=== PATIENT | female | born 1975 | race Two or more races ===

== ENCOUNTER 2020-05-13 14:56 | Outpatient (REF) | payer MEDICAID, SELFPAY ==
--- NOTE | 2020-05-13 | US_ITS ---
EXAMINATION: PELVIC ULTRASOUND CLINICAL INFORMATION: Right ovarian cyst COMPARISON: None TECHNIQUE: Transabdominal and transvaginal pelvic ultrasound was performed. Transvaginal exam was performed for better visualization of the uterus and ovaries. FINDINGS: The uterus is anteverted and measures 8.8 x 4.7 x 6.3 cm in dimension. There is a 2.1 x 1.5 x 1.5 cm hypoechoic lesion in the left anterior uterine body or lower uterine segment suggestive of a fibroid. No other focal uterine lesion is seen. Endometrial thickness is normal estimated at 0.7 cm. The ovaries are normal-appearing. The right ovary measures 3.3 x 3.3 x 1.1 cm and the left ovary measures 2.6 x 2.9 x 1.2 cm. There is no fluid in the pelvis. US/US pelvic complete IMPRESSION: Small uterine fibroid. Normal-appearing ovaries. No ovarian cyst is seen.
--- NOTE | 2020-05-13 | US_ITS ---
EXAMINATION: PELVIC ULTRASOUND CLINICAL INFORMATION: Right ovarian cyst COMPARISON: None TECHNIQUE: Transabdominal and transvaginal pelvic ultrasound was performed. Transvaginal exam was performed for better visualization of the uterus and ovaries. FINDINGS: The uterus is anteverted and measures 8.8 x 4.7 x 6.3 cm in dimension. There is a 2.1 x 1.5 x 1.5 cm hypoechoic lesion in the left anterior uterine body or lower uterine segment suggestive of a fibroid. No other focal uterine lesion is seen. Endometrial thickness is normal estimated at 0.7 cm. The ovaries are normal-appearing. The right ovary measures 3.3 x 3.3 x 1.1 cm and the left ovary measures 2.6 x 2.9 x 1.2 cm. There is no fluid in the pelvis. US/US transvaginal IMPRESSION: Small uterine fibroid. Normal-appearing ovaries. No ovarian cyst is seen.
== END 2020-05-13 14:57 | disposition home or self-care (01) ==
LOC: HO.US 14:56
PROVIDERS: PCP Internal Medicine Medical Oncology; Visit Provider Internal Medicine Medical Oncology
DX: N83.201 Unspecified ovarian cyst, right side (principal)
CPT/HCPCS: 76830; 76856

== ENCOUNTER 2021-03-25 10:44 | Outpatient (REF) | payer MEDICAID, SELFPAY ==
--- NOTE | ~2021-03-25 | FL_ITS ---
EXAMINATION: Upper GI air-contrast series CLINICAL INFORMATION: Right upper quadrant abdominal pain COMPARISON: None TECHNIQUE: Routine upper GI air-contrast study was performed in upright and lying position. FINDINGS: Following oral administration of thick barium and effervescent granules there is normal propagation bolus from the oral cavity through the pharynx, esophagus into stomach without any evidence of obstruction, narrowing or stricture. On placing patient supine and prone, the course, caliber and peristalsis of the stomach and the duodenum is normal there is mild gastroesophageal reflux into the distal esophagus. No hiatal hernia seen. The mucosal pattern of stomach and the duodenum is normal. FLUOROSCOPY TIME: 2.0 minutes DOSE AREA PRODUCT: 12.312 uGy-m2 (microgray-meter squared) FL/FL upper GI series IMPRESSION: Mild gastroesophageal reflux without hiatal hernia.
== END 2021-03-25 10:45 | disposition home or self-care (01) ==
LOC: HO.XRAY 10:44
PROVIDERS: Visit Provider Internal Medicine Medical Oncology
DX: R10.11 Right upper quadrant pain (principal); R19.7 Diarrhea, unspecified
CPT/HCPCS: 74240

== ENCOUNTER 2021-03-30 09:46 | Outpatient (REF) | payer MEDICAID, SELFPAY ==
--- NOTE | ~2021-03-30 | US_ITS ---
EXAMINATION: US ABDOMEN COMPLETE CLINICAL INFORMATION: Right upper quadrant pain. Diarrhea. COMPARISON: None. TECHNIQUE: Real-time imaging of the abdominal viscera. FINDINGS: PANCREAS: Normal. ABDOMINAL AORTA: The proximal, mid, and distal segments are normal in caliber. INFERIOR VENA CAVA: Visualized portions are normal. LIVER: The liver is normal in size. The liver contour is normal. Parenchymal echogenicity is normal. This septated right hepatic lobe cyst measuring 3.6 x 1.8 x 3.1 cm. There is no intrahepatic biliary duct dilatation seen. GALLBLADDER: The gallbladder is contracted. COMMON BILE DUCT: Normal in caliber measuring 0.14 cm in diameter. RIGHT KIDNEY: Normal. No hydronephrosis. No renal calculi or focal parenchymal lesions. The kidney measures 11.4 cm in maximum dimension. LEFT KIDNEY: No hydronephrosis or focal parenchymal lesions. The kidney measures 11.0 cm in maximum dimension. There is an echogenic stone in the upper pole measuring 0.26 x 0.19 x 0.24 cm. SPLEEN: Normal. The spleen measures 9.3 cm in maximum dimension. FREE FLUID: None. US/US abdomen complete IMPRESSION: Septated right hepatic lobe cyst. The gallbladder is contracted. Echogenic stone in upper pole measuring 0.26 cm.
== END 2021-03-30 09:47 | disposition home or self-care (01) ==
LOC: HO.HMGCX 09:46
PROVIDERS: Visit Provider Internal Medicine Medical Oncology
DX: R10.11 Right upper quadrant pain (principal); R19.7 Diarrhea, unspecified
CPT/HCPCS: 76700

== ENCOUNTER → 2021-04-28 07:45 | Outpatient (REF) | payer MEDICAID, SELFPAY ==
--- NOTE | ~2021-04-28 | NM_ITS ---
EXAMINATION: NM BILIARY TRACT WITH ORAL FATTY MEAL CLINICAL INFORMATION: Cholecystitis, abnormal weight loss. COMPARISON: No previous biliary scan is available for comparison. Abdominal ultrasound dated 03/30/2021 is available for comparison. TECHNIQUE: Serial gamma scintillation camera images were obtained over the abdomen for a total observation period of 120 minutes following the intravenous administration of 5.0 mCi Tc-99m Mebrofenin. FINDINGS: There is good concentration of activity in the liver by 5 minutes post injection. Biliary activity is visualized by 12 minutes and the gallbladder is well visualized by 20 minutes post injection. Bowel activity is well visualized by 30 minutes. At 60 minutes post Mebrofenin injection, 8 ounces of Ensure-plus Brand was administered orally and an additional 60 minutes of images were obtained. Only minimal gallbladder emptying is visualized following ingestion of the fatty meal. At the end of the study there is almost complete clearance of activity from the liver and visualization of diffuse small bowel activity, but there is prominent retention of activity in the gallbladder. The calculated gallbladder ejection fraction is 32% (normal gallbladder ejection fraction using Ensure supplement orally is greater than 33%). NM/NM hepatobiliary wo pharm IMPRESSION: 1. Visualization of the gallbladder is evidence of a patent cystic duct and strong evidence against the diagnosis of acute cholecystitis. The common bile duct is patent. Liver function appears normal. 2. Poor gallbladder emptying and a low gallbladder ejection fraction are evidence of impaired gallbladder contractility and most likely due to chronic cholecystitis.
== END ==
LOC: HO.NUCMED 07:45
PROVIDERS: Visit Provider Internal Medicine Medical Oncology
DX: K81.9 Cholecystitis, unspecified (principal)
CPT/HCPCS: 78226; A9537

== ENCOUNTER → 2021-06-25 16:16 | Outpatient (BNVA) | payer MEDICAID, SELFPAY | PROVIDERS: PCP Internal Medicine Medical Oncology; Visit Provider Nurse Practitioner | DX: R10.10 Upper abdominal pain, unspecified (principal); K82.8 Other specified diseases of gallbladder; K59.04 Chronic idiopathic constipation | CPT/HCPCS: 99202 ==

== ENCOUNTER 2021-07-11 07:46 | Outpatient (REF) | payer MEDICAID, SELFPAY ==
[2021-07-11 08:03] LABS: MANUAL DIFF FLAG NO
[2021-07-11 08:15] LABS: Basophils Percent Auto 0.5 % (0-2); Eosinophils Absolute Auto 0.3 X10*3/uL (0.0-0.4); Eosinophils Percent Auto 4.3 % (0-4); Hematocrit 39.1 % (37.0-47.0); Imm Gran Abs Auto 0.03 X10*3/uL (0.00-0.03); Imm Gran Pct Auto 0.5 % (0.0-0.4); Lymphocytes Absolute Auto 1.5 X10*3/uL (1.2-4.9); Lymphocytes Percent Auto 22.9 % (20-40); Mean Corpuscular HGB Conc 33.2 g/dl (31.0-35.0); Mean Corpuscular Hemoglobin 29.7 pg (27.0-33.0); Mean Corpuscular Volume 89.5 fL (80.0-98.0); Monocytes Absolute Auto 0.6 X10*3/uL (0.1-1.2); Monocytes Percent Auto 9.4 % (2-11); Neutrophils Absolute Auto 4.1 x10*3/uL (2.0-8.3); Neutrophils Percent Auto 62.4 % (45-73); Platelet Count 176 X10*3/uL (160-400); Red Blood Count 4.37 X10*6/uL (4.20-5.50); Red Cell Distribution Width 12.6 % (11.0-16.0); White Blood Count 6.5 X10*3/uL (4.8-10.8)
[2021-07-11 08:48] LABS: Alanine Aminotransferase < 6 U/L (0-31); Albumin Level 4.1 g/dL (3.5-5.0); Alkaline Phosphatase 48 U/L (39-117); Anion Gap 9 (12-20); Aspartate Amino Transferase 11 U/L (5-31); Bilirubin Total 0.4 mg/dL (0.0-1.0); Blood Urea Nitrogen 11 mg/dL (9-16); Calcium 9.7 mg/dL (8.4-10.2); Carbon Dioxide 27 mmol/L (22-29); Chloride 109 mmol/L (96-108); Estimated Glomerular Filt Rate > 60; Glucose Random 99 mg/dL (60-115); Lipase 46 U/L (8-78); Potassium 4.5 mmol/L (3.3-5.1); Sodium 140 mmol/L (135-145); Total Protein 6.5 g/dL (6.5-8.0)
[2021-07-11 09:05] LABS: TSH reflex Free T4 1.73 uIU/mL (0.32-4.0)
== END 2021-07-11 07:47 | disposition home or self-care (01) ==
LOC: HO.LAB 07:46
PROVIDERS: PCP Internal Medicine Medical Oncology; Visit Provider Nurse Practitioner
DX: R10.10 Upper abdominal pain, unspecified (principal); K82.8 Other specified diseases of gallbladder; K59.04 Chronic idiopathic constipation
CPT/HCPCS: 36415; 80053; 83690; 84443; 85025

== ENCOUNTER → 2021-07-14 15:57 | Outpatient (BNVA) | payer MEDICAID, SELFPAY | PROVIDERS: PCP Internal Medicine Medical Oncology; Referring Provider Internal Medicine Medical Oncology; Visit Provider Nurse Practitioner | DX: K59.04 Chronic idiopathic constipation (principal); R10.10 Upper abdominal pain, unspecified | CPT/HCPCS: 99212 ==

== ENCOUNTER 2021-09-30 16:34 | Outpatient (REF) | payer MEDICAID, SELFPAY ==
--- NOTE | ~2021-09-30 | MR_ITS ---
EXAMINATION: MR CERVICAL SPINE WITHOUT CONTRAST CLINICAL INFORMATION: 46-year-old with neck pain and cervical radicular symptoms with muscle spasm. COMPARISON: 06/02/2019 MRI TECHNIQUE: MRI of the cervical spine was obtained using routine sequences without contrast. FINDINGS: ALIGNMENT: There is 1 to 2 mm of anterolisthesis at C3-C4, which is a new finding and approximately 2 mm of anterolisthesis at C4-C5, unchanged. There is trace retrolisthesis at C5-C6. CRANIOCERVICAL JUNCTION/C1-C2 ARTICULATIONS: There is slight retrolisthesis at the left C1-C2 facet joint which is nonspecific and could be positional or related to muscle spasm. The occipitoatlantal joints are intact and aligned. VISUALIZED INTRACRANIAL STRUCTURES: Within normal limits. VERTEBRAL BODIES: Normal height. DISC SPACES AND ENDPLATES: Kqpq-cg-lwqoxlyw disc space height loss at C4-C5 and C5-C6 and ykczunft-ln-cfcnmv disc space height loss at C6-C7 with minor degrees of spondylosis at these levels and multilevel disc desiccation. Tiny Schmorl's nodes are noted at C5-C6 and C6-C7. BONE MARROW: No significant marrow replacing process. Subchondral marrow edema noted on both sides of the left C3-C4 facet joint consistent with active facet arthropathy. Mild degenerative endplate marrow signal changes are seen at C5-C6 and C6-C7. C2-C3: No disc herniation. Mild left-sided facet arthropathy noted. No canal or neural foraminal stenosis. C3-C4: Slight unroofing of the posterior disc margin and a tiny central disc protrusion with minimal indentation of the ventral thecal sac without cord impingement or canal stenosis. Severe left-sided and huxpyqam-zt-vcdoim right-sided facet arthropathy with marrow edema on both sides of the left facet joint with associated periarticular soft tissue edema consistent with active inflammatory changes. No significant neural foraminal stenosis. C4-C5: Unroofing of the posterior disc margin noted with slight flattening of the ventral dural sac without cord impingement or canal stenosis. Srevjube-mm-cquiol bilateral facet arthropathy is noted without significant neural foraminal stenosis. C5-C6: Broad-based central to right paramedian disc protrusion noted, with gmjz-uq-whpuclap flattening of the dural sac, asymmetric to the right, without cord impingement or canal stenosis. Moderate facet arthropathy bilaterally noted with minor uncinate process spurring without significant neural foraminal stenosis. C6-C7: Broad-based central to left paramedian disc herniation noted with mrgl-or-ujudxbsa flattening of the dural sac, asymmetric to the left, without cord impingement. Uncovertebral spurring noted, left more than right, with neic-jo-kkncuxzp facet arthropathy bilaterally and moderate left-sided neural foraminal stenosis without canal stenosis. C7-T1: Small central disc protrusion with minimal indentation of the ventral thecal sac without cord impingement. Minor facet arthrosis on the left. No canal or neural foraminal stenosis. T1-T2: No disc herniation or canal stenosis. Qrue-am-grxpfueo facet arthropathy, left more than right. No canal or neural foraminal stenosis. Small central disc protrusions are noted at T2-T3 and T3-T4 without cord impingement or canal stenosis. SPINAL CORD: The cervical and visualized upper thoracic spinal cord is normal in morphology, caliber and signal intensity throughout. EXTRACRANIAL SOFT TISSUES: Grossly unremarkable within the limitations of the exam. MR/MR cervical spine wo con IMPRESSION: 1. Multilevel discogenic degenerative changes and spondylosis primarily between C4-C5 and C6-C7 inclusive, with disc herniations at C5-C6 and C6-C7 without spinal cord impingement or spinal canal stenosis. 2. Multilevel bilateral facet arthropathy and uncovertebral spurring with active inflammatory changes at the left C3-C4 facet joint, progressed from previous study. There has been improvement of inflammatory changes at the right C3-C4 facet joint since prior exam. Moderate left-sided neural foraminal stenosis is noted at C6-C7. 3. Comparison to the study from 06/02/2019 demonstrates a slight improvement to the left paramedian component of the disc protrusion at C6-C7 but otherwise essentially no interval change aside from new mild anterolisthesis at C3-C4.
== END 2021-09-30 16:35 | disposition home or self-care (01) ==
LOC: HO.MRI 16:34
PROVIDERS: Visit Provider Internal Medicine Medical Oncology
DX: M54.12 Radiculopathy, cervical region (principal)
CPT/HCPCS: 72141

== ENCOUNTER 2022-01-01 08:50 | Outpatient (REF) | payer MEDICAID, SELFPAY ==
--- NOTE | ~2022-01-01 | FL_ITS ---
EXAMINATION: FL BARIUM SWALLOW CLINICAL INFORMATION: Dysphagia, burning sensation base of the throat. COMPARISON: Upper GI series 03/25/2021. TECHNIQUE: Barium swallow examination is performed using fluoroscopic evaluation in addition to multiple fluoroscopic spot views, including cine images during swallowing. The patient is imaged both upright and prone and using both thick and thin sulfate along with effervescent granules. Fluoroscopy time: 1.1 minutes DAP: 2.359 Gycm2 Images: 33 FINDINGS: Swallowing function is normal and there is no aspiration. The cervical esophagus has no web or diverticulum or stricture. The cervical thoracic junction appears normal. The thoracic esophagus shows normal motility with no obstruction, stricture, or ulceration. There is physiologic herniation esophagogastric junction during the prone Valsalva maneuver. No overt hernia. There is spontaneous gastroesophageal reflux during fluoroscopy to proximal thoracic esophagus. FL/FL barium swallow IMPRESSION: -Spontaneous gastroesophageal reflux to proximal thoracic esophagus. -Borderline physiologic herniation esophagogastric junction during prone Valsalva maneuver. No overt hiatal hernia. No ulceration or scarring.
== END 2022-01-01 08:51 | disposition home or self-care (01) ==
LOC: HO.XRAY 08:50
PROVIDERS: PCP Internal Medicine Medical Oncology; Visit Provider Internal Medicine Medical Oncology
DX: R13.10 Dysphagia, unspecified (principal)
CPT/HCPCS: 74220

== ENCOUNTER 2022-11-22 15:18 | Outpatient (AMB) | payer BC, SELFPAY ==
--- NOTE | 2022-11-22 15:24 | MHC.OFFVIS ---
Intake Vital Signs 11/22/22 15:25 Height 5 ft Weight 129 lb BMI 25.2 BP 119/68 Blood Pressure Location Lt brachial Position Sitting Respiration 14 Pulse 58 Pulse Source Pulse Oximeter Pulse Oximetry (%) 98 Oxygen Delivery Method Room Air Intake Visit Reasons: Cervical Disc Disease w/ Radiculopathy Allergies No Known Allergies Allergy (Verified 11/22/22 15:26) Medication List - Last Reconciled 11/22/22 by Li Patino LPN duloxetine 20 mg PO BID linaclotide (Linzess) 145 mcg PO QAM naproxen 500 mg PO BID HPI Cervical Disc Disease w/ Radiculopathy HPI Details 47-year-old female presenting with a two-year history of neck pain without any known precipitating cause. The pain is described as a burning and aching sensation associated with some tingling as well as numbness mostly localized to the axial neck. Her pain is worse on the right side most of the time; it is between 5-7/10, but it goes up to 9/10 in intensity, and it is worst at night and when she first wakes up. She is unable to sleep normally or do her daily activities. She is unable to care for herself. 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 She's had physical therapy at [facility] last year for her neck and shoulders, but it was not helpful. She sometimes needs help bathing. She had trigger point injections at [facility] on her left trapezius, which were too painful and did not help. She was taking her oxycodone at 5 milligrams prescribed by her PCP but is no longer taking those. The patient lives alone but has social support with frequent visits by her kids. [facility] Medical History (Updated 11/23/22 @ 10:44 by Sukhjinder Morris MD) Anxiety Cervical radiculopathy Depression, unspecified Esophageal motility disorder GERD (gastroesophageal reflux disease) Hepatic cyst Herniated intervertebral disc of lumbar spine Hiatal hernia PTSD (post-traumatic stress disorder) Tobacco dependence Surgical History (Updated 06/25/21 @ 16:28 by MALCOM Dodson) History of endoscopy Review of Systems Const All systems reviewed & are unremarkable except as noted in HPI and below Physical Exam Vital Signs: Last Vital Signs Pulse 58 11/22/22 15:25 Resp 14 11/22/22 15:25 BP 119/68 11/22/22 15:25 Pulse Ox 98 11/22/22 15:25 Oxygen Delivery Method Room Air 11/22/22 15:25 BMI result Body Mass Index 25.2 General: Appears afebrile. Alert and oriented. Mood and affect appropriate. Follows and participates in conversation appropriately. Respiratory effort is unlabored. Able to transition from sit to stand unassisted. Ambulates with bilaterally normal heel strike and toe off. Cervical spine: There is exquisite tenderness to palpation on the right cervical paraspinal region. Tenderness to palpation overlying the right trapezius muscle. Neck extension reproduces pain on right side. Cervical facet loading is positive on the right. Results Reviewed Results Reviewed: MR CERVICAL SPINE WITHOUT CONTRAST FINDINGS: ALIGNMENT: There is 1 to 2 mm of anterolisthesis at C3-C4, which is a new finding and approximately 2 mm of anterolisthesis at C4-C5, unchanged. There is trace retrolisthesis at C5-C6. CRANIOCERVICAL JUNCTION/C1-C2 ARTICULATIONS: There is slight retrolisthesis at the left C1-C2 facet joint which is nonspecific and could be positional or related to muscle spasm. The occipitoatlantal joints are intact and aligned. VISUALIZED INTRACRANIAL STRUCTURES: Within normal limits. VERTEBRAL BODIES: Normal height. DISC SPACES AND ENDPLATES: Aaiq-ky-hdenfsrk disc space height loss at C4-C5 and C5-C6 and quhepobx-nn-gxavro disc space height loss at C6-C7 with minor degrees of spondylosis at these levels and multilevel disc desiccation. Tiny Schmorl's nodes are noted at C5-C6 and C6-C7. BONE MARROW: No significant marrow replacing process. Subchondral marrow edema noted on both sides of the left C3-C4 facet joint consistent with active facet arthropathy. Mild degenerative endplate marrow signal changes are seen at C5-C6 and C6-C7. C2-C3: No disc herniation. Mild left-sided facet arthropathy noted. No canal or neural foraminal stenosis. C3-C4: Slight unroofing of the posterior disc margin and a tiny central disc protrusion with minimal indentation of the ventral thecal sac without cord impingement or canal stenosis. Severe left-sided and pgvhlfvc-id-hgtpni right-sided facet arthropathy with marrow edema on both sides of the left facet joint with associated periarticular soft tissue edema consistent with active inflammatory changes. No significant neural foraminal stenosis. C4-C5: Unroofing of the posterior disc margin noted with slight flattening of the ventral dural sac without cord impingement or canal stenosis. Lsixakaf-rk-awiikk bilateral facet arthropathy is noted without significant neural foraminal stenosis. C5-C6: Broad-based central to right paramedian disc protrusion noted, with csrj-ip-ykmhzocu flattening of the dural sac, asymmetric to the right, without cord impingement or canal stenosis. Moderate facet arthropathy bilaterally noted with minor uncinate process spurring without significant neural foraminal stenosis. C6-C7: Broad-based central to left paramedian disc herniation noted with mrmm-nx-thhsrlnr flattening of the dural sac, asymmetric to the left, without cord impingement. Uncovertebral spurring noted, left more than right, with cxql-va-oubbpviu facet arthropathy bilaterally and moderate left-sided neural foraminal stenosis without canal stenosis. C7-T1: Small central disc protrusion with minimal indentation of the ventral thecal sac without cord impingement. Minor facet arthrosis on the left. No canal or neural foraminal stenosis. T1-T2: No disc herniation or canal stenosis. Ojen-vc-vkfsragr facet arthropathy, left more than right. No canal or neural foraminal stenosis. Small central disc protrusions are noted at T2-T3 and T3-T4 without cord impingement or canal stenosis. SPINAL CORD: The cervical and visualized upper thoracic spinal cord is normal in morphology, caliber and signal intensity throughout. EXTRACRANIAL SOFT TISSUES: Grossly unremarkable within the limitations of the exam. IMPRESSION: 1. Multilevel discogenic degenerative changes and spondylosis primarily between C4-C5 and C6-C7 inclusive, with disc herniations at C5-C6 and C6-C7 without spinal cord impingement or spinal canal stenosis. 2. Multilevel bilateral facet arthropathy and uncovertebral spurring with active inflammatory changes at the left C3-C4 facet joint, progressed from previous study. There has been improvement of inflammatory changes at the right C3-C4 facet joint since prior exam. Moderate left-sided neural foraminal stenosis is noted at C6-C7. 3. Comparison to the study from 06/02/2019 demonstrates a slight improvement to the left paramedian component of the disc protrusion at C6-C7 but otherwise essentially no interval change aside from new mild anterolisthesis at C3-C4. Assessment & Plan Assessment & Plan (1) Cervical spondylosis: Code(s): M47.812 - Spondylosis without myelopathy or radiculopathy, cervical region (2) Degeneration of intervertebral disc of cervical region: Code(s): M50.30 - Other cervical disc degeneration, unspecified cervical region Plan 1. Discussed cervical facet injection vs. RFA vs. temporary nerve stimulator as possible treatment options. While she has evidence of intervertebral disc degeneration on her MRI, there is no neural foraminal or central canal stenosis. She also does not have any symptoms of cervical radiculitis. Therefore her symptoms are likely to be mostly secondary to cervical spondylosis. 2. Will schedule her for a C4-C5-C6 medial branch blocks on the right side in anticipation of potential cervical medial branch nerve stimulator placement. Discussed the risks and benefits of the procedure with the patient in detail. All questions were answered. The patient is on board with the plan. A nerve stimulator information brochure was provided to the patient. Justification for interventional therapy: ? Patient with average pain > 6/10 ? Patient has exhausted conservative therapy. Scribed for Dr. Morris by Jose Burns, manager medical device, on 11/22/2022. I, Dr. Morris, have personally reviewed and agree with the information entered by the scribe. Coding Level of Care Code New Pt Level 4 (05475) Diagnoses Cervical spondylosis M47.812 Degeneration of intervertebral disc of cervical region M50.30
[2022-11-22 15:25] VITALS: BP 119/68; PULSE 58; RESP 14; O2SAT 98; BMI 25.2
== END 2022-11-22 16:26 | disposition home or self-care (01) ==
PROVIDERS: PCP Internal Medicine Medical Oncology; Visit Provider Internal Medicine
DX: M47.812 Spondylosis without myelopathy or radiculopathy, cervical region (principal); M50.30 Other cervical disc degeneration, unspecified cervical region
CPT/HCPCS: 99204

== ENCOUNTER → 2022-11-22 15:18 | Outpatient (BNVA) | payer BC, SELFPAY | PROVIDERS: PCP Internal Medicine Medical Oncology; Visit Provider Internal Medicine | DX: M47.812 Spondylosis without myelopathy or radiculopathy, cervical region (principal); M50.30 Other cervical disc degeneration, unspecified cervical region | CPT/HCPCS: 99202 ==

== ENCOUNTER 2022-12-22 06:04 | Outpatient (REF) | payer BC, SELFPAY ==
--- NOTE | ~2022-12-22 | FL_ITS ---
EXAMINATION: XR FLUOROSCOPY WITH IMAGES CLINICAL INFORMATION: Spondylosis without myelopathy or radiculopathy, cervical region. COMPARISON: MRI cervical spine 06/02/2019. TECHNIQUE: Fluoroscopy Supervised By: Dr. Morris. Fluoroscopy Time: 0.3 minutes. Cumulative Dose: 1.92 mGy. DAP: 0.221 Gycm2. Images: 2. FINDINGS: 2 images demonstrate needles overlying the right-sided facets at most likely C4 through C6, although this is difficult to ascertain from the included views. Contrast is injected. Please see Dr. Morris's report for full details. FL/FL guidance in treatment room IMPRESSION: Fluoroscopy provided for cervical spine injection.
== END 2022-12-22 06:05 | disposition home or self-care (01) ==
LOC: CF 06:04
PROVIDERS: Visit Provider Internal Medicine
DX: M47.812 Spondylosis without myelopathy or radiculopathy, cervical region (principal); M50.30 Other cervical disc degeneration, unspecified cervical region
CPT/HCPCS: 64490; 64491

== ENCOUNTER 2022-12-22 09:38 | Outpatient (AMB) | payer BC, SELFPAY ==
[2022-12-22 09:50] VITALS: BP 102/68; PULSE 75; RESP 14; O2SAT 99
--- NOTE | 2022-12-22 09:50 | MHC.OFFVIS ---
Intake Vital Signs 12/22/22 09:50 12/22/22 10:40 BP 102/68 120/60 Blood Pressure Location Lt brachial Rt brachial Position Sitting Sitting Respiration 14 14 Pulse 75 62 Pulse Source Pulse Oximeter Pulse Oximeter Pulse Oximetry (%) 99 99 Oxygen Delivery Method Room Air Room Air Intake Visit Reasons: Right Dx C4-C5-C6 MBB Allergies No Known Allergies Allergy (Verified 11/22/22 15:26) HPI Right Dx C4-C5-C6 MBB HPI Details Patient presents for scheduled procedure. Denies any recent cough, cold, infection, fever or other significant changes in medical history since last office visit. [facility] Medical History (Updated 11/23/22 @ 10:44 by Sukhjinder Morris MD) Anxiety Cervical radiculopathy Depression, unspecified Esophageal motility disorder GERD (gastroesophageal reflux disease) Hepatic cyst Herniated intervertebral disc of lumbar spine Hiatal hernia PTSD (post-traumatic stress disorder) Tobacco dependence Surgical History (Updated 06/25/21 @ 16:28 by MALCOM Dodson) History of endoscopy Physical Exam Vital Signs: Last Vital Signs Pulse 75 12/22/22 09:50 Resp 14 12/22/22 09:50 BP 102/68 12/22/22 09:50 Pulse Ox 99 12/22/22 09:50 Oxygen Delivery Method Room Air 12/22/22 09:50 Office Procedures Cervical/Thoracic Facet Inj Details: Diagnostic Cervical Medial Branch Block, Right C4, C5, C6 medial branches After obtaining written consent, pre-procedure blood pressure and pulse were recorded and are in the nursing record for review. The patient was placed in a lateral position. The respective cervical area was prepped with chloraprep and draped in sterile fashion. The skin over the target medial branch nerves was anesthetized with 0.5% lidocaine. A 25 gauge 1.5 inch needle was inserted into the target medial branch nerve under fluoroscopic guidance. No paresthesias were elicited with needle placement and aspiration was negative for blood and CSF. Next, 0.2cc of Isovue 300 mg/ml was injected to verify positioning. Next 0.5 ml 0.5% ropivicaine was injected (0.5 cc total per level). The identical procedure was performed at the remaining levels. The skin was cleansed and a sterile bandage was applied. Following the procedure the patient's vital signs were stable. The patient tolerated the procedure well and no complications were encountered. Following the procedure the patient's vital signs were stable. The patient was discharged home in good condition with post-procedural instructions. Time Out: Immediately prior to the procedure, the following was verbally confirmed that there is a signed consent form and that the correct patient, planned procedure, site and side are consistent with documentation and that necessary equipment and/or blood products are available prior to the start of the case. Complications: none EBL: <5 cc 37245 - second level, with Fluoroscopy Procedure code (CPT) selection complete Results Reviewed Results Reviewed: 12/22/22 09:44 LORazepam [Ativan] 1 mg .ROUTE .[facility] Assessment & Plan Assessment & Plan (1) Cervical spondylosis: Code(s): M47.812 - Spondylosis without myelopathy or radiculopathy, cervical region Plan Patient is status post right C4, C5, C6 MBB. Patient tolerated procedure well and was discharged home in stable condition with discharge instructions. All questions were answered. We will follow-up via telephone or in clinic to assess response to therapy. A follow-up appointment was made during today's visit. Orders: Orders FL guidance in treatment room Today M47.812 - Spondylosis without myelopathy or radiculopathy, cervical region, M50.30 - Other cervical disc degeneration, unspecified cervical region Coding Level of Care Code Procedure Only Diagnoses Cervical spondylosis M47.812 CPT Codes Facet Injection Cervical/Thoracic - CPT: 29999 - second level, with Fluoroscopy ([id number])
[2022-12-22 10:40] VITALS: BP 120/60; PULSE 62; RESP 14; O2SAT 99
== END 2022-12-22 11:00 | disposition home or self-care (01) ==
PROVIDERS: PCP Internal Medicine Medical Oncology; Visit Provider Internal Medicine
DX: M47.812 Spondylosis without myelopathy or radiculopathy, cervical region (principal)
CPT/HCPCS: 64490; 64491

== ENCOUNTER 2022-12-27 10:56 | Outpatient (AMB) | payer BC, SELFPAY ==
[2022-12-27 11:08] VITALS: BP 122/74; PULSE 71; RESP 14; BMI 24.8
--- NOTE | 2022-12-27 11:08 | A.OFFVIS_ITS ---
Intake Vital Signs 12/27/22 11:08 Height 5 ft Weight 127 lb BMI 24.8 BP 122/74 Blood Pressure Location Lt brachial Position Sitting Respiration 14 Pulse 71 Pulse Source Pulse Oximeter Intake Visit Reasons: s/p Right C4-C5-C6 MBB Allergies No Known Allergies Allergy (Verified 12/27/22 11:08) Medication List - Last Reconciled 12/27/22 by Li Patino LPN naproxen 500 mg PO BID HPI s/p Right C4-C5-C6 MBB HPI Details 47-year-old female presenting today for a status post right C4-C5-C6 MBB. The patient reports 100% relief following the procedure for one day. The pain has returned to the baseline as it was before the procedure. Her pain is localized in the shoulder region. On the last visit, we discussed cervical medial branch nerve stimulator placement as a treatment option. The patient is amenable to proceed with it. She took lorazepam before the last procedure for her anxiety, with moderate benefits. Past procedures: 12/22/22: Diagnostic Cervical Medial Branch Block, Right C4, C5, C6 medial branches: 100% relief for one day. [facility] Medical History (Updated 12/27/22 @ 15:07 by Sukhjinder Morris MD) Anxiety Cervical radiculopathy Depression, unspecified Esophageal motility disorder GERD (gastroesophageal reflux disease) Hepatic cyst Herniated intervertebral disc of lumbar spine Hiatal hernia PTSD (post-traumatic stress disorder) Tobacco dependence Surgical History (Updated 06/25/21 @ 16:28 by MALCOM Dodson) History of endoscopy Review of Systems Const All systems reviewed & are unremarkable except as noted in HPI and below Physical Exam Vital Signs: Last Vital Signs Pulse 71 12/27/22 11:08 Resp 14 12/27/22 11:08 BP 122/74 12/27/22 11:08 BMI result Body Mass Index 24.8 General: Appears afebrile. Alert and oriented. Mood and affect appropriate. Follows and participates in conversation appropriately. Respiratory effort is unlabored. Able to transition from sit to stand unassisted. Ambulates with bilaterally normal heel strike and toe off. Results Reviewed Results Reviewed: No imaging is available for review. Assessment & Plan Assessment & Plan (1) Degeneration of intervertebral disc of cervical region: Code(s): M50.30 - Other cervical disc degeneration, unspecified cervical region (2) Cervical spondylosis: Code(s): M47.812 - Spondylosis without myelopathy or radiculopathy, cervical region (3) Intractable pain: Code(s): R52 - Pain, unspecified Plan Discussed temporary nerve stimulators vs. RFA as possible treatment options. Will schedule her for right C4 medial branch nerve stimulator placement. Discussed the risks and benefits of the procedure with the patient in detail. All questions were answered. The patient is on board with the plan. We will file a PA and will keep her updated. If the insurance company declines the appeal, we will consider the RFA. A prescription of lorazepam was provided to the patient for her anxiety. Advised to take one tablet 30 minutes prior to the procedure. Justification for interventional therapy: ? Patient with average pain > 6/10 ? Patient has exhausted conservative therapy ? Patient continuing home exercise program ? diagnostic injection provided >100% relief for [address] Morris by Jose Burns, manager medical writing, on 12/27/2022. I, Dr. Morris, have personally reviewed and agree with the information entered by the scribe. Medications: New lorazepam 2 mg PO DAILY PRN 1 tab 0RF anxiety Coding Level of Care Code Est Pt Level 3 (95659) Diagnoses Degeneration of intervertebral disc of cervical region M50.30 Cervical spondylosis M47.812 Intractable pain R52
== END 2022-12-27 11:20 | disposition home or self-care (01) ==
PROVIDERS: PCP Internal Medicine Medical Oncology; Visit Provider Internal Medicine
DX: M50.30 Other cervical disc degeneration, unspecified cervical region (principal); M47.812 Spondylosis without myelopathy or radiculopathy, cervical region; G89.29 Other chronic pain
CPT/HCPCS: 99213

== ENCOUNTER → 2022-12-27 10:56 | Outpatient (BNVA) | payer BC, MEDICAID, SELFPAY | PROVIDERS: PCP Internal Medicine Medical Oncology; Visit Provider Internal Medicine ==

== ENCOUNTER 2022-12-31 05:29 | Outpatient (REF) | payer BC, MEDICAID, SELFPAY | END 2022-12-31 05:30 | disposition home or self-care (01) | LOC: HO.HOSX 05:29 | PROVIDERS: Visit Provider Physician Assistant | DX: Z13.89 Encounter for screening for other disorder (principal) ==

== ENCOUNTER 2023-01-05 07:31 | Outpatient (REF) | payer BC, OTHER, SELFPAY ==
--- NOTE | ~2023-01-05 | XR_ITS ---
EXAMINATION: XR HIP, LEFT CLINICAL INFORMATION: Pain left hip COMPARISON: None available. TECHNIQUE: Single view of the pelvis single view of the left hip FINDINGS: No acute visible fracture or dislocation. Degenerative changes of the bilateral femoral acetabular joints, left greater than right with periarticular osteophyte along the superior lateral margin of the left acetabular roof. Joint spaces and alignment are otherwise maintained. Soft tissues are unremarkable. Bowel gas is unremarkable. Pelvic phleboliths are noted. XR/XR hip LT min 2V IMPRESSION: 1. No acute visible fracture or dislocation. 2. Degenerative changes of the bilateral femoral acetabular joints, left greater than right.
== END 2023-01-05 07:32 | disposition home or self-care (01) ==
LOC: HO.HOSX 07:31
PROVIDERS: Visit Provider Orthopaedic Surgery
DX: S73.192A Other sprain of left hip, initial encounter (principal)
CPT/HCPCS: 73502

== ENCOUNTER 2023-01-05 15:15 | Outpatient (AMB) | payer BC, SELFPAY ==
--- NOTE | 2023-01-05 15:23 | A.OFFVIS_ITS ---
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 She describes her pain as sharp and severe in nature. Her pain has limited her ability to exercise over the last year. She has done physical therapy for 12 weeks over the last 6 months which aggravated her pain. She has also tried Tylenol and anti-inflammatory medicines which gave her minimal relief. Most of the pain is located within her left groin. She denies any numbness or tingling in either of her legs. Allergies No Known Allergies Allergy (Verified 01/05/23 15:27) Medication List - Last Reconciled 01/06/23 by Anthony Lee MD No Known Home Meds [facility] Medical History (Updated 01/06/23 @ 07:47 by Anthony Lee MD) Anxiety Cervical radiculopathy Depression, unspecified Esophageal motility disorder GERD (gastroesophageal reflux disease) Hepatic cyst Herniated intervertebral disc of lumbar spine Hiatal hernia PTSD (post-traumatic stress disorder) Tobacco dependence Surgical History (Updated 06/25/21 @ 16:28 by MALCOM Dodson) History of endoscopy Social History (Updated 01/05/23 @ 15:28 by Jose Armando Currie) Alcohol intake: never Patient Tobacco Use Status: Never used Tobacco Current occupational status: employed 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 Physical Exam Const Other: Well-nourished well-developed very friendly female awake alert and oriented x3 in no acute distress Extrem Other: Bilateral lower extremity examination shows good capillary refill, no skin lesions noted, normal sensation light touch Left hip examination shows decreased range of motion when compared to her right hip, pain with range of motion, increased pain forward flexion and internal rotation, no tenderness over her bursa Results Reviewed Results Reviewed: X-rays of the patient's left hip show mild diffuse joint space narrowing, no acute bony abnormalities Assessment & Plan Assessment & Plan (1) Acetabular labrum tear: Code(s): S73.199A - Other sprain of unspecified hip, initial encounter Plan: Ms. Alexander presents with progressively worsening left hip pain possibly due to a labral tear. Thus, I will send the patient for an MRI arthrogram of her left hip for further evaluation. I will see her back once the MRI is completed to discuss the findings and treatment options. Feel free to call me at any time should questions regarding her orthopedic management arise. Thank you very much for asking me to see this very friendly patient. I spent 22 minutes in reviewing the patient's records and imaging studies, seeing the patient and documenting in the medical record. Orders: Orders XR hip LT min 2V 01/05/23 M25.552 - Pain in left hip MR hip LT w con Today S73.199A - Other sprain of unspecified hip, initial encounter FL arthrogram hip LT Today S73.199A - Other sprain of unspecified hip, initial encounter Coding Level of Care Code New Pt Level 2 (16526) Diagnoses Acetabular labrum tear S73.199A
== END 2023-01-05 15:43 | disposition home or self-care (01) ==
PROVIDERS: PCP Internal Medicine Medical Oncology; Visit Provider Orthopaedic Surgery
DX: S73.199A Other sprain of unspecified hip, initial encounter (principal)
CPT/HCPCS: 99202

== ENCOUNTER 2023-03-07 12:31 | Outpatient (REF) | payer BC, SELFPAY ==
--- NOTE | ~2023-03-07 | MR_ITS ---
EXAMINATION: MR HIP WITH CONTRAST, LEFT CLINICAL INFORMATION: Left hip pain. Evaluate for a labral tear. COMPARISON: Left hip fluoroscopic arthrography done earlier the same day. Left hip radiographs dated 01/05/2023. TECHNIQUE: MRI of the left hip was performed after the intra-articular administration of a dilute gadolinium-containing solution on a high-field scanner. FINDINGS: ACETABULAR LABRUM: No contrast extending into the labral tissue to suggest undersurface labral tearing. ARTICULAR CARTILAGE/BONE: Intact articular cartilage. No stress reaction, fracture, or avascular necrosis. No concerning lytic or blastic osseous lesion. The alpha angle equals approximately 48 degrees as measured at the 3:00 position on the sagittal oblique images. The acetabular depth is within normal limits. MUSCLES/TENDONS: The visualized flexor and extensor muscles and tendons are intact. JOINT FLUID/BURSA: Mild edema/trace fluid adjacent to the greater trochanter bursa, consistent with minimal bursitis. INTRAPELVIC STRUCTURES: Unremarkable. MR/MR hip LT w con IMPRESSION: 1. No labral tear. 2. No stress reaction, fracture, or avascular necrosis. 3. Minimal greater trochanteric bursitis.
--- NOTE | ~2023-03-07 | FL_ITS ---
Left hip arthrogram Indications: Left hip pain. Intra-articular gadolinium injection is needed prior to MRI. Procedure: Risks and benefits and possible complications were discussed with the patient and the consent form was signed. The patient was placed supine on the fluoroscopy table. The left hip was prepped and draped in normal sterile fashion. 1% buffered lidocaine was used for anesthesia. A 22-gauge spinal needle was used to access the hip joint. Intra-articular position of the needle within the hip joint was verified using 3 cc of Omnipaque 300. A total of 12 mL of gadolinium/saline (1:200) contrast mixture was then injected into the hip joint. The needle was then removed and a Band-Aid was applied to the injection site. The patient tolerated the procedure well and was sent for to MRI. There were no immediate complications. Refer to the subsequent MRI for detailed MRI findings. FL/FL arthrogram hip LT Impression: Successful intra-articular injection of contrast left hip. The procedure was performed by Kamron Alvarado PA-C, and directly supervised by Dr. Peacock.
[2023-03-07] MEDS: gadobutroL 2 ML VIAL IVPUSH (15:07)
== END 2023-03-07 12:32 | disposition home or self-care (01) ==
LOC: HO.XRAY 12:31
PROVIDERS: PCP Internal Medicine Medical Oncology; Visit Provider Orthopaedic Surgery
DX: S73.192A Other sprain of left hip, initial encounter (principal)
CPT/HCPCS: 27093; 73525; 73722; A9585

== ENCOUNTER → 2023-03-07 12:33 | Outpatient (BNV) | payer BC, SELFPAY | PROVIDERS: PCP Internal Medicine Medical Oncology; Visit Provider Radiology Diagnostic Radiology | DX: M25.552 Pain in left hip (principal) | CPT/HCPCS: 27093; 73525 ==

== ENCOUNTER 2023-03-16 14:25 | Outpatient (AMB) | payer BC, SELFPAY ==
--- NOTE | 2023-03-16 14:33 | MHC.OFFVIS ---
Intake Vital Signs 03/16/23 14:35 Height 5 ft Weight 127 lb BMI 24.8 Intake Visit Reasons: ov- MRI Hip LT review Intake Note: Marquita is a 48 year old female who presents today for a MRI review of her left hip. The patient describes her left hip pain as sharp in nature. Most of the pain is along the lateral aspect of her left hip. She denies any groin pain. She states that she did have a cortisone injection given into her left hip bursa several years ago. She got fairly good relief from that injection. She has tried Tylenol and anti-inflammatory medicines which gave her minimal relief. She has also done physical therapy exercises which aggravated her pain. Allergies No Known Allergies Allergy (Verified 03/16/23 14:36) Medication List - Last Reconciled 03/16/23 by Anthony Lee MD No Known Home Meds [facility] Medical History (Updated 03/16/23 @ 14:54 by Anthony Lee MD) Cervical radiculopathy Tobacco dependence Hiatal hernia Esophageal motility disorder Hepatic cyst Anxiety Herniated intervertebral disc of lumbar spine PTSD (post-traumatic stress disorder) GERD (gastroesophageal reflux disease) Depression, unspecified Surgical History (Updated 06/25/21 @ 16:28 by MALCOM Dodson) History of endoscopy Social History (Updated 01/05/23 @ 15:28 by Jose Armando Currie) Alcohol intake: never Patient Tobacco Use Status: Never used Tobacco Current occupational status: employed 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 Physical Exam Vital Signs: BMI result Body Mass Index 24.8 Const Other: Well-nourished well-developed very friendly female awake alert and oriented x3 in no acute distress Extrem Other: Bilateral lower extremity examination shows good capillary refill, no skin lesions noted, normal sensation light touch Left hip examination shows full range of motion when compared to her right hip, mild discomfort with range of motion, tenderness over her bursa, no overlying skin lesions Office Procedures Joint Injection/Drain Joint Injection/Drain Primary Site: other (Left hip greater trochanteric bursa) Prep: site was prepped using aseptic technique Injected: 40 mg of, Kenalog and 1% plain lidocaine Procedure: The patient tolerated the procedure well Coding 33710 - Large joint Procedure code (CPT) selection complete Results Reviewed Results Reviewed: 03/16/23 14:37 Lidocaine HCl 2 % MPF [Xylocaine 2 % MPF] 5 ml .ROUTE .STK-MED ONE Triamcinolone Acetonide [Kenalog-40] 40 mg .ROUTE .STK-MED ONE MRI arthrogram of the patient's left hip shows minimal diffuse joint space narrowing, no labral tearing, no evidence of avascular necrosis, mild greater trochanteric bursa inflammation Assessment & Plan Assessment & Plan (1) Trochanteric bursitis, left hip: Code(s): M70.62 - Trochanteric bursitis, left hip Plan Ms. Alexander presents with left hip pain due to greater trochanteric bursitis. I had a lengthy discussion with the patient regarding the treatment options. The risks and benefits of a cortisone injection were discussed at length with the patient. The patient wished to proceed. She tolerated the injection well. Activity modifications were discussed at length with the patient. She will follow up with me on an as-needed basis should her symptoms not plateau at an unacceptable level over the next few months. Feel free to call me at any time should questions regarding her orthopedic management arise. I spent 22 minutes in reviewing the patient's records and imaging studies, seeing the patient and documenting in the medical record. Orders: Orders AMB Joint Injection/Aspiration 03/16/23 M70.62 - Trochanteric bursitis, left hip Coding Level of Care Code Est Pt Level 2 (87983) Diagnoses Trochanteric bursitis, left hip M70.62 CPT Codes Coding - Large joint: 03228 - Large joint ([id number])
[2023-03-16 14:35] VITALS: BMI 24.8
== END 2023-03-16 14:53 | disposition home or self-care (01) ==
PROVIDERS: PCP Internal Medicine Medical Oncology; Visit Provider Orthopaedic Surgery
DX: M70.62 Trochanteric bursitis, left hip (principal)
CPT/HCPCS: 20610; 99213

== ENCOUNTER → 2023-03-16 14:25 | Outpatient (BNVA) | payer BC, SELFPAY | PROVIDERS: PCP Internal Medicine Medical Oncology; Visit Provider Orthopaedic Surgery | DX: M70.62 Trochanteric bursitis, left hip (principal) | CPT/HCPCS: 20610; J3301 ==

== ENCOUNTER 2023-04-13 09:44 | Day surgery (SDC) | payer BC, SELFPAY ==
--- NOTE | ~2023-04-13 | FL_ITS ---
EXAMINATION: XR FLUOROSCOPY WITH IMAGES CLINICAL INFORMATION: C4 medial branch block. COMPARISON: None available. TECHNIQUE: Fluoroscopy Supervised By: Dr. Sukhjinder Morris. Fluoroscopy Time: 0.2 minutes. Cumulative Dose: 1.95 mGy. DAP: 0.289 Gycm2. Images: 3. FINDINGS: Initial image demonstrate a lead or electrode projecting adjacent to the lateral mid cervical spine. Later images demonstrate a smaller wire projecting over the right lateral cervical spine. FL/FL guidance in OR IMPRESSION: Fluoroscopy guidance for medial branch block.
[2023-04-13 09:58] VITALS: BMI 24.2
[2023-04-13 11:47] VITALS: BP 122/66; PULSE 58; RESP 18; TEMP 36.7; O2SAT 99
--- NOTE | 2023-04-13 15:46 | MHC.SHP ---
Pre-Procedural Eval Section A Date of Service: 04/13/23 The patient is an INPATIENT: No Changes since office visit: Yes Patient answered all questions The History & Physical has been completed within 30 days and I have reviewed it.: Yes Section B Chief Complaint: Intractable neck pain Relevant Family History (Specify if Yes): No Relevant Social History: None Present Medications: see Short Stay Collaborative assessment Medical History: No relevant PMH History of Previous Operations: No relevant previous surgery Allergies: Allergies Allergy/AdvReac Type Severity Reaction Status Date / Time No Known Allergies Allergy Verified 03/16/23 14:36 Review of Systems Sugical H&P ROS: Negative: Constitution, Cardiovascular and Respiratory Exam Surgical H&P Exam: Normal: HEENT, Normal: Heart and Normal: Lungs Plan Diagnosis/Plan: Unchanged I have reviewed the history and physical and performed a pertinent physical examination on my patient. No changes have occurred unless specified. Time Spent With Patient Time: Total time managing care of this patient today ____ minutes.
--- NOTE | 2023-04-13 15:47 | PM.OP ---
Brief Operative Note Date of Service: 04/13/23 Pre-op diagnosis: Intractable neck pain, cervical spondylosis Post-op diagnosis: same Procedure: Temporary right C4 medial branch nerve stimulator placement Implants: Sprint temporary PNS system Surgeon: Sukhjinder Morris MD Anesthesia: local Was an Scheme Technician used for this Procedure?: No Estimated blood loss (mL): 1 Pathology: none sent Condition: stable Disposition: same day
--- NOTE | 2023-04-13 15:48 | W.PM.OPN ---
Operative Note Operative Note Date of Service: 04/13/23 Narrative: Cervical Medial Branch Nerve Stimulation Lead Placement, SPR (Sprint) System, Right C4 ? After the risks, benefits and alternatives were discussed with the patient and informed consent was obtained, patient was placed in the prone position and padded to foster comfort. The skin overlying the cervical spine was prepped and draped in sterile fashion. Fluoroscopy was used to identify the spinous process and lamina over the C4 articular pillar. After identifying and marking the intended target along the course of the medial branch nerve, the skin around the planned entry point and the subcutaneous tissues were injected with lidocaine 1%. An introducer needle and stimulating probe were assembled, inserted and advanced along the intended course of the medial branch nerve, taking care to maintain the proper depth of insertion as the introducer was advanced under fluoroscopic guidance. The introducer needle was delivered to a location in proximity to the nerve. Multiple stimulation parameters were used to deliver stimulation to the target medial branch nerve in concert with stimulating at multiple positions around the nerve. Nerve target acquisition was confirmed noting generation of paresthesias in the paravertebral regions corresponding to the level being stimulated. Various electrical parameter combinations were tested, and the lead location was adjusted (physically relocated) until the patient indicated paresthesia/muscle tension overlapping the distribution of the patient?s typical region of pain, including neck and occipital region. The stimulating probe was removed from the introducer and a percutaneous lead was guided through the needle and delivered to a location in similar proximity to the nerve. Final location was verified with electrical stimulation and documented with fluoroscopy. The introducer needle was removed, and the exposed end of the percutaneous lead was attached to an external stimulator unit. Various electrical parameter combinations were again tested until the patient indicated paresthesia or muscle tension overlapping the distribution of the patient?s typical region of pain. Fluoroscopy was used to document the location of the percutaneous lead in the deployed position. After confirming that lead impedance was in the normal range, the external unit was detached, the needle was removed, and the lead was anchored at the skin. The lead was threaded into the connector block and electrical continuity and desired patient response was confirmed. The connector block was attached to the external stimulator unit. The site was covered with a sterile occlusive pressure dressing. The patient was observed for stability of vital signs and comfort. Patient was dischared in stable condition.
== END 2023-04-13 12:12 | disposition home or self-care (01) ==
PROVIDERS: PCP Internal Medicine Medical Oncology; Visit Provider Internal Medicine
PROC: (CPT 64555; principal; 2023-04-13 11:10)
DX: M47.812 Spondylosis without myelopathy or radiculopathy, cervical region (principal); M54.12 Radiculopathy, cervical region; F32.A Depression, unspecified; F41.9 Anxiety disorder, unspecified; F43.10 Post-traumatic stress disorder, unspecified; K44.9 Diaphragmatic hernia without obstruction or gangrene; Z79.1 Long term (current) use of non-steroidal anti-inflammatories (NSAID)
CPT/HCPCS: 64555; C1778

== ENCOUNTER → 2023-04-13 09:44 | Outpatient (BNV) | payer BC, SELFPAY | PROVIDERS: PCP Internal Medicine Medical Oncology; Visit Provider Internal Medicine | DX: M47.812 Spondylosis without myelopathy or radiculopathy, cervical region (principal) | CPT/HCPCS: 64555 ==

== ENCOUNTER 2023-05-18 11:24 | Outpatient (AMB) | payer BC, SELFPAY ==
--- NOTE | 2023-05-18 11:25 | A.OFFVIS_ITS ---
Intake Intake Visit Reasons: Newprob-Right hand pain Intake Note: Marquita is a 48 year old left hand dominant female who presents today for a new problem visit with complaints of right hand pain. Patient reports that she has had ongoing pain for quite some times, she has previous bilateral carpal tunnel surgeries. She complains of weakness, soreness and she is frequently unable to open jars and is dropping things. numbness and tingling has resolved with the carpal tunnel releases Right hand is worse than the left. 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 Lee for left hip pain. Follows with pain management for chronic neck pain. History of bilateral Carpal Tunnel Syndrome surgeries, 2011 and 2014, at [facility]. Right hand pain, 3-[address] Valdez 04/2022 and advised rest and tylenol only. Points to base of right thumb. Denies any numbness. Drops things. Difficult with change over. Last xray in 2021. Says this right hand pain is separate from the neck pain. [facility] Medical History (Updated 05/18/23 @ 11:50 by Loreto Meeks MD) Chronic hand pain De Quervain's tenosynovitis, right Cervical radiculopathy Tobacco dependence Hiatal hernia Esophageal motility disorder Hepatic cyst Anxiety Herniated intervertebral disc of lumbar spine PTSD (post-traumatic stress disorder) GERD (gastroesophageal reflux disease) Depression, unspecified Surgical History (Updated 06/25/21 @ 16:28 by MALCOM Dodson) History of endoscopy Social History (Updated 01/05/23 @ 15:28 by Jose Armando Currie) Alcohol intake: never Patient Tobacco Use Status: Never used Tobacco Current occupational status: employed 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 MSK: No joint effusion noted. No deformity noted. No intrinsic hand weakness noted. No atrophy noted. Sweetie test right positive. Carpal compression test negative. Tinel sign negative. Strength is 5/5 in all muscle groups tested. No increased tone noted. Neurological: Neurologic examination of the upper and lower extremities was nonfocal with intact sensation, muscle stretch reflexes and without focal motor deficits . Cowart?s negative bilaterally. Gait is non-antalgic without loss of balance. Results Reviewed Results Reviewed: I reviewed records from the following: Pain management-recent placement of Cervical Medial Branch Nerve Stimulation Lead, Right C4 Orthopedic Assessment & Plan Assessment & Plan (1) De Quervain's tenosynovitis, right: Code(s): M65.4 - Radial styloid tenosynovitis [de Quervain] (2) Chronic hand pain: Code(s): M79.643 - Pain in unspecified hand; G89.29 - Other chronic pain Qualifiers: Laterality: right Qualified Code(s): M79.641 - Pain in right hand; G89.29 - Other chronic pain Plan Exam shows signs of de Quervain tenosynovitis, right. Discussed options for treatment. We will start with Comfort Cool thumb spica splint, to be worn during the day. Further instructions given. We will also refer her to Hand therapy/OT. If not improved in 2 months, we can consider injection. Assessment and plan discussed with patient, and patient was agreeable. All questions were answered thoroughly. Follow-up 2 months. Loreto Meeks MD, BLAYNE Board Certified, [place] [employer] and Rehabilitation (ABPMR) Board Certified, [place] Board [employer] Electrodiagn[employer] (ABEM) Orders: Orders OT Evaluation and Treatment Today M65.4 - Radial styloid tenosynovitis [de Quervain] Coding Level of Care Code New Pt Level 3 (96237) Diagnoses De Quervain's tenosynovitis, right M65.4 Chronic pain of right hand M79.641; G89.29 Laterality: right
== END 2023-05-18 11:54 | disposition home or self-care (01) ==
PROVIDERS: PCP Internal Medicine Medical Oncology; Visit Provider Physical Medicine & Rehabilitation
DX: M65.4 Radial styloid tenosynovitis [de Quervain] (principal); M79.641 Pain in right hand; G89.29 Other chronic pain
CPT/HCPCS: 99203

== ENCOUNTER → 2023-05-18 11:24 | Outpatient (BNVA) | payer BC, SELFPAY | PROVIDERS: PCP Internal Medicine Medical Oncology; Visit Provider Physical Medicine & Rehabilitation ==

== ENCOUNTER 2023-06-10 08:01 | Outpatient (AMB) | payer BC, SELFPAY ==
--- NOTE | 2023-06-10 08:07 | A.OFFVIS_ITS ---
Intake Vital Signs 06/10/23 08:09 Height 5 ft Weight 121 lb BMI 23.6 BP 128/58 L Blood Pressure Location Rt brachial Position Sitting Respiration 12 Pulse 77 Pulse Source Pulse Oximeter Pulse Oximetry (%) 98 Oxygen Delivery Method Room Air Intake Visit Reasons: Sprint removal/confirmed Allergies Seafood Allergy (Uncoded 06/10/23 08:10) Anaphylaxis Medication List - Last Reconciled 06/10/23 by Li Patino LPN No Known Home Meds HPI Sprint removal/confirmed HPI Details 48-year-old female who presents today to the office for a sprint removal. The patient reports no relief following the procedure. She had 100% relief for one day from the diagnostic MBB in the past. She reports neck pain that radiates down to her upper extremities. She had tried physical therapy about a year ago. 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 She has previous bilateral carpal tunnel surgeries. Her numbness and tingling have resolved with the carpal tunnel releases. She will start a hand PT/OT therapy for her fingers. She will follow-up with them in one month for cortisone injection. Past procedures: 04/13/23: Cervical Medial Branch Nerve S timulation Lead Placement, SPR (Sprint) System, Right C4: No relief. 12/22/22: Diagnostic Cervical Medial Bra nch Block, Right C4, C5, C6 medial branches: 100% relief for one day. [facility] Medical History (Updated 06/10/23 @ 08:42 by Sukhjinder Morris MD) Chronic hand pain De Quervain's tenosynovitis, right Cervical radiculopathy Tobacco dependence Hiatal hernia Esophageal motility disorder Hepatic cyst Anxiety Herniated intervertebral disc of lumbar spine PTSD (post-traumatic stress disorder) GERD (gastroesophageal reflux disease) Depression, unspecified Surgical History (Updated 06/25/21 @ 16:28 by MALCOM Dodson) History of endoscopy Social History (Updated 01/05/23 @ 15:28 by Jose Armando Currie) Alcohol intake: never Patient Tobacco Use Status: Never used Tobacco Current occupational status: employed 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 Alert and oriented. Mood and affect appropriate. Follows and participates in conversation appropriately. Respiratory effort is unlabored. Able to transition from sit to stand unassisted. Ambulates with bilaterally normal heel strike and toe off. Cervical range of motion is limited. Extension, flexion, lateral rotation, and lateral bending are limited. She endorses the feeling altered temperatures sensations in her fingers, especially in the right thumb. Results Reviewed Results Reviewed: MRI reviewed again, showing C5-6 and C6-7 disc degeneration with disc osteophyte complex at right C 5-6 nerve root that could be leading to her symptoms. Assessment & Plan Assessment & Plan (1) Cervical radiculopathy: Code(s): M54.12 - Radiculopathy, cervical region Plan We would like to try a combination of physical therapy and injections. Her last round of physical therapy was last year.. A referral was provided to physical therapy. The patient will receive a call to schedule an appointment. We will schedule her for a C7-T1 right parasagittal NAIN for cervical radiculopathy. Discussed the risks and benefits of the procedure with the patient in detail. All questions were answered. The patient is on board with the plan. Justification for interventional therapy: Patient with average pain > 6/10 Patient has exhausted conservative therapy. She is not responsive to physical therapy or oral medications. Scribed for Dr. Morris by Jose Burns, biomedical engineering aide, on 06/10/2023. I, Dr. Morris, have personally reviewed and agree with the information entered by the scribe. Coding Level of Care Code Est Pt Level 3 (94014) Diagnoses Cervical radiculopathy M54.12
[2023-06-10 08:09] VITALS: BP 128/58; PULSE 77; RESP 12; O2SAT 98; BMI 23.6
== END 2023-06-10 08:45 | disposition home or self-care (01) ==
PROVIDERS: PCP Internal Medicine Medical Oncology; Visit Provider Internal Medicine
DX: M54.12 Radiculopathy, cervical region (principal)
CPT/HCPCS: 99213

== ENCOUNTER → 2023-06-10 08:01 | Outpatient (BNVA) | payer BC, SELFPAY | PROVIDERS: PCP Internal Medicine Medical Oncology; Visit Provider Internal Medicine ==

== ENCOUNTER 2023-06-16 14:33 | Outpatient (AMB) | payer BC, SELFPAY ==
[2023-06-16 14:44] VITALS: BMI 23.6
--- NOTE | 2023-06-16 14:44 | MHC.OFFVIS ---
Intake Vital Signs 06/16/23 14:44 Height 5 ft Weight 121 lb BMI 23.6 Intake Visit Reasons: OV-Hip LT -three month follow up Intake Note: Marquita is a 48 year old female who present for a follow up Left hip pain. Patient reports she had an injection on 03/16/2023 and it did give her relief for about 2 weeks. She would like to repeat the injection in the Left hip. She describes her pain as achy in nature. Most of the pain is along the lateral aspect of her left hip. She denies any groin pain. She denies any weakness in either lower extremity. She continues to ride her stationary bike for exercise. Biomedical Analytical Scientist Name: [id number] Allergies Seafood Allergy (Uncoded 06/10/23 08:10) Anaphylaxis Medication List - Last Reconciled 06/16/23 by Anthony Lee MD No Known Home Meds [facility] Medical History (Updated 06/10/23 @ 08:42 by Sukhjinder Morris MD) Chronic hand pain De Quervain's tenosynovitis, right Cervical radiculopathy Tobacco dependence Hiatal hernia Esophageal motility disorder Hepatic cyst Anxiety Herniated intervertebral disc of lumbar spine PTSD (post-traumatic stress disorder) GERD (gastroesophageal reflux disease) Depression, unspecified Surgical History (Updated 06/25/21 @ 16:28 by MALCOM Dodson) History of endoscopy Social History (Updated 01/05/23 @ 15:28 by Jose Armando Currie) Alcohol intake: never Patient Tobacco Use Status: Never used Tobacco Current occupational status: employed 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 Physical Exam Vital Signs: BMI result Body Mass Index 23.6 Const Other: Well-nourished well-developed very friendly female awake alert and oriented x3 in no acute distress Extrem Other: Bilateral lower extremity examination shows good capillary refill, no skin lesions noted, normal sensation light touch Left hip examination shows full range of motion when compared to her right hip, minimal pain with range of motion, tenderness over her bursa, no overlying skin lesions Office Procedures Joint Injection/Drain Joint Injection/Drain Primary Site: other (Left hip greater trochanteric bursa) Prep: site was prepped using aseptic technique Injected: 40 mg of and DepoMedrol Procedure: The patient tolerated the procedure well Coding 94693 - Large joint Procedure code (CPT) selection complete Assessment & Plan Assessment & Plan (1) Trochanteric bursitis, left hip: Code(s): M70.62 - Trochanteric bursitis, left hip Plan Ms. Alexander presents with pain along the lateral aspect of her left hip due to greater trochanteric bursitis. I had a lengthy discussion with the patient regarding the treatment options. The risks and benefits of a left hip greater trochanteric bursa cortisone injection were discussed at length with the patient. The patient wished to proceed with the injection. She tolerated the injection well. She will continue with her home exercise program. She will follow up with me on an as-needed basis should her symptoms not plateau at an unacceptable level over the next few months. Feel free to call me at any time should questions regarding her orthopedic management arise. I spent 20 minutes in reviewing the patient's records and imaging studies, seeing the patient and documenting in the medical record. Orders: Orders AMB Joint Injection/Aspiration Today M70.62 - Trochanteric bursitis, left hip Coding Level of Care Code Est Pt Level 2 (09490) Diagnoses Trochanteric bursitis, left hip M70.62 CPT Codes Coding - 70470 Large joint: 15552 - Large joint ([id number])
== END 2023-06-16 15:12 | disposition home or self-care (01) ==
PROVIDERS: PCP Internal Medicine Medical Oncology; Visit Provider Orthopaedic Surgery
DX: M70.62 Trochanteric bursitis, left hip (principal)
CPT/HCPCS: 20610; 99213

== ENCOUNTER → 2023-06-16 14:33 | Outpatient (BNVA) | payer BC, SELFPAY | PROVIDERS: PCP Internal Medicine Medical Oncology; Visit Provider Orthopaedic Surgery | DX: M70.62 Trochanteric bursitis, left hip (principal) | CPT/HCPCS: 20610; J1020 ==

== ENCOUNTER 2023-06-30 06:12 | Outpatient (REF) | payer BC, SELFPAY ==
--- NOTE | ~2023-06-30 | FL_ITS ---
EXAMINATION: XR FLUOROSCOPY WITH IMAGES CLINICAL INFORMATION: Radiculopathy cervical region. COMPARISON: None available. TECHNIQUE: Fluoroscopy Supervised By: Rachna Villagomez. Fluoroscopy Time: 0.2 minutes. Cumulative Dose: 1.25 mGy. DAP: 0.125 Gycm2. Images: 2. FINDINGS: There are 2 digital images of cervical spine revealing needle position at the C7-T1 and C6 S1 disc level with contrast opacifying the right epidural space. No gross bony abnormality seen on this limited imaging. FL/FL guidance in treatment room IMPRESSION: Fluoroscopy was provided to referring physician for pain management
== END 2023-06-30 06:13 | disposition home or self-care (01) ==
LOC: CF 06:12
PROVIDERS: Visit Provider Internal Medicine
DX: M54.12 Radiculopathy, cervical region (principal)
CPT/HCPCS: 62321; J1100; J3301; Q9967

== ENCOUNTER 2023-06-30 14:17 | Outpatient (AMB) | payer BC, SELFPAY ==
--- NOTE | 2023-06-30 14:21 | MHC.OFFVIS ---
Intake Vital Signs 06/30/23 14:48 06/30/23 14:48 Height 5 ft 5 in Weight 121 lb BMI 20.1 BP 120/68 126/86 Blood Pressure Location Lt brachial Lt brachial Position Sitting Sitting Respiration 18 20 Pulse 72 101 H Pulse Source Pulse Oximeter Pulse Oximeter Pulse Oximetry (%) 98 97 Oxygen Delivery Method Room Air Room Air Comment Pre-Op Intake Visit Reasons: Right C7-T1 parasagittal NAIN Allergies Seafood Allergy (Uncoded 06/10/23 08:10) Anaphylaxis HPI Right C7-T1 parasagittal NAIN HPI Details Patient presents for scheduled procedure. Denies any recent cough, cold, infection, fever or other significant changes in medical history since last office visit. [facility] Medical History (Updated 06/10/23 @ 08:42 by Sukhjinder Morris MD) Chronic hand pain De Quervain's tenosynovitis, right Cervical radiculopathy Tobacco dependence Hiatal hernia Esophageal motility disorder Hepatic cyst Anxiety Herniated intervertebral disc of lumbar spine PTSD (post-traumatic stress disorder) GERD (gastroesophageal reflux disease) Depression, unspecified Surgical History (Updated 06/25/21 @ 16:28 by MALCOM Dodson) History of endoscopy Social History (Updated 01/05/23 @ 15:28 by Jose Armando Currie) Alcohol intake: never Patient Tobacco Use Status: Never used Tobacco Current occupational status: employed 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 The patient was placed in the prone position. The cervicothoracic area was widely prepped with chloraprep and draped in sterile fashion. Fluoroscopic guidance was used to identify the desired interlaminar space and for needle placement. Subcutaneous 0.5% lidocaine was used to anesthetize the skin overlying the target. A 20-gauge Hill needle was advanced to the epidural space using loss of resistance to contrast technique under fluoroscopic AP and contralateral oblique views. There was no evidence of heme or CSF and no paresthesias were elicited with needle placement. Confirmation of epidural needle placement was performed with 1cc of omnipaque 180. Next 3 ml 0.5% lidocaine mixed with dexamethasone 10 mg was administered epidurally with no pain elicited on injection. The needle tract tubing was then cleared with 1 ml of 0.5% lidocaine. The needle was removed, skin cleansed and a sterile bandage was applied. The patient tolerated the procedure well and no complications were encountered. Following the procedure the patient's vital signs were stable. The patient was discharged home in good condition with post-procedural instructions. Time Out: Immediately prior to the procedure, the following was verbally confirmed that there is a signed consent form and that the correct patient, planned procedure, site and side are consistent with documentation and that necessary equipment and/or blood products are available prior to the start of the case. Complications: none EBL: <5 cc Coding 10954 - Cervical Epidural/Interlaminar with fluoroscopy Procedure code (CPT) selection complete Assessment & Plan Assessment & Plan (1) Cervical radiculopathy: Code(s): M54.12 - Radiculopathy, cervical region Plan Patient is status post right parasagittal C7-T1 interlaminar NAIN. Patient tolerated procedure well and was discharged home in stable condition with discharge instructions. All questions were answered. We will follow-up via telephone or in clinic to assess response to therapy. A follow-up appointment was made during today's visit. Orders: Orders FL guidance in treatment room Today M54.12 - Radiculopathy, cervical region Coding Level of Care Code Procedure Only Diagnoses Cervical radiculopathy M54.12 CPT Codes Coding - Joint 10: 95036 - Cervical Epidural/Interlaminar with fluoroscopy ([id number])
[2023-06-30 14:48] VITALS: BP 120/68; BP 126/86; PULSE 101; PULSE 72; RESP 18; RESP 20; O2SAT 97; O2SAT 98; BMI 20.1
== END 2023-06-30 14:53 | disposition home or self-care (01) ==
LOC: HO.PMCPRC 14:18
PROVIDERS: PCP Internal Medicine Medical Oncology; Visit Provider Internal Medicine
DX: M54.12 Radiculopathy, cervical region (principal)
CPT/HCPCS: 62321

== ENCOUNTER 2023-07-19 15:00 | Outpatient (RCR) | payer BC, SELFPAY ==
--- NOTE | 2023-06-28 15:00 | MHC.OT.EP ---
[address] [phone] Occupational Therapy Plan of Care Patient Name: Marquita Alexander Date of Evaluation: 06/28/23 Diagnosis: Right De Quervain's Tenosynovitis Pain Location: Resting sharp pain in right wrist to hand Tenderness in web space, painful grind test Tenderness to palpate upper forearm Pain Score: 5 Pain Scale Used: Numeric (0 - 10) Aggravating Factors: General use, movement, work and home tasks Alleviating Factors: Comfort Cool thumb spica (wears during work and at home), no meds have been helping Enjoys heat Assessment: 48 yo female w/ hx of right hand pain, was seen a few years ago at [facility] and instructed to rest and make medications. She continued to have pain, now worsening and was referred to [facility] electronic integrated systems mechanic for further assessment. She was given a comfort cool orthosis with some improvement, also referred to OT for continued care. She may have cortisone injection on next visit if no improvement. On assessment, she has good hand and wrist range B/L'ly with good gross grasp and lateral pinch. She has tenderness to palpate in thenar webspace, radial wrist over 1st dorsal compartment and over right proximal forearm. Right CMC grand and Finklesteins are slightly positive, moreso than on left hand/wrist, but she has no significant loss of muscle bulk or arthritis deformities noted. She has been wearing Comfort Cool thumb spica orthosis w/ some relief, and I anticipate she will do well w/ course of hand therapy to address tenosynovitist with continued orthosis use, joint protection, activity modification and progression of functional strengthening. Frequency and Duration: The patient will be seen 2x/wk for 4 weeks Short Term Goals: Good follow through w/ joint protection techniques for CMC and radial wrist Ind w/ use of ice and heat appropriately as needed for pain and inflammation Pain free wrist/hand at rest Custodial Goals: Pt top report ease w/ bimanual lifting for work and home tasks (15lb boxes, laundry basket, etc) QuickDASH score <45pts Pain free right wrist/hand at light activities Progress to functional strengthening program Treatment Plan: Therapeutic Exercise Therapeutic Activity Home Exercise Program Splinting Patient Education ADL Training Ultrasound Iontophoresis Paraffin Fluidotherapy MHP Cold Packs Soft Tissue Mobilization Kinesiotaping Ionto w/ Dex Cont w/ Comfort Cool Electronically Signed By: Norah Ku, OTR/L CHT Please Sign and return to therapist. Thank you once again for your referral.
--- NOTE | 2023-07-26 14:32 | MHC.OT.DC ---
[address] [phone] F: [phone] Occupational Therapy Discharge Note Patient Name: Marquita Alexander Provider: Loreto Meeks Diagnosis: Right De Quervain's Tenosynovitis Date of Evaluation: 06/28/23 Date of Discharge: 07/26/23 Treatments to Date: 6 Discharge Status: Achieved Goals Improved Function Independent with HEP Discharge Summary: Marquita was referred to OT w/ right De Quervain's tenosynovitis. She has progressed well through course of OT, reporting good progress w/ pain and daily use, still w/ difficulty opening containers (jars, bottles) and holding brush to do her hair. She is Ind w/ home program for exercises, progression of strengthening, joint protection and activity modification. I anticipate she will continue to progress w/ self management techniques w/ ultimate goal of pain free use of right hand w/ daily activities. Electronically Signed By: Norah Ku OTR/L CHT Please Sign and return to therapist, thank you for your referral.
== END 2023-07-26 14:34 | disposition home or self-care (01) ==
LOC: HO.OT 15:00
PROVIDERS: PCP Internal Medicine Medical Oncology; Visit Provider Physical Medicine & Rehabilitation
DX: M65.4 Radial styloid tenosynovitis [de Quervain] (principal)
CPT/HCPCS: 97033; 97110; 97165

== ENCOUNTER 2023-07-29 10:36 | Outpatient (AMB) | payer BC, SELFPAY ==
--- NOTE | 2023-07-29 10:40 | A.OFFVIS_ITS ---
Intake Vital Signs 07/29/23 10:42 Height 5 ft 5 in Weight 121 lb BMI 20.1 BP 110/66 Blood Pressure Location Rt brachial Position Sitting Respiration 12 Pulse 72 Pulse Source Pulse Oximeter Pulse Oximetry (%) 97 Oxygen Delivery Method Room Air Intake Visit Reasons: s/p right C7-T1 parasagittal NAIN Allergies Seafood Allergy (Uncoded 07/29/23 10:43) Anaphylaxis Medication List - Last Reconciled 07/29/23 by Li Patino LPN No Known Home Meds HPI s/p right C7-T1 parasagittal NAIN HPI Details 48-year-old female who presents today to the office for a status post right C7-T1 parasagittal NAIN. The patient reports >90 % relief following the procedure. The patient performs home exercises and uses a mobile application for exercises. She has not tried physical therapy for neck pain in the past. She defers physical therapy for now. Past procedures: 06/30/23: Interlaminar epidural steroid injection, C7-T1, right parasaggital: >90% relief. 04/13/23: Cervical Medial Branch Nerve S timulation Lead Placement, SPR (Sprint) System, Right C4: No relief. 12/22/22: Diagnostic Cervical Medial Bra nch Block, Right C4, C5, C6 medial branches: 100% relief for one day. [facility] Medical History (Updated 06/10/23 @ 08:42 by Sukhjinder Morris MD) Chronic hand pain De Quervain's tenosynovitis, right Cervical radiculopathy Tobacco dependence Hiatal hernia Esophageal motility disorder Hepatic cyst Anxiety Herniated intervertebral disc of lumbar spine PTSD (post-traumatic stress disorder) GERD (gastroesophageal reflux disease) Depression, unspecified Surgical History (Updated 06/25/21 @ 16:28 by MALCOM Dodson) History of endoscopy Social History (Updated 01/05/23 @ 15:28 by Jose Armando Currie) Alcohol intake: never Patient Tobacco Use Status: Never used Tobacco Current occupational status: employed 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 Alert and oriented. Mood and affect appropriate. Follows and participates in conversation appropriately. Respiratory effort is unlabored. Able to transition from sit to stand unassisted. Ambulates with bilaterally normal heel strike and toe off. Results Reviewed Results Reviewed: No imaging is available for review. Assessment & Plan Assessment & Plan (1) Cervical radiculopathy: Code(s): M54.12 - Radiculopathy, cervical region Plan I encouraged her to continue her home exercises to help keep her cervical radicular pain in check. She can refer to mobile applications and YouTube videos for neck exercises. Follow up as needed. Scribed for Dr. Morris by Jose Burns, medical social worker, on 07/29/2023. I, Dr. Morris, have personally reviewed and agree with the information entered by the scribe. Coding Level of Care Code Est Pt Level 3 (39106) Diagnoses Cervical radiculopathy M54.12
[2023-07-29 10:42] VITALS: BP 110/66; PULSE 72; RESP 12; O2SAT 97; BMI 20.1
== END 2023-07-29 10:54 | disposition home or self-care (01) ==
PROVIDERS: PCP Internal Medicine Medical Oncology; Visit Provider Internal Medicine
DX: M54.12 Radiculopathy, cervical region (principal)
CPT/HCPCS: 99213

== ENCOUNTER → 2023-07-29 10:36 | Outpatient (BNVA) | payer BC, SELFPAY | PROVIDERS: PCP Internal Medicine Medical Oncology; Visit Provider Internal Medicine ==

== ENCOUNTER 2023-08-17 11:34 | Outpatient (AMB) | payer BC, SELFPAY ==
--- NOTE | 2023-08-17 11:36 | MHC.OFFVIS ---
Intake Intake Visit Reasons: OV-Right hand pain Intake Note: Marquita is a 48 year old left hand dominant female who presents today for a new problem visit with complaints of right hand pain. Patient reports that she doesn't have pain in her fingers, however she has pain in her volar aspect of her palm. She expresses that O.T. did give her mild relief, yet she continue to have that pain in her palm. 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 Lee for left hip pain. Follows with pain management for chronic neck pain. History of bilateral Carpal Tunnel Syndrome surgeries, 2011 and 2014, at [facility]. Right hand pain, 3-[address] Valdez 04/2022 and advised rest and tylenol only. Pointed to base of right thumb. Denies any numbness. Drops things. Difficult with dental mold maker. Last xray in 2021. Says this right hand pain is separate from the neck pain. With OT, it has helped the wrist pain. Been wearing the thumb spica comfort cool brace. Says pain on palm now. Denies finger numbness. Noted right 2nd MCP enlarged. Family history of RA, mom and sister. [facility] Medical History (Updated 08/17/23 @ 11:51 by Loreto Meeks MD) Chronic hand pain De Quervain's tenosynovitis, right Cervical radiculopathy Tobacco dependence Hiatal hernia Esophageal motility disorder Hepatic cyst Anxiety Herniated intervertebral disc of lumbar spine PTSD (post-traumatic stress disorder) GERD (gastroesophageal reflux disease) Depression, unspecified Surgical History (Updated 08/17/23 @ 11:51 by Loreto Meeks MD) History of carpal tunnel surgery History of endoscopy Social History Alcohol intake: never Patient Tobacco Use Status: Never used Tobacco Current occupational status: employed 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 MSK: No joint effusion noted. No deformity noted. No intrinsic hand weakness noted. No atrophy noted. Sweetie test negative. Carpal compression test negative. Tinel sign negative. Right 2nd MCP enlarged but no active effusion or redness. Strength is 5/5 in all muscle groups tested. No increased tone noted. Neurological: Neurologic examination of the upper and lower extremities was nonfocal with intact sensation, muscle stretch reflexes and without focal motor deficits . Cowart?s negative bilaterally. Gait is non-antalgic without loss of balance. Results Reviewed Results Reviewed: Follows Pain Management for neck pain. Past procedures: 06/30/23: Interlaminar epidural steroid injection, C7-T1, right parasaggital: >90% relief. 04/13/23: Cervical Medial Branch Nerve Stimulation Lead Placement, SPR (Sprint) System, Right C4: No relief. 12/22/22: Diagnostic Cervical Medial Branch Block, Right C4, C5, C6 medial branches: 100% relief for one day. Follows Dr. Lee for trochanteric bursitis. Assessment & Plan Assessment & Plan (1) Right hand pain: Code(s): M79.641 - Pain in right hand (2) History of carpal tunnel surgery: Code(s): Z98.890 - Other specified postprocedural states Plan De quervain tenosynovitis is now improved. Pain on palm, raises concern for arthritis? Will do hand xray today. Will also schedule for EMG to see if CTS has returned. Assessment and plan discussed with patient, and patient was agreeable. All questions were answered thoroughly. Loreto Meeks MD, BLAYNE Board Certified, [place] [employer] and [employer] (ABPMR) Board Certified, [place] Board [employer] Electrodiagnostic [employer] (ABEM) Orders: Orders XR hand wrist RT Today M79.641 - Pain in right hand, Z98.890 - Other specified postprocedural states NE electromyogram (EMG) Today M79.641 - Pain in right hand, Z98.890 - Other specified postprocedural states NE nerve conduction velocity Today M79.641 - Pain in right hand, Z98.890 - Other specified postprocedural states Coding Level of Care Code Est Pt Level 4 (13557) Diagnoses Right hand pain M79.641 History of carpal tunnel surgery Z98.890
== END 2023-08-17 11:59 | disposition home or self-care (01) ==
PROVIDERS: PCP Internal Medicine Medical Oncology; Visit Provider Physical Medicine & Rehabilitation
DX: M79.641 Pain in right hand (principal); Z98.890 Other specified postprocedural states
CPT/HCPCS: 99214

== ENCOUNTER 2023-08-17 11:34 | Outpatient (REF) | payer BC, SELFPAY ==
--- NOTE | ~2023-08-17 | XR_ITS ---
EXAMINATION: XR HAND/WRIST, RIGHT CLINICAL INFORMATION: Pain COMPARISON: None TECHNIQUE: PA, lateral, and oblique views of the right hand and wrist. FINDINGS: No acute fracture or dislocation. Osteoarthritis of the hand and wrist with moderate loss of first carpometacarpal joint space and small DIP osteophytes. Soft tissues are unremarkable. No cortical erosions. XR/XR hand wrist RT IMPRESSION: 1. No acute fracture or dislocation. 2. Osteoarthritis of the hand and wrist with moderate loss of first carpometacarpal joint space and small DIP osteophytes. No cortical erosions.
== END 2023-08-17 11:35 | disposition home or self-care (01) ==
LOC: HO.HOSX 11:34
PROVIDERS: PCP Internal Medicine Medical Oncology; Visit Provider Physical Medicine & Rehabilitation
DX: M79.641 Pain in right hand (principal); Z98.890 Other specified postprocedural states
CPT/HCPCS: 73110; 73130

== ENCOUNTER 2023-09-06 16:58 | Outpatient (REF) | payer BC, SELFPAY ==
[2023-09-06 17:18] LABS: Appearance Urine Cloudy; Color Urine Yellow; Glucose Urine UA Negative (Negative); Leukocyte Esterase Urine Trace (Negative); Nitrite Urine Positive (Negative); Specific Gravity - Urine 1.015 (1.005-1.025); UMIC TRIGGER UA YES; Urine Blood Negative (Negative); Urine Ketones Negative (Negative); Urine Protein Negative (Neg-Trace)
[2023-09-06 17:23] LABS: Bacteria Urine 4+ (None Seen); Hyaline Casts Urine 0-2 /LPF (0-2); RBC Urine 0-2 /HPF (0-2); Squamous Epithelial Cell Urine 0-2 /HPF (0-2); WBC Urine 0-5 /HPF (0-5)
== END 2023-09-06 16:59 | disposition home or self-care (01) ==
LOC: HO.LNP 16:58
PROVIDERS: Visit Provider Internal Medicine Medical Oncology
DX: R31.9 Hematuria, unspecified (principal)
CPT/HCPCS: 81001; 87086; 87088; 87186

== ENCOUNTER 2023-09-08 13:53 | Outpatient (REF) | payer BC, SELFPAY ==
--- NOTE | 2023-09-08 13:56 | EMG_ITS ---
Chief complaint: Previously seen for right de Quervain tenosynovitis. Continues with pain. History of carpal tunnel surgery 9 years ago. Reason for referral: Evaluate for Carpal Tunnel Syndrome Procedure done: Right upper extremity NCS/EMG Precautions and/or limitations: None The limb temperature was monitored continuously and remained between 32-36 degrees C during the performance of the NCS. Nerve Conduction Studies Anti Sensory Summary Table ?Stim Site NR Onset (ms) Norm Onset (ms) Peak (ms) Norm Peak (ms) O-P Amp (?V) Norm O-P Amp Site1 Site2 Delta-0 (ms) Dist (cm) Jonathan (m/s) Norm Jonathan (m/s) Right Median Anti Sensory (2nd Digit) Wrist ? 2.6 3.2 <3.6 57.9 >10 Wrist 2nd Digit 2.6 14.0 54 Right Radial Anti Sensory (Thumb) Forearm ? 1.3 1.8 <3.1 50.2 Forearm Thumb 1.3 0.0 Right Ulnar Anti Sensory (5th Digit) Wrist ? 2.1 2.7 <3.7 59.0 >15.0 Wrist 5th Digit 2.1 14.0 67 Motor Summary Table ?Stim Site NR Onset (ms) Norm Onset (ms) O-P Amp (mV) Norm O-P Amp iAmp (mV) Amp (1st) (%) Site1 Site2 Delta-0 (ms) Dist (cm) Jonathan (m/s) Norm Jonathan (m/s) Right Median Motor (Abd Poll Brev) Wrist ? 3.8 <3.9 8.2 >4.5 10.5 100.0 Elbow Wrist 3.5 19.0 54 >45 Elbow ? 7.3 7.9 9.8 96.3 Right Ulnar Motor (Abd Dig Minimi) Wrist ? 2.5 <3.0 9.4 >5 14.0 100.0 B Elbow Wrist 2.9 17.0 59 >45 B Elbow ? 5.4 8.3 12.9 88.3 A Elbow B Elbow 1.2 10.0 83 >45 A Elbow ? 6.6 8.4 13.1 89.4 EMG ?Side Muscle Nerve Root Ins Act Fibs Psw Amp Dur Poly Recrt Int Pat Comment Right 1stDorInt Ulnar C8-T1 Nml Nml Nml Nml Nml 0 Nml Complete Right FlexCarRad Median C6-7 Nml Nml Nml Nml Nml 0 Nml Complete Right Biceps Musculocut C5-6 Nml Nml Nml Nml Nml 0 Nml Complete Right Triceps Radial C6-7-8 Nml Nml Nml Nml Nml 0 Nml Complete Right Deltoid Axillary C5-6 Nml Nml Nml Nml Nml 0 Nml Complete FINDINGS: All motor and sensory nerves tested showed normal latencies, amplitudes and conduction velocities. Concentric needle EMG was performed in selected muscles of the right upper extremity. Study did not reveal signs of electric abnormalities as shown in the table below. IMPRESSION: 1. This is a normal study. 2. There is no electrodiagnostic evidence for median neuropathy, ulnar neuropathy, brachial plexopathy, or cervical radiculopathy. CLINICAL COMMENT: Given continued pain on de Quervain tenosynovitis, patient considering injection. We will schedule. Given findings of degenerative changes on hand x-ray, we will check for VIMAL and RF. Patient has strong family history for rheumatoid arthritis. Thank you for your kind referral. Loreto Meeks MD, BLAYNE Board Certified, [place] Board [employer] and Rehabilitation (ABPMR) Board Certified, [place] Board of Electrodiagnostic Medicine (ABEM) CODIN [id number] MTDD
[2023-09-08 15:41] LABS: Rheumatoid Factor < 13.0 IU/mL (<15.0)
[2023-09-11 07:43] LABS: Anti Nuclear Antibody Screen NEGATIVE (NEGATIVE)
== END 2023-09-08 13:54 | disposition home or self-care (01) ==
LOC: HO.NEURO 13:53
PROVIDERS: PCP Internal Medicine Medical Oncology; Visit Provider Physical Medicine & Rehabilitation
DX: M79.641 Pain in right hand (principal); Z98.890 Other specified postprocedural states
CPT/HCPCS: 36415; 86038; 86431; 95886; 95909

== ENCOUNTER → 2023-09-08 13:56 | Outpatient (BNV) | payer BC, SELFPAY | PROVIDERS: PCP Internal Medicine Medical Oncology; Visit Provider Physical Medicine & Rehabilitation | DX: M65.4 Radial styloid tenosynovitis [de Quervain] (principal); M25.531 Pain in right wrist | CPT/HCPCS: 95886; 95909 ==

== ENCOUNTER 2023-10-26 09:15 | Outpatient (AMB) | payer BC, SELFPAY ==
--- NOTE | 2023-10-26 09:24 | MHC.OFFVIS ---
Vital Signs 10/26/23 09:25 Height 5 ft 1 in Weight 121 lb BMI 22.9 Intake Visit Reasons: O/V Right hand CTS as per RB Intake Note: Marquita is a 48 year old left hand dominant female who presents today for follow up on right hand CTS and EMG review. Allergies Seafood Allergy (Uncoded 10/26/23 09:26) Anaphylaxis Medication List - Last Reconciled 10/26/23 by Loreto Meeks MD omeprazole 10 mg PO DAILY HPI Comments Details: 05/18/[address] Lee for left hip pain. Follows with pain management for chronic neck pain. History of bilateral Carpal Tunnel Syndrome surgeries, 2011 and 2015, at [facility]. Right hand pain, 3-[address] Valdez 04/2022 and advised rest and tylenol only. Pointed to base of right thumb. Denies any numbness. Drops things. 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 Last xray in 2021. Says this right hand pain is separate from the neck pain. 08/17/23 With OT, it has helped the wrist pain. Been wearing the thumb spica comfort cool brace. Says pain on palm now. Denies finger numbness. Noted right 2nd MCP enlarged. Family history of RA, mom and sister. EMG 09/08/23 IMPRESSION: 1. This is a normal study. 2. There is no electrodiagnostic evidence for median neuropathy, ulnar neuropathy, brachial plexopathy, or cervical radiculopathy. CLINICAL COMMENT: Given continued pain on de Quervain tenosynovitis, patient considering injection. We will schedule. Given findings of degenerative changes on hand x-ray, we will check for VIMAL and RF. Patient has strong family history for rheumatoid arthritis. RF and VIMAL is both negative/normal. Still pointing to right lateral wrist as source of pain. Been wearing wrist splint but not thumb spica. 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 MSK: No joint effusion noted. No deformity noted. No intrinsic hand weakness noted. No atrophy noted. Sweetie test positive bilateral, right worse than left. Tender on CMC joint bilateral. Carpal compression test negative. Tinel sign negative. Strength is 5/5 in all muscle groups tested. No increased tone noted. Neurological: Neurologic examination of the upper and lower extremities was nonfocal with intact sensation, muscle stretch reflexes and without focal motor deficits . Cowart?s negative bilaterally. Gait is non-antalgic without loss of balance. Results Reviewed Results Reviewed: EMG as above. Ordering Physician: Loreto Levin Date of Service: 08/17/23 Procedure(s): XR hand wrist RT Accession Number(s): [id number] cc: Ross Casanova MD; Loreto Levin~ EXAMINATION: XR HAND/WRIST, RIGHT CLINICAL INFORMATION: Pain COMPARISON: None TECHNIQUE: PA, lateral, and oblique views of the right hand and wrist. FINDINGS: No acute fracture or dislocation. Osteoarthritis of the hand and wrist with moderate loss of first carpometacarpal joint space and small DIP osteophytes. Soft tissues are unremarkable. No cortical erosions. XR/XR hand wrist RT IMPRESSION: 1. No acute fracture or dislocation. 2. Osteoarthritis of the hand and wrist with moderate loss of first carpometacarpal joint space and small DIP osteophytes. No cortical erosions. Assessment & Plan Assessment & Plan (1) De Quervain's tenosynovitis, right: Code(s): M65.4 - Radial styloid tenosynovitis [de Quervain] Category: Medical (2) Arthritis of carpometacarpal (CMC) joint of right thumb: Code(s): M18.11 - Unilateral primary osteoarthritis of first carpometacarpal joint, right hand Category: Medical (3) Left wrist pain: Code(s): M25.532 - Pain in left wrist Category: Medical Plan Continues to have signs of both right de Quervain tenosynovitis and pain on right CMC joint from OA. EMG negative for Carpal Tunnel Syndrome. Noted that patient has not been wearing thumb spica splint so we will give her today, comfort cool thumb spica splint, bilateral. Since symptoms are starting on left side, we will send for left hand/wrist x-ray today. We discussed option for injection today versus referral to Dr. Corbin. Patient opted for the latter. We will schedule for to meet Dr. Corbin. Assessment and plan discussed with patient, and patient was agreeable. All questions were answered thoroughly. Loreto Meeks MD, BLAYNE Board Certified, [place] [employer] and Rehabilitation (ABPMR) Board Certified, [place] [employer] Electrodiagnostic [employer] (ABEM) Orders: Orders XR hand wrist LT Today M25.532 - Pain in left wrist Referrals Hand Surgery Referral M18.11 - Unilateral primary osteoarthritis of first carpometacarpal joint, right hand, M65.4 - Radial styloid tenosynovitis [de Quervain] Coding Level of Care Code Est Pt Level 4 (03481) Diagnoses De Quervain's tenosynovitis, right M65.4 Arthritis of carpometacarpal (CMC) joint of right thumb M18.11 Left wrist pain M25.532
[2023-10-26 09:25] VITALS: BMI 22.9
== END 2023-10-26 11:02 | disposition home or self-care (01) ==
PROVIDERS: PCP Internal Medicine Medical Oncology; Visit Provider Physical Medicine & Rehabilitation
DX: M65.4 Radial styloid tenosynovitis [de Quervain] (principal); M18.11 Unilateral primary osteoarthritis of first carpometacarpal joint, right hand; M25.532 Pain in left wrist
CPT/HCPCS: 99214

== ENCOUNTER 2023-10-26 09:15 | Outpatient (REF) | payer BC, SELFPAY ==
--- NOTE | ~2023-10-26 | XR_ITS ---
EXAMINATION: XR HAND/WRIST, LEFT CLINICAL INFORMATION: Pain in left wrist, evaluate CMC arthritis. COMPARISON: None available. TECHNIQUE: PA, lateral, and oblique views of the left hand and wrist. FINDINGS: Osteoarthritic changes in the hand and wrist with moderate loss of first carpometacarpal joint space as well as small DIP osteophytes. Bone mineralization is normal. Alignment maintained. XR/XR hand wrist LT IMPRESSION: Moderate degenerative changes first carpometacarpal joint.
== END 2023-10-26 09:16 | disposition home or self-care (01) ==
LOC: HO.HOSX 09:15
PROVIDERS: PCP Internal Medicine Medical Oncology; Visit Provider Physical Medicine & Rehabilitation
DX: M18.11 Unilateral primary osteoarthritis of first carpometacarpal joint, right hand (principal); M25.532 Pain in left wrist
CPT/HCPCS: 73110; 73130

== ENCOUNTER 2023-12-14 08:05 | Outpatient (AMB) | payer BC, SELFPAY ==
--- NOTE | 2023-12-14 08:16 | MHC.OFFVIS ---
Vital Signs 12/14/23 08:21 Height 5 ft 1 in Intake Visit Reasons: New problem B/L dequervain& CMC pain per RB Intake Note: Marquita is a 48 yo left hand dominant female who presents today a new problem visit of bilateral Dequervain and CMC pain. Patient recently seen by Dr. Levin who recommended us. Patient denies numbness, tingling, and locking on fingers. Patient describes pain as constant making it difficult to brush her hair or doing chores. Reports she is taking Advil and Naproxen for pain without relief. Patient states she had bilateral CTR done at [facility], 2011 and 2014. 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 She complains primarily of pain at the base of her thumb. This is worse with pinching & gripping activities, and has been present for over 1+ years She says she has some less pain in her left hand, but she does feel this occasionally. She has done OT, which helped somewhat, and has been wearing bilateral comfort cool braces, with some relief. She would like to discuss injections today. She has a Hx of bilateral carpal tunnel release, 2011 and 2014, at [facility]. She denies any hand numbness. She says she has had a left 1st dorsal compartment release at [facility] in the past. She denies any locking or catching She follows with Pain management for chronic neck pain. 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 of Systems Const All systems reviewed & are unremarkable except as noted in HPI and below Physical Exam Const General: cooperative, healthy appearing and no acute distress Orientation/consciousness: patient oriented x3 HEENT Head: Yes normocephalic and Yes atraumatic Eyes EOM: EOMs intact bilaterally Resp Effort & Inspection: normal respiratory effort and able to speak in complete sentences Cardio Jugular venous distension: no JVD Skin General skin exam: turgor normal Rashes: no rashes Neuro General: patient oriented x3 Extrem Other: Evaluation of Right Upper Extremity: The patient is alert, oriented, and in no acute distress Neuro: Median, Ulnar, Radial nerves motor and sensory intact and sensation is normal to the tips of all digits Vascular: Cap refill brisk ROM: She can make a fist and extend all her digits No locking or catching Skin: No lacerations or abrasions. General: No Ecchymosis. No Erythema or evidence of infection. Most tender over the right basal joint Positive shoulder sign and positive CMC grind No tenderness over the 1st dorsal compartment on the right Negative Sweetie test on the right Negative Sweetie test on the left No tenderness over the a1 marc bilaterally Radiographs: 3 views of the right hand from 08/17/23 were reviewed by me today in clinic. they show no fractures or dislocations. There is basal joint osteoarthritis with joint space narrowing, subchondral sclerosis, and early osteophyte formation 3 views of the left hand from 10/26/23 were reviewed by me today in clinic. they show no fractures or dislocations. There is [ ] basal joint osteoarthritis with joint space narrowing, subchondral sclerosis, and osteophyte formation Psych Appearance: grossly normal Affect: normal affect Attitude: cooperative Office Procedures Fracture Care Details: No fracture, injection Fracture Billing Code: Fracture Billing Code Assessment & Plan Assessment & Plan (1) Arthritis of carpometacarpal (CMC) joint of right thumb: Code(s): M18.11 - Unilateral primary osteoarthritis of first carpometacarpal joint, right hand Category: Medical Plan Assessment & Plan: 1. Right basal joint osteoarthritis This is her primary complaint today I educated her about this condition I discussed operative and non-operative treatment options The patient would like to proceed with an injection I discussed activity modification, they should limit or avoid any heavy or repetitive pinching or gripping activities She will continue to wear her comfort cool brace with daily activity Injection #1: The risks and benefits of a steroid injection including but not limited to risk of damage to blood vessels, nerve, tendon, infection, skin bleaching, persistent or worsening pain, and failure to improve symptoms were discussed with the patient and they wish to proceed with the steroid injection. Once consent was obtained the skin over the dorsum of the Right basal joint was sterilely prepped. The joint was then injected with a combination of 1 mL of (40 mg/ml} Depo-Medrol and 1% plain Lidocaine. The patient tolerated the procedure with some pain & feelings of pressure following the injection, which improved in office before leaving clinic. There were no complications. She initially had a fair amount of pain from the injection, but once the lidocaine started working had some relief before leaving clinic today. She knows that they may not have another steroid injection into this joint for least 4 months. 2. Right De Quervain's tenosynovitis Negative Sweetie test today This was her primary complaint when seen by Dr. Levin on 10/26/23 No complaints of pain today She can follow up to discuss treatment if her symptoms increase in frequency or severity I discussed activity modification, they should limit or avoid any heavy or repetitive pinching or gripping activities She will continue to wear her comfort cool brace with daily activity 3. History of left 1st dorsal compartment release At [facility], date uknow 4. History of bilateral carpal tunnel release In 2011 & 2014 at [facility] Scribed for Janet Corbin MD by juan antonio Christiansen scribe, on 12/14/23 at 8:35 AM, EST. Scribe Plan - Not visible on output: Scribed for Janet Corbin MD by juan antonio Christiansen scribe, on [ ] at [ ], EST. Coding Level of Care Code New Pt Level 3 (41985) Diagnoses Arthritis of carpometacarpal (CMC) joint of right thumb M18.11 CPT Codes Fracture Care - Fracture Billing Code: Fracture Billing Code ([id number])
== END 2023-12-14 09:00 | disposition home or self-care (01) ==
PROVIDERS: PCP Internal Medicine Medical Oncology; Visit Provider Orthopaedic Surgery
DX: M18.11 Unilateral primary osteoarthritis of first carpometacarpal joint, right hand (principal)
CPT/HCPCS: 20600; 99203

== ENCOUNTER → 2023-12-14 08:05 | Outpatient (BNVA) | payer BC, SELFPAY | PROVIDERS: PCP Internal Medicine Medical Oncology; Visit Provider Orthopaedic Surgery | DX: M18.11 Unilateral primary osteoarthritis of first carpometacarpal joint, right hand (principal) | CPT/HCPCS: 20600; J1010 ==

== ENCOUNTER 2024-01-02 16:55 | Outpatient (REF) | payer BC, SELFPAY ==
[2024-01-02 17:02] LABS: Appearance Urine Clear; Color Urine Yellow; Glucose Urine UA Negative (Negative); Leukocyte Esterase Urine Negative (Negative); Nitrite Urine Negative (Negative); PH 5.5 (5.0-9.0); Specific Gravity - Urine 1.015 (1.005-1.025); Urine Blood Negative (Negative); Urine Ketones Negative (Negative); Urine Protein Negative (Neg-Trace)
== END 2024-01-02 16:56 | disposition home or self-care (01) ==
LOC: HO.LNP 16:55
PROVIDERS: Visit Provider Internal Medicine Medical Oncology
DX: R39.9 Unspecified symptoms and signs involving the genitourinary system (principal)
CPT/HCPCS: 81003; 87086; 87088; 87186

== ENCOUNTER 2024-03-06 11:21 | Outpatient (AMB) | payer BC, SELFPAY ==
[2024-03-06 11:50] VITALS: BMI 22.9
--- NOTE | 2024-03-06 11:50 | MHC.OFFVIS ---
Vital Signs 03/06/24 11:50 Height 5 ft 1 in Weight 121 lb BMI 22.9 Intake Visit Reasons: OV-joint of RT thumb pain- evaluated Intake Note: Marquita is a 49 yo female who presents today for evaluation of her right thumb, last injected 12/14/23. Patient wished to repeat injection today however, we notified her we would not be able to do this during this visit. 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 She has a hx of a right basal joint injection on 12/14/23, with limited relief. She complains primarily of right radial sided wrist pain, and pain at the base of her thumb This is worse with pinching & gripping activities, and has been present for over 1+ years. She says her basal joint injection gave her relief for ~1 week only. She feels limited in her daily activities & use of her thumb. She says she has some less pain in her left hand, but she does feel this occasionally. She has done OT, which helped somewhat, and has been wearing bilateral comfort cool braces, with some relief. She says her right comfort cool brace broke recently and she is requesting a new one. She has been wearing her left wrist brace upside down on her right hand. She has a Hx of bilateral carpal tunnel release, 2011 and 2014, at [facility]. She denies any hand numbness. She says she has had a left 1st dorsal compartment release at [facility] in the past. She denies any locking or catching She does feel like the pain in her right wrist is much like the pain she had in her left wrist before the surgery for the 1st dorsal compartment. She follows with Pain management for chronic neck pain. 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 Physical Exam Vital Signs: BMI result Body Mass Index 22.9 Extrem Other: Evaluation of Right Upper Extremity: The patient is alert, oriented, and in no acute distress Neuro: Median, Ulnar, Radial nerves motor and sensory intact and sensation is normal to the tips of all digits Vascular: Cap refill brisk ROM: She can make a fist and extend all her digits No locking or catching Tender over the right basal joint Positive shoulder sign and positive CMC grind Tender over the 1st dorsal compartment and over the radial styloid Positive Sweetie test on the right Negative Sweetie test on the left, and she has a healed longitudinal scar over the left radial styloid. Radiographs: 3 views of the right hand from 08/17/23 were reviewed by me today in clinic. they show no fractures or dislocations. There is basal joint osteoarthritis with joint space narrowing, subchondral sclerosis, and early osteophyte formation 3 views of the left hand from 10/26/23 were reviewed by me today in clinic. they show no fractures or dislocations. There is only very little evidence of left basal joint osteoarthritis Office Procedures AMB Fracture Care Details: No fracture, injection Fracture Billing Code: Fracture Billing Code Assessment & Plan Assessment & Plan (1) Arthritis of carpometacarpal (CMC) joint of right thumb: Code(s): M18.11 - Unilateral primary osteoarthritis of first carpometacarpal joint, right hand Category: Medical (2) De Quervain's tenosynovitis, right: Code(s): M65.4 - Radial styloid tenosynovitis [de Quervain] Category: Medical Plan Assessment & Plan: 1. Right De Quervain's tenosynovitis Positive Sweetie test today This is her primary complaint today I educated her about this condition I discussed operative and non-operative treatment options The patient would like to proceed with an injection today. I discussed activity modification, they should limit or avoid any heavy or repetitive pinching or gripping activities She was fitted for a comfort cool brace to wear with daily activity If she continues to have pain we may consider a referral to OT hand therapy to work on normalizing function & stretching Injection #1: The risks and benefits of a steroid injection including but not limited to risk of damage to blood vessels, nerves, tendons, infection, skin bleaching, failure to improve symptoms, increased pain, and possible need for further injections or other intervention were discussed with the patient and the patient wishes to proceed with the steroid injection. Once consent was obtained, I sterilely prepped the area over the 1st dorsal compartment of the Right thumb. I then injected the 1st dorsal compartment with a combination of 1 mL of dexamethasone (4mg/ml), and 1% lidocaine. The patient tolerated the procedure well with no complications. She was very happy and says that this injection alleviated perhaps 90% of her symptoms are more prior to leaving clinic. If the patient continues to have pain 6-8 weeks following this injection, they may call to schedule appointment to discuss alternative treatment options She can follow up prn 2. Right basal joint osteoarthritis, S/P injection Date of injection: 12/14/23 I educated her about this condition With ~1 week of relief following her injection on 12/14/23 She can receive a repeat injection no sooner than 04/14/24 3. History of left 1st dorsal compartment release At [facility], date uknown 4. History of bilateral carpal tunnel release In 2011 & 2014 at [facility] Scribed for Janet Corbin MD by juan antonio Christiansen scribe, on 03/06/24 at 12:10 PM, EST. Scribe Plan - Not visible on output: Scribed for Janet Corbin MD by juan antonio Christiansen scribe, on [ ] at [ ], EST. Coding Level of Care Code Est Pt Level 3 (27276) Diagnoses Arthritis of carpometacarpal (CMC) joint of right thumb M18.11 De Quervain's tenosynovitis, right M65.4 CPT Codes Fracture Care - Fracture Billing Code: Fracture Billing Code ([id number])
== END 2024-03-06 12:29 | disposition home or self-care (01) ==
LOC: HO.HOS 11:22
PROVIDERS: PCP Internal Medicine Medical Oncology; Visit Provider Orthopaedic Surgery
DX: M18.11 Unilateral primary osteoarthritis of first carpometacarpal joint, right hand (principal); M65.4 Radial styloid tenosynovitis [de Quervain]
CPT/HCPCS: 20600; 99213

== ENCOUNTER → 2024-03-06 11:21 | Outpatient (BNVA) | payer BC, SELFPAY | PROVIDERS: PCP Internal Medicine Medical Oncology; Visit Provider Orthopaedic Surgery | DX: M18.11 Unilateral primary osteoarthritis of first carpometacarpal joint, right hand (principal); M65.4 Radial styloid tenosynovitis [de Quervain] | CPT/HCPCS: 20600; J1100; J2003 ==

== ENCOUNTER 2024-04-17 08:39 | Outpatient (AMB) | payer BC, SELFPAY ==
--- NOTE | 2024-04-17 08:41 | A.OFFVIS_ITS ---
Intake Visit Reasons: OV-Right Dequervain, discuss sx Intake Note: Marquita 49 yr old female who is left hand dominant presents today for her follow up for her right hand Dequervain s/p basal injection from 03/06/24. States injection did not help her at all. She would also like to discuss surgical intervention. Allergies Seafood Allergy (Uncoded 04/17/24 08:41) Anaphylaxis HPI HPI OV-Right Dequervain, discuss sx: Details: Patient is a 49 YO F who presents for evaluation of R thumb CMC arthritis and De Quervain tenosynovitis, s/p both basal joint (12/14/23) and RETIREMENT (03/06/24) injec tions. Today, the patient reports that she experienced no relief from her previous injection, compared to getting relief for approximately 1 week for her basal joint injection in December, and would like to explore further treatment options at this time. The patient states that this pain is localized around the basal joint of the right thumb, does not radiate into the forearm, but does move into the thenar eminence. Patient denies any numbness or tingling of the right hand. No other acute complaints or concerns at this time. 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, 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 of Systems Const All systems reviewed & are unremarkable except as noted in HPI and below Physical Exam Extrem Other: Evaluation of Right Upper Extremity: The patient is alert, oriented, and in no acute distress Neuro: Median, Ulnar, Radial nerves motor and sensory intact and sensation is normal to the tips of all digits Vascular: Cap refill brisk ROM: She can make a fist and extend all her digits No locking or catching Tender over the right basal joint Positive shoulder sign and positive CMC grind Nontender over the 1st dorsal compartment and radial styloid on the right Negative Sweetie on the right Negative Sweetie test on the left, and she has a healed longitudinal scar over the left radial styloid. Radiographs: 3 views of the right hand from 08/17/23 were reviewed by me today in clinic. they show no fractures or dislocations. There is basal joint osteoarthritis with joint space narrowing, subchondral sclerosis, and early osteophyte formation 3 views of the left hand from 10/26/23 were reviewed by me today in clinic. they show no fractures or dislocations. There is only very little evidence of left basal joint osteoarthritis Office Procedures Joint Inj/Aspir; Non-Pain Clin Joint Injection/Drain Prep: site was prepped using aseptic technique and injection warnings given Procedure: The patient tolerated the procedure well and there was some relief with the local anesthesia Elbows, Wrist, Hands, Details: Right basal joint injection Hand injection Medium joint : Right Hand Coding Procedure code (CPT) selection complete Assessment & Plan Assessment & Plan (1) Arthritis of carpometacarpal (CMC) joint of right thumb: Code(s): M18.11 - Unilateral primary osteoarthritis of first carpometacarpal joint, right hand Category: Medical Plan 1. Arthritis of CMC joint of right thumb I discussed this condition with the patient and the treatment options available The patient would like to proceed with repeat steroid injection at this time Injection 1.: The risks and benefits of a steroid injection including but not limited to risk of damage to blood vessels, nerve, tendon, infection, skin bleaching, persistent or worsening pain, and failure to improve symptoms were discussed with the patient and they wish to proceed with the steroid injection. Once consent was obtained the skin over the dorsum of the right basal joint was aseptically prepped. The joint was then injected with a combination of 1 mL of (40 mg/ml} Depo-Medrol and 1% plain Lidocaine. The patient appears to have tolerated the procedure well and with no complications. SHe had good early relief before leaving clinic today. SHe knows that they may not have another steroid injection into this joint for least 4 months. Coding Level of Care Code Est Pt Level 3 (45560) Diagnoses Arthritis of carpometacarpal (CMC) joint of right thumb M18.11 CPT Codes Elbows, Wrist, Hands, - Hand injection Medium joint 87450: Right Hand ([id number])
--- OUTSIDE RECORDS SUMMARY | 2024-04-18 19:01 | XMS_ITS | Continuity of Care Document ---
Author Organization [facility] Address [address] [place] [address] Phone Care Team Providers Care Shuttle Fixer Name Role Phone Yayo ENGLAND, RVArely, CAROLINE, [...] Mins- [place] & [place] [facility], [address] [address], [id number], [place] tel:[phone] CVR - [place] - [place] Venous insufficiency (chronic) (peripheral) 4 Yayo ENGLAND RVT, RPVI Robert. [address] [place] [address], [facility], [place], [id number] , [place]. [phone] Referring Provider: Ross Rodney, [address] [place] [address] [address], [place], [address]. tel:[phone] [facility], [address] [place] [address] [address] [address], [id number], [place] tel:[phone] CVR - [place] Varicose veins of right lower extremity with pain 4 Yayo ENGLAND RVT, RPVI Robert. [address] [place] [address], [facility] [place] [id number] , [place]. tel:[phone] Referring Provider: Ross Rodney, [address] [place] [address] [address], [place], [address]. tel:[phone] [facility], [address] [place] [address]Suite [facility] [place], [id number], [place] tel:[phone] CVR - [place] Encounter for follow-up examination after completed treatment for conditions other than malignant neoplasmVaricos e veins of right lower extremity with pain 4 Yayo ENGLAND RVT, RPVI Robert. [address] [place] [address], [address], [facility], [place], [id number] , [place]. tel:[phone] Referring Provider: Ross Rodney, [address] [place] [address] [address], [place], [address]. tel:[phone] [facility], [address] [place] [address] [address] [address], [id number], [place] tel:[phone] CVR - [place] Varicose veins of right lower extremity with other complications 4 Yayo ENGLAND RVT, RPVI Robert. [address] [place] [address], [address], [facility] [place], [id number] , [place]. tel:[phone] Referring Provider: Ross Rodney, [address] [place] [address] [address], [place], [address]. tel:[phone] [facility], [address] [place] [address] [address], [id number], [place] tel:[phone] CVR - [place] Encounter for follow-up examination after completed treatment for conditions other than malignant neChronic venous hypertension (idiopathic) with other complications of right lower extremity 4 Yayo ENGLAND RVT, CAROLINE Hawkins. [address] [place] [address], [place], [place], [id number] , [place]. tel:[phone] Referring Provider: Ross Rodney, [address] [place] [address] Suite [facility], [place], [address]. tel:[phone] [facility], [address] [place], [place] [address], [id number], [place] tel:[phone] CVR - [facility] Varicose veins of right lower extremity with other complications 4 Yayo ENGLAND RVT, CAROLINE Hawkins. [address] [place] [address], [place], [place], [id number] , [place]. tel:[phone] Referring Provider: Ross Rodney, [address] [place] [address] [address], [place], [address]. tel:[phone] [facility], [address] [place] [address] [address], [id number], [place] tel:[phone] CVR - [facility] Chronic venous hypertension (idiopathic) with inflammation of right lower extremity 4 Yayo ENGLAND RVT, CAROLINE Hawkins. [address] [place] [address] [address], [place], [place], [id number] , [place]. tel:[phone] Referring Provider: Ross Rodney, [address] [place] [address] [address], [place], [address]. tel:[phone] [facility], [address] [place] [address] [address], [place], [id number], [place] tel:[phone] CVR - [place] No Information 4 Yayo ENGLAND RVT, CAROLINE Hawkins. [address] [place] [address], [facility] [place], [place], [id number] , [place]. tel:[phone] Office/Oupt E&M New Pt 45 Mins- [place] & [place] [facility], [address] [place] [address] [address], [place], [id number], [place] tel:[phone] CVR - [place] Varicose veins of right lower extremity with other complicationsPa in in right lower legPain in left lower legPain in right legRestless legs syndromePruritu s, unspecifiedPain in left legCramp and spasmLocalized edema 4 Yayo ENGLAND RVT, CAROLINE Hawkins. [address] [place] [address], [place], [place], [id number] , [place]. tel:[phone] Referring Provider: Ross Rodney, [address] [place] [address] Suite [facility], [place], [address]. tel:[phone] [facility], [address] [place] [address] [address], [place], [id number], [place] tel:[phone] CVR - [place] Pain in right legPain in left leg 4 Yayo ENGLAND RVT, CAROLINE Hawkins. [address] [place] [address], [place], [place], [id number] , [place]. tel:[phone] Referring Provider: Ross Rodney, [address] [facility], [place], [address]. tel:[phone] Family History Family Member Type Diagnosis Age At Onset No Information Payers Payer name Insurance type Covered green party ID Aparna geronimodenise(s) [employer] [facility] [id number] Social History Type Description Quantity Date Captured [...]
== END 2024-04-17 09:21 | disposition home or self-care (01) ==
PROVIDERS: PCP Internal Medicine Medical Oncology
DX: M18.11 Unilateral primary osteoarthritis of first carpometacarpal joint, right hand (principal)
CPT/HCPCS: 20600; 99213

== ENCOUNTER → 2024-04-17 08:39 | Outpatient (BNVA) | payer BC, SELFPAY | PROVIDERS: PCP Internal Medicine Medical Oncology | DX: M18.11 Unilateral primary osteoarthritis of first carpometacarpal joint, right hand (principal) | CPT/HCPCS: 20600; J1010; J2003 ==

== ENCOUNTER 2024-08-01 14:53 | Outpatient (REF) | payer BC, SELFPAY ==
--- NOTE | ~2024-08-01 | US_ITS ---
CLINICAL HISTORY: SYNOVIAL CYST OF POPLITEAL SPACE LT KNEE US left lower extremity nonvascular Comparison: None Findings: Sonographic evaluation in the area of clinical concern left popliteal fossa demonstrates a patent popliteal vein without evidence of a Palomino's cyst. A subcutaneous cyst is seen in the distal thigh just proximal to the popliteal fossa measuring 10 x 10 x 6 mm. No internal vascularity. Minimal internal echoes probable debris. Impression: A cyst with minimal internal echoes is demonstrated just deep to the dermis distal thigh / proximal popliteal region on the left This document has been electronically signed by: Km Arce MD on 08/02/2024 11:49:17
--- OUTSIDE RECORDS SUMMARY | 2024-08-01 17:51 | XMS_ITS ---
Author Organization Ross Casanova III, MD Address [address] [place] [address] [place] [address] Care Team Providers Care Brand Ambassadors [employer]otional Sales Name Role Phone Ross Casanova Primary Care Provider [phone] Allergies Allergen (clinical drug ingredient) Drug/Non Drug Allergy documented on EMR Reaction Allergy Type Onset Date Status Shellfish (FN) Shellfish-derived Products Unknown Drug Allergy Active REASON FOR VISIT [facility] ED on 05/11/2024 treated for chest [...] Date Provider Diagnosis Ross Casanova III, MD [address] [place] [address] [address] [place], [place] [address] 06/05/2024 Ross Casanova Gastroesophageal ref lux disease, [...] Up: 6 Weeks, Reason: OV Provider Name:Ross Casanova, 10/22/2024 04:00:00 PM, [address] [place] [address] [address], [place], [id number], Provider Name:Ross Casanova, 03/06/2025 04:00:00 PM, [address] [place] [address] [address], [place], [id number], Progress Notes * PABLO BARRERADOB: 4 (49 yo F)Acc No.[id number]:06/05/2024 Progress Notes Patient:?PABLO BARRERA Provider:?Ross Casanova MD :1975???Age:49 Y???Sex:Female D ate:06/05/2024 Address:[address] [place] [address], [id number] Subjective: * Chief Complaints: * ???[facility] ED on 05/11/2024 tr eated for chest painCervical radiculopathyMigraine. Esophageal dysmotilityCDH1 heterozygosity * HPI: ???COVID-19 Screening:?She returns for a scheduled visit to manage her numerous medical issues.? She recently was seen in the emergency room at [facility] because of chest and upper abdominal pain.? An extensive evaluation was undertaken.? It was determined that this was a manifestation of esophageal reflux.? 2 troponins and EKG were unremarkable.? The pain resolved with antacid therapy.? Her omeprazole was discontinued as ineffective and she was instructed to use Pepcid.? We decided she would continue to use Pepcid multiple times a day.? If that is effective she may continue on it.? If this isn't effective at controlling her heartburn and I will give her a trial of pantoprazole. ?Questions?Have you had any new onset fever, chills, cough, congestion, sore throat, shortness of breath, muscle aches??No * ROS:?General/Constitutional:?pain?Neck, left shoulder, epigastrium.?Chills?denies.?Fatigue?admits.?Fever?denies.?ENT:?Decreased hearing?denies.?Respiratory:?Cough?denies.?Cardiovascular:?Chest pain with exertion?denies.?Dyspnea on exertion?denies.?Shortness of breath?denies.?Gastrointestinal:?Constipation?occasional.?Decreased appetite?denies.?Diarrhea?denies.?Heartburn?denies.?Nausea?denies.?Rectal bleeding?denies.?Vomiting?denies.?Hematology:?bruising?denies.?petechiae?denies.?Swollen glands?none have been noted.?Genitourinary:?Frequent urination?denies.?Musculoskeletal:?Muscle aches?denies.?Painful joints?Neck.?Sciatica?denies.?Weakness?denies.?Skin:?Itching?denies.?Rash?denies.?Skin lesion(s)?denies.?Neurologic:?Difficulty speaking?denies.?Dizziness?denies.?Headache?denies.?Low back pain?denies.?Psychiatric:?Depressed mood?denies.? * Medical History:? * Surgical History:?Right carp al tunnel release 10/2011Ureteroplasty age 1tubal ligation vein surgery left leg 09/18/20vein surgery left leg 09/19/20Panniculectomy ervical Medial Branch Nerve Stimulation Lead Placement- SPR System, Right C4 04/2023No history * Hospitalization/Major Diagno stic Procedure:?bladder surgery 1 years old No history * Family History:?Father: neal galindo 74 yrs, Prostate cancer.?Mother: alive 62 yrs, Hypertension, depression.?Siblings: alive, no Hx of cancer.?Paternal Grand Father: , mouth and throat cancer. Paternal Grand Mother: alive, Unknown.?Maternal Grand Father: , stomach cancer.?Maternal Grand Mother: , Unknown.?Paternal uncle: alive, no Hx of cancer.?Paternal aunt: alive, No Hx of cancer.?Maternal uncle: alive, No Hx of cancer.?Maternal aunt: alive, 2 aunts from Breast Cancer. 2 other aunts had breast cancer..?2 son(s) , 1 daughter(s) - healthy. .? Her father has a history of prostate [...] She does suffer from anxiety. * Social History:?Tobacco Use:?Tobacco Use/Smoking?Patient is a?former smoker ?How long has it been since you last smoked??< 1 month ?Additional Findings: Tobacco User?Light cigarette smoker ((1-9 cigs/day) ?Tobacco Control (Standard)?Tobacco use:?Former smoker ?How long has it been since you last smoked??6-12 months ?Additional Findings: Tobacco non-user?Ex-cigarette smoker ???She is and lives with her and 3 children. She smokes cigarettes every day but does not drink alcohol or take illegal drugs. * Medications:?TakingEpiPen 0. 3 MG/0.3ML Solution Auto-injector as directed Injection Use [...] reviewed and reconciled with the patient * Allergies:?Shellfish-derived Productsno[Allergies Verified] Objective: * Vitals:?Ht: 60, Wt: 124, BMI :24.21, Wt-k.25. * Examination: ???General Examination: ?GENERAL APPEARANCE:?pleasant, well nourished, well developed, in no acute distress, calm and relaxed, woman.?HEAD:?atraumatic, normocephalic.?EYES:?eomi, perrla, anicteric, conjugate.?EARS:?normal.?NOSE:?septum intact.?ORAL CAVITY:?normal, unremarkable.?NECK/THYROID:?no jugular venous distention, no carotid bruit, thyroid normal, Range of motion improved and almost normal.?LYMPH NODES:?no enlarged lymph nodes,spleen normal.?SKIN:?no suspicious lesions, anicteric.?HEART:?no clicks, gallops, murmurs, or rubs, regular rhythm, S1, S2 normal, no s3, or vascular bruits.?LUNGS:?clear to auscultation .?BREASTS:?Not examined.?ABDOMEN:?bowel sounds normal, no ascites, no organomegaly, no mass.?RECTAL EXAM:?not examined.?MUSCULOSKELETAL:?extremities unremarkable, no clubbing, cyanosis or edema, Range of motion left shoulder normal, compression of left chest wall normal, mild decreeased range of motion neck with mild pain.?PERIPHERAL PULSES:?normal.?NEUROLOGIC:?alert and oriented, cranial nerves 2-12 grossly intact, deep tendon reflexes 2+ symmetrical, motor strength normal upper and lower extremities, sensory exam intact.?PSYCH:?alert, oriented.? Assessment: * Assessment: 1.?Gastroesophageal reflux d isease, esophagitis presence not specified - K21.9 (Primary)???Notes :She will continue on the Pepcid.? She will supplemented with liquid antacid.? She will report in 2 weeks as to her progress with the reflux symptoms.???2.?Cervical radiculopathy - M54.12???Notes :Continues to have pain in her right neck and right shoulder with range of motion. SShe will continue with the rest ibuprofen. She is managed by pain management.???3.?Depression, unspecified depression type - F32.9???Notes :Depression is mild and stable andd no change inn her regimen was necessary today.???4.?Esophageal dysmotility - K22.4???Notes :A barium swallow will be done in the near future, and she will be seen back after that to discuss results.???5.?Migraine with aura and without status migrainosus, not intractable - G43.109???Notes :I have prescribed a new medication, eletriptan. The risks and benefits were explained and the way to take it was carefully delineated. She gave informed consent for prescribing in taking the medication.???6.?Low back pain - M54.5???Notes :The MRI shows compression of the nerve root. She will be referred back for injections. She will see a neurosurgeon to discuss surgical therapy. I have given her dexamethasone to see if this will ameliorate the pain from the nerve compression.???7.?Former smoker - Z87.891???Notes :She is no longer smoking and has been abstinent for a month. We made a plan to prevent relapse in times of stress and illness.??? Plan: * Treatment: 2.?Others? Continue EpiPen Solution Auto-injector, 0.3 MG/0.3ML, as directed, Injection, Use as needed for allergic reaction;?Continue Naproxen Sodium Tablet, 220 MG, 1 tablet with food or milk as needed, Orally, every 12 hrs;?Continue Sertraline HCl Tablet, 25 MG, 1 tablet, Orally, Once a day.?? * Procedure Codes:? * Preventive Medicine:? ??Counseling:?Smoking/Tobacco Use?Patient counseled on the dangers of tobacco use and urged to quit.?06/05/2024 * Follow Up:?6 Weeks (Reason: OV) * Images: * Sign off status: Completed true * Provider:?Ross Casanova MD Date:?05/10 Generated for Ethan olivas/Aissatou/eTisaaksmitting on:?08/01/2024 05:51 PM EDT History and Physical Notes * HPI [...]
--- OUTSIDE RECORDS SUMMARY | 2024-08-01 17:51 | XMS_ITS | Encounter Summary ---
Author Organization [email or web address] [address] Care Team Providers Care Car Pusher Name Role Phone Ross Casanova MD Primary Care Provider [phone] Reason for Visit * Reason Onset Date Comments Menstrual Problem 07/30/2024 Encounter Details Date Type Department Care Team (Late st Contact Info) Description 07/30/2024 Telephone Obstetrics & Gynecology - [address] [address], [facility] [address] [place] [id number] Menstrual Problem Social History Tobacco Use Types Packs/Day Years Used Date Smoking Tobacco: Former Cigarettes Q uit: 03/09/2021 Smokeless Tobacco: Never Alcohol Use Standard Drinks/Week Comments No 0 (1 standard drink = 0.6 oz pur e alcohol) Comments No Sex and Gender Information Value Date Recorded Sex Assigned at Female 04/03/2024 10:28 AM EST Legal Sex Female 4:36 AM EST Gender Identity Female 04/03/2024 10:28 AM EST Sexual Orientation Straight 04/03/2024 10 :28 AM EST documented as of this encounter Progress Notes * Nallely Reyes RN - 07/30/2024 2:12 PM EDT Pt seen by INFORMATION SECURITY SPECIALIST 03/2024 for annual exam and c/o pelvic pain. Pelvic u/s normal other than leiomyoma pt takes drospirenone-ethinyl estradioL (VINOD,RAN,STEPAN) 3-0.02 mg per tablet [[id number]] Order Details Dose: 1 tablet Route: oral Frequency: Daily Dispense Quantity: 28 tablet Refills: 12 Using amn language line- she is calling because she had her period in the beginning of the month and then started bleeding again yesterday and today which is heavy. Pt states from 6am - 11am today she had to change her pad 3 times. Since then she has changed her pad twice. Most recent periods: -3 until 05-16 2-1 until 06-13 3-2 until 07-11-24 She denies missing any control pills. She denies pain , clots or concerns for stis. Pt advised to continue her control pills and to monitor her flow. Warning s/sx discussed and when to goto the ed . Appt scheduled for further evaluation 08-03-24. Pt denies sob , syncopal episodes or chest pain. She is aware of her hx of fibroids. No other q/c. * Sofy Butcher - 07/30/2024 11:37 AM EDT Pt calling, states has been on bcp for a while, but started her menses on 07/08/24 lasted 3 days and now has begun with cycle again today and its been really heavy. Pls advise documented in this encounter Plan of Treatment Upcoming Encounters Date Type Department Care Team (Late st Contact Info) Description 08/03/2024 2:30 PM EDT Office Visit Obstetrics and Gynecology - [address] [phone] [address] [place], [place] documented as of this encounter Visit Diagnoses Not on filedocumented in this encounter Care Teams Car Pusher Relationship Specialty Start Date End Date Ross Casanova MD [address] [address] PCP - General Oncology 12/20/19 documented as of this encounter
--- OUTSIDE RECORDS SUMMARY | 2024-08-01 17:51 | XMS_ITS ---
Author Organization Ross Casanova III, MD Address [address] [place] [address] [place] [address] Care Team Providers Care Media Services Specialist Name Role Phone Ross Casanova Primary Care Provider Allergies Allergen (clinical drug [...] First Name Ross Referring Provider Last Name Casanova Referring Provider Speciality Internal edicine Referred Provider [facility], Orthopedic Surgeons [facility]erred [facility] General Notes DAngela 07/23/2024 11:35:14 AM > Referral and progress note faxed Referral Priority Routine Reason Evaluate and Treat Bunion of right foot Diagnosis 1 Bunion of right foot (M21.611) Referral Organization Ross Casanova III, MD Referring Provider First Name Ross Referring Provider Last Name Casanova Referring Provider Speciality Internal M edicine Referred Provider TONY TOURE Referred Provider Specialty Podiatry General Notes D 07/23/2024 11:34:20 AM > Referral faxed with progress note Referral Priority Routine REASON FOR VISIT Headache, Right foot first [...] Date Provider Diagnosis Ross Casanova III, MD [address] [place] [address] [place] [address] 07/18/2024 Ross Casanova Gastroesophageal ref lux disease, [...] days Pending Test Test Name Order Date PROFILE, FASTING (COMPREHENSIVE METABOLI C) 07/18/2024 CBC w DIFF 07/18/2024 Lipid Panel 07/18/2024 US extremity nonvascular 07/18/2024 Referrals Referral Date Details 07/18/2024 07/18/2024, Evaluate and Treat pain left knee, [facility] 07/18/2024 07/18/2024, Evaluate and Treat Bunion of right foot, TONY TOURE Next Appt Details Follow Up: 3 Months, Reason: OV Provider Name:Ross Mariarne, 10/22/2024 04:00:00 PM, [address] [place] [address] [address], [place], [address], Provider Name:Ross Edilberto, 03/06/2025 04:00:00 PM, [address] [place] [address] [address], [place], [address], Progress Notes * PABLO BARRERADOB: 4 (49 yo F)Acc No.[id number]:07/18/2024 Progress Notes Patient:?PABLO BARRERA Provider:?Ross Casanova MD :1975???Age:49 Y???Sex:Female D ate:07/18/2024 Address:[address] [place] [id number] Subjective: * Chief Complaints: * ???HeadacheRight foot first toe painDepressionCervical radiculopathyGERD * HPI: ???COVID-19 Screening:?She returns for a scheduled periodic visit to manage her medical issues.? Her cervical radiculopathy is unchanged.? She reports having a headache for the last 2 days.? She has a bunion on her right foot that is painful.? Thiss has been going on for 4 months.? She was referred to podiatry for this.? She has a pain in her left popliteal fossa but the examination was unremarkable and there was no crepitus.She has no other new complaints.? Her examination today was unremarkable. ?Questions?Have you had any new onset fever, chills, cough, congestion, sore throat, shortness of breath, muscle aches??No * ROS:?General/Constitutional:?pain?Neck with range of motion, recent headaches.?Chills?denies.?Fatigue?admits.?Fever?denies.?ENT:?Decreased hearing?denies.?Respiratory:?Cough?denies.?Cardiovascular:?Chest pain with exertion?denies.?Dyspnea on exertion?denies.?Shortness of breath?denies.?Gastrointestinal:?Constipation?occasional.?Decreased appetite?denies.?Diarrhea?denies.?Heartburn?controlled with medications.?Nausea?denies.?Rectal bleeding?denies.?Vomiting?denies.?Hematology:?bruising?denies.?petechiae?denies.?Swollen glands?none have been noted.?Genitourinary:?Frequent urination?denies.?Musculoskeletal:?Muscle aches?denies.?Painful joints?denies.?Sciatica?denies.?Weakness?denies.?Skin:?Itching?denies.?Rash?denies.?Skin lesion(s)?denies.?Neurologic:?Difficulty speaking?denies.?Dizziness?denies.?Headache?denies.?Low back pain?denies.?Psychiatric:?Depressed mood?which is mild.? * Medical History:? * Surgical History:?Right carp al tunnel release 10/2011Ureteroplasty age 1tubal ligation vein surgery left leg 09/18/20vein surgery left leg 09/19/20Panniculectomy ervical Medial Branch Nerve Stimulation Lead Placement- SPR System, Right C4 04/2023No history * Hospitalization/Major Diagno stic Procedure:?bladder surgery 1 years old No history * Family History:?Father: aliv e 74 yrs, Prostate cancer.?Mother: alive 62 yrs, [...] suffer from anxiety. * Social History:?Tobacco Use:?Tobacco Control (Standard)?Tobacco use:?Former smoker ?How long has it been since you last smoked??6-12 months ?Additional Findings: Tobacco non-user?Ex-cigarette smoker ???She is and lives with her and 3 children. She smokes cigarettes every day but does not drink alcohol or take illegal drugs. * Medications:?TakingEletripta n Hydrobromide 40 MG Tablet 1 tablet Orally [...] Productsno[Allergies Verified] Objective: * Vitals:?Ht: 60, Wt: 123, BMI :24.02, BP: 130/81, HR: 72, Temp: 97.9, Wt-k.79. * Examination: ???General Examination: ?GENERAL APPEARANCE:?pleasant, well nourished, well developed, in no acute distress, calm and relaxed.?HEAD:?atraumatic, normocephalic.?EYES:?eomi, perrla, anicteric, conjugate.?EARS:?normal.?NOSE:?septum intact.?ORAL CAVITY:?normal, unremarkable.?NECK/THYROID:?no jugular venous distention, no carotid bruit, thyroid normal.?LYMPH NODES:?no enlarged lymph nodes,spleen normal.?SKIN:?no suspicious lesions, anicteric.?HEART:?no clicks, gallops, murmurs, or rubs, regular rhythm, S1, S2 normal, no s3, or vascular bruits.?LUNGS:?clear to auscultation .?BREASTS:??no masses palpable bilaterally.?ABDOMEN:?bowel sounds normal, no ascites, no organomegaly, no mass.?RECTAL EXAM:?not examined.?MUSCULOSKELETAL:?extremities unremarkable, no clubbing, cyanosis or edemaRange of motion of neck improved but still slight pain.?PERIPHERAL PULSES:?normal.?NEUROLOGIC:?alert and oriented, cranial nerves 2-12 grossly intact, deep tendon reflexes 2+ symmetrical, motor strength normal upper and lower extremities, sensory exam intact.?PSYCH:?alert, oriented, mood depressed.? Assessment: * Assessment: 1.?Cervical radiculopathy - M54.12 (Primary)???Notes :Continues to have pain in her right neck and right shoulder with range of motion. SShe will continue with the rest ibuprofen. She is managed by pain management.???2.?Gastroesophageal reflux disease, esophagitis presence not specified - K21.9???Notes :Her reflux symptoms are well controlled with her current medical regimen.? No change was made.? She was advised to refrain from eating before sleep???3.?Depression, unspecified depression type - F32.9???Notes :Her depression seems very mild at this time and does not bother her much at all.? She reports completing all of the activities of daily living on a regular basis.???4.?Synovial cyst of popliteal space [[place]], left knee - M71.22???Notes :Is mildly painful.? An ultrasound was ordered to see if there was a cyst.???5.?Esophageal dysmotility - K22.4???Notes :A barium swallow will be done in the near future, and she will be seen back after that to discuss results.???6.?Hiatal hernia - K44.9???Notes :This is a finding on upper GI series done recently and is asymptomatic.???7.?Migraine with aura and without status migrainosus, not intractable - G43.109???Notes :I have prescribed a new medication, eletriptan. The risks and benefits were explained and the way to take it was carefully delineated. She gave informed consent for prescribing in taking the medication.???8.?Former smoker - Z87.891???Notes :She is no longer smoking and has been abstinent for a month. We made a plan to prevent relapse in times of stress and illness.??? Plan: * Treatment: 2.?Depression, unspecified d epression type?LAB: PROFILE, FASTING (COMPREHENSIVE METABOLIC) ?LAB: CBC w DIFF ?LAB: Lipid Panel 3.?Synovial cyst of poplitea l space [[place]], left knee?Imaging: US extremity nonvascular? Referral To:[facility]??Orthopedic Surgery ?Reason:Evaluate and Treat pain left knee 4.?Others? Continue EpiPen Solution Auto-injector, 0.3 MG/0.3ML, as directed, Injection, Use as needed for allergic reaction;?Continue Naproxen Sodium Tablet, 220 MG, 1 tablet with food or milk as needed, Orally, every 12 hrs;?Continue Sertraline HCl Tablet, 25 MG, 1 tablet, Orally, Once a day.? Referral To:TONY TOURE??Podiatry ?Reason:Evaluate and Treat Bunion of right foot * Procedure Codes:? * Follow Up:?3 Months (Reason: OV) * Images: * Sign off status: Completed true * Provider:?Ross Casanova MD Date:?07/07 Generated for Ethan olivas/Aissatou/Vandanaitting on:?08/01/2024 05:51 PM EDT History and Physical [...] Referred Provider Not es 07/18/2024 Ross Casanova [facility], Orthopedic Surgeons Evaluate and Treat pain left knee 07/18/2024 Ross Casanova WALTER Evaluate and T reat Bunion of right foot
--- OUTSIDE RECORDS SUMMARY | 2024-08-01 17:51 | XMS_ITS | Data Portability ---
Author Organization [facility], [address] Address [address] [place] [address] Care Team Providers Care Claim Rep Name Role Phone DARIUS MELENDREZ Primary Care Provider Assessment No assessment recorded. Plan of Treatment Reminders Order Date Submit Date Provider Last Modified By Organization Details Last Modified Time Details Appointments None recorded. Lab rapid SARS CoV 2 Ag, QL IA, respiratory specimen 2021 022 [id number] [facility] [address] [place] [address], [phone], 11:54:05 Referral None recorded. Procedures None recorded. Surgeries None recorded. Imaging None recorded. Medication Orders None recorded. Patient TargetsNo targets recorded. Patient Instructions Encounter Date Encounter Id Patient Instructions Last Modified By Organization Details Last Modified Time 04/15/2022 [id number] things to do i f you've been exposed to covid-19 [email or web address] Not available 04/15/2022 11:57:29 COVID Rapid negative - should be ok for your surgery and planned procecdure. Don't hesitate to be seen again if you develop any shortness of breath, chest pain, or cold like symptoms. Not available 04/15/2022 11:54:04 Reason for Referral None Reported. Results Created Date Observation Date Name Description Value Unit Range Abnormal Flag Note LastModifiedBy Organization Detail LastModifiedTime 04/15/2004/15/2022 rapid SARS CoV 2 Ag, QL IA, respi rator y speci men Unknown Analyte Normal =Negat monique Not Available [facility] [address] [place] [address], [phone], 04/15/2022 10:21:36 04/15/2004/15/2022 rapid SARS CoV 2 Ag, QL IA, respi rator y speci men Unknown Analyte negati ve Not Available [address] [facility] [address] [place], [phone], 04/15/2022 10:21:36 Result Notes None recorded. Problems No Known Problems Medical Equipment None Reported. Allergies No known drug allergies Medications Name Sig Start Date Stop Date Status Note LastModified by Organization Details LastModified Time cyclobenzap rine 10 mg tablet TAKE 1 TABLET BY MOUTH 3 TIMES A DAY X14 DAYS 04/15 completed Not Available Not Available Not Available methocarbam ol 500 mg tablet TAKE 1 TABLET BY MOUTH EVERY 6 HOURS NEEDED FOR PAIN 04/15 completed Not Available Not Available Not Available meloxicam 15 mg tablet TAKE 1 TABLET BY MOUTH EVERY DAY FOR 30 DAYS 04/15 completed Not Available Not Available Not Available ciprofloxac in 500 mg tablet TAKE 1 TABLET BY MOUTH EVERY 12 HOURS FOR 10 DAYS 04/15 completed Not Available Not Available Not Available hydromorpho ne 2 mg tablet TAKE 1 TABLET BY MOUTH EVERY 4 TO 6 HOURS NEEDED FOR PAIN 04/15 completed Not Available Not Available Not Available omeprazole 10 mg capsule,del ayed release TAKE 1 CAPSULE BY MOUTH EVERY DAY 30 MINUTES BEFORE MORNING MEAL FOR 30 DAYS 04/15 completed Not Available Not Available Not Available methocarbam ol 750 mg tablet TAKE 1 TABLET BY MOUTH EVERY 6 HOURS NEEDED FOR SPASMS 04/15 completed Not Available Not Available Not Available dexamethaso ne 2 mg tablet TAKE 1 TABLET BY MOUTH TWICE A DAY WITH FOOD FOR 10 DAYS 04/15 completed Not Available Not Available Not Available nitrofurant oin macrocrysta l 100 mg capsule TAKE 1 CAPSULE BY MOUTH TWICE A DAY FOR 10 DAYS 04/15 completed Not Available Not Available Not Available dexamethaso ne 4 mg tablet TAKE 1 TABLET BY MOUTH TWICE A DAY FOR 15 DAYS 04/15 completed Not Available Not Available Not Available hydroxyzine HCl 25 mg tablet TAKE 1 TABLET BY MOUTH EVERY 4 TO 6 HOURS NEEDED FOR ANXIETY 04/15 completed Not Available Not Available Not Available epinephrine 0.3 mg/0.3 mL injection, auto-inject or USE DIRECTED NEEDED FOR ALLERGIC REACTION FOR 30 DAYS active Not Available Not Available No t Available celecoxib 100 mg capsule TAKE 1 CAPSULE BY MOUTH EVERY DAY WITH FOOD FOR 30 DAYS 04/15 completed Not Available Not Available Not Available ondansetron 4 mg disintegrat ing tablet DISSOLVE 1 TABET BY MOUTH EVERY 8 HOURS NEEDED FOR NAUSEA 04/15 completed Not Available Not Available Not Available fluoxetine 20 mg capsule TAKE 1 CAPSULE BY MOUTH EVERY DAY FOR 30 DAYS 04/15 completed Not Available Not Available Not Available eletriptan 40 mg tablet TAKE 1 TABLET BY MOUTH ONCE DAILY NEEDED FOR MIGRAINE, MAY REPEAT ONCE 04/15 completed Not Available Not Available Not Available Linzess 145 mcg capsule TAKE 1 CAPSULE BY MOUTH EVERY MORNING 04/15 completed Not Available Not Available Not Available Vitals Date Recorded Body height Body mass index (BMI) Body weight Oxygen saturation Oxygen saturation in Arterial blood by Pulse oximetry Heart rate Respiratory rate Body temperature Systolic blood pressure Diastolic blood pressure Provider Name and Address Organization Details Last Updated DateTime 152.4 cm 25.2 kg/m2 17786.4 2 g 96 % 96 % 68 /min 18 /min 97.8 [degF] 115 mm[Hg] 78 mm[Hg] Vernell Steele PA [facility] 10:23:26 Social History Question Answer Notes LastModified by Organizat ion Details LastModified Time Tobacco Smoking Status Never Smoker Vernell htomas PA - [facility] 04/15/2022 10:21:26 What Is Your Level Of Alcohol Consumption? None Information not available 04/15/2022 Have You Had Direct Contact, Or Contact During Intimacy, With Monkeypox Rash, Scabs, Or Body Fluids From A Person With Monkeypox? No Information not available 04/15/2022 Do You Use Any Illicit Or Recreational Drugs? No Information not available 04/15/2022 Have You Recently Traveled Abroad? No Information not available 04/15/2022 Do You Or Have You Ever Used Any Other Forms Of Tobacco Or Nicotine? No Information not available 04/15/2022 Sex: Unknown Functional Status None recorded. Mental Status None recorded. Family History Relationship Description Onset Age of this Age Resolved Age Notes LastModified by Organization Details LastModified Time Father No current problems or disability Not available 04/15 10:21:13 Mother No current problems or disability Not available 04/15 10:21:13 Medical History No medical history recorded. Gynecological HistoryNo gynecological history recorded. Obstetrics History GPAL:G 0 P 0 0 0 0 Immunizations Vaccine Type Date Status Note Provider Nam e and Address Organization Details Recorded Time SARS-COV-2 (COVID-19) vaccine, UNSPECIFIED 10/31/2021 completed Vernell Cedric null, PA - [facility] 04/15/2022 10:20:52 influenza, unspecified formulation 02/05/2022 completed Vernell Squires null, PA - [facility] 04/15/2022 10:21:07 Past Encounters Encounter ID Performer Location Encounter Start Date Encounter Closed Date Diagnosis/Indication Diagnosis SNOMED-CT Code Diagnosis ICD10 Code Diagnosis Note [id number] VIANCA MONTERO [address] [address] 04/15/2022 08:48:58 04/15/2022 11:56:47 Exposure to SARS-CoV-2 380099016 Z20.822 Rapid COVID Negative Health Concerns Section Related Observation LastModified by Organization Detai ls LastModified Time None Recorded Concern Status LastModified by Organization Details LastModified Time None Recorded Advance Directives Directive None Recorded Payers Encounter Date Sequence Insurance Name Policy Number Policy Sifuentes Covered Member ID Sifuentes Member ID Guarantor Name 04/15/2022 1 [place] [facility] Marquita Alexander [id number] Marquita Sotelo Notes Date Note Type Note Provider Name and Address Organization Details Recorded Time 04/15/2022 text/html COVID-19 Exposur e UCReported bypatient.COVID-1 9 Signs and Symptomsno cough; no fever; no shortness of breath; no chills; no muscle pain; no headache; no sore throat; loss of taste or smell resolved; no vomiting or diarrhea; no fatigue; no anorexiaNotes:No symptoms - patient needs covid test prior to surgery since she had exposure at her work.. VIANCA MONTERO [address] [place], [address], [place] - [facility] 04/15/2022 11:57:55 OBGyn Episode No OBEpisode recorded.
--- OUTSIDE RECORDS SUMMARY | 2024-08-01 17:51 | XMS_ITS ---
Author Name [facility] Organization Unknown Care Team Organization Name Specialty Phone Email Start Date End [facility]
--- OUTSIDE RECORDS SUMMARY | 2024-08-01 17:51 | XMS_ITS | Patient Health Record ---
Author Organization Ross Casanova III, MD Address [address] [place] [address] [address] [place] [address] Care Team Providers Care Outside Machinist Name Role Phone Ross Casanova Primary Care Provider Allergies Allergen (clinical drug ingredient) Drug/Non Drug Allergy documented on EMR Reaction Allergy Type Onset Date Status Shellfish (FN) Shellfish-derived Products Unknown Drug Allergy Active Results Component Value Reference Range Notes URINE DIP STICK Reviewed date:09/06/2023 04:36:13 PM Interpretation: Performing Lab: Notes/Report: SG 1.010 1.005 - 1.025 pH 6.5 5.0 - 9.0 DAX Negative Negative - NIT Positive Negative - PRO 15 Negative - Trace GLU Negative Negative - KET Negative Negative - UBG 0.2 0.1 - 1.8 GLENN Negative 0.2 - 1.3 BLD Positive Negative - Menstrating No Urine Culture Reviewed date:09/11/2023 01:00:02 PM Interpretation: Performing Lab:[facility], [address] [place] [phone] Notes/Report: O:KLEPNE Klebsiella pneumoniae Urine Culture Quant Urine Culture > 100,000 cfu/mL Ampicillin >=32 Ceftriaxone <=0.25 Gentamicin <=1 Levofloxacin <=0.12 Nitrofurantoin 64 Trimethoprim/Sulfametho xazole <=20 URINE DIP STICK Reviewed date:03/05/2024 04:06:04 PM Interpretation: Performing Lab: Notes/Report: SG 1.010 1.005 - 1.025 pH 7.0 5.0 - 9.0 DAX Negative Negative - NIT Negative Negative - PRO 15 Negative - Trace GLU Negative Negative - KET 5 Negative - UBG 0.2 0.1 - 1.8 GLENN Negative 0.2 - 1.3 BLD Negative Negative - URINE DIP STICK Reviewed date:01/02/2024 04:36:14 PM Interpretation: Performing Lab: Notes/Report: SG 1.015 1.005 - 1.025 pH 5.0 5.0 - 9.0 DAX Negative Negative - NIT Negative Negative - PRO 15 Negative - Trace GLU Negative Negative - KET Negative Negative - UBG 0.2 (3.5) 0.1 - 1.8 GLENN Negative 0.2 - 1.3 BLD 5-10 Negative - Menstrating No Urinalysis Reviewed date:01/05/2024 12:31:33 PM Interpretation: Performing Lab:[facility], [address] [place] [phone] Notes/Report: Color Urine Yellow Appearance Urine Clear PH 5.5 5.0-9.0 Glucose Urine UA Negative Negative mg/dL Urine Blood Negative Negative Specific [place] - Urine 1.015 1.005-1.025 Urine Protein Negative Neg-Trace mg/dL Urine Ketones Negative Negative mg/dL Nitrite Urine Negative Negative Leukocyte Esterase Urine Negative Negative Urine Culture Reviewed date:01/05/2024 12:31:33 PM Interpretation: Performing Lab:[address] [address] Notes/Report: O:KLEPNE Klebsiella pneumoniae Urine Culture Quant Urine Culture > 100,000 cfu/mL Ampicillin >=32 Cefazolin <=4 Ceftriaxone <=0.25 Gentamicin <=1 Levofloxacin <=0.12 Nitrofurantoin 64 Trimethoprim/Sulfametho xazole <=20 XR hand wrist RT Reviewed date:09/02/2023 08:51:48 PM Interpretation: Performing Lab: Notes/Report: [facility] [address] [place] [address] XRay Report Signed Patient: Marquita Alexander MR#: [id number] 42 : 1975 Acct:[id number] Age/Sex: 48 / F ADM Date: 08/17/23 Loc: [facility] Attending Dr: Loreto Meeks MD Ordering Physician: Loreto Levin Date of Service: 08/17/23 Procedure(s): XR hand wrist RT Accession Number(s): [id number] cc: Ross Casanova MD; Loreto Levin EXAMINATION: XR HAND/WRIST, RIGHT CLINICAL INFORMATION: Pain COMPARISON: None TECHNIQUE: PA, lateral, and oblique views of the right hand and wrist. FINDINGS: No acute fracture or dislocation. Osteoarthritis of the hand and wrist with moderate loss of first carpometacarpal joint space and small DIP osteophytes. Soft tissues are unremarkable. No cortical erosions. XR/XR hand wrist RT IMPRESSION: 1. No acute fracture or dislocation. 2. Osteoarthritis of the hand and wrist with moderate loss of first carpometacarpal joint space and small DIP osteophytes. No cortical erosions. Dictated By: Nay Pollard MD Signed By: <Electronically signed by Nay Pollard MD in OV> 08/25/23 1807 DD/ 1159 TD/TT: Inseam Trimming Machine Operator: [facility] [address] [place] [id number] XRay Report Signed Patient: Jannet Alexander MR#: [id number] 42 : 1975 Acct:[id number] Age/Sex: 48 / F ADM Date: 08/17/23 Loc: [facility] Attending Dr: Loreto Meeks MD Ordering Physician: Loreto Levin Date of Service: 08/17/23 Procedure(s): XR demarco d wrist RT Accession Number(s): [id number] cc: Ross Casanova MD; Loreto Levin EXAMINATION: XR HAND/WRIST, RIGHT CLINICAL INFORMATION: Pain COMPARISON: None TECHNIQUE: PA, lateral, and oblique views of the right hand and wrist. FINDINGS: No acute fracture or dislocation. Osteoarthritis of the hand and wrist with moderate loss o f first carpometacarpal joint space and small DIP osteophytes. Soft tissues are unremarkable. No cortical erosions. XR/XR hand wrist RT IMPRESSION: 1. No acute fracture or dislocation. 2. Osteoarthritis of the hand and wrist with moderate loss of first carpometacarpal join t space and small DIP osteophytes. No cortical erosions. Dictated By: Nay Pollard MD Signed By: <Electronically signed by Nay Pollard MD in OV> 08/25/23 8457 DD/ 1159 TD/TT: Inseam Trimming Machine Operator: Urinalysis and Microscopic Reviewed date:09/11/2023 01:00:02 PM Interpretation: Performing Lab:[facility], [address] [place] [phone] Notes/Report: Color Urine Yellow Appearance Urine Cloudy PH 7.0 5.0-9.0 Glucose Urine UA Negative Negative mg/dL Urine Blood Negative Negative Specific [place] - Urine 1.015 1.005-1.025 Urine Protein Negative Neg-Trace mg/dL Urine Ketones Negative Negative mg/dL Nitrite Urine Positive Negative Leukocyte Esterase Urine Trace Negative RBC Urine 0-2 0-2 /HPF WBC Urine 0-5 0-5 /HPF Squamous Epithelial Cell Urine 0-2 0-2 /HPF Bacteria Urine 4+ None Seen Hyaline Casts Urine 0-2 0-2 /LPF VIMAL Reflex Titer and Pattern Reviewed date:09/11/2023 01:00:02 PM Interpretation: Performing Lab:[facility], [address] [place] [phone] Notes/Report: Anti Nuclear Antibody Screen NEGATIVE NEGATIVE VIMAL IFA is a first line screen for detecting the presence of up to approximately 150 autoantibodies in various autoimmune diseases. A negative VIMAL IFA result suggests an VIMAL-associated autoimmune disease is not present at this time, but is not definitive. If there is high clinical suspicion for Sjogren's syndrome, testing for anti-SS-A/Ro antibody should be considered. Anti-[place]-1 antibody should be considered for clinically suspected inflammatory myopathies. AC-0: Negative International Consensus on VIMAL Patterns (https://doi.org/10.15 15/yccx-8521-3299) For additional information, please refer to http://education.[employer].com/faq/FA Q184 (This link is being provided for informational/ educational purposes only.) THIS TEST WAS PERFORMED AT: [facility] [address] [place] [phone] COLBY MEDRANO MD Anti Nuclear Antibody Titer TNP Anti Nuclear Antibody Pattern TNP VIMAL Titer 2 TNP VIMAL Pattern 2 TNP VIMAL Titer 3 TNP VIMAL Pattern 3 TNP Rheumatoid Factor Reviewed date:09/11/2023 01:00:02 PM Interpretation: Performing Lab:[facility], [address], [place] [address] Notes/Report: Rheumatoid Factor < 13.0 <15.0 IU/mL XR hand wrist LT Reviewed date:01/05/2024 12:31:33 PM Interpretation: Performing Lab: Notes/Report: [facility] [address] [place] [address] Drive [address] [place] [address] XRay Report Signed Patient: Marquita Alexander MR#: [id number] [birth year] : 1975 Acct:[id number] Age/Sex: 48 / F ADM Date: 10/26/23 Loc: [facility] Attending Dr: Loreto Meeks MD Ordering Physician: Loreto Levin Date of Service: 10/26/23 Procedure(s): XR hand wrist LT Accession Number(s): [id number] cc: Ross Casanova MD; Loreto Leivn EXAMINATION: XR HAND/WRIST, LEFT CLINICAL INFORMATION: Pain in left wrist, evaluate CMC arthritis. COMPARISON: None available. TECHNIQUE: PA, lateral, and oblique views of the left hand and wrist. FINDINGS: Osteoarthritic changes in the hand and wrist with moderate loss of first carpometacarpal joint space as well as small DIP osteophytes. Bone mineralization is normal. Alignment maintained. XR/XR hand wrist LT IMPRESSION: Moderate degenerative changes first carpometacarpal joint. Dictated By: Evelia Multani MD Signed By: <Electronically signed by Evelia Multani MD in OV> 11/15/23 1022 DD/ 0950 TD/TT: Inseam Trimming Machine Operator: [facility] [address] [place] [address] [address] [place] [address] XRay Report Signed Patient: Jannet Alexander MR#: [id number] [birth year] : 1975 Acct:[id number] Age/Sex: 48 / F ADM Date: 10/26/23 Loc: [facility] Attending Dr: Loreto Meeks MD Ordering Physician: Loreto Levin Date of Service: 10/26/23 Procedure(s): XR demarco d wrist LT Accession Number(s): [id number] cc: Ross Casanova MD; Loreto Levin EXAMINATION: XR HAND/WRIST, LEFT CLINICAL INFORMATION: Pain in left wrist, evaluate CMC arthritis. COMPARISON: None available. TECHNIQUE: PA, lateral, and oblique views of the left hand and wrist. FINDINGS: Osteoarthritic philip es in the hand and wrist with moderate loss of first carpometacarpa l joint space as well as small DIP osteophytes. Bone mineralization is normal. Alignment maintained. XR/XR hand wrist LT IMPRESSION: Moderate degenerativ e changes first carpometacarpal joint. Dictated By: Evelia Multani MD Signed By: <Electronically signed by Evelia Multani MD in OV> 11/15/23 1022 DD/ 0950 TD/TT: Inseam Trimming Machine Operator: Reason For Referral Reason Evaluate and Treat pain left knee Diagnosis 1 Synovial cyst of pop liteal space [[place]], left knee (M71.22) Referral Organization Ross Casanova III, MD Referring Provider First Name Ross Referring Provider Last Name Edilberto Referring Provider Speciality Internal edicine Referred Provider [facility] Referred Provider Specialty [facility] General Notes DAngela 07/23/2024 11:35:14 AM > Referral and progress note faxed Referral Priority Routine Reason Evaluate and Treat Bunion of right foot Diagnosis 1 Bunion of right foot (M21.611) Referral Organization Ross Casanova III, MD Referring Provider First Name Ross Referring Provider Last Name Edilberto Referring Provider Speciality Internal edicine Referred Provider TONY TOURE Referred Provider Specialty Podiatry General Notes DAngela 07/23/2024 11:34:20 AM > Referral faxed with progress note Referral Priority Routine Medications Medication SIG (Take, Route, Frequency, Duration) [...] migraine for 30 days As needed Active Immunizations Vaccine Route Administration Date Status Comme nts COVID- 19 Vaccine Unknown 10/03/2020 Administered Moder na COVID- 19 Vaccine Unknown 10/31/2020 Administered Moder na 2nd dose Social History Tobacco Use: Social History Observation Description Date Details (start date - stop date) Former Smoker NA - NA Sex Assigned At : Social History Observation Description Sex Assigned At Female Tobacco Control (Standard) Question Answer Notes Tobacco use: Former smoker How long has it been since you last smoked? 6-12 months Additional Findings: Tobacco non-user Ex-cigaret te smoker AUDIT-C (Standard) Question Answer Notes Did you have a drink containing alcohol in the p ast year? No Points 0 Interpretation Negative Problems Problem Type SNOMED Code ICD Code Onset Dates Problem Status W/U Status Risk Notes Problem 2916938 Former smoker (Z87.891) Active confirmed She is no longe r smoking and has been abstinent for a month. We made a plan to prevent relapse in times of stress and illness. Problem Family history of malignant neoplasm of gastrointestinal tract (648053909) Family history of malignant neoplasm of digestive organs (Z80.0) Active confirmed She gives a history that 2 cousins have cancer of the stomach. 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 This was done through a company called [employer] and was called in an [employer] hereditary cancer test. The results states negative, no known pathogenic or likely pathogenic variants were detected. 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 Problem Gastroesophageal reflux disease (121652924) Gastroesophagea l reflux disease, esophagitis presence not specified (K21.9) Active confirmed Her reflux symptoms are well controlled with her current medical regimen. No change was made. She was advised to refrain from eating before sleep Problem 99972227 Cervical radiculopathy (M54.12) Active confirmed Continues to have pain in her right neck and right shoulder with range of motion. SShe will continue with the rest ibuprofen. She is managed by pain management. Problem 99344913 Hiatal hernia (K44.9) Active confirmed This is a finding on upper GI series done recently and is asymptomatic. Problem 132687069 Esophageal dysmotility (K22.4) Active confirmed A barium swallo w will be done in the near future, and she will be seen back after that to discuss results. Problem 80435786 Depression, unspecified depression type (F32.9) Active confirmed Her depression seems very mild at this time and does not bother her much at all. She reports completing all of the activities of daily living on a regular basis. Problem 27822169 Dysphagia, unspecified type (R13.10) Active confirmed The upper GI showed a normal esophagus that herniation of the upper pole of the stomach which may be the cause of her sensations. She was reassured. Problem Amenorrhea (90043020) Amenorrhea (N91.2) Active confirmed She has had no further midcycle bleeding. Problem 6936416 Migraine with aura and without status migrainosus, not intractable (G43.109) Active confirmed I have prescribed a new medication, eletriptan. The risks and benefits were explained and the way to take it was carefully delineated. She gave informed consent for prescribing in taking the medication. Problem Carpal tunnel syndrome (93369938) Carpal tunnel syndrome on both sides (G56.03) Active confirmed She has occasional discomfort in her hands but it is very mild and she does not wish treatment for it. Problem Gastroesophageal reflux disease with esophagitis (disorder) (471533403) Gastroesophagea l reflux disease with esophagitis, unspecified whether hemorrhage (K21.00) Active confirmed This is an occasional symptom well controlled with antacids. 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 We are waiting for an appointment with genetic counseling in gastroenterology in medical oncology. Vital Signs Heart Rate 72 /min 07/18/2024 Temperature 97.9 degrees Fahrenheit 07/18/2024 Blood pressure diastolic 81 mm Hg 07/18/2024 Height 60 in 07/18/2024 Blood pressure systolic 130 mm Hg 07/18/2024 Weight 123 lbs 07/18/2024 BMI 24.02 kg/m2 07/18/2024 Encounters Encounter Location Date Provider Diagnosis Ross Casanova III, MD [address] [place] [address] [address] [place], [place] [address] 09/06/2023 Ross Casanova Depression, unspecif ied depression type F32.9 ; Cervical radiculopathy M54.12 ; Gastroesophageal reflux disease, esophagitis presence not specified K21.9 and Menopause Z78.0 Ross Casanova III, MD [address] [place] [address] [place] [address] 09/23/2023 Ross Casanova Depression, unspecif ied depression type F32.9 ; Cervical radiculopathy M54.12 ; Migraine with aura and without status migrainosus, not intractable G43.109 ; Gastroesophageal reflux disease, esophagitis presence not specified K21.9 ; Amenorrhea N91.2 and Former smoker Z87.891 Ross Casanova III, MD [address] [place] [address] [place] [address] 03/05/2024 Ross Casanova Carpal tunnel syndro me on both sides G56.03 ; Cervical radiculopathy M54.12 ; Gastroesophageal reflux disease with esophagitis, unspecified whether hemorrhage K21.00 ; Depression, unspecified depression type F32.9 and Hiatal hernia K44.9 Ross Casanova III, MD [address] [place] [address] [place] [address] 06/05/2024 Ross Casanova Gastroesophageal ref lux disease, esophagitis presence not specified K21.9 ; Cervical radiculopathy M54.12 ; Depression, unspecified depression type F32.9 ; Esophageal dysmotility K22.4 ; Migraine with aura and without status migrainosus, not intractable G43.109 ; Low back pain M54.5 and Former smoker Z87.891 Ross Casanova III, MD [address] [place] [address] [place] [address] 07/18/2024 Ross Casanova Gastroesophageal ref lux disease, esophagitis presence not specified K21.9 ; Cervical radiculopathy M54.12 ; Depression, unspecified depression type F32.9 ; Synovial cyst of popliteal space [[place]], left knee M71.22 ; Esophageal dysmotility K22.4 ; Hiatal hernia K44.9 ; Migraine with aura and without status migrainosus, not intractable G43.109 and Former smoker Z87.891 Ross Casanova III, MD [address] [place] [address] [place] [address] 09/19/2023 Ross Casanova III, MD [address] [place] [address] [place] [address] 09/28/2023 Ross Casanova III, MD [address] [place] [address] [place] [address] 01/02/2024 Ross Casanova UTI symptoms R39.9 a nd Hematuria R31.9 Ross Casanova III, MD [address] [place] [address] [place] [address] 01/04/2024 Ross Casanova III, MD [address] [place] [address] [place] [address] 05/10/2024 Ross Casanova Chronic cough R05.3 and Chest discomfort R07.89 Ross Casanova III, MD [address] [place] [address] [place] [address] 09/26/2023 Ross Casanova III, MD [address] [place] [address] [place] [address] 09/26/2023 Ross Casanova III, MD [address] [place] [address] [place] [address] 09/26/2023 Ross Casanova III, MD [address] [place] [address] [place] [address] 09/26/2023 Ross Casanova III, MD [address] [place] [address] [place] [address] 11/15/2023 Ross Casanova Assessments Encounter Date Diagnosis (ICD Code) Assessment Notes Treat ment Notes Treatment Clinical Notes 09/06/2023 Cervical radiculopat hy (ICD-10 - M54.12) Continues to have pain in her right neck and right shoulder with range of motion. SShe will continue with the rest ibuprofen. She is managed by pain management. 09/06/2023 Depression, unspecified depression type (ICD-10 - F32.9) Depression is mild and stable andd no change inn her regimen was necessary today. 09/23/2023 Cervical radiculopat hy (ICD-10 - M54.12) Continues to have pain in her right neck and right shoulder with range of motion. SShe will continue with the rest ibuprofen. She is managed by pain management. 09/23/2023 Depression, unspecified depression type (ICD-10 - F32.9) Depression is mild and stable andd no change inn her regimen was necessary today. 03/05/2024 Cervical radiculopat hy (ICD-10 - M54.12) Continues to have pain in her right neck and right shoulder with range of motion. SShe will continue with the rest ibuprofen. She is managed by pain management. 03/05/2024 Carpal tunnel syndro me on both sides (ICD-10 - G56.03) She has occasional discomfort in her hands but it is very mild and she does not wish treatment for it. 06/05/2024 Gastroesophageal reflux disease, esophagitis presence not [...] She is managed by pain management. 07/18/2024 Gastroesophageal reflux disease, esophagitis presence not specified [...] ibuprofen. She is managed by pain management. 01/02/2024 UTI symptoms (ICD-10 - R39.9) 05/10/2024 Chronic cough (ICD-1 0 - R05.3) 09/06/2023 Gastroesophageal reflux disease, esophagitis presence not specified (ICD-10 - K21.9) She has continued on omeprazole with good results. 09/23/2023 Migraine with aura a nd without status migrainosus, not intractable (ICD-10 - G43.109) I have prescribed a new medication, eletriptan. The risks and benefits were explained and the way to take it was carefully delineated. She gave informed consent for prescribing in taking the medication. 03/05/2024 Gastroesophageal reflux disease with esophagitis, unspecified whether hemorrhage (ICD-10 - K21.00) This is an occasional symptom well controlled with antacids. 06/05/2024 Depression, unspecified depression type (ICD-10 - F32.9) Depression is mild and stable andd no change inn her regimen was necessary today. 07/18/2024 Depression, unspecified depression type (ICD-10 - F32.9) Her depression seems very mild at this time and does not bother her much at all. She reports completing all of the activities of daily living on a regular basis. 01/02/2024 Hematuria (ICD-10 - R31.9) 05/10/2024 Chest discomfort (ICD-10 - R07.89) 09/06/2023 Menopause (ICD-10 - Z78.0) An FSH and LHH have been ordered. Referrreed to gynecology for definitive diagnosis and treatment. 09/23/2023 Gastroesophageal reflux disease, esophagitis presence not specified (ICD-10 - K21.9) She has continued on omeprazole with good results. 03/05/2024 Depression, unspecified depression type (ICD-10 - F32.9) Depression is mild and stable andd no change inn her regimen was necessary today. 06/05/2024 Esophageal dysmotili ty (ICD-10 - K22.4) A barium swallow will be done in the near future, and she will be seen back after that to discuss results. 07/18/2024 Synovial cyst of popliteal space [[place]], left knee (ICD-10 - M71.22) Is mildly painful. An ultrasound was ordered to see if there was a cyst. 09/23/2023 Amenorrhea (ICD-10 - N91.2) She has had no further midcycle bleeding. 03/05/2024 Hiatal hernia (ICD-1 0 - K44.9) This is a finding on upper GI series done recently and is asymptomatic. 06/05/2024 Migraine with aura a nd without status migrainosus, not intractable (ICD-10 - G43.109) I have prescribed a new medication, eletriptan. The risks and benefits were explained and the way to take it was carefully delineated. She gave informed consent for prescribing in taking the medication. 07/18/2024 Esophageal dysmotili ty (ICD-10 - K22.4) A barium swallow will be done in the near future, and she will be seen back after that to discuss results. 09/23/2023 Former smoker (ICD-1 0 - Z87.891) She is no longer smoking and has been abstinent for a month. We made a plan to prevent relapse in times of stress and illness. 06/05/2024 Low back pain (ICD-1 0 - M54.5) The MRI shows compression of the nerve root. She will be referred back for injections. She will see a neurosurgeon to discuss surgical therapy. I have given her dexamethasone to see if this will ameliorate the pain from the nerve compression. 07/18/2024 Hiatal hernia (ICD-1 0 - K44.9) This is a finding on upper GI series done recently and is asymptomatic. 06/05/2024 Former smoker (ICD-1 0 - Z87.891) She is no longer smoking and has been abstinent for a month. We made a plan to prevent relapse in times of stress and illness. 07/18/2024 Migraine with aura a nd without [...] of stress and illness. Plan Of Treatment Pending Test Test Name Order Date PROFILE, FASTING (COMPREHENSIVE METABOLI C) 09/06/2023 PROFILE, FASTING (COMPREHENSIVE METABOLI C) 07/18/2024 PROFILE, FASTING (COMPREHENSIVE METABOLI C) 03/02/2023 PROFILE, FASTING (COMPREHENSIVE METABOLI C) 03/05/2024 PROFILE, RANDOM (COMPREHENSIVE METABOLIC ) 04/10/2021 PROFILE, RANDOM (COMPREHENSIVE METABOLIC ) 03/23/2022 PROFILE, RANDOM (COMPREHENSIVE METABOLIC ) 03/14/2018 PROFILE, RANDOM (COMPREHENSIVE METABOLIC ) 08/13/2020 PROFILE, RANDOM (COMPREHENSIVE METABOLIC ) 03/26/2020 PROFILE, RANDOM (COMPREHENSIVE METABOLIC ) 03/13/2021 AMYLASE 03/13/2021 LIPASE 03/13/2021 LIPID PANEL 03/14/2018 GGT 04/10/2021 GGT 03/13/2021 FREE T4 (FT4) 03/14/2018 TSH (THYROID STIMULATING HORMONE) 2017 IRON + IBC (FE) 03/26/2020 FERRITIN 08/13/2020 FERRITIN 03/26/2020 HCG-QUALITATIVE 03/23/2022 HCG-QUALITATIVE 09/06/2023 CBC w DIFF 03/26/2020 CBC w DIFF 09/06/2023 CBC w DIFF 03/05/2024 CBC w DIFF 04/10/2021 CBC w DIFF 03/23/2022 CBC w DIFF 03/13/2021 CBC w DIFF 08/13/2020 CBC w DIFF 07/18/2024 CBC w DIFF 03/14/2018 SED RATE (ESR) 03/02/2023 SED RATE (ESR) 03/14/2018 SED RATE (ESR) 03/05/2024 SED RATE (ESR) 04/10/2021 SED RATE (ESR) 03/13/2021 RETICULOCYTE COUNT,CORRECTED 03/26/2020 URINALYSIS (UA) 06/11/2021 FOLLICLE STIMULATING HORMONE (FSH) 09/05 LUTEINIZING HORMONE (LH) 09/06/2023 URINE CULTURE 06/11/2021 XR CHEST 2 VIEW PA & LAT 05/10/2024 XR HAND RT 03/23/2022 CBC WITH AUTO DIFF 03/02/2023 Urinalysis 09/06/2023 Lipid Panel 07/18/2024 Lipid Panel 03/02/2023 Lipid Panel 03/05/2024 Lipid Panel 09/06/2023 Amylase 04/10/2021 Lipase 04/10/2021 US extremity nonvascular 07/18/2024 Next Appt Details Provider Name:Ross Casanova, 10/22/2024 04:00:00 PM, [address] [facility] [place], [place], [address], Provider Name:Ross Casanova, 03/06/2025 04:00:00 PM, [address] [facility] [place], [place], [address], Insurance Providers Payer Name Payer Address Payer Phone Subscriber Number Group Number Insured Name Patient Relationship to Insured Coverage Start Date Coverage End Date [employer] [address] [place], [place] [id number] PPO MARQUITA ALEXANDER Self - patient is the insured MED[place] [address] [place], [place] [id number] MARQUITA ALEXANDER Self - patient is the insured Medical (General) History Medical History History ICD Code Depression, unspecified depression type F32.9 Gastroesophageal reflux disease, esophag itis presence not specified K21.9 PTSD (post-traumatic stress disorder) F4 3.10 herniated disc lumbar spine chronic opioid use for chronic pain in t he lower back anxiety disorder hepatic cyst esophageal motility disorder hiatal hernia tobacco dependence GERD with esophagitis K21.0 CDH1 Heterozygosity Surgical History Surgery Date(Month/Year) No history Cervical Medial Branch Nerve Stimulation Lead Placement- SPR System, Right C4 04/2023 Panniculectomy 04/2022 vein surgery left leg 09/19/20 vein surgery left leg 09/18/20 tubal ligation Ureteroplasty age 1 Right carpal tunnel release 10/2011 Hospitalization History Reason Date(Month/Year) No history bladder surgery 1 years old
--- OUTSIDE RECORDS SUMMARY | 2024-08-01 17:51 | XMS_ITS ---
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 Name Role Phone Ross Casanova Primary Care Provider REASON FOR VISIT Sick Medications Medication SIG (Take, Route, Fr equency, Duration) Notes Start Date End Date Status Azithromycin 250 MG as directed Orally 2 Tablets on the first day, one tablet the rest of the days for 5 days 05/10/2024 05/15/2024 Active Social History Sex Assigned At : Social History Observation Description Sex Assigned At Female Encounters Encounter Location Date Provider Diagnosis Ross Casanova III, MD [address] [place] [address] [place] [address] 05/10/2024 Ross Casanova Chronic cough R05.3 and Chest discomfort R07.89 Assessments Encounter Date Diagnosis (ICD Code) Assessment Notes Treatment Notes Treatment Clinical Notes 05/10/2024 Chronic cough (ICD-10 - R05.3) 05/10/2024 Chest discomfort (ICD-10 - R07.89) Plan Of Treatment Medication Medication Name Sig Start Date Stop Date Notes Azithromycin 250 MG as directed Orally 2 Tablets on the first day, one tablet the rest of the days for 5 days 05/10/2024 05/15/2024 Pending Test Test Name Order Date XR CHEST 2 VIEW PA & LAT 05/10/2024 Next Appt Details Provider Name:Ross Casanova, 10/22/2024 04:00:00 PM, [address] [place] [address] [place], [address], Provider Name:Ross Casanova, 03/06/2025 04:00:00 PM, [address] [place] [address] [place], [place], [address], Progress Notes * PABLO BARRERADOB: 4 (49 yo F)Acc No.[id number]:05/10/2024 Patient:?PABLO BARRERA :1975???Age:49 Y???Sex:Female Address:[address] [place] [address], [id number] * Refills? Start Azithromycin Tablet, 250 MG, Orally, 6, as directed, 2 Tablets on the first day, one tablet the rest of the days, 5 days, Refills=0 Subjective: * Chief Complaints: * ???Sick * Medical History:? * Surgical History:? * Hospitalization/Major Diagno stic Procedure:? * Medications:? Objective: * Vitals:? * Physical Examination:? Assessment: * Assessment: 1.?Chronic cough - R05.3???2 .?Chest discomfort - R07.89??? Plan: * Treatment: 2.?Chest discomfort?Imaging: XR CHEST 2 VIEW PA & LAT 3.?Others? Start Azithromycin Tablet, 250 MG, as directed, Orally, 2 Tablets on the first day, one tablet the rest of the days, 5 days, 6, Refills 0.?? * Procedure Codes:? * true * Date:? Generated for Ethan olivas/Aissatou/eTransmitting on:?08/01/2024 05:51 PM EDT
--- OUTSIDE RECORDS SUMMARY | 2024-08-01 17:51 | XMS_ITS | Clinical Summary ---
Author Organization [facility] Address [address] [place] [address] Phone Care Team Providers Care Rotary Filter Operator Name Role Phone Darius Casanova MD Primary Care Provider [phone] Allergies Active Allergy Reactions Criticality Noted Date Comments Fish Oil Anaphylaxis High 04/18/2018 Shellfish Containing Products Anaphylaxis High 03/26 Medications methocarbamoL (ROBAXIN) 750 mg tablet TAKE 1 TABLET BY MOUTH EVERY 6 HOURS NEEDED FOR SPASMS 08/20/19 22 Active trospium 60 mg capsule,extend ed release 24hr Take 1 capsule (60 mg total) by mouth 1 (one) time each day. 02/24/20 22 Active EPINEPHrine (EPIPEN) 0.3 mg/0.3 mL injection INJECT 1 PEN INTRAMUSCULARLY NEEDED FOR ANAPHYLAXIS 11/15/19 24 Active All Day Relief 220 mg tablet TAKE 1 TABLET BY MOUTH EVERY 12 HOURS WITH FOOD OR MILK NEEDED FOR 30 DAYS 11/15/19 24 Active omeprazole (PriLOSEC) [address] capsule Take 1 capsule (20 mg total) by mouth 1 (one) time each day. Active GaviLyte-G 236-22.74-6.74 -5.86 gram solution TAKE 8 OUNCE BY MOUTH DIRECTED FOLLOW INSTRUCTIONS PROVIDED TO YOU BY DOCTORS OFFICE 07/24/19 24 Active drospirenone-e thinyl estradioL (GIMALORIE,RAN ,STEPAN) 3-0.02 mg per tablet Take 1 tablet by mouth 1 (one) time each day. 28 tablet 12 03/26/20 24 025 Active Active Problems Problem Noted Date Diagnosed Date GERD (gastroesophageal reflux disease) 4 Herniated lumbar intervertebral disc 02/14/2024 Neck pain 11/06/2021 Overview (02/14/2024): Last Assessment & Plan: This history and exam was performed in conjunction with a group burner machine from [employer], Nic #[id number]. Ms. Alexander was seen here 2 years ago for neck pain to the left arm and with some subjective weakness of the right. She attended physical therapy at the time which did help. She presents now with recurrent strong neck pain that extends along her trapezius to the shoulder. This is exacerbated by turning her head and she feels most limited turning to the left which causes increased left trapezius and paraspinal pain. This has been getting worse over the past year. She describes feeling like something is squeezing both upper arms. She frequently drops things from her hands especially the left but states there is no numbness or tingling and no change in her handwriting. On exam, cervical rotation is 45 degrees to the left, 60 degrees to the right, strength is 5 out of 5 throughout, sensation to light touch intact, DTRs are 1- 2+, there is no Minoo sign or any myelopathic findings. Gait is steady. Review of the cervical spine MRI from [facility] dated 09/30/2021 shows a 1 mm anterolisthesis at C3-4 where there is facet arthropathy and edema within the facets, new from the prior study from 2019. There is a 2 mm anterolisthesis at C4-5 stable from the prior study, degenerative change with anterior endplate sclerosis at C5-6 and a broad disc bulge. There is decreased disc height at C6-7 with a small broad disc bulge/osteophyte. There is no cord compression at any level and only minor left C6-7 foraminal narrowing. At this point, there is not a clear one-to-one correlation with finding on the MRI and her left neck to shoulder pain. I would not recommend surgery purely for the anterolisthesis when there is no cord compression. I think she would benefit from cervical traction and she agreed. A new referral slip was provided for PT with traction. We can issue a prescription for home unit if it helps her. Subserous leiomyoma of uterus 12/23/2020 Diastasis recti 06/25/2020 Skin laxity 06/25/2020 Low grade squamous intraepit h lesion on cytologic smear cervix (lgsil) 05/03/2018 Overview (02/14/2024): 04/18/2018 PAP LSIL Plan : fauzia for Colpo 2020 PAP Neg cytology, neg hpv Chronic, continuous use of opioids 04/19/2018 PTSD (post-traumatic stress disorder) 04/19/2018 Encounters Date Type Department Care Team Description 07/30/2024 Telephone Obstetrics & Gynecology - [facility] [address] [place] [address] CNM Menstrual Problem 05/11/2024 4:40 PM EST - 05/11/2024 8:13 PM EST Emergency [facility] Emergency [address] [place] [address] Luis Carlos Jackson MD Generalized abdominal pain (Primary Dx); Gastroenteritis Discharge Disposition: Home or Self Care from Last 3 Months Surgical History Surgery Date Site/Laterality Comments TUBAL LIGATION PROCEDURE: HISTORICAL TUBAL LIGATION OTHER SURGICAL HISTORY PROCEDURE: PA NEPHROLITHOTOMY COMP CGEN KDN ABNORMALITY CARPAL TUNNEL RELEASE PROCEDURE: PA NEUROPLASTY &/TRANSPOS MEDIAN NRV CARPAL TUNNE; COMMENT: right hand OTHER SURGICAL HISTORY 09/10/2020 Left PROCEDURE: PA STAB PHLEBT VARICOSE VEINS 1 XTR 10-20 STAB INCS BELT ABDOMINOPLASTY 04/2022 PROCEDURE: HISTORICAL TUMMY TUCK; COMMENT: in [place]- Dr. Schmidt/ Thu Medical History Medical History Date Comments Arthritis DX:Arthritis Anxiety DX:Anxiety Herniated lumbar intervertebral disc DX:Herniated lumbar intervertebral disc GERD (gastroesophageal reflu x disease) DX:GERD (gastroesophageal re flux disease) H/O hiatal hernia DX:H/O hiatal hernia Tobacco use 04/19/2018 DX:Tobacco use; COMMENT: quit 2021 prior to tummy tuck surgery Family History Medical History Relation Name Comments Breast cancer Aunt 1 Breast cancer Aunt 2 Breast cancer Aunt 3 No Known Problems Brother x1 Prostate cancer Father Depression Mother Hypertension Mother Ovarian cancer Mother's side cousin No Known Problems Sister x1 Uterine cancer Neg Hx Relation Name Status Comments Aunt 1 Aunt 2 Alive Aunt 3 Alive Brother x1 Alive Father Alive Mother Alive Mother's side cousin Sister x1 Alive Social History Tobacco Use Types Packs/Day Years Used Date Smoking Tobacco: Former Cigarettes Q uit: 03/09/2021 Smokeless Tobacco: Never Tobacco Cessation:Counseling Given: Not Answered Alcohol Use Standard Drinks/Week Comments No 0 (1 standard drink = 0.6 oz pur e alcohol) Comments No Sex and Gender Information Value Date Recorded Sex Assigned at Female 04/03/2024 10:28 AM EST Legal Sex Female 4:36 AM EST Gender Identity Female 04/03/2024 10:28 AM EST Sexual Orientation Straight 04/03/2024 10 :28 AM EST Obstetrics History Para Term AB IAB SAB Ectopic Multiple Livin g Live Births 3 3 3 3 Date Outcome GA Total Labor Labor//3rd Weight Sex Type Anes PTL Karoline A1 A5 Name Clin 1995 Para M Vag-S pont Living 1998 Para F Vag-S pont Living 2000 Para M Vag-S pont Living Last Filed Vital Signs Vital Sign Reading Time Taken Comments Blood Pressure 115/79 05/11/2024 7:03 PM EST Pulse 67 05/11/2024 7:03 PM EST Temperature 37 ??C (98.6 ??F) 05/11/2024 7:03 PM EST Respiratory Rate 18 05/11/2024 7:03 PM EST Oxygen Saturation 98% 05/11/2024 7:03 PM EST Inhaled Oxygen Concentration - - Weight 56.7 kg (125 lb) 05/11/2024 9:59 AM EST Height 149.9 cm (4' 11 ) 05/11/2024 9:59 AM EST Body Mass Index 25.25 05/11/2024 9:59 AM EST Plan of Treatment Upcoming Encounters Date Type Department Care Team (Late st Contact Info) Description 08/03/2024 2:30 PM EDT Office Visit Obstetrics and Gynecology - [address] [address] Yuki Woods, KVNG [address] [place], [place] Health Maintenance Due Date Last Done Comments DTaP,Tdap,and Td Vaccines (1 - Tdap) 1993 Pneumococcal Vaccine: 50+ Years (1 of 2 - PCV) 1993 Pneumococcal Vaccine: Pediatrics (0 to 5 Years) and At-Risk Patients (6 to 64 Years) (1 of 2 - PCV) 1993 Zoster Vaccines (1 of 2) 1993 Colorectal Cancer Screening: Colonoscopy 04/17/2022 Depression Screening 04/17/2022 HIV Screening 04/17/2022 Hepatitis C Screening 04/17/2022 Social Influencers of Health Screening 04/17/2022 COVID-19 Vaccine ( season) 2024 10/31/2021, 10/31/2020, 10/03/2020 Influenza Vaccine (#1) 2024 , 01/25/2012, 06/15/2010, Additional history exists Cervical Cancer Screening: HPV 10/24/2025 10/24/2020 Breast Cancer Screening 02/15/2026 02/16/20 24, 09/09/2022, 12/27/2020 Osteoporosis Screening (Bone Density Screening) 04/23/2034 04/23/2024 Hepatitis B Vaccines Completed 03/10/2009, 10/18/2008, 09/17/2008 HIB Vaccines Aged Out No longer eligi ble based on patient's age to complete this topic HPV Vaccines Aged Out No longer eligi ble based on patient's age to complete this topic Hepatitis A Vaccines Aged Out No long er eligible based on patient's age to complete this topic IPV Vaccines Aged Out No longer eligi ble based on patient's age to complete this topic MMR Vaccines Aged Out No longer eligi ble based on patient's age to complete this topic Meningococcal ACWY Vaccine Aged Out N o longer eligible based on patient's age to complete this topic Meningococcal B Vacine Aged Out No lo nger eligible based on patient's age to complete this topic RSV Immunization Patients Under 20 months Aged Out No longer eligible based on patient's age to complete this topic Varicella Vaccines Aged Out No longer eligible based on patient's age to complete this topic Procedures Procedure Name Priority Date/Time Associated Diagnosis Comments XR CHEST 2 VIEWS STAT 05/11/2024 5:13 PM EST RESPIRATORY VIRUS PANEL MOLECULAR STUDY STAT 05/11/2024 5:03 PM EST TROPONIN I HIGH SENSITIVITY STAT 05/11/2024 2:47 PM EST ECG 12-LEAD STAT 05/11/2024 12:00 PM EST B-TYPE NATRIURETIC PEPTIDE STAT 05/11/2024 11:50 AM EST MAGNESIUM STAT 05/11/2024 11:50 AM EST LIPASE STAT 05/11/2024 11:50 AM EST COMPREHENSIVE METABOLIC PANEL STAT 05/11/2024 11:50 AM EST TROPONIN I HIGH SENSITIVITY STAT 05/11/2024 11:50 AM EST CBC WITH AUTO DIFFERENTIAL STAT 05/11/2024 11:49 AM EST CBC AND DIFFERENTIAL STAT 05/11/2024 11:49 AM EST ECG ANNOTATED 05/11/2024 BD BONE DENSITY DXA AXIAL SKELETON Routine 04/23/2024 2:04 PM EST Encounter for annual routine gynecological examination Menopausal and perimenopausal disorder MUKESH SCREENING DIGITAL Routine 02/16/2024 1:58 PM EDT Encounter for screening mammogram for malignant neoplasm of breast HM HPV Routine 10/24/2020 from Last 3 Months or Most Recently Relevant to Health Maintenance Results * XR Chest 2 Views (05/11/2024 5:13 PM EST) Anatomical Region Laterality Modality Body Radiographic Pia ging 05/11/2024 5:53 PM EST Impressions 05/11/2024 6:02 PM EST FINDINGS/IMPRESSION: Lungs are clear. ??No pleural effusion or pneumothorax. ??Cardiac silhouette and bones are normal. -------- FINAL REPORT -------- Dictated By: RODRIGO REGALADO Dictated Date: 05/11/2024 17:53 ET Assigned Physician: RODRIGO REGALADO Reviewed and Electronically Signed By: RODRIGO REGALADO Signed Date: 05/11/2024 18:02 ET Workstation ID: [id number] Transcribed By: Self Edit Transcribed Date: 05/11/2024 17:53 ET Narrative 05/11/2024 6:02 PM EST XR CHEST 2 VIEWS INDICATION: ??Chest pain TECHNIQUE: XR CHEST 2 VIEWS COMPARISON: 04/04/2023. Procedure Note Rodrigo Regalado MD - 05/11/2024 XR CHEST 2 VIEWS INDICATION: Chest pain TECHNIQUE: XR CHEST 2 VIEWS COMPARISON: 04/04/2023. IMPRESSION: FINDINGS/IMPRESSION: Lungs are clear. No pleural effusion orpneumothorax. Cardiac silhouette and bones are normal. -------- FINAL REPORT -------- Dictated By: RODRIGO REGALADO Dictated Date: 05/11/2024 17:53 ET Assigned Physician: RODRIGO REGALADO Reviewed and Electronically Signed By: RODRIGO REGALADO Signed Date: 05/11/2024 18:02 ET Workstation ID: [id number] Transcribed By: Self Edit Transcribed Date: 05/11/2024 17:53 ET Luis Carlos Jackson MD IMG XR PROCEDURES Final R esult * Respiratory virus panel molecular study (05/11/2024 5:03 PM EST) Adenovirus Detection by PCR Not Detected Not Detected LAB MICROBIOLOGY METHOD 05/11/2024 6:[address] [facility] Influenza A PCR Not Detected Not Detected LAB MICROBIOLOGY METHOD 05/11/2024 6:[address] [facility] Influenza B PCR Not Detected Not Detected LAB MICROBIOLOGY METHOD 05/11/2024 6:[address] [facility] Coronavirus 229E Not Detected Not Detected LAB MICROBIOLOGY METHOD 05/11/2024 6:19 PM [facility] Coronavirus HKU1 Not Detected Not Detected LAB MICROBIOLOGY METHOD 05/11/2024 6:19 PM [facility] Coronavirus OC43 Not Detected Not Detected LAB MICROBIOLOGY METHOD 05/11/2024 6:19 PM [facility] Coronavirus NL63 Not Detected Not Detected LAB MICROBIOLOGY METHOD 05/11/2024 6:19 PM [facility] Parainfluenza Virus 1 Not Detected Not Detected LAB MICROBIOLOGY METHOD 05/11/2024 6:19 PM [facility] Parainfluenza Virus 2 Not Detected Not Detected LAB MICROBIOLOGY METHOD 05/11/2024 6:19 PM [facility] Parainfluenza Virus 3 Not Detected Not Detected LAB MICROBIOLOGY METHOD 05/11/2024 6:19 PM [facility] Parainfluenza Virus 4 Not Detected Not Detected LAB MICROBIOLOGY METHOD 05/11/2024 6:19 PM [facility] RSV PCR Not Detected Not Detected LAB MICROBIOLOGY METHOD 05/11/2024 6:19 PM [facility] Human Metapneumovirus A and B Not Detected Not Detected LAB MICROBIOLOGY METHOD 05/11/2024 6:19 PM [facility] Rhinovirus/Entero virus Not Detected Not Detected LAB MICROBIOLOGY METHOD 05/11/2024 6:19 PM [facility] Bordetella pertussis Not Detected Not Detected LAB MICROBIOLOGY METHOD 05/11/2024 6:19 PM [facility] Bordetella parapertussis Not Detected Not Detected LAB MICROBIOLOGY METHOD 05/11/2024 6:19 PM [facility] Mycoplasma pneumo by PCR Not Detected Not Detected LAB MICROBIOLOGY METHOD 05/11/2024 6:19 PM [facility] Chlamydia pneumoniae Not Detected Not Detected LAB MICROBIOLOGY METHOD 05/11/2024 6:[address] [facility] SARS COV-2 Not Detected Not Detected LAB MICROBIOLOGY METHOD 05/11/2024 6:[address] [facility] Swab Both anterior nares / Unknown Non-blood Collection / Unknown 05/11/2024 5:03 PM EST 05/11/2024 5:[address] [facility] - 05/11/2024 6:19 PM EST Testing was performed using the [employer] Respiratory Pathogen PCR Assay. All results must be correlated with the clinical findings. Results should not be used as the sole basis for diagnosis. False Negative results may occur from the presence of sequence variants in the region targeted by the assay or the presence of inhibitors. Results may be affected by concurrent antiviral/antimicrobial therapy or levels of organisms that are below the limit of detection. Ann COLEY LAB MICROBIOLOGY - GENER AL ORDERABLES Final Result [facility] [address] [place] [address], [place] [phone] * Troponin I high sensitivity (05/11/2024 2:47 PM EST) Only the most recent of2 resultswithin the time period is included. High Sensitivity Troponin I 3 <=54 ng/L LAB CHEMISTRY METHOD 05/11/2024 3:[address] [facility] Blood Venous blood specimen / Unknown Venipuncture / Unknown 05/11/2024 2:47 PM EST 05/11/2024 3:[address] [facility] - 05/11/2024 3:34 PM EST High levels of biotin in samples may falsely decrease hsTroponin values. ??Use caution when interpreting hsTroponin results in patients taking biotin who exhibit renal impairment (eGFR <60) or in patients taking more than 20 mg/day of biotin. Luis Carlos Jackson MD LAB BLOOD ORDERABLES Karin l Result Performing Organization Address City/State/[facility] Co de Phone Number [facility] [address] [place] [address], [place] [phone] * ECG 12 lead (05/11/2024 12:00 PM EST) [facility] Ventricular Rate ECG 66 BPM GEMUSE Atrial Rate 66 BPM GEMUSE P-R Interval 172 ms GEMUSE QRS Duration 88 ms GEMUSE Q-T Interval 414 ms GEMUSE QTc 434 ms GEMUSE P Wave [place] 50 degrees GEMUSE R [place] 27 degrees GEMUSE T [place] 19 degrees GEMUSE ECG Interpretation Normal sinus rhythm Normal ECG When compared with ECG of 04-APR-2023 20:58, No significant change was found Confirmed by Marie OSEI JAMES ([id number]) on 05/12/2024 3:15:30 PM GEMUSE 05/11/2024 12:0 0 PM EST 05/12/2024 3:15 PM EST Luis Carlos Jackson MD ECG ORDERABLES Final Res ult Performing Organization Address [facility] de Phone Number GEMUSE * B-type natriuretic peptide (05/11/2024 11:50 AM EST) [facility] BNP 35 <=100 pcg/mL LAB CHEMISTRY METHOD 05/11/2024 1:[address] [facility] Blood Venous blood specimen / Unknown Venipuncture / Unknown 05/11/2024 11:50 AM EST 05/11/2024 12:28 PM EST Luis Carlos Jackson MD LAB BLOOD ORDERABLES Karin l Result Performing Organization Address [facility] Co de Phone Number [facility] [address] [place] [address], [place] [phone] * Magnesium (05/11/2024 11:50 AM EST) [facility] Magnesium 1.9 1.9 - 2.6 mg/dL LAB CHEMISTRY METHOD 05/11/2024 12:56 PM [facility] Blood Venous blood specimen / Unknown Venipuncture / Unknown 05/11/2024 11:50 AM EST 05/11/2024 12:27 PM EST Luis Carlos Jackson MD LAB BLOOD ORDERABLES Karin l Result Performing Organization Address City/[facility]/ZIP Co de Phone Number [facility] [address] [place] [address], [place] [phone] * Lipase (05/11/2024 11:50 AM EST) Pathologist [facility] Lipase 18 13 - 75 unit/L LAB CHEMISTRY METHOD 05/11/2024 12:56 PM [facility] Blood Venous blood specimen / Unknown Venipuncture / Unknown 05/11/2024 11:50 AM EST 05/11/2024 12:27 PM EST Luis Carlos Jackson MD LAB BLOOD ORDERABLES Karin l Result Performing Organization Address City/[facility]/ZIP Co de Phone Number [facility] [address] [place] [address], [place] [phone] * Comprehensive metabolic panel (05/11/2024 11:50 AM EST) Sodium 137 133 - 145 mmol/L LAB CHEMISTRY METHOD 05/11/2024 12:56 PM [facility] Potassium 3.8 3.5 - 5.5 mmol/L LAB CHEMISTRY METHOD 05/11/2024 12:56 PM [facility] Chloride 108 96 - 110 mmol/L LAB CHEMISTRY METHOD 05/11/2024 12:56 PM [facility] CO2 25 21 - 32 mmol/L LAB CHEMISTRY METHOD 05/11/2024 12:56 PM [facility] Anion Gap 4 3 - 11 LAB CHEMISTRY METHOD 05/11/2024 12:56 PM [facility] Glucose 95 70 - 100 mg/dL LAB CHEMISTRY METHOD 05/11/2024 12:56 PM [facility] BUN 10 5 - 25 mg/dL LAB CHEMISTRY METHOD 05/11/2024 12:56 PM [facility] Creatinine 0.65 0.50 - 1.10 mg/dL LAB CHEMISTRY METHOD 05/11/2024 12:56 PM [facility] eGFR 107 >=60 mL/min/1. 73m2 LAB CHEMISTRY METHOD 05/11/2024 12:56 PM [facility] Comment:Calculation based on the??Chronic Kidney Disease Epidemiology Collaboration (CKD-EPI) equation refit??without adjustment for race. BUN/Creatinine Ratio 15.4 LAB CHEMISTRY METHOD 05/11/2024 12:56 PM [facility] Calcium 8.8 8.5 - 10.5 mg/dL LAB CHEMISTRY METHOD 05/11/2024 12:56 PM [facility] AST (SGOT) 14 10 - 42 unit/L LAB CHEMISTRY METHOD 05/11/2024 12:56 PM [facility] ALT (SGPT) 20 10 - 60 unit/L LAB CHEMISTRY METHOD 05/11/2024 12:56 PM [facility] Alkaline Phosphatase 62 42 - 121 unit/L LAB CHEMISTRY METHOD 05/11/2024 12:56 PM [facility] Total Protein 6.6 6.0 - 8.0 g/dL LAB CHEMISTRY METHOD 05/11/2024 12:56 PM [facility] Albumin 3.6 3.2 - 5.0 g/dL LAB CHEMISTRY METHOD 05/11/2024 12:56 PM [facility] Total Bilirubin 0.4 0.0 - 1.4 mg/dL LAB CHEMISTRY METHOD 05/11/2024 12:56 PM [facility] Blood Venous blood specimen / Unknown Venipuncture / Unknown 05/11/2024 11:50 AM EST 05/11/2024 12:27 PM EST Luis Carlos Jackson MD LAB BLOOD ORDERABLES [facility] Result [facility] [address] [place] [address], [place] [phone] * (ABNORMAL) CBC auto differential (05/11/2024 11:49 AM EST) WBC 4.4(L) 4.8 - 10.8 K/mcL LAB HEMETOLOGY METHOD 05/11/2024 12:39 PM [facility] RBC 4.30 3.80 - 4.80 M/mcL LAB HEMETOLOGY METHOD 05/11/2024 12:39 PM [facility] Hemoglobin 12.9 11.5 - 16.0 g/dL LAB HEMETOLOGY METHOD 05/11/2024 12:39 PM [facility] Hematocrit 37.3 35.0 - 47.0 % LAB HEMETOLOGY METHOD 05/11/2024 12:39 PM [facility] MCV 87.6 79.0 - 98.0 FL LAB HEMETOLOGY METHOD 05/11/2024 12:39 PM [facility] MCH 30.3 27.0 - 32.0 pcg LAB HEMETOLOGY METHOD 05/11/2024 12:39 PM [facility] MCHC 34.6 32.0 - 37.0 g/dL LAB HEMETOLOGY METHOD 05/11/2024 12:39 PM [facility] RDW 12.6 11.0 - 15.0 % LAB HEMETOLOGY METHOD 05/11/2024 12:39 PM [facility] Platelets 155 130 - 400 K/mcL LAB HEMETOLOGY METHOD 05/11/2024 12:39 PM [facility] MPV 10.6 7.0 - 11.0 FL LAB HEMETOLOGY METHOD 05/11/2024 12:39 PM [facility] NRBC 0.0 <1.0 % LAB HEMETOLOGY METHOD 05/11/2024 12:39 PM [facility] NRBC Absolute 0.00 <0.10 K/mcL LAB HEMETOLOGY METHOD 05/11/2024 12:39 PM [facility] Neutrophils Relative 57.8 % LAB HEMETOLOGY METHOD 05/11/2024 12:39 PM [facility] Lymphocytes Relative 27.9 % LAB HEMETOLOGY METHOD 05/11/2024 12:39 PM [facility] Monocytes Relative 10.8 % LAB HEMETOLOGY METHOD 05/11/2024 12:39 PM [facility] Eosinophils Relative 2.3 % LAB HEMETOLOGY METHOD 05/11/2024 12:39 PM [facility] Basophils Relative 0.7 % LAB HEMETOLOGY METHOD 05/11/2024 12:39 PM [facility] Immature Granulocytes Relative 0.5 % LAB HEMETOLOGY METHOD 05/11/2024 12:39 PM [facility] Neutrophils Absolute 2.53 1.50 - 7.00 K/mcL LAB HEMETOLOGY METHOD 05/11/2024 12:39 PM [facility] Lymphocytes Absolute 1.22 1.00 - 5.00 K/mcL LAB HEMETOLOGY METHOD 05/11/2024 12:39 PM [facility] Monocytes Absolute 0.47 0.20 - 1.00 K/mcL LAB HEMETOLOGY METHOD 05/11/2024 12:39 PM [facility] Eosinophils Absolute 0.10 0.00 - 0.50 K/mcL LAB HEMETOLOGY METHOD 05/11/2024 12:39 PM EST [facility] Basophils Absolute 0.03 0.00 - 0.20 K/mcL LAB HEMETOLOGY METHOD 05/11/2024 12:39 PM EST [facility] Immature Granulocytes Absolute 0.02 0.00 - 0.03 K/[facility] LAB HEMETOLOGY METHOD 05/11/2024 12:39 PM EST [facility] Blood Venous blood specimen / Unknown Venipuncture / Unknown 05/11/2024 11:49 AM EST 05/11/2024 12:28 PM EST Luis Carlos Jackson MD LAB BLOOD ORDERABLES Karin l Result [facility] [address] [place] [address], [place] [phone] * ECG-Annotated (05/11/2024) us Provider Onbase MD ECG ORDERABLES Final Result * BD Bone Density DXA Axial Skeleton (04/23/2024 2:04 PM EST) Anatomical Region Laterality Modality Wrist, Hip, L-spine Bone Densito metry 04/23/2024 5:13 PM EST Impressions 04/23/2024 5:14 PM EST Normal bone mineral density. ? [id number] -------- FINAL REPORT -------- Dictated By: Katiuska Rodriguez Dictated Date: 04/23/2024 17:13 ET Assigned Physician: Katiuska Rodriguez Reviewed and Electronically Signed By: Katiuska Rodriguez Signed Date: 04/23/2024 17:14 ET Workstation ID: [id number] Transcribed By: Self Edit Transcribed Date: 04/23/2024 17:13 ET Narrative 04/23/2024 5:14 PM EST History: Low estrogen state due to menopause. Current smoker. Comparison: No comparison imaging at this institution. Findings: Bone densitometry is performed utilizing dual energy x-ray absorptiometry (DXA) in the [employer] unit. The lumbar spine and proximal femora are evaluated in the AP projection. The FRAX questionaire was completed. The results indicate normal bone mineral density, with a left femoral neck T- score of 0.0. The Z score is 0.9, indicating bone mineral density within the range of normal for age. ??The detailed DEXA report will be mailed to the referring physician's office. [employer] FRAX: 10-year Probability of Fracture: Major Osteoporotic 1.8 percent ??Hip 0.0 percent. Procedure Note Katiuska Rodriguez MD - 04/23/2024 History: Low estrogen state due to menopause. Current smoker. Comparison: No comparison imaging at this institution. Findings: Bone densitometry is performed utilizing dual energy x-ray absorptiometry(DXA) in the [employer] unit. The lumbar spine and proximal femora areevaluated in the AP projection. The FRAX questionaire was completed. The results indicate normal bone mineral density, with a left femoral neckT- score of 0.0. The Z score is 0.9, indicating bone mineral density withinthe range of normal for age. The detailed DEXA report will be mailed tothe referring physician's office. [employer] FRAX: 10-year Probability of Fracture: Major Osteoporotic 1.8percent Hip 0.0 percent. IMPRESSION: Normal bone mineral density. [id number] -------- FINAL REPORT -------- Dictated By: Katiuska Rodriguez Dictated Date: 04/23/2024 17:13 ET Assigned Physician: Katiuska Rodriguez Reviewed and Electronically Signed By: Katiuska Rodriguez Signed Date: 04/23/2024 17:14 ET Workstation ID: [id number] Transcribed By: Self Edit Transcribed Date: 04/23/2024 17:13 ET Sloane Perez CNM IM DXA PROCEDURES Final Result * MUKESH SCREENING DIGITAL (02/16/2024 1:58 PM EDT) Anatomical Region Laterality Modality Mammography 02/15/2024 10:2 9 AM EDT Narrative 02/16/2024 1:58 PM EDT [facility] Diagnostic Imaging Department [address] [place] [address] Patient: ??MARQUITA ALEXANDER ?/Age/Sex: 1975 - 49 - F Unit#: ??[id number] ? Location/Status: ??SPDIMAM/REG CLI ? Mnemonic/Ordering Site: ??DIGSC/SPMAM Ordering Physician: ??DARIUS CASANOVA MD Mukesh Screening Digital - 02/15/24 - 1622 Report Status:Signed EXAM: Mukesh Screening Digital EXAM DATE AND TIME: 02/15/2024 4:22 PM HISTORY: ??Screening. Left breast biopsy in 2014, pathology benign. Aunt had breast carcinoma. COMPARISON: ??09/20/22, 09/08/22, 12/30/20, 12/27/20, 09/09/16 TECHNIQUE: Bilateral digital breast tomosynthesis was performed in the CC and MLO projections. Computer aided detection with [employer] 3D 3.1 was employed. TISSUE DENSITY: b. There are scattered areas of fibroglandular density. FINDINGS: The breast parenchyma is diffusely nodular. Left breast: There is a dominant, approximately 3 cm mass or group of masses in the upper outer left breast. The margins are partially obscured. A 1.2 cm focal asymmetry is seen in the lower inner left breast, middle depth, incompletely characterized. A small area of possible architectural distortion is seen in the medial left breast, posterior depth, CC views only. CC and MLO spot compression tomosynthesis views and full lateral tomosynthesis views are recommended for further assessment of these findings. Loosely grouped microcalcifications in the central to lateral breast are without significant change. A biopsy marker is again seen in the upper outer quadrant. The skin and vascularity are unremarkable. Right breast: No dominant mass or asymmetry is seen. Loosely grouped microcalcifications in the anterior upper outer breast are without significant change, consistent with a benign process. No architectural distortion is seen. The skin and vascularity are unremarkable. IMPRESSION: 1. 3 cm mass or group of masses in the upper outer left breast, 1.2 cm focal asymmetry lower inner left breast, and possible architectural distortion in the medial left breast, for which additional views are recommended. The patient will be called back. 2. No mammographic evidence of malignancy is seen in the right breast. No significant change. BI-RADS: ??Category 0: Incomplete - Need Additional Imaging Evaluation RECOMMENDATION(S): 1: Special mammographic view(s) needed LEFT Mamm[facility] performed at [facility] [address] [place] [address] Dictating Physician: ??KATIUSKA RODRIGUEZ MD Electronically Signed by: ??KATIUSKA RODRIGUEZ MD Dic Date/Time: ??02/16/24 1646 Sign date/Time: ??02/16/24 1354 Procedure Note Katiuska Rodriguez MD - 03/06/2024 [facility] Diagnostic Imaging Department [address] [place] [address] Patient: BENJAMINMARQUITA /Age/Sex: 1975 - 49 - F Unit#: [id number] Location/Status: SPDIMAM/REG CLI Mnemonic/Ordering Site: [facility] Ordering Physician: DARIUS CASANOVA MD [facility] Screening Digital - 02/15/24 - 1622 Report Status:Signed EXAM: [facility] Screening Digital EXAM DATE AND TIME: 02/15/2024 4:22 PM HISTORY: Screening. Left breast biopsy in 2014, pathology benign. Aunthad breast carcinoma. COMPARISON: 09/20/22, 09/08/22, 12/30/20, 12/27/20, 09/09/16 TECHNIQUE: Bilateral digital breast tomosynthesis was performed in the CCand MLO projections. Computer aided detection with [employer] 3D 3.1was employed. TISSUE DENSITY: b. There are scattered areas of fibroglandular density. FINDINGS: The breast parenchyma is diffusely nodular. Left breast: There is a dominant, approximately 3 cm mass or group of masses in theupper outer left breast. The margins are partially obscured. A 1.2 cm focal asymmetry is seen in the lower inner left breast, middledepth, incompletely characterized. A small area of possible architectural distortion is seen in the medialleft breast, posterior depth, CC views only. CC and MLO spot compression tomosynthesis views and full lateraltomosynthesis views are recommended for further assessment of these findings. Loosely grouped microcalcifications in the central to lateral breast are without significant change. A biopsy marker is again seen in the upperouter quadrant. The skin and vascularity are unremarkable. Right breast: No dominant mass or asymmetry is seen. Loosely grouped microcalcificationsin the anterior upper outer breast are without significant change, consistentwith a benign process. No architectural distortion is seen. The skin andvascularity are unremarkable. IMPRESSION: 1. 3 cm mass or group of masses in the upper outer left breast, 1.2 cmfocal asymmetry lower inner left breast, and possible architectural distortionin the medial left breast, for which additional views are recommended. Thepatient will be called back. 2. No mammographic evidence of malignancy is seen in the right breast.No significant change. BI-RADS: Category 0: Incomplete - Need Additional Imaging Evaluation RECOMMENDATION(S): 1: Special mammographic view(s) needed LEFT Mammogram performed at [facility] [address], [place] [address] Dictating Physician: KATIUSKA RODRIGUEZ MD Electronically Signed by: KATIUSKA RODRIGUEZ MD Dic Date/Time: 02/16/24 1352 Sign date/Time: 02/16/24 1358 Darius Casanova MD IMG BI PROCEDURES Final Result * Cervical Cancer Screening: HPV (10/24/2020) Cervical Cancer Screening: HPV negative, abstracted us Historical Provider HEALTH MAINTENANCE Final Result from Last 3 Months or Most Recently Relevant to Health Maintenance Insurance [facility] MEDICAID - [place] Care Teams Rotary Filter Operator Relationship Specialty [place] [address] [place] [id number] PCP - General Oncology 12/20/19
--- OUTSIDE RECORDS SUMMARY | 2024-08-01 17:52 | XMS_ITS | Clinical Summary ---
Author Organization [facility] Address [address] [place] [address] Care Team Providers Care Engineering Operator Name Role Phone Ross Casanova MD Primary Care Provider [phone] Allergies Active Allergy Reactions Criticality Noted Date Comments Seafood Anaphylaxis High 04/14/2022 Medications Medication Sig Dispensed Refills Start Date End Date Status omeprazole (PriLOSEC) 20 MG capsule Take 1 capsule (20 mg total) by mouth daily. 0 Active Social History Tobacco Use Types Packs/Day Years Used Date Smoking Tobacco: Former Cigarettes 0.3 Q uit: 02/06/2022 Smokeless Tobacco: Never Tobacco Cessation:Counseling Given: Not Answered Alcohol Use Standard Drinks/Week Comments Yes 2 (1 standard drink = 0.6 oz pure alcohol) drinks socially on special occasions only Sex and Gender Information Value Date Recorded Sex Assigned at Not on file Gender Identity Not on file Sexual Orientation Not on file Job Start Date Occupation Industry Not on file Not on file Not on file Last Filed Vital Signs Vital Sign Reading Time Taken Comments Blood Pressure 122/76 04/16/2022 11:23 AM EST Pulse 77 04/16/2022 11:23 AM EST Temperature 36.6 ??C (97.8 ??F) 04/16/2022 10:[address] Respiratory Rate 12 04/16/2022 11:00 AM EST Oxygen Saturation 94% 04/16/2022 11:23 AM EST Inhaled Oxygen Concentration - - Weight 58.5 kg (129 lb) 04/16/2022 6:21 AM EST Height 152.4 cm (5') 04/16/2022 6:21 AM EST Body Mass Index 25.19 04/16/2022 6:21 AM EST Plan of Treatment Health Maintenance Due Date Last Done Comments Hepatitis B Vaccines (1 of 3 - 3-dose series) 1975 Hepatitis C Screening 1975 COVID-19 Vaccine (#1) 1975 Depression Screening 1986 BMI Counseling 01/20/1992 Preventative Health Evaluation 01/20/1992 DTap / Tdap / Td (1 - Tdap) 1993 Cervical Cancer Screening (P ap Smear) 1995 Colon Cancer Screening (Colonoscopy) 2019 Influenza Vaccine (#1) 2024 Breast Cancer Screening (Mammogram) 01/20/2024 Shingrix-Zoster Vaccine (1 of 2) 01/20/2024 Pneumococcal Vaccine Aged Out No long er eligible based on patient's age to complete this topic RSV Ped < 20 months Aged Out No longe r eligible based on patient's age to complete this topic Care Teams Engineering Operator Relationship Specialty Start Date End Date Ross Casanova MD [address] [place] [phone] PCP - General Oncology 12/20/19
== END 2024-08-01 14:54 | disposition home or self-care (01) ==
LOC: HO.US 14:53
PROVIDERS: Visit Provider Internal Medicine Medical Oncology
DX: M71.22 Synovial cyst of popliteal space [Baker], left knee (principal)
CPT/HCPCS: 76882

== ENCOUNTER → 2024-08-01 14:57 | Outpatient (BNV) | payer BC, SELFPAY | PROVIDERS: Visit Provider Radiology Diagnostic Radiology | DX: M71.22 Synovial cyst of popliteal space [Baker], left knee (principal) | CPT/HCPCS: 76882 ==

== ENCOUNTER 2024-10-30 08:37 | Outpatient (REF) | payer BC, SELFPAY ==
--- NOTE | ~2024-10-30 | XR_ITS ---
EXAMINATION: XR KNEE 3 VIEWS LEFT HISTORY: M25.562 - Pain in left knee COMPARISON: There are no prior studies available for comparison. FINDINGS: Three views of the left knee are submitted. Osseous mineralization is normal. There is no fracture or dislocation. The joint spaces are preserved. The soft tissues are unremarkable. There is no joint effusion. XR/XR knee LT 3V IMPRESSION: Unremarkable examination of the left knee. Electronically signed by: Ross Alexander MD 10/30/2024 03:12 PM EDT
== END 2024-10-30 08:38 | disposition home or self-care (01) ==
LOC: HO.HOSX 08:37
PROVIDERS: Visit Provider Orthopaedic Surgery
DX: M25.562 Pain in left knee (principal); S83.242A Other tear of medial meniscus, current injury, left knee, initial encounter; X50.1XXA Overexertion from prolonged static or awkward postures, initial encounter; Y93.9 Activity, unspecified; Y92.9 Unspecified place or not applicable; Y99.9 Unspecified external cause status
CPT/HCPCS: 73562

== ENCOUNTER 2024-10-30 14:58 | Outpatient (AMB) | payer BC, SELFPAY ==
--- NOTE | 2024-10-30 15:00 | A.OFFVIS_ITS ---
Vital Signs 10/30/24 15:06 Height 5 ft 1 in Weight 121 lb BMI 22.9 Intake Visit Reasons: Left knee pain and giving way Intake Note: Marquita is a 49 year old female who presents with complaints of progressively worsening left knee pain and giving way. The patient states that she injured her left knee approximately 9 months. She twisted her knee and had acute onset of pain. Since that time her symptoms have gotten worse. She has failed the last 6 weeks of conservative treatment which has included physical therapy exercises, a home exercise program, Tylenol and anti-inflammatory medicines. Most of the pain is along the medial aspect of the patient's knee. She states that her left knee will give out several times per day. Viscose Cellar Charge Hand Required: Yes Viscose Cellar Charge Hand Services: Viscose Cellar Charge Hand Present Viscose Cellar Charge Hand Name: Erika, ID#[id number] Allergies Seafood Allergy (Uncoded 10/30/24 15:08) Anaphylaxis Medication List - Last Reconciled 10/30/24 by Anthony Lee MD drospirenone-ethinyl estradiol 3-0.02 mg (Liz (28)) 1 tab PO DAILY epinephrine IM naproxen sodium (All Day Relief) 220 mg PO Q12H PRN PFSH Medical History Chronic hand pain De Quervain's tenosynovitis, right Cervical radiculopathy Tobacco dependence Hiatal hernia Esophageal motility disorder Hepatic cyst Anxiety Herniated intervertebral disc of lumbar spine PTSD (post-traumatic stress disorder) GERD (gastroesophageal reflux disease) Depression, unspecified Surgical History History of carpal tunnel surgery History of endoscopy Social History (Updated 10/30/24 @ 15:12 by MALCOM Kramer) Alcohol intake: never Patient Tobacco Use Status: Current everyday Tobacco user Current occupational status: employed 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, 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 Physical Exam Vital Signs: BMI result Body Mass Index 22.9 Const Other: Well-nourished well-developed very friendly female awake alert and oriented x3 in no acute distress Extrem Other: Bilateral lower extremity examination shows good capillary refill, no skin lesions noted, normal sensation light touch Left knee examination shows a minimal effusion, minimal crepitus with range of motion, tenderness along her medial joint line, positive Terell's test, no instability Results Reviewed Results Reviewed: Standing full weight-bearing x-rays of the patient's left knee show mild diffuse joint space narrowing, no acute bony abnormalities Assessment & Plan Assessment & Plan (1) Tear of medial meniscus of left knee: Code(s): S83.242A - Other tear of medial meniscus, current injury, left knee, initial encounter Category: Medical Plan Ms. Alexander presents with progressively worsening left knee pain and mechanical symptoms most likely due to a medial meniscus tear. Thus, I will send the patient for an MRI of her left knee for further evaluation. I will see her back once the MRI is completed to discuss the findings and treatment options. She will contact me prior to that time should her symptoms worsen in any way. I spent 20 minutes in reviewing the patient's records and imaging studies, seeing the patient and documenting in the medical record. Orders: Orders XR knee LT 3V 10/30/24 M25.562 - Pain in left knee MR knee LT wo con 10/30/24 S83.242A - Other tear of medial meniscus, current injury, left knee, initial encounter Coding Level of Care Code Est Pt Level 3 (46753) Complex EM visit Add On G2211 Diagnoses Tear of medial meniscus of left knee S83.242A
[2024-10-30 15:06] VITALS: BMI 22.9
--- OUTSIDE RECORDS SUMMARY | 2024-10-30 18:12 | XMS_ITS | Data Portability ---
Author Organization VIANCA Khan [facility], [address] Address [address] [place] [address] Care Team Providers Care Assistant Director Of Nursing Name Role Phone DARIUS MELENDREZ Primary Care Provider Assessment No assessment recorded. Plan of Treatment Reminders Order Date Submit Date Provider Last Modified By Organization Details Last Modified Time Details Appointments None recorded. Lab rapid SARS CoV 2 Ag, QL IA, respiratory specimen 2021 022 [email or web address] _[facility], [address] [place] [address], [id number], 11:54:05 Referral None recorded. Procedures None recorded. Surgeries None recorded. Imaging None recorded. Medication Orders None recorded. Patient TargetsNo targets recorded. Patient Instructions Encounter Date Encounter Id Patient Instructions Last Modified By Organization Details Last Modified Time 04/15/2022 [id number] things to do i f you've been exposed to covid-19 [email or web address] Not available 04/15/2022 11:57:29 COVID Rapid negative - should be ok for your surgery and planned procecdure. Don't hesitate to be seen again if you develop any shortness of breath, chest pain, or cold like symptoms. [email or web address] Not available 04/15/2022 11:54:04 Reason for Referral None Reported. Results Created Date Observation Date Name Description Value Unit Range Abnormal Flag Note LastModifiedBy Organization Detail LastModifiedTime 04/15/20 22 04/15/2022 rapid SARS CoV 2 Ag, QL IA, respi rator y speci men Unknown Analyte Normal =Negat monique Not Available [address] [place], [address], 04/15/2022 10:21:36 04/15/20 22 04/15/2022 rapid SARS CoV 2 Ag, QL IA, respi rator y speci men Unknown Analyte negati ve Not Available [address] [place], [address], 04/15/2022 10:21:36 Result Notes None recorded. Problems [...] Last Updated DateTime 152.4 cm 25.2 kg/m2 54163.4 2 g 96 % 96 % 68 /min 18 /min 97.8 [degF] 115 mm[Hg] 78 mm[Hg] Vernell COLEY - [facility] 10:23:26 Social History Question Answer Notes LastModified by [employer] Details LastModified Time Tobacco Smoking Status Never Smoker Vernell thomas PA - [facility] 04/15/2022 10:21:26 Have You Had Direct Contact, Or Contact During Intimacy, With Monkeypox Rash, Scabs, Or Body Fluids From A Person With Monkeypox? No Information not available 04/15/2022 Have You Recently Traveled Abroad? No Information not available 04/15/2022 Sex: Unknown Functional Status Question Answer Note LastModified by [employer] Details LastModified Time Do you use any illicit or recreational drugs? No Information not available 04/15/2022 Do you or have you ever used any other forms of tobacco or nicotine? No Information not available 04/15/2022 What is your level of alcohol consumption? None Information not available 04/15/2022 Mental Status None recorded. Family History Relationship [...] Time SARS-COV-2 (COVID-19) vaccine, UNSPECIFIED 10/31/2021 completed Vernelllaurel Steele null PA - [facility] 04/15/2022 10:20:52 influenza, unspecified formulation 02/05/2022 completed Vernell Cedric null PA - [facility] 04/15/2022 10:21:07 Past Encounters Encounter ID Performer Location Encounter Start Date Encounter Closed Date Diagnosis/Indication Diagnosis SNOMED-CT Code Diagnosis ICD10 Code Diagnosis Note [id number] VIANCA MONTERO [address] [address] 04/15/2022 08:48:58 04/15/2022 11:56:47 Exposure to SARS-CoV-2 436023513 Z20.822 Rapid COVID Negative Health Concerns Section Related Observation LastModified by Organization Detai ls LastModified Time None Recorded Concern Status LastModified by Organization Details LastModified Time None Recorded Advance Directives Directive None Recorded Payers Insurance Date Sequence Insurance Name Policy Number Policy Sifuentes Covered Member ID Sifuentes Member ID Guarantor Name 08/05/2022 1 [place] [facility] Marquita Alexander [id number] Marquita Sotelo 08/05/2022 2 [place] Marquita Sotelo [id number] Marquita Sotelo Notes Date Note Type Note [...] had exposure at her work.. VIANCA MONTERO [facility] [place], [address], [place] - [facility] 04/15/2022 11:57:55 OBGyn Episode No OBEpisode recorded.
== END 2024-10-30 15:18 | disposition home or self-care (01) ==
LOC: HO.HOS 14:58
PROVIDERS: Visit Provider Orthopaedic Surgery
DX: S83.242A Other tear of medial meniscus, current injury, left knee, initial encounter (principal)
CPT/HCPCS: 99213

== ENCOUNTER → 2024-10-30 15:00 | Outpatient (BNV) | payer BC, SELFPAY | PROVIDERS: Visit Provider Radiology Diagnostic Radiology | DX: M25.562 Pain in left knee (principal) | CPT/HCPCS: 73562 ==

== ENCOUNTER 2024-11-26 16:11 | Outpatient (REF) | payer BC, SELFPAY ==
--- OUTSIDE RECORDS SUMMARY | 2023-11-17 11:45 | XMS_ITS | Continuity of Care Document ---
Author Organization [facility] Address [address] [place] [address] Phone Care Team Providers Care Mophead Trimmer And Wrapper Name Role Phone Yayo ENGLAND, RVArely, CAROLINE, [...] Mins- [place] & [place] [facility], [address] [address], [id number], [place] tel:[phone] CVR - [place] - [place] Venous insufficiency (chronic) (peripheral) 4 Yayo ENGLAND RVT, RPVI Robert. [address] [place] [address], [facility], [id number] , [place]. [phone] Referring Provider: Ross Rodney, [address] [place] [address] [address], [place], [address]. tel:[phone] [facility], [address] [place] [address] [address], [id number], [place] tel:[phone] CVR - [place] - [place] Varicose veins of right lower extremity with pain 4 Yayo ENGLAND RVT, RPVI Robert. [address] [place] [address], [facility] [place] [id number] , [place]. tel:[phone] Referring Provider: Ross Rodney, [address] [place] [address] [address], [place], [address]. tel:[phone] [facility], [address] [place] [address] [place] [id number], [place] tel:[phone] CVR - [place] Encounter for follow-up examination after completed treatment for conditions other than malignant neoplasmVaricos e veins of right lower extremity with pain 4 Yayo ENGLAND RVT, RPVI Robert. [address] [place] [address], [address], [facility], [place], [id number] , [place]. tel:[phone] Referring Provider: Ross Rodney, [address] [place] [address] [address], [place], [address]. tel:[phone] [facility], [address] [place] [address] [address] [address], [id number], [place] tel:[phone] CVR - [place] Varicose veins of right lower extremity with other complications 4 Yayo ENGLAND RVT, RPVI Robert. [address] [place] [address], [address], [facility] [place], [id number] , [place]. tel:[phone] Referring Provider: Ross Rodney, [address] [place] [address] [address], [place], [address]. tel:[phone] [facility], [address] [place] [address] [address], [id number], [place] tel:[phone] CVR - [place] - [place] Encounter for follow-up examination after completed treatment for conditions other than malignant neChronic venous hypertension (idiopathic) with other complications of right lower extremity 4 Yayo ENGLAND RVT, CAROLINE Hawkins. [address] [place] [address], [place], [place], [id number] , [place]. tel:[phone] Referring Provider: Ross Rodney, [address] [place] [address] Suite [facility], [place], [address]. tel:[phone] [facility], [address] [place], [place] [address]Re[place], [id number], [place] tel:[phone] CVR - [facility] Varicose veins of right lower extremity with other complications 4 Yayo ENGLAND RVT, CAROLINE Hawkins. [address] [place] [address], [place], [place], [id number] , [place]. tel:[phone] Referring Provider: Ross Rodney, [address] [place] [address] [address], [place], [address]. tel:[phone] [facility], [address] [place] [address] [address], [id number], [place] tel:[phone] CVR - [facility] Chronic venous hypertension (idiopathic) with inflammation of right lower extremity 4 Yayo ENGLAND RVT, CAROLINE Hawkins. [address] [place] [address] [address], [place], [place], [id number] , [place]. tel:[phone] Referring Provider: Ross Rodney, [address] [place] [address] [address], [place], [address]. tel:[phone] [facility], [address] [place] [address] [address], [place], [id number], [place] tel:[phone] CVR - [place] No Information 4 Yayo ENGLAND RVT, CAROLINE Hawkins. [address] [place] [address], [facility] [place], [place], [id number] , [place]. tel:[phone] Office/Oupt E&M New Pt 45 Mins- [place] & [place] [facility], [address] [place] [address] [address], [place], [id number], [place] tel:[phone] CVR - [place] Varicose veins of right lower extremity with other complicationsPa in in right lower legPain in left lower legPain in right legRestless legs syndromePruritu s, unspecifiedPain in left legCramp and spasmLocalized edema 4 Yayo ENGLAND RVT, CAROLINE Hawkins. [address] [place] [address], [place], [place], [id number] , [place]. tel:[phone] Referring Provider: Ross Rodney, [address] [place] [address] Suite [facility], [place], [address]. tel:[phone] [facility], [address] [place] [address] [address], [place], [id number], [place] tel:[phone] CVR - [place] Pain in right legPain in left leg 4 Yayo ENGLAND RVT, CAROLINE Hawkins. [address] [place] [address], [place], [place], [id number] , [place]. tel:[phone] Referring Provider: Ross Rodney, [address] [facility] [address], [place], [address]. tel:[phone] Family History Family Member Type Diagnosis Age At Onset No Information Payers Payer name Insurance type Covered republican ID Aparna geronimodenise(s) BCBS [facility] [id number] Social History Type Description Quantity Date Captured [...] Of Treatment Date Type Action Status Goal Diet education completed Goal Tobacco cessation counseling completed Goal Diet education completed Goal Tobacco cessation counseling completed Referral Ordered: Weight management: Referral to [...] Assessmen t No Information Instructions Date Instruction Terri Infor sukhi Diet education Related to Body mass index (BMI) 24.0-24.9, adult Giving Encouragement to exercise Related to Body mass index (BMI) 24.0-24.9, adult Lifestyle education Related to B thai mass index (BMI) 24.0-24.9, adult Patient education booklet given Related to Venous insufficiency (chronic) (peripheral) Compression stocking usage as conservative measure Related to Venous insufficiency (chronic) (peripheral) Patient education booklet given Related to Varicose veins of right lower extremity with other complications Pre and post instruc tions reviewed and provided Related to Varicose veins of right lower extremity with other complications Diet education Related to Body mass index (BMI) 24.0-24.9, adult Giving Encouragement to exercise Related to Body mass index (BMI) 24.0-24.9, adult Lifestyle education Related to B thai mass index (BMI) 24.0-24.9, adult Assessments Type Assessment Date No Information Patient Care Teams Name Effective Dates (start - stop) Status Members No Information
--- NOTE | ~2024-11-26 | MR_ITS ---
EXAMINATION: MR KNEE WITHOUT CONTRAST, LEFT CLINICAL INFORMATION: Left knee injury COMPARISON: None available. TECHNIQUE: MRI of the knee without contrast was performed using routine sequences on a high-field scanner. FINDINGS: Menisci: Lateral Meniscus: Intermediate signal within the meniscus does not extend to the articular surface Medial Meniscus: Amorphous intermediate signal within the meniscus does not extend to an articular surface. ACL/PCL: ACL and PCL are intact. Extensor mechanism: There is a physiologic volume of joint fluid. Extensor mechanism is unremarkable. MCL/LCL: MCL and LCL complex are intact. Articular cartilage: Patellofemoral Compartment: Multifocal fissuring is present in the mid third median ridge and lateral facet extending through more than half of the cartilage depth. There is undulating partial-thickness articular cartilage defect in the lower third patella, medial facet involving more than half the cartilage thickness. Trochlear cartilage is intact Lateral Compartment: Undulating surface contour is posterior weightbearing surface of the lateral femoral condyle. Medial Compartment: Articular cartilage is intact. Bones/Marrow: There are no marrow replacing lesions. Soft tissues: There is no mass, fluid collection, muscle edema, or fatty infiltration. MR/MR knee LT wo con IMPRESSION: There is grade III chondromalacia involving the patella and grade II chondromalacia involving posterior weightbearing surface of lateral femoral condyle. No MRI evidence of a meniscal tear. Electronically signed by: Dakota Reynolds MD 11/26/2024 05:04 PM EDT
--- OUTSIDE RECORDS SUMMARY | 2024-11-26 16:24 | XMS_ITS ---
Author Name CRISP Organization Unknown Care Team Organization Name Specialty Phone Email Start Date End [facility] te [facility]
--- OUTSIDE RECORDS SUMMARY | 2024-11-26 16:24 | XMS_ITS | Data Portability ---
Author Organization [facility], [address] Address [address] [place] [address] Care Team Providers Care Mountain Guide Name Role Phone DARIUS MELENDREZ Primary Care Provider Assessment No assessment recorded. Plan of Treatment Reminders Order Date Submit Date Provider Last Modified By Organization Details Last Modified Time Details Appointments None recorded. Lab rapid SARS CoV 2 Ag, QL IA, respiratory specimen 2021 022 [id number] [facility], [address] [place] [address], [phone], 11:54:05 Referral None recorded. Procedures None recorded. Surgeries None recorded. Imaging None recorded. Medication Orders None recorded. Patient TargetsNo targets recorded. Patient Instructions Encounter Date Encounter Id Patient Instructions Last Modified By Organization Details Last Modified Time 04/15/2022 [id number] things to do i f you've been exposed to covid-19 [email or web address] Not available 04/15/2022 11:57:29 COVID Rapid negative - should be ok for your surgery and planned procecdure. Don't hesitate to be seen again if you develop any shortness of breath, chest pain, or cold like symptoms. [email or web address] Not available 04/15/2022 11:54:04 Reason for Referral None Reported. Results Created Date Observation Date Name Description Value Unit Range Abnormal Flag Note LastModifiedBy Organization Detail LastModifiedTime 04/15/20 22 04/15/2022 rapid SARS CoV 2 Ag, QL IA, respi rator y speci men Unknown Analyte Normal =Negat monique Not Available [facility] [address] [place], [address], 04/15/2022 10:21:36 04/15/20 22 04/15/2022 rapid SARS CoV 2 Ag, QL IA, respi rator y speci men Unknown Analyte negati ve Not Available [address] [facility] [address] [place], [address], 04/15/2022 10:21:36 Result Notes None recorded. Problems [...] Heart rate Respiratory rate Body temperature Systolic And Diastolic Provider Name and Address Organization Details Last Updated DateTime 152.4 cm 25.2 kg/m2 89722.4 2 g 96 % 96 % 68 /min 18 /min 97.8 [degF] 115/78 mm[Hg] Vernell Steele PA - [facility] 10:23:26 Social History Question Answer Notes LastModified by [employer] Details LastModified Time Tobacco Smoking Status Never Smoker Vernell thomas PA - [facility] 04/15/2022 10:21:26 Have You Had Direct Contact, Or Contact During Intimacy, With Monkeypox Rash, Scabs, Or Body Fluids From A Person With Monkeypox? No Information not available 04/15/2022 Have You Recently Traveled Abroad? No Information not available 04/15/2022 Sex: Unknown Functional Status Question Answer Note LastModified by [employer] Details LastModified Time Do you use any [...] influenza, unspecified formulation 02/05/2022 completed Vernell Cedric null, PA - [facility] 04/15/2022 10:21:07 Past Encounters Encounter ID Performer Location Encounter Start Date Encounter Closed Date Diagnosis/Indication Diagnosis SNOMED-CT Code Diagnosis ICD10 Code Diagnosis Note [id number] VIANCA MONTERO [address] [address] 04/15/2022 08:48:58 04/15/2022 11:56:47 Exposure to SARS-CoV-2 821708397 Z20.822 Rapid COVID Negative Health Concerns Section Related Observation LastModified by Organization Detai ls LastModified Time None Recorded Concern Status LastModified by Organization Details LastModified Time None Recorded Advance Directives Directive None Recorded Payers Insurance Date Sequence Insurance Name Policy Number Policy Sifuentes Covered Member ID Sifuentes Member ID Guarantor Name 08/05/2022 1 [id number] Marquita Alexander [id number] Marquita Sotelo 08/05/2022 2 [place] Marquita Sotelo [id number] Marquita Sotelo Notes Date Note Type Note [...] had exposure at her work.. VIANCA MONTERO [facility] [place], [address], PA - [facility] 04/15/2022 11:57:55 OBGyn Episode No OBEpisode recorded.
--- OUTSIDE RECORDS SUMMARY | 2024-11-26 16:24 | XMS_ITS | Clinical Summary ---
Author Organization [facility] Address [address] [place] [address] Phone Care Team Providers Care Compressed Gas Tester Name Role Phone Darius Casanova MD Primary Care Provider [phone] Allergies Active Allergy Reactions Criticality Noted Date [...] exam was performed in conjunction with a hand sample maker from [employer], Nic #[id number]. Ms. Alexander was seen here 2 years [...] Review of the cervical spine MRI from [place] dated 09/30/2021 shows a 1 mm anterolisthesis [...] Overview (02/14/2024): 04/18/2018 PAP LSIL Plan : [facility] 2020 PAP Neg cytology, neg hpv Chronic, continuous use of opioids 04/19/2018 PTSD (post-traumatic stress disorder) 04/19/2018 Surgical History Surgery Date Site/Laterality Comments TUBAL LIGATION PROCEDURE: HISTORICAL TUBAL LIGATION OTHER SURGICAL HISTORY PROCEDURE: [place] NEPHROLITHOTOMY COMP CGEN KDN ABNORMALITY CARPAL TUNNEL RELEASE PROCEDURE: [place] NEUROPLASTY &/TRANSPOS MEDIAN NRV CARPAL TUNNE; COMMENT: right hand OTHER SURGICAL HISTORY 09/10/2020 Left PROCEDURE: [place] STAB PHLEBT VARICOSE VEINS 1 XTR 10-20 STAB INCS BELT ABDOMINOPLASTY 04/2022 PROCEDURE: HISTORICAL TUMMY TUCK; COMMENT: in [place]- Dr. Schmidt/ Thu Medical History Medical History [...] 3 3 Date Outcome GA Total Labor Labor/2nd/3rd Weight Sex Type Anes PTL Karoline A1 A5 Name Clin 1995 Para M Vag-S pont Living 1998 Para F Vag-S pont Living 2000 Para M Vag-S pont Living Last Filed Vital Signs Vital Sign Reading Time Taken Comments Blood Pressure 115/79 05/11/2024 7:03 PM EST Pulse 67 05/11/2024 7:03 PM EST Temperature 37 C (98.6 F) 05/11/2024 7:03 PM EST Respiratory Rate 18 [...] Care Team (Late st Contact Info) Description 12/05/2024 9:30 AM EDT Consult Orthopedic Surgery - [facility] [address] [address] Anoop La, DPM [address] [address] Health Maintenance Due Date Last Done Comments DTaP,Tdap,and Td Vaccines (1 - Tdap) 1993 Hepatitis A Vaccines (1 of 2 - Risk 2-dose series) 1993 Pneumococcal Vaccine: 50+ Years (1 of 2 - PCV) 1993 Zoster Vaccines (1 of 2) 1993 Colorectal Cancer Screening: Colonoscopy 04/17/2022 HIV Screening 04/17/2022 Hepatitis C Screening 04/17/2022 Social Influencers of Health Screening 04/17/2022 COVID-19 Vaccine (4 - 2024-25 season) 2024 10/31/2021, 10/31/2020, 10/03/2020 Influenza Vaccine (#1) 2025 2, 01/25/2012, 06/15/2010, Additional history exists Cervical Cancer Screening: HPV 10/24/2025 10/24/2020 Breast Cancer Screening 02/15/2026 02/16/20 24, 09/09/2022, 12/27/2020 Osteoporosis Screening (Bone Density Screening) 04/23/2034 04/23/2024 Hepatitis B Vaccines Completed 03/10/2009, 10/18/2008, 09/17/2008 Depression Screening Completed 08/02/2024 HIB Vaccines Aged Out No longer eligi [...] age to complete this topic Meningococcal B Vaccine Aged Out No l onger eligible based on patient's age to complete this topic RSV Immunization Patients Under 20 months Aged Out No longer eligible based on patient's age to complete this topic Varicella Vaccines Aged Out No longer eligible based on patient's age to complete this topic Procedures Procedure Name Priority Date/Time Associated Diagnosis Comments BD BONE DENSITY DXA AXIAL SKELETON Routine 04/23/2024 2:04 PM EST Encounter for annual routine gynecological examination Menopausal and perimenopausal disorder MUKESH SCREENING DIGITAL Routine 02/16/2024 1:58 PM EDT Encounter for screening mammogram for malignant neoplasm of breast HM HPV Routine 10/24/2020 from Last 3 Months or Most Recently Relevant to Health Maintenance Results * BD Bone Density DXA Axial Skeleton (04/23/2024 2:04 PM EST) Anatomical Region Laterality Modality Wrist, Hip, L-spine Bone Densito metry 04/23/2024 5:13 PM EST Impressions 04/23/2024 5:14 PM EST Normal bone mineral density. [id number] -------- FINAL REPORT -------- Dictated By: Katiuska Rodriguez Dictated Date: 04/23/2024 17:13 ET Assigned Physician: Katiuska Rodriguez Reviewed and Electronically Signed By: Katiuska Rodriguez Signed Date: 04/23/2024 17:14 ET Workstation ID: [id number] Transcribed By: Self Edit Transcribed Date: 04/23/2024 17:13 ET Narrative 04/23/2024 5:14 PM EST History: Low estrogen state due to menopause. Current smoker. Comparison: No comparison imaging at this institution. Findings: Bone densitometry is performed utilizing dual energy x-ray absorptiometry (DXA) in the [employer] unit. The lumbar spine and proximal femora are evaluated in the AP projection. The FRAX questionaire was completed. The results indicate normal bone mineral density, with a left femoral neck T- score of 0.0. The Z score is 0.9, indicating bone mineral density within the range of normal for age. The detailed DEXA report will be mailed to the referring physician's office. [employer] FRAX: 10-year Probability of Fracture: Major Osteoporotic 1.8 percent Hip 0.0 percent. Procedure Note Katiuska Rodriguez MD - 04/23/2024 History: Low estrogen state due to menopause. Current smoker. Comparison: No comparison imaging at this institution. Findings: Bone densitometry is performed utilizing dual energy x-ray absorptiometry(DXA) in the [employer] unit. The lumbar spine and proximal femora [...] 0.0 percent. IMPRESSION: Normal bone mineral density. [id number] -------- FINAL REPORT -------- Dictated By: Katiuska Rodriguez Dictated Date: 04/23/2024 17:13 ET Assigned Physician: Katiuska Rodriguez Reviewed and Electronically Signed By: Katiuska Rodriguez Signed Date: 04/23/2024 17:14 ET Workstation ID: [id number] Transcribed By: Self Edit Transcribed Date: 04/23/2024 17:13 ET Sloane Ana CNRafael IMG DXA PROCEDURES Final Result * [facility] SCREENING DIGITAL (02/16/2024 1:58 PM EDT) Anatomical Region Laterality Modality Mammography 02/15/2024 10:2 9 AM EDT Narrative 02/16/2024 1:58 PM EDT [facility] Diagnostic Imaging Department [address] [place] [id number] Patient: BRUCEMARQUITA /Age/Sex: 1975 - 49 - F Unit#: [id number] Location/Status: [facility] CLI Mnemonic/Ordering Site: [facility] Ordering Physician: DARIUS CASANOVA MD Mukesh Screening Digital - 02/15/241621 Report Status:Signed EXAM: [facility] Screening Digital EXAM DATE AND TIME: 02/15/2024 4:22 PM HISTORY: Screening. Left breast biopsy in 2014, pathology benign. Aunt had breast carcinoma. COMPARISON: 09/20/22, 09/08/22, 12/30/20, 12/27/20, 09/09/16 TECHNIQUE: Bilateral digital breast tomosynthesis was performed in the CC and MLO projections. Computer aided detection with [employer] 3D 3.1 was employed. TISSUE DENSITY: b. [...] the right breast. No significant change. BI-RADS: Category 0: Incomplete - Need Additional Imaging Evaluation RECOMMENDATION(S): 1: Special mammographic view(s) needed LEFT [facility] at [facility] [address] [place] [address] Dictating Physician: KATIUSKA RODRIGUEZ MD Electronically Signed by: KATIUSKA RODRIGUEZ MD Dic Date/Time: 02/16/24 1352 Sign date/Time: 02/16/24 1358 Procedure Note Katiuska Rodriguez MD - 03/06/2024 [facility] Diagnostic Imaging Department [address] [place] [address] Patient: MARQUITA ALEXANDER /Age/Sex: 1975 - 49 - F Unit#: [id number] Location/Status: SPDIMAM/REG CLI Mnemonic/Ordering Site: [facility] Ordering Physician: DARIUS CASANOVA MD Mukesh Screening Digital - 02/15/24 - 1622 Report Status:Signed EXAM: [facility] Screening Digital EXAM DATE AND TIME: 02/15/2024 4:22 PM HISTORY: Screening. Left breast biopsy in 2014, pathology benign. Aunthad breast carcinoma. COMPARISON: 09/20/22, 09/08/22, 12/30/20, 12/27/20, 09/09/16 TECHNIQUE: Bilateral digital breast tomosynthesis was performed in the CCand MLO projections. Computer aided detection with [employer] 3D 3.1was employed. TISSUE DENSITY: b. There [...] Mamm[facility] performed at [facility] [address] [address] Dictating Physician: KATIUSKA RODRIGUEZ MD Electronically Signed by: KATIUSKA RODRIGUEZ MD Dic Date/Time: 02/16/24 1352 Sign date/Time: 02/16/24 1358 Darius Casanova MD IMG BI PROCEDURES Final Result * Cervical Cancer Screening: HPV (10/24/2020) Cervical Cancer Screening: HPV negative, abstracted Historical Provider HEALTH MAINTENANCE Final Result from Last 3 Months or Most Recently Relevant to Health Maintenance Insurance [facility] Care Teams Compressed Gas Tester Relationship Specialty Start Date End Date Darius Casanova MD [address] [address] PCP - General Oncology 12/20/19
--- OUTSIDE RECORDS SUMMARY | 2024-11-26 16:24 | XMS_ITS | Clinical Summary ---
Author Organization [facility] Address [address] [place] [address] Care Team Providers Care Software Tools Developer Name Role Phone Ross Casanova MD Primary Care Provider [phone] Allergies Active Allergy Reactions Criticality Noted Date [...] 77 04/16/2022 11:23 AM EST Temperature 36.6 C (97.8 F) 04/16/2022 10:15 AM EST Respiratory Rate 12 04/16/2022 11:00 AM EST [...] Smear) 1995 Colon Cancer Screening (Colonoscopy) 2019 Breast Cancer Screening (Mammogram) 01/20/2024 Shingrix-Zoster Vaccine (1 of 2) 01/20/2024 Influenza Vaccine (#1) 2025 Pneumococcal Vaccine Aged Out No long er eligible based on patient's age to complete this topic RSV Ped < 20 months Aged Out No longe r eligible based on patient's age to complete this topic Care Teams Software Tools Developer Relationship Specialty Start Date End Date Ross Casanova MD [address] [place] [phone] PCP - General Oncology 12/20/19
--- OUTSIDE RECORDS SUMMARY | 2024-11-26 16:24 | XMS_ITS | Patient Health Record ---
Author Organization Ross Casanova III, MD Address [address] [place] [address] [address] [place] [address] Care Team Providers Care Industrial Relations Officer Name Role Phone Ross Casanova Primary Care Provider Allergies Allergen (clinical drug ingredient) Drug/Non Drug Allergy documented on EMR Reaction Allergy Type Onset Date Status Shellfish (FN) Shellfish-derived Products Unknown Drug Allergy Active Results Component Value Reference Range Notes URINE DIP STICK Reviewed date:03/05/2024 04:06:04 PM [...] Urinalysis Reviewed date:01/05/2024 12:31:33 PM Interpretation: Performing Lab:[facility], [address] [place] [phone] Notes/Report: Color Urine Yellow Appearance Urine Clear PH 5.5 5.0-9.0 Glucose Urine UA Negative Negative mg/dL Urine Blood Negative Negative Specific [place] - Urine 1.015 1.005-1.025 Urine Protein Negative Neg-Trace mg/dL Urine Ketones Negative Negative mg/dL Nitrite Urine Negative Negative Leukocyte Esterase Urine Negative Negative Urine Culture Reviewed date:01/05/2024 12:31:33 PM Interpretation: Performing Lab:[facility], [address] [place] [address] Notes/Report: O:KLEPNE Klebsiella pneumoniae Urine Culture Quant Urine Culture > 100,000 cfu/mL Ampicillin >=32 Cefazolin <=4 Ceftriaxone <=0.25 Gentamicin <=1 Levofloxacin <=0.12 Nitrofurantoin 64 Trimethoprim/Sulfamethoxazole <=20 US extremity nonvascular Reviewed date:11/09/2024 07:25:59 PM Interpretation: Performing Lab: Notes/Report: [address] [address] Ultrasound Report Signed Patient: Marquita Alexander MR#: [id number] 42 : 1975 Acct:[id number] Age/Sex: 49 / F ADM Date: 08/01/24 Loc: HO.US Attending Dr: Ross Casanova MD Ordering Physician: Ross Casanova MD Date of Service: 08/01/24 Procedure(s): US extremity nonvascular Accession Number(s): [id number] cc: Ross Casanova MD CLINICAL HISTORY: SYNOVIAL CYST OF POPLITEAL SPACE LT KNEE US left lower extremity nonvascular Comparison: None Findings: Sonographic evaluation in the area of clinical concern left popliteal fossa demonstrates a patent popliteal vein without evidence of a Palomino's cyst. A subcutaneous cyst is seen in the distal thigh just proximal to the popliteal fossa measuring 10 x 10 x 6 mm. No internal vascularity. Minimal internal echoes probable debris. Impression: A cyst with minimal internal echoes is demonstrated just deep to the dermis distal thigh / proximal popliteal region on the left This document has been electronically signed by: Km Arce MD on 08/02/2024 11:49:17 Dictated By: Km Arce MD Signed By: <Electronically signed by Km Arce MD in OV> 08/02/24 1150 DD/ 1149 TD/TT: 08/02/24 1149 Adult Basic Education Teacher: [place] [id number] Ultrasound Report Signed Patient: Jannet Alexander MR#: [id number] [birth year] : 1975 Acct:[id number] Age/Sex: 49 / F ADM Date: 08/01/24 Loc: HO.US Attending Dr: Ross Casanova MD Ordering Physician: Ross Casanova MD Date of Service: 08/01/24 Procedure(s): US ext remity nonvascular Accession Number(s): [id number] cc: Ross Casanova MD CLINICAL HISTORY: SY NOVIAL CYST OF POPLITEAL SPACE LT KNEE US left lower extrem ity nonvascular Comparison: None Findings: Sonographic evaluati on in the area of clinical concern left popliteal fossa demonstrates a patent popliteal vein without evidence of a Palomino's cyst. A subcutaneous cyst is seen in the distal thigh just proximal to the popliteal fossa keila uring 10 x 10 x 6 mm. No internal vascularity. Minimal internal echoes prob able debris. Impression: A cyst with minimal internal echoes is demonstrated just deep to the dermis distal thigh / proximal popliteal region on the left This document has be en electronically signed by: Km Arce MD on 08/02/2024 11:49:17 Dictated By: Km Arce MD Signed By: <Electron ically signed by Km Arce MD in OV> 08/02/24 1150 DD/ 1149 TD/TT: 08/02/24 1149 Adult Basic Education Teacher: Reason For Referral Reason Evaluate and Treat pain left knee Diagnosis 1 Synovial cyst of pop liteal space [Palomino], left knee (M71.22) Referral Organization Ross Casanova III, MD Referring Provider First Name Ross Referring Provider Last Name Edilberto Referring Provider Speciality Internal M edicine Referred Provider [facility], Orthopedic Surgeons Referred Provider Specialty Orthopedic S urgery General Notes Angela Camacho 07/23/2024 11:35:14 AM > Referral and progress note Janice ortiz Amber 09/03/2024 03:36:34 PM >Office received referral [...] Speciality Internal M edicine Referred Provider CONCHITA TOURE Referred Provider Specialty Podiatry General Notes Angela Camacho 07/23/2024 11:34:20 AM > Referral faxed with progress note, Angela Camacho 08/15/2024 10:02:07 AM > contacted Dr toure office stated they did not see referral but will create a profile for the patient. Was advised to have patient contact their office to schedule an appointment. They do not take [employer] only [employer], Angela Camacho 08/23/2024 02:27:46 PM > Patient states she has been trying to call with no success. Patient was informed to contact Dr. Cabello office when she is able to schedule appointment., Angela Camacho 09/03/2024 03:41:06 PM > patient has not scheduled appointment and will reach out to them today to schedule an appointment., DAngela 09/05/2024 03:39:45 PM >Patient was informed that they do not take [employer] and there may be an out of pocket expense with her [employer] she asked for the referral to be sent elsewhere from René Toure. Referral was sent to Conchita Toure at [facility], Angela Camacho 09/20/2024 03:00:06 PM > referral was put in to Dr. Conchita Toure system pending scheduling Referral Priority Routine Referral Appointment Date 12/05/2024 Reason painful ovarian cyst second opinion Diagnosis 1 Cyst of ovary, unspe cified laterality (N83.209) Referral Organization Ross Casanova III, MD Referring Provider First Name Ross Referring Provider Last Name Edilberto Referring Provider Speciality Internal edicine Referred Organization [facility] [place] Referred Provider [facility] Referred Address [address] [place] [address],[place], [id number] Referred Provider Specialty OB - Gynecol ogy General Notes Melissa Yan CMA 10/24 09:48:59 AM >ref/demo/progress note and prior ultrasound done at [facility] faxed to [place] [facility] office Referral Priority Routine Reason osteoarthritis right thumb Diagnosis 1 Osteoarthritis of ri ght hand, unspecified osteoarthritis type (M19.041) Referral Organization Ross Casanova III, MD Referring Provider First Name Ross Referring Provider Last Name Casanova Referring Provider Speciality Internal edicine [facility] Provider [facility] Referred Provider Specialty Rheumatology General Notes Melissa Yan CMA 10/24 09:43:31 AM >ref/demo/progress note/x [facility], Melissa Yan CMA 11/15/2024 03:19:14 PM >[facility] was told pt has appt on 01/08/2025 at 1:30pm Referral Priority Routine Referral Appointment Date 01/08/2025 Medications Medication SIG (Take, Route, Frequency, Duration) [...] Orally Onc e a day 08/18/2022 Active Immunizations Vaccine Route Administration Date Status [...] Problem Status W/U Status Risk Notes Problem 6671666 Former smoker (Z87.891) Active confirmed She is no longe r smoking and has been abstinent for a month. We made a plan to prevent relapse in times of stress and illness. Problem Family history of malignant neoplasm of gastrointestinal tract (677812252) Family history of malignant neoplasm of digestive organs (Z80.0) Active confirmed She gives a history that 2 cousins have cancer of the stomach. 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 This was done through a [employer] called [facility] and was called in an Stand In hereditary cancer test. The results states negative, no known pathogenic or likely pathogenic variants were detected. 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 Problem Gastroesophageal reflux disease (151794049) Gastroesophagea l reflux disease, esophagitis presence not specified (K21.9) Active confirmed Her reflux symptoms are well controlled with her current medical regimen. No change was made. She was advised to refrain from eating before sleep Problem 03882160 Cervical radiculopathy (M54.12) Active confirmed There is muscle spasm in the posterior right neck and pain with range of motion although ranging is normal. She will use cyclobenzaprine heat massage and rest with follow-up. If necessary imaging will be done. Problem 28799362 Hiatal hernia (K44.9) Active confirmed This is a finding on upper GI series done recently and is asymptomatic. Problem 577947732 Esophageal dysmotility (K22.4) Active confirmed A barium swallo w will be done in the near future, and she will be seen back after that to discuss results. Problem 78756646 Depression, unspecified depression type (F32.9) Active confirmed Her depression seems very mild at this time and does not bother her much at all. She reports completing all of the activities of daily living on a regular basis. Problem 23806302 Dysphagia, unspecified type (R13.10) Active confirmed The upper GI showed a normal esophagus that herniation of the upper pole of the stomach which may be the cause of her sensations. She was reassured. Problem 31053489 Pelvic pain (R10.2) Active confirmed She complained of pelvic pain with intercourrse recently. She said she had been told she had an ovarian cyst. This is not mentioned on an ultrasound of the pelvis with transvaginal views done in March 2024. That report stated no adnexal masses . She has requested a second [employer] SOLUTION ARCHITECT opinion and we are arranging this. Problem Amenorrhea (18014976) Amenorrhea (N91.2) Active confirmed She has had no further midcycle bleeding. Problem 416611436 GERD with esophagitis (K21.0) Active confirmed This has been controlled with medications. Problem 6424638 Migraine with aura and without status migrainosus, not intractable (G43.109) Active confirmed I have prescribed a new medication, eletriptan. The risks and benefits were explained and the way to take it was carefully delineated. She gave informed consent for prescribing in taking the medication. Problem Carpal tunnel syndrome (38655241) Carpal tunnel syndrome on both sides (G56.03) Active confirmed She has occasional discomfort in her hands but it is very mild and she does not wish treatment for it. Problem Gastroesophageal reflux disease with esophagitis (disorder) (431154903) Gastroesophagea l reflux disease with esophagitis, unspecified whether hemorrhage (K21.00) Active confirmed This is an occasional symptom well controlled with antacids. 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 We are waiting for an appointment with genetic counseling in gastroenterology in medical oncology. Problem 783048412 Infection of breast, right (N61.0) Active confirmed This appears to be a simple skin infection and will be observed. Vital Signs Heart Rate 68 /min 10/22/2024 Temperature 98.3 degrees Fahrenheit 10/22/2024 Blood pressure diastolic 74 mm Hg 10/22/2024 Height 60 in 10/22/2024 Blood pressure systolic 116 mm Hg 10/22/2024 Weight 123 lbs 10/22/2024 BMI 24.02 kg/m2 10/22/2024 Encounters Encounter Location Date Provider Diagnosis Ross Casanova III, MD [address] [place] [address] [place] [address] 03/05/2024 Ross Casanova Carpal tunnel syndro me on both sides G56.03 ; Cervical radiculopathy M54.12 ; Gastroesophageal reflux disease with esophagitis, unspecified whether hemorrhage K21.00 ; Depression, unspecified depression type F32.9 and Hiatal hernia K44.9 Ross Casanova III, MD [address] [place] [address] [place] [address] 06/05/2024 Ross Casanova Gastroesophageal ref lux disease, esophagitis presence not specified K21.9 ; Cervical radiculopathy M54.12 ; Depression, unspecified depression type F32.9 ; Esophageal dysmotility K22.4 ; Migraine with aura and without status migrainosus, not intractable G43.109 ; Low back pain M54.5 and Former smoker Z87.891 Ross Casanova III, MD [address] [place] [address] [place] [address] 07/18/2024 Ross Casanova Gastroesophageal ref lux disease, esophagitis presence not specified K21.9 ; Cervical radiculopathy M54.12 ; Depression, unspecified depression type F32.9 ; Synovial cyst of popliteal space [Palomino], left knee M71.22 ; Esophageal dysmotility K22.4 ; Hiatal hernia K44.9 ; Migraine with aura and without status migrainosus, not intractable G43.109 and Former smoker Z87.891 Ross Casanova III, MD [address] [place] [address] [place] [address] 08/31/2024 Ross Casanova Cervical radiculopat hy M54.12 ; Migraine with aura and without status migrainosus, not intractable G43.109 ; Gastroesophageal reflux disease with esophagitis, unspecified whether hemorrhage K21.00 ; Hiatal hernia K44.9 ; Esophageal dysmotility K22.4 and Tobacco dependence F17.200 Ross Casanova III, MD [address] [place] [address] [place] [address] 10/22/2024 Ross Casanova Cervical radiculopat hy M54.12 ; GERD with esophagitis K21.0 ; Depression, unspecified depression type F32.9 ; Esophageal dysmotility K22.4 ; Hiatal hernia K44.9 ; Migraine with aura and without status migrainosus, not intractable G43.109 ; Former smoker Z87.891 ; Pelvic pain R10.2 and Infection of breast, right N61.0 Ross Casanova III, MD [address] [place] [address] [place] [address] 01/02/2024 Ross Casanova UTI symptoms R39.9 a nd Hematuria R31.9 Ross Casanova III, MD [address] [place] [address] [place] [address] 01/04/2024 Ross Casanova III, MD [address] [place] [address] [place] [address] 05/10/2024 Ross Casanova Chronic cough R05.3 and Chest discomfort R07.89 Ross Casanova III, MD [address] [place] [address] [place] [address] 08/17/2024 Ross Casanova III, MD [address] [place] [address] [place] [address] 11/02/2024 Ross Casanova III, MD [address] [place] [address] [place] [address] 11/02/2024 Ross Casanova Assessments Encounter Date Diagnosis (ICD Code) Assessment Notes T reatment Notes Treatment Clinical Notes 03/05/2024 Cervical radiculopat hy (ICD-10 - M54.12) [...] ibuprofen. She is managed by pain management. 08/31/2024 Cervical radiculopat hy (ICD-10 - M54.12) [...] for prescribing in taking the medication. 10/22/2024 Cervical radiculopat hy (ICD-10 - M54.12) There is muscle spasm in the posterior right neck and pain with range of motion although ranging is normal. She will use cyclobenzaprine heat massage and rest with follow-up. If necessary imaging will be done. 10/22/2024 GERD with esophagiti s (ICD-10 - K21.0) This has been controlled with medications. 01/02/2024 UTI symptoms (ICD-10 - R39.9) 05/10/2024 Chronic cough (ICD-1 0 - R05.3) 03/05/2024 Gastroesophageal reflux disease with esophagitis, unspecified [...] of daily living on a regular basis. 08/31/2024 Gastroesophageal reflux disease with esophagitis, unspecified whether hemorrhage (ICD-10 - K21.00) This is an occasional symptom well controlled with antacids. 10/22/2024 Depression, unspecified depression type (ICD-10 - F32.9) Her depression seems very mild at this time and does not bother her much at all. She reports completing all of the activities of daily living on a regular basis. 01/02/2024 Hematuria (ICD-10 - R31.9) 05/10/2024 Chest discomfort (ICD-10 - R07.89) 03/05/2024 Depression, unspecified depression type (ICD-10 - [...] to see if there was a cyst. 08/31/2024 Hiatal hernia (ICD-1 0 - K44.9) This is a finding on upper GI series done recently and is asymptomatic. 10/22/2024 Esophageal dysmotili ty (ICD-10 - K22.4) A barium swallow will be done in the near future, and she will be seen back after that to discuss results. 03/05/2024 Hiatal hernia (ICD-1 0 - K44.9) [...] back after that to discuss results. 08/31/2024 Esophageal dysmotili ty (ICD-10 - K22.4) A barium swallow will be done in the near future, and she will be seen back after that to discuss results. 10/22/2024 Hiatal hernia (ICD-1 0 - K44.9) This is a finding on upper GI series done recently and is asymptomatic. 06/05/2024 Low back pain (ICD-1 0 - [...] series done recently and is asymptomatic. 08/31/2024 Tobacco dependence (ICD-10 - F17.200) She says she has not had a cigarette for 14 days. We discussed smoking cessation strategies at length. 10/22/2024 Migraine with aura a nd without status migrainosus, not intractable (ICD-10 - G43.109) I have prescribed a new medication, eletriptan. The risks and benefits were explained and the way to take it was carefully delineated. She gave informed consent for prescribing in taking the medication. 06/05/2024 Former smoker (ICD-1 0 - Z87.891) [...] in taking the medication. 10/22/2024 Former smoker (ICD-1 0 - Z87.891) She is no longer smoking and has been abstinent for a month. We made a plan to prevent relapse in times of stress and illness. 07/18/2024 Former smoker (ICD-1 0 - Z87.891) [...] masses . She has requested a second [employer]YNAM[employer] AX SOLUTION ARCHITECT opinion and we are arranging this. 10/22/2024 Infection of breast, right (ICD-10 - N61.0) This appears to be a simple skin infection and will be observed. Plan Of Treatment Pending Test Test Name Order Date PROFILE, FASTING (COMPREHENSIVE METABOLI C) 03/02/2023 PROFILE, FASTING (COMPREHENSIVE METABOLI C) 03/05/2024 PROFILE, FASTING (COMPREHENSIVE METABOLI C) 10/22/2024 PROFILE, FASTING (COMPREHENSIVE METABOLI C) 09/06/2023 PROFILE, FASTING (COMPREHENSIVE METABOLI C) 07/18/2024 PROFILE, RANDOM (COMPREHENSIVE METABOLIC ) 03/13/2021 PROFILE, RANDOM (COMPREHENSIVE METABOLIC ) 03/26/2020 PROFILE, RANDOM (COMPREHENSIVE METABOLIC ) 04/10/2021 PROFILE, RANDOM (COMPREHENSIVE METABOLIC ) 03/23/2022 PROFILE, RANDOM (COMPREHENSIVE METABOLIC ) 03/14/2018 PROFILE, RANDOM (COMPREHENSIVE METABOLIC ) 08/13/2020 AMYLASE 03/13/2021 LIPASE 03/13/2021 LIPID PANEL 03/14/2018 GGT 04/10/2021 GGT 03/13/2021 FREE T4 (FT4) 03/14/2018 TSH (THYROID STIMULATING HORMONE) 2017 IRON + IBC (FE) 03/26/2020 FERRITIN 03/26/2020 FERRITIN 08/13/2020 HCG-QUALITATIVE 03/23/2022 HCG-QUALITATIVE 09/06/2023 CBC w DIFF 07/18/2024 CBC w DIFF 03/14/2018 CBC w DIFF 09/06/2023 CBC w DIFF 03/05/2024 CBC w DIFF 04/10/2021 CBC w DIFF 03/23/2022 CBC w DIFF 03/26/2020 CBC w DIFF 10/22/2024 CBC w DIFF 03/13/2021 CBC w DIFF 08/13/2020 SED RATE (ESR) 03/02/2023 SED RATE (ESR) [...] 03/02/2023 Lipid Panel 03/05/2024 Lipid Panel 09/06/2023 Lipid Panel 10/22/2024 Amylase 04/10/2021 Lipase 04/10/2021 US extremity nonvascular 07/18/2024 Next Appt Details Provider Name:Ross Casanova, 12/24/2024 04:00:00 PM, [address] [place] [address] [address], [place], [address], Provider Name:Ross Casanova, 03/06/2025 04:00:00 PM, [address] [place] [address] [address], [place], [address], Insurance Providers Payer Name Payer Address Payer Phone Subscriber Number Group Number Insured Name Patient Relationship to Insured Coverage Start Date Coverage End Date [facility] [address] [place], [place] [id number] [phone] [id number] [facility] MARQUITA ALEXANDER Self - patient is the insured [employer] [facility] [address] [place], [place] [id number] [phone] [id number] MARQUITA ALEXANDER Self - patient is the [...]
== END 2024-11-26 16:12 | disposition home or self-care (01) ==
LOC: HO.MRI 16:11
PROVIDERS: Visit Provider Orthopaedic Surgery
DX: S83.242A Other tear of medial meniscus, current injury, left knee, initial encounter (principal)
CPT/HCPCS: 73721

== ENCOUNTER → 2024-11-26 16:20 | Outpatient (BNV) | payer BC, SELFPAY | PROVIDERS: Visit Provider Radiology Diagnostic Radiology | DX: S89.92XA Unspecified injury of left lower leg, initial encounter (principal) | CPT/HCPCS: 73721 ==

== ENCOUNTER 2024-12-18 09:20 | Outpatient (AMB) | payer BC, SELFPAY ==
[2024-12-18 09:24] VITALS: BP 132/72; PULSE 73; BMI 24.8
--- NOTE | 2024-12-18 09:24 | A.OFFVIS_ITS ---
Vital Signs 12/18/24 09:24 Height 4 ft 11 in Weight 123 lb BMI 24.8 BP 132/72 Blood Pressure Location Rt brachial Position Sitting Pulse 73 Intake Visit Reasons: Left knee pain Intake Note: Marquita is a 49 year old female who presents with complaints of progressively worsening left knee pain. She describes the pain as sharp in nature. Most of the pain is along the anterior and medial aspects of her knee. Her symptoms have gotten worse over the last year in spite of continued non operative treatments. She has failed the last 3 months of conservative treatment which has included Tylenol, naproxen, a home exercise program and physical therapy exercises. She denies any locking or giving way. She has had multiple cortisone injections in the past. The most recent injection gave her no relief. At this point her left knee pain is interfering with her activities of daily living and her ability to sleep well through the night. vitals- 132/72 HR-73 Extractive Metallurgist Required: Yes Extractive Metallurgist Services: Extractive Metallurgist Present Extractive Metallurgist Name: Jose [id number] Allergies Seafood Allergy (Uncoded 10/30/24 15:08) Anaphylaxis Medication List - Last Reconciled 12/18/24 by Anthony Lee MD drospirenone-ethinyl estradiol 3-0.02 mg (Liz (28)) 1 tab PO DAILY epinephrine IM naproxen sodium (All Day Relief) 220 mg PO Q12H PRN PFSH Medical History Chronic hand pain De Quervain's tenosynovitis, right Cervical radiculopathy Tobacco dependence Hiatal hernia Esophageal motility disorder Hepatic cyst Anxiety Herniated intervertebral disc of lumbar spine PTSD (post-traumatic stress disorder) GERD (gastroesophageal reflux disease) Depression, unspecified Surgical History History of carpal tunnel surgery History of endoscopy Social History Alcohol intake: never Patient Tobacco Use Status: Current everyday Tobacco user Current occupational status: employed 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, 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 Physical Exam Vital Signs: BMI result Body Mass Index 22.9 Const Other: Well-nourished well-developed very friendly female awake alert and oriented x3 in no acute distress Extrem Other: Bilateral lower extremity examination shows good capillary refill, no skin lesions noted, normal sensation light touch Left knee examination shows a minimal effusion, mild crepitus with range of motion, no instability, negative Terell's test Results Reviewed Results Reviewed: Standing full weight-bearing x-rays of the patient's left knee show mild diffuse joint space narrowing, subchondral sclerosis, no acute bony abnormalities MRI of the patient's left knee shows mild to moderate degenerative changes most significant in the patellofemoral joint, no evidence of meniscus or ligamentous injury Assessment & Plan Assessment & Plan (1) Left knee pain: Code(s): M25.562 - Pain in left knee Category: Medical (2) Osteoarthritis of left knee: Code(s): M17.12 - Unilateral primary osteoarthritis, left knee Category: Medical Plan Ms. Alexander presents with progressively worsening left knee pain due to osteoarthritis. I had a lengthy discussion with the patient regarding the arnoldo atment options. She wishes to hold off on surgery if at all possible. I agree with this plan. I will see if her insurance company will cover a viscosupplementation injection such as Durolane. I will see her back once the injection is available. Feel free to call me at any time should questions regarding her orthopedic management arise. I spent 20 minutes in reviewing the patient's records and imaging studies, seeing the patient and documenting in the medical record. Coding Level of Care Code Est Pt Level 3 (67777) Complex EM visit Add On G2211 Diagnoses Left knee pain M25.562 Osteoarthritis of left knee M17.12
--- OUTSIDE RECORDS SUMMARY | 2024-12-18 09:54 | XMS_ITS | Clinical Summary ---
Author Organization [facility] Address [address] [place] [address] Phone Care Team Providers Care Clinical Pharmacologist Name Role Phone Darius Casanova MD Primary Care Provider [phone] Allergies Active Allergy Reactions Criticality Noted Date [...] 28 tablet 12 03/26/20 24 025 Active Hospital, Clinic, or Other Facility Administered Medication Ordered Dose Route Frequency Start Date End Date Status lidocaine (PF) (XYLOCAINE-MPF) 1 % injection 0.5 mLIndications:Hallux rigidus of right foot,Hallux rigidus of left foot .5 mL inj Once PRN Procedure 12/05/2024 12/05/2024 Ended lidocaine (PF) (XYLOCAINE-MPF) 1 % injection 0.5 mLIndications:Hallux rigidus of right foot,Hallux rigidus of left foot .5 mL inj Once PRN Procedure 12/05/2024 12/05/2024 Ended triamcinolone acetonide (KENALOG-40) 40 mg/mL injection 20 mgIndications:Hallux rigidus of right foot,Hallux rigidus of left foot 20 mg IAtc Once PRN Procedure 12/05/2024 12/05/2024 Ended triamcinolone acetonide (KENALOG-40) 40 mg/mL injection 20 mgIndications:Hallux rigidus of right foot,Hallux rigidus of left foot 20 mg IAtc Once PRN Procedure 12/05/2024 12/05/2024 Ended Active Problems Problem Noted Date Diagnosed Date GERD (gastroesophageal reflux disease) Herniated lumbar intervertebral disc 02/14/2024 Neck pain 11/06/2021 Overview (02/14/2024): Last Assessment & Plan: This history and exam was performed in conjunction with a winder helper from [facility], [facility] #[id number]. Ms. Alexander was seen here 2 years [...] Review of the cervical spine MRI from [facility] dated 09/30/2021 shows a 1 mm anterolisthesis [...] Overview (02/14/2024): 04/18/2018 PAP LSIL Plan : [facility] 2020 PAP Neg cytology, neg hpv Chronic, continuous use of opioids 04/19/2018 PTSD (post-traumatic stress disorder) 04/19/2018 Encounters Date Type Department Care Team Description 12/05/2024 9:30 AM EDT Consult Orthopedic Surgery - [place] [address] [place] [address] [place] [phone] Anoop La, DPM Hallux rigidus of right foot (Primary Dx); Bunion of right foot; Hallux rigidus of left foot; Metatarsalgia of both feet from Last 3 Months Surgical History Surgery Date Site/Laterality Comments TUBAL LIGATION PROCEDURE: HISTORICAL TUBAL LIGATION OTHER SURGICAL HISTORY PROCEDURE: [place] NEPHROLITHOTOMY COMP CGEN KDN ABNORMALITY CARPAL TUNNEL RELEASE PROCEDURE: [place] NEUROPLASTY &/TRANSPOS MEDIAN NRV CARPAL TUNNE; COMMENT: right hand OTHER SURGICAL HISTORY 09/10/2020 Left PROCEDURE: [place] STAB PHLEBT VARICOSE VEINS 1 XTR 10-20 STAB INCS BELT ABDOMINOPLASTY 04/2022 PROCEDURE: HISTORICAL TUMMY TUCK; COMMENT: in [place]- Dr. Schmidt/ Thu Medical History Medical History [...] - - Weight 56.7 kg (125 lb) 12/05/2024 9:51 AM EDT Height 149.9 cm (4' 11.02 ) 12/05/2024 9:51 AM E DT Body Mass Index 25.23 12/05/2024 9:51 AM EDT Plan of Treatment Upcoming Encounters Date Type Department Care Team (Late st Contact Info) Description 01/21/2025 3:00 PM EDT Office Visit Orthopedic Surgery - [place] [address] [address] Anoop La, DPM [address] [address] Health Maintenance Due Date Last Done Comments DTaP,Tdap,and Td Vaccines (1 - Tdap) 1993 Hepatitis A Vaccines (1 of 2 - Risk 2-dose series) 1993 Colorectal Cancer Screening: Colonoscopy 04/17/2022 HIV Screening 04/17/2022 Hepatitis C Screening 04/17/2022 Social Influencers of Health Screening 04/17/2022 COVID-19 Vaccine ( - season) 2024 10/31/2021, 10/31/2020, 10/03/2020 Pneumococcal Vaccine: 50+ Years (1 of 1 - PCV) 01/20/2024 Zoster Vaccines (1 of 2) 01/20/2024 Influenza Vaccine (#1) 2025 , 01/25/2012, 06/15/2010, Additional history exists Cervical [...] Procedure Name Priority Date/Time Associated Diagnosis Comments INJECTION TENDON OR LIGAMENT Routine 12/05/2024 9:30 AM EDT Hallux rigidus of right foot Hallux rigidus of left foot INJECTION TENDON OR LIGAMENT Routine 12/05/2024 9:30 AM EDT Hallux rigidus of right foot Hallux rigidus of left foot BD BONE DENSITY DXA AXIAL SKELETON Routine 04/23/2024 2:04 PM EST Encounter for annual routine gynecological examination Menopausal and perimenopausal disorder DEE SCREENING DIGITAL Routine 02/16/2024 1:58 PM EDT Encounter for screening mammogram for malignant neoplasm of breast HM HPV Routine 10/24/2020 from Last 3 Months or Most Recently Relevant to Health Maintenance Results * Injection tendon or ligament (12/05/2024 9:30 AM EDT) Narrative Anoop La DPM - 12/05/2024 9:30 AM EDT Anopo La DPM 12/05/2024 12:22 PM Injection tendon or ligament Indications: pain Details: 25 G needle Medications: 0.5 mL lidocaine (PF) 1 %; 20 mg triamcinolone acetonide 40 mg/mL Informed Consent: Site: Foot ligament tendon us Anoop La DPM IN CLINIC/BEDSIDE ORDERAB LES Final Result * Injection tendon or ligament (12/05/2024 9:30 AM EDT) Anoop Camacho DPM - 12/05/2024 9:30 AM EDT Anoop La DPM 12/05/2024 12:22 PM Injection tendon or ligament Indications: pain Details: 25 G needle Medications: 0.5 mL lidocaine (PF) 1 %; 20 mg triamcinolone acetonide 40 mg/mL Informed Consent: Site: Foot ligament tendon us Anoop La DPM IN CLINIC/BEDSIDE ORDERAB LES Final Result * BD Bone Density DXA Axial Skeleton (04/23/2024 2:04 PM EST) Anatomical Region Laterality Modality Wrist, Hip, L-spine Bone Densito metry 04/23/2024 5:13 PM EST Impressions 04/23/2024 5:14 PM EST Normal bone mineral density. [id number] -------- FINAL REPORT -------- Dictated By: Katiuska Rodriguez Dictated Date: 04/23/2024 17:13 ET Assigned Physician: Katiuska Rodriguez Reviewed and Electronically Signed By: Katiuska Rodriguez Signed Date: 04/23/2024 17:14 ET Workstation ID: [id number] Transcribed By: Self Edit Transcribed Date: 04/23/2024 17:13 ET Narrative 04/23/2024 5:14 PM EST History: Low estrogen state due to menopause. Current smoker. Comparison: No comparison imaging at this institution. Findings: Bone densitometry is performed utilizing dual energy x-ray absorptiometry (DXA) in the [employer] unit. The lumbar spine and proximal femora [...] utilizing dual energy x-ray absorptiometry(DXA) in the [employer]ential [employer] unit. The lumbar spine and proximal femora [...] 0.0 percent. IMPRESSION: Normal bone mineral density. [id number] -------- FINAL REPORT -------- Dictated By: Katiuska Rodriguez Dictated Date: 04/23/2024 17:13 ET Assigned Physician: Katiuska Rodriguez Reviewed and Electronically Signed By: Katiuska Rodriguez Signed Date: 04/23/2024 17:14 ET Workstation ID: [id number] Transcribed By: Self Edit Transcribed Date: 04/23/2024 17:13 ET Sloane Perez [facility] IM DXA PROCEDURES Final Result * DEE SCREENING DIGITAL (02/16/2024 1:58 PM EDT) Anatomical Region Laterality Modality Mammography 02/15/2024 10:2 9 AM EDT Narrative 02/16/2024 1:58 PM EDT [facility] Diagnostic Imaging Department [address] [place] [address] Patient: MARQUITA ALEXANDER /Age/Sex: 1975 - 49 - F Unit#: [id number] Location/Status: SPDIMAM/REG CLI Mnemonic/Ordering Site: [facility] Ordering Physician: DARIUS CASANOVA MD [facility] Screening Digital - 02/15/24 - 1622 Report Status:Signed EXAM: [facility] Screening Digital EXAM DATE AND TIME: 02/15/2024 4:22 PM HISTORY: Screening. Left breast biopsy in 2014, pathology benign. Aunt had breast carcinoma. COMPARISON: 09/20/22, 09/08/22, 12/30/20, 12/27/20, 09/09/16 TECHNIQUE: Bilateral digital breast tomosynthesis was performed in the CC and MLO projections. Computer aided detection with Entrada 3D 3.1 was employed. TISSUE DENSITY: b. [...] Mammogram performed at [facility] [address] [place] [address] Dictating Physician: KATIUSKA RODRIGUEZ MD Electronically Signed by: KATIUSKA RODRIGUEZ MD Dic Date/Time: 02/16/24 1352 Sign date/Time: 02/16/24 1358 Procedure Note Katiuska Rodriguez MD - 03/06/2024 [facility] Diagnostic Imaging Department [address] [place] [address] Patient: MARQUITA ALEXANDER /Age/Sex: 1975 - 49 - F Unit#: [id number] [facility] Mnemonic/Ordering Site: [facility] Ordering Physician: DARIUS CASANOVA MD [facility] Screening Digital - 02/15/24 - 1622 Report Status:Signed EXAM: [facility] Screening Digital EXAM DATE AND TIME: 02/15/2024 4:22 PM HISTORY: Screening. Left breast biopsy in 2014, pathology benign. Aunthad breast carcinoma. COMPARISON: 09/20/22, 09/08/22, 12/30/20, 12/27/20, 09/09/16 TECHNIQUE: Bilateral digital breast tomosynthesis was performed in the CCand MLO projections. Computer aided detection with [employer] Sgn[employer] AI 3D 3.1was employed. TISSUE DENSITY: b. There [...] Mammogram performed at [facility] [place] [address] Dictating Physician: KATIUSKA RODRIGUEZ MD Electronically Signed by: KATIUSKA RODRIGUEZ MD Dic Date/Time: 02/16/24 1352 Sign date/Time: 02/16/24 1358 Darius Casanova MD IMG BI PROCEDURES Final Result * Cervical Cancer Screening: HPV (10/24/2020) Cervical Cancer Screening: HPV negative, abstracted Suman Provider HEALTH MAINTENANCE Final Result from Last 3 Months or Most Recently Relevant to Health Maintenance Insurance [facility] Care Teams Clinical Pharmacologist Relationship Specialty Start Date End Date Darius Casanova MD [address] [address] PCP - General Oncology 12/20/19
--- OUTSIDE RECORDS SUMMARY | 2024-12-18 09:55 | XMS_ITS | Patient Health Record ---
Author Organization Ross Casanova III, MD Address [address] [place] [address] [address] [place] [address] Care Team Providers Care Shipyard Painter Helper Name Role Phone Ross Casanova Primary Care [...] Urinalysis Reviewed date:01/05/2024 12:31:33 PM Interpretation: Performing Lab:[facility], [address] [place] [address] Notes/Report: Color Urine Yellow Appearance Urine Clear PH 5.5 5.0-9.0 Glucose Urine UA Negative Negative mg/dL Urine Blood Negative Negative Specific Elwin - Urine 1.015 1.005-1.025 Urine Protein Negative Neg-Trace mg/dL Urine Ketones Negative Negative mg/dL Nitrite Urine Negative Negative Leukocyte Esterase Urine Negative Negative Urine Culture Reviewed date:01/05/2024 12:31:33 PM Interpretation: Performing Lab:[facility], [address] [place] [address] Notes/Report: O:KLEPNE Klebsiella pneumoniae Urine Culture Quant Urine Culture > 100,000 cfu/mL Ampicillin >=32 Cefazolin <=4 Ceftriaxone <=0.25 Gentamicin <=1 Levofloxacin <=0.12 Nitrofurantoin 64 Trimethoprim/Sulfamethoxazole <=20 US extremity nonvascular Reviewed date:11/09/2024 07:25:59 PM Interpretation: Performing Lab: Notes/Report: [address] [address] Ultrasound Report Signed Patient: Marquita Alexander MR#: [id number] 42 : 1975 Acct:[id number] Age/Sex: 49 / F ADM Date: 08/01/24 Loc: HO.US Attending Dr: Ross Casanova MD Ordering Physician: Ross Casanova MD Date of Service: 08/01/24 Procedure(s): US extremity nonvascular Accession Number(s): [id number] cc: Ross Casanova MD CLINICAL HISTORY: SYNOVIAL [...] 08/02/24 1150 DD/ 1149 TD/TT: 08/02/24 1149 Gyroscopic Instrument Mechanic: [place] [id number] Ultrasound Report Signed Patient: Jannet Alexander MR#: [id number] 42 : 1975 Acct:[id number] Age/Sex: 49 / F ADM Date: 08/01/24 Loc: HO.US Attending Dr: Ross Casanova MD Ordering Physician: Ross Casanova MD Date of Service: 08/01/24 Procedure(s): US ext remity nonvascular Accession Number(s): [id number] cc: Ross Casanova MD CLINICAL HISTORY: SY [...] 08/02/24 1150 DD/ 1149 TD/TT: 08/02/24 1149 Gyroscopic Instrument Mechanic: Reason For Referral Reason Evaluate and Treat pain left knee Diagnosis 1 Synovial cyst of pop liteal space [[place]], left knee (M71.22) Referral Organization Ross Casanova III, MD Referring Provider First Name Ross Referring Provider Last Name Edilberto Referring Provider Speciality Internal M edicine Referred Provider [facility] er, Orthopedic Surgeons Referred Provider Specialty [...] Referral was sent to Conchita Toure at [facility], Angela Camacho 09/20/2024 03:00:06 PM > referral was put in to Dr. Conchita Toure system pending scheduling Referral Priority Routine Referral Appointment Date 12/05/2024 Reason painful ovarian cyst second opinion Diagnosis 1 Cyst of ovary, unspe cified laterality (N83.209) Referral Organization Ross Casanova III, MD Referring Provider First Name Ross Referring Provider Last Name Edilberto Referring Provider Speciality Internal edicine Referred Organization [facility] [place] Referred Provider [facility] Referred Address [address] [place] [address],[place], [place],[id number] Referred Provider Specialty OB - Gynecol ogy General Notes Melissa Yan CMA 10/24 09:48:59 AM >ref/demo/progress note and prior ultrasound done at [facility] faxed to [facility] Referral Priority Routine Reason osteoarthritis [...] as needed for allergic reaction 02/24/2022 Active Sertraline HCl 25 MG 1 tablet Orally Onc e a day 08/18/2022 Active Naproxen Sodium 220 MG 1 tablet with jaleesa d or milk if needed Orally every 12 hrs for 30 days Active Immunizations Vaccine Route Administration Date Status [...] Problem Status W/U Status Risk Notes Problem 8942975 Former smoker (Z87.891) Active confirmed She is no longe r smoking and has been abstinent for a month. We made a plan to prevent relapse in times of stress and illness. Problem Family history of malignant neoplasm of gastrointestinal tract (958384385) Family history of malignant neoplasm of digestive organs (Z80.0) Active confirmed She gives a history that 2 cousins have cancer of the stomach. Problem Genetic disorder carrier (40909248) Family history of carrier of genetic disease (Z84.81) Active confirmed Genetic testing was done by her furniture inspector on October 03, 2022. This was done through a [facility] called [employer] and was called in an [employer] hereditary cancer test. The results states negative, no known pathogenic or likely pathogenic variants were detected. 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 Problem Gastroesophageal reflux disease (065758944) Gastroesophagea l reflux disease, esophagitis presence not specified (K21.9) Active confirmed Her reflux symptoms are well controlled with her current medical regimen. No change was made. She was advised to refrain from eating before sleep Problem 53097220 Cervical radiculopathy (M54.12) Active confirmed There is muscle spasm in the posterior right neck and pain with range of motion although ranging is normal. She will use cyclobenzaprine heat massage and rest with follow-up. If necessary imaging will be done. Problem 70189218 Hiatal hernia (K44.9) Active confirmed This is a finding on upper GI series done recently and is asymptomatic. Problem 948098380 Esophageal dysmotility (K22.4) Active confirmed A barium swallo w will be done in the near future, and she will be seen back after that to discuss results. Problem 09292753 Depression, unspecified depression type (F32.9) Active confirmed Her depression seems very mild at this time and does not bother her much at all. She reports completing all of the activities of daily living on a regular basis. Problem 23139084 Dysphagia, unspecified type (R13.10) Active confirmed The upper GI showed a normal esophagus that herniation of the upper pole of the stomach which may be the cause of her sensations. She was reassured. Problem 31394016 Pelvic pain (R10.2) Active confirmed She complained of pelvic pain with intercourrse recently. She said she had been told she had an ovarian cyst. This is not mentioned on an ultrasound of the pelvis with transvaginal views done in March 2024. That report stated no adnexal masses . She has requested a second CONTRACT SHELTERED WORKSHOP SUPERVISOR opinion and we are arranging this. Problem Amenorrhea (78795554) Amenorrhea (N91.2) Active confirmed She has had no further midcycle bleeding. Problem 725699576 GERD with esophagitis (K21.0) Active confirmed This has been controlled with medications. Problem 4375206 Migraine with aura and without status migrainosus, not intractable (G43.109) Active confirmed I have prescribed a new medication, eletriptan. The risks and benefits were explained and the way to take it was carefully delineated. She gave informed consent for prescribing in taking the medication. Problem Carpal tunnel syndrome (07309987) Carpal tunnel syndrome on both sides (G56.03) Active confirmed She has occasional discomfort in her hands but it is very mild and she does not wish treatment for it. Problem Gastroesophageal reflux disease with esophagitis (disorder) (936056098) Gastroesophagea l reflux disease with esophagitis, unspecified whether hemorrhage (K21.00) Active confirmed This is an occasional symptom well controlled with antacids. 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 We are waiting for an appointment with genetic counseling in gastroenterology in medical oncology. Problem 508197186 Infection of breast, right (N61.0) Active confirmed [...] Date Provider Diagnosis Ross Casanova III, MD [address] [place] [address] [place] [address] 03/05/2024 Ross Casanova Carpal tunnel syndro me on both sides G56.03 ; Cervical radiculopathy M54.12 ; Gastroesophageal reflux disease with esophagitis, unspecified whether hemorrhage K21.00 ; Depression, unspecified depression type F32.9 and Hiatal hernia K44.9 Ross Casanova III, MD [address] [place] [address] [place] [address] 06/05/2024 Ross Casanova Gastroesophageal ref lux disease, esophagitis presence not specified K21.9 ; Cervical radiculopathy M54.12 ; Depression, unspecified depression type F32.9 ; Esophageal dysmotility K22.4 ; Migraine with aura and without status migrainosus, not intractable G43.109 ; Low back pain M54.5 and Former smoker Z87.891 Ross Casanova III, MD [address] [place] [address] [place] [address] 07/18/2024 Ross Casanova Gastroesophageal ref lux disease, esophagitis presence not specified K21.9 ; Cervical radiculopathy M54.12 ; Depression, unspecified depression type F32.9 ; Synovial cyst of popliteal space [[place]], left knee M71.22 ; Esophageal dysmotility K22.4 ; Hiatal hernia K44.9 ; Migraine with aura and without status migrainosus, not intractable G43.109 and Former smoker Z87.891 Ross Casanova III, MD [address] [place] [address] [place] [address] 08/31/2024 Ross Casanova Cervical radiculopat hy M54.12 ; Migraine with aura and without status migrainosus, not intractable G43.109 ; Gastroesophageal reflux disease with esophagitis, unspecified whether hemorrhage K21.00 ; Hiatal hernia K44.9 ; Esophageal dysmotility K22.4 and Tobacco dependence F17.200 Ross Casanova III, MD [address] [place] [address] [place] [address] 10/22/2024 Ross Casanova Cervical radiculopat hy M54.12 ; GERD with esophagitis K21.0 ; Depression, unspecified depression type F32.9 ; Esophageal dysmotility K22.4 ; Hiatal hernia K44.9 ; Migraine with aura and without status migrainosus, not intractable G43.109 ; Former smoker Z87.891 ; Pelvic pain R10.2 and Infection of breast, right N61.0 Ross Casanova III, MD [address] [place] [address] [place] [address] 01/02/2024 Ross Casanova UTI symptoms R39.9 a nd Hematuria R31.9 Ross Casanova III, MD [address] [place] [address] [place] [address] 01/04/2024 Ross Casanova III, MD [address] [place] [address] [place] [address] 05/10/2024 Ross Casanova Chronic cough R05.3 and Chest discomfort R07.89 Ross Casanova III, MD [address] [place] [address] [place] [address] 08/17/2024 Ross Casanova III, MD [address] [place] [address] [place] [address] 11/02/2024 Ross Casanova III, MD [address] [place] [address] [place] [address] 11/02/2024 Ross Casanova III, MD [address] [place] [address] [place] [address] 12/18/2024 Ross Casanova Assessments Encounter Date Diagnosis (ICD [...] masses . She has requested a second CONTRACT SHELTERED WORKSHOP SUPERVISOR opinion and we are arranging this. 10/22/2024 [...] Details Provider Name:Ross Casanova, 12/24/2024 04:00:00 PM, [address] [facility] [address], [place], [address], Provider Name:Ross Casanova, 03/06/2025 04:00:00 PM, [address] [facility] [address], [place], [address], Insurance Providers Payer Name Payer Address Payer Phone Subscriber Number Group Number Insured Name Patient Relationship to Insured Coverage Start Date Coverage End Date [facility] [address] [place], [place] [phone] [id number] O MARQUITA ALEXANDER Self - patient is the insured [place] [place] [address] [place], [place] [id number] [phone] [id number] MARQUITA ALEXANDER Self - patient is the [...]
--- OUTSIDE RECORDS SUMMARY | 2024-12-18 09:55 | XMS_ITS | Clinical Summary ---
Author Organization [facility] Address [address] [place] [address] Care Team Providers Care Sewing Machine Attachment Tester Name Role Phone Ross Casanova MD Primary Care Provider [phone] Allergies Active Allergy Reactions Criticality Noted Date [...] age to complete this topic Care Teams Sewing Machine Attachment Tester Relationship Specialty Start Date End Date Ross Casanova MD [address] [place] [phone] PCP - General Oncology 12/20/19
== END 2024-12-18 09:39 | disposition home or self-care (01) ==
LOC: HO.HOS 09:21
PROVIDERS: Visit Provider Orthopaedic Surgery
DX: M25.562 Pain in left knee (principal); M17.12 Unilateral primary osteoarthritis, left knee
CPT/HCPCS: 99213

== ENCOUNTER 2025-01-29 08:42 | Outpatient (AMB) | payer BC, SELFPAY ==
--- OUTSIDE RECORDS SUMMARY | 2024-10-22 12:00 | XMS_ITS ---
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 Ross Casanova III Primary Care Provider Allergies Allergen (clinical drug ingredient) Drug/Non Drug Allergy documented on EMR Reaction Allergy Type Onset Date Status Shellfish (FN) Shellfish-derived Products Unknown Drug Allergy Active Reason For Referral Reason painful ovarian cyst second opinion Diagnosis 1 Cyst of ovary, unspe cified laterality (N83.209) Referral Organization Ross Casanova III, MD Referring Provider First Name Ross Referring Provider Last Name Edilberto Referring Provider Speciality Internal M edicine Referred Organization [facility] nter Referred Provider [facility] er, [facility] Referred Address [address] [place] [address],[place], [place],[id number], Referred Provider Specialty OB - Gynecol ogy General Notes Melissa Yan CMA 10/24 09:48:59 AM >ref/demo/progress note and prior ultrasound done at [facility] faxed to [facility], Robert Anne 12/19/2024 11:04:16 AM >Pt called asking about this referral. She did not received a call from [facility]. I advice Pt to call OBGYN and schedule., Melissa Yan CMA 12/27/2024 02:18:13 PM > I called [facility] [phone] spoke to Allison she stated they did not receive referral. Ref refaxed to [phone] ATTN: Dr Jones Referral Priority Routine Reason osteoarthritis right thumb Diagnosis 1 Osteoarthritis of ri ght hand, unspecified osteoarthritis type (M19.041) Referral Organization Ross Casanova III, MD Referring Provider First Name Ross Referring Provider Last Name Edilberto Referring Provider Speciality Internal M edicine Referred Provider [facility] Referred Provider Specialty Rheumatology General Notes Melissa Yan [facility] 10/24 09:43:31 AM >ref/demo/progress note/x rays faxed to [facility], Melissa Yan [facility] 11/15/2024 03:19:14 PM >called [facility] [place] was told pt has appt on 01/08/2025 [...] Problem Status W/U Status Risk Notes Problem 90147586 Pelvic pain (R10.2) Active confirmed She complained of pelvic pain with intercourrse recently. She said she had been told she had an ovarian cyst. This is not mentioned on an ultrasound of the pelvis with transvaginal views done in March 2024. That report stated no adnexal masses . She has requested a second EXECUTIVE DIRECTOR opinion and we are arranging this. Problem 717491054 Infection of breast, right (N61.0) Active confirmed [...] Date Provider Diagnosis Ross Casanova III, MD [address] [place] [address] [place] [address] 10/22/2024 Ross Casanova Cervical radiculopat hy M54.12 [...] masses . She has requested a second EXECUTIVE DIRECTOR opinion and we are arranging this. 10/22/2024 [...] 11/11/2024 Pending Test Test Name Order Date PROFILE, FASTING (COMPREHENSIVE METABOLI C) 10/22/2024 CBC w DIFF 10/22/2024 Lipid Panel 10/22/2024 Referrals Referral Date Details 10/22/2024 10/22/2024, painful ovarian cyst second opinion, [facility], [address], [place], [place], [id number], 10/22/2024 10/22/2024, osteoart hritis right thumb, Center Ar[facility] treatment Next Appt Details Follow Up: December, Reason: O V review labs Provider Name:Ross Rashaun Edilberto , 03/06/2025 04:00:00 PM, [address] [place] [address] [facility] [address], [place], [address], Progress Notes * PABLO BARRERADOB: 4 (49 yo F)Acc No.[id number]:10/22/2024 Progress Notes Patient: PABLO HERNANDEZ Provider: Papito Casanova MD :1975 A ge:49 Y S ex:Female Date:10/22/2024 Address:[address] [place] [address], [id number] Subjective: * Chief Complaints: * D epressionArthritis base of right thumbDyspareunia from ovarian cystWorsening neck pain, rightSkin lesion right breastCervical adenopathy * HPI: C OVID-19 Screening: S he returns for management of several worsening complaints. She has been told by EXECUTIVE DIRECTOR that she is on ovarian cysts. She [...] arranged. She recently had an ultrasound at [facility] to evaluate right lower quadrant pain. She has decided she does not wish to have any further injections in the base of her right thumb as a or mostly ineffective.A search of imaging in Epic at [facility] showed an ultrasound of the pelvis with transvaginal views March 10, 2024 that showed a 3.5 cm fibroid but no adnexal masses. At her request a second opinion or EXECUTIVE DIRECTOR was arranged. Questions H ave you had [...] woman. HEAD: a traumatic, normocephalic. EYES: e smiat, perrla, anicteric, conjugate. EARS: n ormal. NOSE: [...] masses . She has requested a second EXECUTIVE DIRECTOR opinion and we are arranging this. 9 . I nfection of breast, right - N61.0 N otes :This appears to be a simple skin infection and will be observed. Plan: * Treatment: 2. O thers [facility] Reason:painful ovarian cyst [...] Casanova MD Date: 0 10/22/2024 Generated for Printi ng/Famarig/eTransmitting on: 0 01/29/2025 09:43 AM EDT History and Physical Notes * [...] Referral Date Referring Provider Referred Provider Not silvestre 10/22/2024 Edilberto [facility], [facility] painful ovarian cyst second opinion 10/22/2024 Ross Casanova [facility], Center osteoarthritis right thumb
--- OUTSIDE RECORDS SUMMARY | 2024-11-02 06:53 | XMS_ITS ---
Author Organization Ross Casanova III, MD Address [address] [place] [address] [place] [address] Care Team Providers Care Manager Of Radiology Name Role Phone Dr. Ross Casanova III Primary Care Provider [phone] REASON FOR VISIT UTI Symptoms Social History Sex Assigned At : Social History Observation Description Sex Assigned At Female Encounters Encounter Location Date Provider Diagnosis Ross Casanova III, MD [address] [place] [address] [place] [address] 11/02/2024 Ross Casanova Plan Of Treatment Next Appt Details Provider Name:Ross Casanova , 03/06/2025 04:00:00 PM, [address] [place] [address] [place], [address], Progress Notes * PABLO BARRERADOB: 4 (49 yo F)Acc No.[id number]:11/02/2024 Patient: PABLO HERNANDEZ :1975 A ge:49 Y S ex:Female Address:[address] [place] [address], [address] * true * Date: Generated for Bevi ng/Famarig/eTransmitting on: 0 01/29/2025 09:42 AM EDT
--- OUTSIDE RECORDS SUMMARY | 2024-11-02 07:02 | XMS_ITS ---
Author Organization Ross Casanova III, MD Address [address] [place] [address] [place] [address] Care Team Providers Care Bioinformaticist Name Role Phone Dr. Ross Casanova III Primary Care Provider [phone] Medications Medication SIG (Take, Route, Frequency, Duration) Notes Start Date End Date Status Sulfamethoxazole-Trimetho prim 800-160 MG 1 tablet Orally twice a day for 7 days 11/02/2024 11/09/2024 Active Social History Sex Assigned At : Social History Observation Description Sex Assigned At Female Encounters Encounter Location Date Provider Diagnosis Ross Casanova III, MD [address] [place] [address] [place] [address] 11/02/2024 Ross Casanova Plan Of Treatment Medication Medication Name Sig Start Date Stop Date Notes Sulfamethoxazole-Trimethopri m 800-160 MG 1 tablet Orally twice a day for 7 days 11/02/2024 11/09/2024 Next Appt Details Provider Name:Ross Casanova , 03/06/2025 04:00:00 PM, [address] [place] [address] [place], [address], Progress Notes * PABLO BARRERADOIsrael: 4 (49 yo F)Acc No.[id number]:11/02/2024 Patient: PABLO HERNANDEZ :1975 A ge:49 Y S ex:Female Address:[address] [place] [address], [address] * Refills Start Sulfamethoxazole-Trimethoprim Tablet, 800-160 MG, Orally, 14 Tablet, 1 tablet, twice a day, 7 days, Refills=0 * true * Date: Generated for Ethan olivas/Aissatou/Aditya on: 0 01/29/2025 09:42 AM EDT
--- OUTSIDE RECORDS SUMMARY | 2024-12-18 04:09 | XMS_ITS ---
Author Organization Ross Casanova III, MD Address [address] [place] [address] [place] [address] Care Team Providers Care Flap Curer Name Role Phone Dr. Ross Casanova III Primary Care Provider REASON FOR VISIT New Refill Request Medications Medication SIG (Take, Route, Fr equency, Duration) Notes Start Date End Date Status Sertraline HCl 25 MG 1 tablet Orally Onc e a day for 30 days 08/18/2022 Active Social History Sex Assigned At : Social History Observation Description Sex Assigned At Female Encounters Encounter Location Date Provider Diagnosis Ross Casanova III, MD [address] [place] [address] [place] [address] 12/18/2024 Ross Casanova Cervical radiculopat hy M54.12 [...] Provider Name:Ross Casanova , 03/06/2025 04:00:00 PM, [address] [place] [address] [place], [address], Progress Notes * ZHOU BARRERA: 4 (49 yo F)Acc No.[id number]:12/18/2024 Patient: PABLO HERNANDEZ :1975 A ge:49 Y S ex:Female Address:[address] [place] [address], [phone] * Refills Refill Sertraline HCl Tablet, 25 MG, Orally, 30, 1 tablet, Once a day, 30 days, Refills=5 * true * Date: Generated for Ethan olivas/Aissatou/Yadismitting on: 0 01/29/2025 09:42 AM EDT
--- OUTSIDE RECORDS SUMMARY | 2024-12-24 12:00 | XMS_ITS ---
Author Organization Ross Casanova III, MD Address [address] [place] [address] [place] [address] Care Team Providers Care Pulper Name Role Phone Dr. Ross Casanova III [...] Date Provider Diagnosis Ross Casanova III, MD [address] [place] [address] [place] [address] 12/24/2024 Ross Casanova Cervical radiculopat hy M54.12 ; Depression, unspecified depression type F32.9 ; Esophageal dysmotility K22.4 ; Hiatal hernia K44.9 ; Migraine with aura and without status migrainosus, not intractable G43.109 and Primary osteoarthritis of both knees M17.0 Assessments Encounter Date Diagnosis (ICD Code) Assessment Notes Treat ment Notes Treatment Clinical Notes 12/24/2024 Cervical radiculopathy [...] that to discuss results. 12/24/2024 Hiatal hernia (ICD-10 - K44.9) This is [...] osteoarthritis of both knees (ICD-10 - M17.0) Plan Of Treatment Medication Medication Name Sig [...] Provider Name:Ross Casanova , 03/06/2025 04:00:00 PM, [address] [place] [address] , [place] [address], [place], [address], Progress Notes * PABLO BARRERADOB: 4 (50 yo F)Acc No.[id number]:12/24/2024 Progress Notes Patient: PABLO HERNANDEZ Provider: Papito Casanova MD :1975 A ge:49 Y S ex:Female Date:12/24/2024 Address:[address] [place] [address], [id number] Subjective: * Chief Complaints: * 1 . Bilateral foot pain. 2. Depression. 3. Right hand pain. 4. Cerviccal radiculopathy. 5. Loss of balance. * HPI: C OVID-19 Screening: S he [...] w hich is moderate. * Medical History: D epression, unspecified depression type, Gastroesophageal reflux disease, esophagitis presence not specified, PTSD (post-traumatic stress disorder), Herniated disc lumbar spine, Chronic opioid use for chronic pain in the lower back, Anxiety disorder, Hepatic cyst, Esophageal motility disorder, Hiatal hernia, Tobacco dependence, GERD with esophagitis, CDH1 Heterozygosity. * Surgical History: R ight carpal tunnel release 10/2011, Ureteroplasty age 1, tubal ligation , , vein surgery left leg 09/18/20, vein surgery left leg 09/19/20, Panniculectomy 04/2022, Cervical Medial Branch Nerve Stimulation Lead Placement- SPR System, Right C4 04/2023, No history . * Hospitalization/Major Diagno stic Procedure: b ladder surgery 1 years old , No history . * Family History: F ather: alive 73 [...] or take illegal drugs. * Medications: T aking Pantoprazole Sodium 20 MG Tablet Delayed Release 1 tablet 1/2 to 1 hour before morning meal Orally Once a day , Taking EpiPen 0.3 MG/0.3ML Solution Auto- injector as directed Injection Use as needed for allergic reaction , Taking Eletriptan Hydrobromide 40 MG Tablet 1 tablet Orally Once a day for migraine As needed, Taking Naproxen Sodium 220 MG Tablet 1 tablet with food or milk if needed Orally every 12 hrs , Taking Sertraline HCl 25 MG Tablet 1 tablet Orally Once a day , Medication List reviewed and reconciled with the patient * Allergies: S hellfish-derived Products. Objective: * Vitals: H t: 60, Wt: [...] rimary osteoarthritis of both knees - M17.0 Plan: * Treatment: * Preventive Medicine: Counseling: S moking/Tobacco Use Patient counseled on the dangers of tobacco use and urged to quit. 0 12/25/2024 * Follow Up: A s Scheduled (Reason: Annual Exam) * Images: * The named appointment provid er may or may not be the originator of this progress note, and it is not deemed complete until electronically signed by the appointment provider. Sign off status: Pending * Provider: Papito Casanova MD Date: 0 12/24/2024 Generated for Ethan olivas/Aissatou/Aditya on: 0 01/29/2025 09:43 AM EDT History [...]
--- NOTE | 2025-01-29 08:44 | MHC.OFFVIS ---
Vital Signs 01/29/25 08:47 Height 4 ft 11 in Weight 115 lb BMI 23.2 BP 108/66 Intake Visit Reasons: ovarian cyst Anesthesiologist Attending Required: Yes Anesthesiologist Attending Language: Cocoa Milling Machine Operator Services: Anesthesiologist Attending Present (in person) Anesthesiologist Attending Name: Laila العراقي Information Interpreted: non-clinical & clinical Tourism Radio Presenter: Tourism Radio Presenter Present (Laila العراقي) Accompanied by: Self / Same As Patient Allergies Seafood Allergy (Uncoded 01/29/25 08:48) Anaphylaxis Is last menstrual period known: Yes HPI Comments Details: The patient is presenting with right LQ pain started 6-12 months ago. It's intermittent in nature lasting few seconds and occurs few times a day. it is not associated with constipation, no dysuria, no frequency incontinence, no n/v, no feverishness Last co testing? Last screening mammogram was a year ago at [facility] but no records available Last colonoscopy was 3 years ago, the recommendation was to repeat in 2 more years according to the patient, no records available [facility] Medical History Chronic hand pain De Quervain's tenosynovitis, right Cervical radiculopathy Tobacco dependence Hiatal hernia Esophageal motility disorder Hepatic cyst Anxiety Herniated intervertebral disc of lumbar spine PTSD (post-traumatic stress disorder) GERD (gastroesophageal reflux disease) Depression, unspecified Surgical History Hx of tubal ligation History of carpal tunnel surgery History of endoscopy Family History Mother HTN (hypertension) Asthma Maternal Aunt Breast cancer Other Prostate cancer Social History Household Members: None Housing: House Alcohol intake: current Alcohol intake frequency: holidays/special occasions only Patient Tobacco Use Status: Current everyday Tobacco user Cigarette Packs Per Day: 2 Years Smoked: 4 Current occupational status: employed 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, 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 Sexual orientation: Straight/Heterosexual Gender identity: Female Female Reproductive History Menstrual Total pregnancies: 4 Full term: 3 Number of Living Children: 3 Ab spontaneous: 1 Review of Systems Const All systems reviewed & are unremarkable except as noted in HPI and below Card Reports as per HPI Resp Reports as per HPI GI Reports as per HPI and Reports no additional complaints Reports as per HPI Physical Exam Vital Signs: Last Vital Signs BP 108/66 01/29/25 08:47 BMI result Body Mass Index 23.2 Const General: cooperative, healthy appearing and comfortable Chest Chest palpation & inspection: normal inspection of the chest and normal palpation of entire chest wall Breast/axilla inspection: normal inspection of the breasts and normal inspection of the axillae Breast/axilla palpation: normal palpation of the breasts, normal palpation of the axillae and no axillary lymphadenopathy GI Inspection: Yes normal to inspection Palpation (GI): Soft to palpation, nontender, no guarding, not rigid and No hepatosplenomegaly present Percussion: Yes normal to percussion Auscultation: normal bowel sounds Rectal Exam - Female: deferred General: Yes bladder normal to palpation External Female Exam: No lesion Speculum Exam - Vagina: normal appearance of the vagina, normal palpation, normal vaginal discharge and not erythematous Speculum Exam - Cervix: normal appearance of the cervix and normal palpation Bimanual exam- vagina & uterus: normal bimanual exam, normal palpation, uterine size normal, bladder normal to palpation, consistency normal and normal palpation Bimanual Exam- Adnexa, other: normal adnexae, no masses and no tenderness Results AMB Urinalysis Dipstick UR Leukocytes Negative Last Edit by Laila Rascon CMA on 01/29/25 09:06 UR Nitrite Negative Last Edit by Laila Rascon CMA on 01/29/25 09:06 UR Urobilinogen Normal Last Edit by Laila Rascon CMA on 01/29/25 09:06 UR Protein Negative Last Edit by Laila Rascon CMA on 01/29/25 09:06 UR Ph 5.5 Last Edit by Laila Rascon, OWEN on 01/29/25 09:06 UR Blood Moderate Last Edit by Laila Rascon CMA on 01/29/25 09:06 UR Specific [place] 1.015 Last Edit by Laila Rascon CMA on 01/29/25 09:06 UR Ketone Last Edit by Laila Rascon CMA on 01/29/25 09:06 UR Bilirubin Negative Last Edit by Laila Rascon CMA on 01/29/25 09:06 UR Glucose Negative Last Edit by Laila Rascon CMA on 01/29/25 09:06 AMB Test Urine AMB Test Urine Negative Last Edit by Laila Rascon CMA on 01/29/25 09:06 Results Reviewed Results Reviewed: Laboratory Last Values Urine pH (Clinic) 5.5 01/29/25 09:01 Specific [place] (Clinic) 1.015 01/29/25 09:01 Ur Protein (Clinic) Negative 01/29/25 09:01 Urine Blood (Clinic) Moderate 01/29/25 09:01 Urine Nitrite Negative 01/29/25 09:01 Urine Bilirubin (Clinic) Negative 01/29/25 09:01 Urobilinogen (Clinic) Normal 01/29/25 09:01 Leukocyte Esterase (Clinic) Negative 01/29/25 09:01 Urine Glucose (Clinic) Negative 01/29/25 09:01 Tst Clinic Negative 01/29/25 09:01 Assessment & Plan Assessment & Plan (1) Pelvic pain: Code(s): R10.2 - Pelvic and perineal pain Category: Medical Plan: Urine test done in the office was negative. GC and chlamydia taken and pelvic ultrasound ordered. Discussed with the patient the differential diagnosis of pelvic pain including but not limited to adnexal, uterine masses, pelvic infections (PID), GI the (Irritable bowel syndrome, diverticulitis, others), musculoskeletal, myofascial pain abdominal wall , adhesions, endometriosis, psychological and others causes. Will check results and treat accordingly. All questions answered, the patient verbalized understanding. Instructed the patient to schedule an ultrasound and a follow-up appointment in 2 weeks. All questions answered, the patient verbalized understanding and agreed with the plan. (2) Well woman exam: Code(s): Z01.419 - Encounter for gynecological examination (general) (routine) without abnormal findings Category: Medical Plan: Co testing done. Counseled the patient about the recommended dietary allowance of 1200 mg of Calcium & 600 IU of vitamin D. Mammogram ordered. The patient was instructed to perform monthly self-breast exams and schedule annual exam in a year. All questions answered and the patient verbalized understanding. (3) Microscopic hematuria: Code(s): R31.29 - Other microscopic hematuria Category: Medical Plan: Urine dip showed microscopic hematuria, urine culture sent. Will repeat urine dip in 2 weeks. Discussed with the patient the possible causes of microscopic hematuria including but not limited to: interstitial cystitis, polyps, stones, masses, urethral inflammatory processes and others. If Urine Culture is negative and repeat urine dip in 2 weeks shows persistent microscopic hematuria, will proceed with CT abdomen/pelvis and urology referral. Instructions given the patient to schedule a 2 week urine dip follow-up appointment. All questions answered and the patient verbalized understanding. Orders: Orders AMB Urinalysis Dipstick Today R10.2 - Pelvic and perineal pain AMB HCG Urine Test Today Z32.02 - Encounter for test, result negative US pelvic and transvaginal Today R10.2 - Pelvic and perineal pain MM tomosynthesis screening BI Today Z12.31 - Encounter for screening mammogram for malignant neoplasm of breast Coding Level of Care Code New Pt Level 3 (62877) Diagnoses Pelvic pain R10.2 Well woman exam Z01.419 Microscopic hematuria R31.29
[2025-01-29 08:47] VITALS: BP 108/66; BMI 23.2
--- OUTSIDE RECORDS SUMMARY | 2025-01-29 09:42 | XMS_ITS | Clinical Summary ---
Author Organization [facility] Address [address] [place] [address] Phone Care Team Providers Care Quill Buncher And Sorter Name Role Phone Darius Casanova MD Primary Care Provider [phone] Allergies Active Allergy Reactions Criticality Noted Date [...] OFFICE 07/24/19 24 Active drospirenone-e thinyl estradioL (RAN BROCK ,STEPAN) 3-0.02 mg per tablet Take 1 tablet by mouth 1 (one) time each day. 28 tablet 12 03/26/20 24 025 Active Active Problems Problem Noted Date Diagnosed Date GERD (gastroesophageal reflux disease) 4 Herniated lumbar intervertebral disc 02/14/2024 Neck pain 11/06/2021 Overview (02/14/2024): Last Assessment & Plan: This history and exam was performed in conjunction with a hairpiece stylist from [employer], Nic #[id number]. Ms. Alexander was seen here 2 years [...] Review of the cervical spine MRI from [place] dated 09/30/2021 shows a 1 mm anterolisthesis [...] Overview (02/14/2024): 04/18/2018 PAP [facility]IL [facility] Neg cytology, neg hpv Chronic, continuous use of opioids 04/19/2018 PTSD (post-traumatic stress disorder) 04/19/2018 Encounters Date Type Department Care Team Description 01/21/2025 3:00 PM EDT Office Visit Orthopedic Surgery [place] [address] [phone] Anoop La DPM Bunion of right foot (Primary Dx); Hallux rigidus of right foot; Hallux rigidus of left foot; Metatarsalgia of both feet; Follow-up exam 12/05/2024 9:30 AM EDT Consult Orthopedic Surgery [facility] [address] [phone] Anoop La DPM Hallux rigidus of right foot (Primary Dx); Bunion of right foot; Hallux rigidus of left foot; Metatarsalgia of both feet from Last 3 Months Surgical History Surgery Date Site/Laterality Comments TUBAL LIGATION PROCEDURE: HISTORICAL TUBAL LIGATION OTHER SURGICAL HISTORY PROCEDURE: LA NEPHROLITHOTOMY COMP CGEN KDN ABNORMALITY CARPAL TUNNEL RELEASE PROCEDURE: LA NEUROPLASTY &/TRANSPOS MEDIAN NRV CARPAL TUNNE; COMMENT: right hand OTHER SURGICAL HISTORY 09/10/2020 Left PROCEDURE: LA STAB PHLEBT VARICOSE VEINS 1 XTR 10-20 STAB INCS BELT ABDOMINOPLASTY 04/2022 PROCEDURE: HISTORICAL TUMMY TUCK; COMMENT: in [place]- Dr. Schmidt/ Thu Medical History Medical History [...] Care Team (Late st Contact Info) Description 04/22/2025 1:45 PM EST Office Visit Orthopedic Surgery - [place] [address] [phone] Anoop La, DPM [address] [phone] Health Maintenance Due Date Last Done Comments DTaP,Tdap,and Td Vaccines (1 - Tdap) 1993 Hepatitis A Vaccines (1 of 2 - Risk 2-dose series) 1993 Colorectal Cancer Screening: Colonoscopy 04/17/2022 HIV Screening 04/17/2022 Hepatitis C Screening 04/17/2022 Social Influencers of Health Screening 04/17/2022 Pneumococcal Vaccine: 50+ Years (1 of 1 - PCV) 01/20/2024 Zoster Vaccines (1 of 2) 01/20/2024 COVID-19 Vaccine (4 - season) 2025 10/31/2021, 10/31/2020, 10/03/2020 Influenza Vaccine (#1) 2025 , 01/25/2012, 06/15/2010, Additional history exists Cervical Cancer Screening: HPV 10/24/2025 10/24/2020 Breast Cancer Screening 02/15/2026 02/16/20 24, 09/09/2022, 12/27/2020 Cholesterol Screening (Lipid Panel) 01/16/2030 01/16/2025 Osteoporosis Screening (Bone Density Screening) 04/23/2034 04/23/2024 [...] Name Priority Date/Time Associated Diagnosis Comments XR FOOT 3+ VIEWS BILAT Routine 01/21/2025 3:14 PM EDT Follow-up exam CBC WITH AUTO DIFFERENTIAL Routine 01/16/2025 11:16 AM EDT Brachial neuritis Severely overweight Iron deficiency LIPID PANEL WITH REFLEX TO DIRECT LDL Routine 01/16/2025 11:16 AM EDT Brachial neuritis Severely overweight Iron deficiency COMPREHENSIVE METABOLIC PANEL Routine 01/16/2025 11:16 AM EDT Brachial neuritis Severely overweight Iron deficiency CBC AND DIFFERENTIAL Routine 01/16/2025 11:16 AM EDT Brachial neuritis Severely overweight Iron deficiency INJECTION TENDON OR LIGAMENT Routine 12/05/2024 9:30 [...] Relevant to Health Maintenance Results * XR Foot 3+ Views bilat (01/21/2025 3:14 PM EDT) Anatomical Region Laterality Modality Lower Extremities, Foot Bilateral Computed Radiography Narrative 01/21/2025 5:23 PM EDT Right foot 3 views No fracture. No radiopaque foreign joint spaces mild joint space narrowing great toe Foot position rectus Normal talus navicular position normal calcaneal inclination normal symes line talus navicular joint to calcaneal cuboid joint Left foot 3 views No fracture. No radiopaque foreign joint spaces mild joint space narrowing great toe Foot position rectus Normal talus navicular position normal calcaneal inclination normal symes line talus navicular joint to calcaneal cuboid joint us Anoop La DPM IMG XR PROCEDURES Final R esult * (ABNORMAL) Lipid panel with reflex to direct LDL (01/16/2025 11:16 AM EDT) Cholesterol 200 0 - 200 mg/dL LAB CHEMISTRY METHOD 01/16/2025 3:02 PM [facility] Triglycerides 97 0 - 150 mg/dL LAB CHEMISTRY METHOD 01/16/2025 3:02 PM [facility] HDL 69 >=40 mg/dL LAB CHEMISTRY METHOD 01/16/2025 3:02 PM [facility] LDL Calculated 112(H) 0 - 100 mg/dL LAB CHEMISTRY METHOD 01/16/2025 3:02 PM [facility] Comment:Estimated LDL Calcul ated using equation: Total cholesterol - HDL cholesterol - (Triglycerides/5) VLDL Cholesterol Bowen 19.4 mg/dL LAB CHEMISTRY METHOD 01/16/2025 3:02 PM [facility] Non HDL Chol. (LDL+VLDL) 131 <145 mg/dL LAB CHEMISTRY METHOD 01/16/2025 3:02 PM [facility] Chol/HDL Ratio 2.9 0.0 - 4.4 LAB CHEMISTRY METHOD 01/16/2025 3:02 PM [facility] Blood Venous blood specimen / Unknown Venipuncture / Unknown 01/16/2025 11:16 AM EDT 01/16/2025 11:16 AM EDT us Darius Casanova MD LAB BLOOD ORDERABLES Final Res ult [facility] [address] [place] [address], * (ABNORMAL) CBC auto differential (01/16/2025 11:16 AM EDT) WBC 8.7 4.8 - 10.8 K/mcL LAB HEMETOLOGY METHOD 01/16/2025 2:20 PM EDT [facility] RBC 4.50 3.80 - 4.80 M/mcL LAB HEMETOLOGY METHOD 01/16/2025 2:20 PM EDT [facility] Hemoglobin 13.5 11.5 - 16.0 g/dL LAB HEMETOLOGY METHOD 01/16/2025 2:20 PM EDT [facility] Hematocrit 40.5 35.0 - 47.0 % LAB HEMETOLOGY METHOD 01/16/2025 2:20 PM EDT [facility] MCV 89.8 79.0 - 98.0 FL LAB HEMETOLOGY METHOD 01/16/2025 2:20 PM EDT [facility] MCH 29.9 27.0 - 32.0 pcg LAB HEMETOLOGY METHOD 01/16/2025 2:20 PM EDT [facility] MCHC 33.3 32.0 - 37.0 g/dL LAB HEMETOLOGY METHOD 01/16/2025 2:20 PM EDT [facility] RDW 13.1 11.0 - 15.0 % LAB HEMETOLOGY METHOD 01/16/2025 2:20 PM EDT [facility] Platelets 237 130 - 400 K/mcL LAB HEMETOLOGY METHOD 01/16/2025 2:20 PM EDT [facility] MPV 10.6 7.0 - 11.0 FL LAB HEMETOLOGY METHOD 01/16/2025 2:20 PM EDT [facility] NRBC 0.0 <1.0 % LAB HEMETOLOGY METHOD 01/16/2025 2:20 PM EDT [facility] NRBC Absolute 0.00 <0.10 K/mcL LAB [facility] Neutrophils Relative 63.5 % LAB HEMETOLOGY METHOD 01/16/2025 2:20 PM EDT [facility] Lymphocytes Relative 26.3 % LAB HEMETOLOGY METHOD 01/16/2025 2:20 PM EDT [facility] Monocytes Relative 8.2 % LAB HEMETOLOGY METHOD [facility] Eosinophils Relative 1.0 % LAB HEMETOLOGY METHOD 01/16/2025 2:20 PM [facility] Basophils Relative 0.3 % LAB HEMETOLOGY METHOD 01/16/2025 2:20 PM EDT [facility] Immature Granulocytes Relative 0.7 % LAB HEMETOLOGY METHOD 01/16/2025 2:20 PM T [facility] Neutrophils Absolute 5.49 1.50 - 7.00 K/mcL LAB HEMETOLOGY METHOD 01/16/2025 2:20 PM [facility] Lymphocytes Absolute 2.28 1.00 - 5.00 K/mcL LAB HEMETOLOGY METHOD 01/16/2025 2:20 PM EDT [facility] Monocytes Absolute 0.71 0.20 - 1.00 K/mcL LAB HEMETOLOGY METHOD 01/16/2025 2:20 PM EDT [facility] Eosinophils Absolute 0.09 0.00 - 0.50 K/mcL LAB HEMETOLOGY METHOD 01/16/2025 2:20 PM EDT [facility] Basophils Absolute 0.03 0.00 - 0.20 K/mcL LAB HEMETOLOGY METHOD 01/16/2025 2:20 PM [facility] Immature Granulocytes Absolute 0.06(H) 0.00 - 0.03 K/mcL LAB HEMETOLOGY METHOD 01/16/2025 2:20 PM [facility] Blood Venous blood specimen / Unknown Venipuncture / Unknown 01/16/2025 11:16 AM EDT 01/16/2025 11:16 AM EDT us Darius Casanova MD LAB BLOOD ORDERABLES Final Res ult [facility] [address] [place] [address], [place] [phone] * Comprehensive metabolic panel (01/16/2025 11:16 AM EDT) Sodium 139 133 - 145 mmol/L LAB CHEMISTRY METHOD 01/16/2025 3:02 PM [facility] Potassium 4.5 3.5 - 5.5 mmol/L LAB CHEMISTRY METHOD 01/16/2025 3:02 PM [facility] Chloride 108 96 - 110 mmol/L LAB CHEMISTRY METHOD 01/16/2025 3:02 PM [facility] CO2 28 21 - 32 mmol/L LAB CHEMISTRY METHOD 01/16/2025 3:02 PM [facility] Anion Gap 3 3 - 11 LAB CHEMISTRY METHOD 01/16/2025 3:02 PM [facility] Glucose 93 70 - 100 mg/dL LAB CHEMISTRY METHOD 01/16/2025 3:02 PM [facility] BUN 14 5 - 25 mg/dL LAB CHEMISTRY METHOD 01/16/2025 3:02 PM [facility] Creatinine 0.78 0.50 - 1.10 mg/dL LAB CHEMISTRY METHOD 01/16/2025 3:02 PM [facility] eGFR 93 >=60 mL/min/1. 73m2 LAB CHEMISTRY METHOD 01/16/2025 3:02 PM [facility] Comment:Calculation based on the Chronic Kidney Disease Epidemiology Collaboration (CKD-EPI) equation refit without adjustment for race. BUN/Creatinine Ratio 17.9 LAB CHEMISTRY METHOD 01/16/2025 3:02 PM [facility] Calcium 9.4 8.5 - 10.5 mg/dL LAB CHEMISTRY METHOD 01/16/2025 3:02 PM [facility] AST (SGOT) 16 10 - 42 unit/L LAB CHEMISTRY METHOD 01/16/2025 3:02 PM [facility] ALT (SGPT) 19 10 - 60 unit/L LAB CHEMISTRY METHOD 01/16/2025 3:02 PM [facility] Alkaline Phosphatase 66 42 - 121 unit/L LAB CHEMISTRY METHOD 01/16/2025 3:02 PM [facility] Total Protein 6.6 6.0 - 8.0 g/dL LAB CHEMISTRY METHOD 01/16/2025 3:02 PM [facility] Albumin 3.9 3.2 - 5.0 g/dL LAB CHEMISTRY METHOD 01/16/2025 3:02 PM [facility] Total Bilirubin 0.5 0.0 - 1.4 mg/dL LAB CHEMISTRY METHOD 01/16/2025 3:02 PM [facility] Blood Venous blood specimen / Unknown Venipuncture / Unknown 01/16/2025 11:16 AM EDT 01/16/2025 11:16 AM EDT us Darius Casanova MD LAB BLOOD ORDERABLES Final Res ult [facility] [address] [place] [address], * Injection tendon or ligament (12/05/2024 9:30 AM EDT) Anoop Camacho DPM - 12/05/2024 9:30 AM EDT Anoop La DPM 12/05/2024 12:22 PM Injection tendon or ligament Indications: pain Details: 25 G needle Medications: 0.5 mL lidocaine (PF) 1 %; 20 mg triamcinolone acetonide 40 mg/mL Informed Consent: Site: Foot ligament tendon Anoop La DPM IN CLINIC/BEDSIDE ORDERAB LES Final Result * Injection tendon or ligament (12/05/2024 9:30 AM EDT) Anoop Camacho DPM - 12/05/2024 9:30 AM EDT Anoop La DPM 12/05/2024 12:22 PM Injection tendon or ligament Indications: pain Details: 25 G needle Medications: 0.5 mL lidocaine (PF) 1 %; 20 mg triamcinolone acetonide 40 mg/mL Informed Consent: Site: Foot ligament tendon Anoop La DPM IN CLINIC/BEDSIDE ORDERAB LES Final Result * BD Bone Density DXA Axial Skeleton (04/23/2024 2:04 PM EST) Anatomical Region Laterality Modality Wrist, Hip, L-spine Bone Densito metry 04/23/2024 5:13 PM EST Impressions 04/23/2024 5:14 PM EST Normal bone mineral density. [id number] -------- FINAL REPORT -------- Dictated By: Katiuska Rodriguez Dictated Date: 04/23/2024 17:13 ET Assigned Physician: Katiuska Rodriguez Reviewed and Electronically Signed By: Katiuska Rodriguez Signed Date: 04/23/2024 17:14 ET Workstation ID: [id number] Transcribed By: Self Edit Transcribed Date: 04/23/2024 17:13 ET Narrative 04/23/2024 5:14 PM EST History: Low estrogen state due to menopause. Current smoker. Comparison: No comparison imaging at this institution. Findings: Bone densitometry is performed utilizing dual energy x-ray absorptiometry (DXA) in the [employer] unit. The lumbar spine and proximal femora [...] utilizing dual energy x-ray absorptiometry(DXA) in the [employer] unit. The lumbar spine and proximal femora [...] 0.0 percent. IMPRESSION: Normal bone mineral density. [id number] -------- FINAL REPORT -------- Dictated By: Katiuska Rodriguez Dictated Date: 04/23/2024 17:13 ET Assigned Physician: Katiuska Rodriguez Reviewed and Electronically Signed By: Katiuska Rodriguez Signed Date: 04/23/2024 17:14 ET Workstation ID: [id number] Transcribed By: Self Edit Transcribed Date: 04/23/2024 17:13 ET Sloane Perez CNM IMG DXA PROCEDURES Final Result * MUKESH SCREENING DIGITAL (02/16/2024 1:58 PM EDT) Anatomical Region Laterality Modality Mammography 02/15/2024 10:2 9 AM EDT Narrative 02/16/2024 1:58 PM EDT [facility] Diagnostic Imaging Department [address] [place] [address] Patient: MARQUITA ALEXANDER /Age/Sex: 1975 - 49 - F Unit#: [id number] Location/Status: SPDIMAM/REG CLI Mnemonic/Ordering Site: [facility] Ordering Physician: DARIUS CASANOVA MD [facility] Screening Digital - 02/15/24 - 1622 Report Status:Signed EXAM: [facility] Screening Digital EXAM DATE AND TIME: 02/15/2024 4:22 PM HISTORY: Screening. Left breast biopsy in 2014, pathology benign. Aunt had breast carcinoma. COMPARISON: 09/20/22, 09/08/22, 12/30/20, 12/27/20, 09/09/16 TECHNIQUE: Bilateral digital breast tomosynthesis was performed in the CC and MLO projections. Computer aided detection with [employer] 3D 3.1 was employed. TISSUE DENSITY: b. [...] Mamm[facility] performed at [facility] [address] [place] [address] Dictating Physician: KATIUSKA RODRIGUEZ MD Electronically Signed by: KATIUSKA RODRIGUEZ MD Dic Date/Time: 02/16/24 1352 Sign date/Time: 02/16/24 1358 Procedure Note Katiuska Rodriguez MD - 03/06/2024 [facility] Diagnostic Imaging Department [address] [place] [address] Patient: MARQUITA ALEXANDER./Age/Sex: 1975 - 49 - F Unit#: [id number] Location/Status: SPDIMA/REG CLI Mnemonic/Ordering Site: [facility] Ordering Physician: DARIUS CASANOVA MD [facility] Screening Digital - 02/15/24 - 1622 Report Status:Signed EXAM: [facility] Screening Digital EXAM DATE AND TIME: 02/15/2024 4:22 PM HISTORY: Screening. Left breast biopsy in 2014, pathology benign. Aunthad breast carcinoma. COMPARISON: 09/20/22, 09/08/22, 12/30/20, 12/27/20, 09/09/16 TECHNIQUE: Bilateral digital breast tomosynthesis was performed in the CCand MLO projections. Computer aided detection with [employer] 3D 3.1was employed. TISSUE DENSITY: b. There [...] Mammogram performed at [facility] [place] [address] Dictating Physician: KATIUSKA RODRIGUEZ MD Electronically Signed by: KATIUSKA RODRIGUEZ MD Dic Date/Time: 02/16/24 1352 Sign date/Time: 02/16/24 1358 Darius Casanova MD IMG BI PROCEDURES Final Result * Cervical Cancer Screening: HPV (10/24/2020) Cervical Cancer Screening: HPV negative, abstracted Historical Provider HEALTH MAINTENANCE Final Result from Last 3 Months or Most Recently Relevant to Health Maintenance Insurance [facility] Care Teams Quill Buncher And Sorter Relationship Specialty Start Date End Date Darius Casanova MD [facility] [address] [address] PCP - General Oncology 12/20/19
--- OUTSIDE RECORDS SUMMARY | 2025-01-29 09:43 | XMS_ITS | Clinical Summary ---
Author Organization [facility] Address [address] [place] [address] Care Team Providers Care Elevator Worker Name Role Phone Ross Casanova MD Primary Care Provider [phone] Allergies Active Allergy Reactions Criticality Noted Date [...] age to complete this topic Care Teams Elevator Worker Relationship Specialty Start Date End Date Ross Casanova MD [address] [place] [phone] PCP - General Oncology 12/20/19
--- OUTSIDE RECORDS SUMMARY | 2025-01-29 09:43 | XMS_ITS | Patient Health Record ---
Author Organization Ross Casanova III, MD Address [address] [place] [address] [address] [place] [address] Care Team Providers Care Hebrew Teacher Name Role Phone Dr. Ross Casanova III [...] 0.2 - 1.3 BLD Negative Negative - US extremity nonvascular Reviewed date:11/09/2024 07:25:59 PM Interpretation: Performing Lab: Notes/Report: [address] [address] Ultrasound Report Signed Patient: Marquita Alexander MR#: [id number] 42 : 1975 Acct:[id number] Age/Sex: 49 / F ADM Date: 08/01/24 Loc: HO.US Attending Dr: Ross Casanova MD Ordering Physician: Ross Casanova MD Date of Service: 08/01/24 Procedure(s): US extremity nonvascular Accession Number(s): [id number] cc: Ross Casanova MD CLINICAL HISTORY: SYNOVIAL [...] document has been electronically signed by: Km rAce MD on 08/02/2024 11:49:17 Dictated By: Km Arce MD Signed By: <Electronically signed by Km Arce MD in OV> 08/02/24 1150 DD/ 1149 TD/TT: 08/02/24 1149 Nocturnist: [place] [id number] Ultrasound Report Signed Patient: Jannet Alexander MR#: [id number] 41 : 1975 Acct:[id number] Age/Sex: 49 / F ADM Date: 08/01/24 Loc: HO.US Attending Dr: Ross Casanova MD Ordering Physician: Ross Casanova MD Date of Service: 08/01/24 Procedure(s): US ext remity nonvascular Accession Number(s): [id number] cc: Ross Casanova MD CLINICAL HISTORY: SY [...] 08/02/24 1150 DD/ 1149 TD/TT: 08/02/24 1149 Nocturnist: Reason For Referral Reason Evaluate and Treat pain left knee Diagnosis 1 Synovial cyst of pop liteal space [[place]], left knee (M71.22) Referral Organization Ross Casanova III, MD Referring Provider First Name Ross Referring Provider Last Name Edilberto Referring Provider Speciality Internal edicine Referred Provider [facility], [facility] Referred Provider Specialty Orthopedic [facility] General Notes Angela Camacho 07/23/2024 11:35:14 AM > Referral and progress note faxed, Angela Camacho 09/03/2024 03:36:34 PM >Office received referral contacted [...] Referring Provider Speciality Internal edicine Referred Provider CONCHITA LA Referred Provider [...] office when she is able to schedule appointment.Janice Amber 09/03/2024 03:41:06 PM > patient has not scheduled appointment and will reach out to them today to schedule an appointment.Janice Amber 09/05/2024 03:39:45 PM >Patient was informed that they do not take [facility] and there may be an out of pocket expense with her bcbs she asked for the referral to be sent elsewhere from Ren[facility]. Referral was sent to Conchita La at [facility], Angela Camacho 09/20/2024 03:00:06 PM > referral was put in to Dr. Conchita La system pending scheduling Referral Priority Routine Referral Appointment Date 12/05/2024 Reason painful ovarian cyst second opinion Diagnosis 1 Cyst of ovary, unspe cified laterality (N83.209) Referral Organization Ross Casanova III, MD Referring Provider First Name Ross Referring Provider Last Name Edilberto Referring Provider Speciality Internal edicine Referred Organization [facility] nt Referred Provider [facility], [facility] Referred Address [address] [place] [address],[place], [place],[id number], Referred Provider Specialty OB - Gynecol ogy General Notes Melissa Yan [facility] 10/24 09:48:59 AM >ref/demo/progress note and prior ultrasound done at [facility] faxed to [facility], OmidRobert ALLEN 12/19/2024 11:04:16 AM >Pt called asking about this referral. She did not received a call from [facility]. I advice Pt to call OBGYN and schedule., Melissa Yan [facility] 12/27/2024 02:18:13 PM > I called [facility] [phone] spoke to Allison she stated they did not receive referral. Ref refaxed to [phone] ATTN: Dr Jones Referral Priority Routine Reason osteoarthritis right thumb Diagnosis 1 Osteoarthritis of ri ght hand, unspecified osteoarthritis type (M19.041) Referral Organization Ross Casanova III, MD Referring Provider First Name Ross Referring Provider Last Name Edilberto Referring Provider Speciality Internal edicine Referred Provider [facility] Referred Provider Specialty Rheumatology General Notes S Melissa OWEN 10/24 09:43:31 AM >ref/demo/progress note/x [facility], Melissa Yan OWEN 11/15/2024 03:19:14 PM >[facility] [...] Problem Status W/U Status Risk Notes Problem 1205807 Former smoker (Z87.891) Active confirmed She is no longe r smoking and has been abstinent for a month. We made a plan to prevent relapse in times of stress and illness. Problem 56732378 Unilateral primary osteoarthritis of first carpometacarpal joint, right hand (M18.11) Active confirmed Problem Family history of malignant neoplasm of gastrointestinal tract (562198758) Family history of malignant neoplasm of digestive organs (Z80.0) Active confirmed She gives a history that 2 cousins have cancer of the stomach. 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 This was done through a company called [employer] and was called in an [employer] hereditary cancer test. The results states negative, no known pathogenic or likely pathogenic variants were detected. 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 Problem Gastroesophageal reflux disease (838959650) Gastroesophagea l reflux disease, esophagitis presence not specified (K21.9) Active confirmed Her reflux symptoms are well controlled with her current medical regimen. No change was made. She was advised to refrain from eating before sleep Problem 31007230 Cervical radiculopathy (M54.12) Active confirmed There is muscle spasm in the posterior right neck and pain with range of motion although ranging is normal. She will use cyclobenzaprine heat massage and rest with follow-up. If necessary imaging will be done. Problem 24020285 Hiatal hernia (K44.9) Active confirmed This is a finding on upper GI series done recently and is asymptomatic. Problem 335084903 Esophageal dysmotility (K22.4) Active confirmed A barium swallo w will be done in the near future, and she will be seen back after that to discuss results. Problem 818086755 Primary osteoarthritis of both knees (M17.0) Active confirmed Problem 19707786 Depression, unspecified depression type (F32.9) Active confirmed Her depression seems very mild at this time and does not bother her much at all. She reports completing all of the activities of daily living on a regular basis. Problem 18268055 Dysphagia, unspecified type (R13.10) Active confirmed The upper GI showed a normal esophagus that herniation of the upper pole of the stomach which may be the cause of her sensations. She was reassured. Problem 18146191 Pelvic pain (R10.2) Active confirmed She complained of pelvic pain with intercourrse recently. She said she had been told she had an ovarian cyst. This is not mentioned on an ultrasound of the pelvis with transvaginal views done in March 2024. That report stated no adnexal masses . She has requested a second NURSE LICENSED PRACTICAL opinion and we are arranging this. Problem Amenorrhea (27142025) Amenorrhea (N91.2) Active confirmed She has had no further midcycle bleeding. Problem 304996460 GERD with esophagitis (K21.0) Active confirmed This has been controlled with medications. Problem 6937841 Migraine with aura and without status migrainosus, not intractable (G43.109) Active confirmed I have prescribed a new medication, eletriptan. The risks and benefits were explained and the way to take it was carefully delineated. She gave informed consent for prescribing in taking the medication. Problem Carpal tunnel syndrome (64056952) Carpal tunnel syndrome on both sides (G56.03) Active confirmed She has occasional discomfort in her hands but it is very mild and she does not wish treatment for it. Problem Gastroesophageal reflux disease with esophagitis (disorder) (397453703) Gastroesophagea l reflux disease with esophagitis, unspecified whether hemorrhage (K21.00) Active confirmed This is an occasional symptom well controlled with antacids. 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 We are waiting for an appointment with genetic counseling in gastroenterology in medical oncology. Problem 894338897 Infection of breast, right (N61.0) Active confirmed This appears to be a simple skin infection and will be observed. Vital Signs Heart Rate 64 /min 12/24/2024 Temperature 97.8 degrees Fahrenheit 12/24/2024 Blood pressure diastolic 78 mm Hg 12/24/2024 Height 60 in 12/24/2024 Blood pressure systolic 139 mm Hg 12/24/2024 Weight 121 lbs 12/24/2024 BMI 23.63 kg/m2 12/24/2024 Encounters Encounter Location Date Provider Diagnosis Ross Casanova III, MD [address] [place] [address] [place] [address] 12/24/2024 Ross Casanova Cervical radiculopat hy M54.12 ; Depression, unspecified depression type F32.9 ; Esophageal dysmotility K22.4 ; Hiatal hernia K44.9 ; Migraine with aura and without status migrainosus, not intractable G43.109 and Primary osteoarthritis of both knees M17.0 Ross Casanova III, MD [address] [place] [address] [place] [address] 03/05/2024 Ross Casanova Carpal tunnel syndro me on both sides G56.03 ; Cervical radiculopathy M54.12 ; Gastroesophageal reflux disease with esophagitis, unspecified whether hemorrhage K21.00 ; Depression, unspecified depression type F32.9 and Hiatal hernia K44.9 Ross Casanova III, MD [address] [place] [address] [place] [address] 06/05/2024 Ross Casanova Gastroesophageal ref lux disease, esophagitis presence not specified K21.9 ; Cervical radiculopathy M54.12 ; Depression, unspecified depression type F32.9 ; Esophageal dysmotility K22.4 ; Migraine with aura and without status migrainosus, not intractable G43.109 ; Low back pain M54.5 and Former smoker Z87.891 Ross Casanova III, MD [address] [place] [address] [place] [address] 07/18/2024 Ross Casanova Gastroesophageal ref lux disease, esophagitis presence not specified K21.9 ; Cervical radiculopathy M54.12 ; Depression, unspecified depression type F32.9 ; Synovial cyst of popliteal space [[place]], left knee M71.22 ; Esophageal dysmotility K22.4 ; Hiatal hernia K44.9 ; Migraine with aura and without status migrainosus, not intractable G43.109 and Former smoker Z87.891 Ross Casanova III, MD [address] [place] [address] [place] [address] 08/31/2024 Ross Casanova Cervical radiculopat hy M54.12 ; Migraine with aura and without status migrainosus, not intractable G43.109 ; Gastroesophageal reflux disease with esophagitis, unspecified whether hemorrhage K21.00 ; Hiatal hernia K44.9 ; Esophageal dysmotility K22.4 and Tobacco dependence F17.200 Ross Casanova III, MD [address] [place] [address] [place] [address] 10/22/2024 Ross Casanova Cervical radiculopat hy M54.12 ; GERD with esophagitis K21.0 ; Depression, unspecified depression type F32.9 ; Esophageal dysmotility K22.4 ; Hiatal hernia K44.9 ; Migraine with aura and without status migrainosus, not intractable G43.109 ; Former smoker Z87.891 ; Pelvic pain R10.2 and Infection of breast, right N61.0 Ross Casanova III, MD [address] [place] [address] [place] [address] 05/10/2024 Ross Casanova Chronic cough R05.3 and Chest discomfort R07.89 Ross Casanova III, MD [address] [place] [address] [place] [address] 08/17/2024 Ross Casanova III, MD [address] [place] [address] [place] [address] 11/02/2024 Ross Casanova III, MD [address] [place] [address] [place] [address] 11/02/2024 Ross Casanova III, MD [address] [place] [address] [place] [address] 12/18/2024 Ross Casanova Cervical radiculopat hy M54.12 Assessments Encounter Date Diagnosis (ICD Code) Assessment Notes T reatment Notes Treatment Clinical Notes 12/24/2024 Cervical radiculopat hy (ICD-10 - M54.12) There [...] of daily living on a regular basis. 03/05/2024 Cervical radiculopat hy (ICD-10 - M54.12) [...] K21.0) This has been controlled with medications. 05/10/2024 Chronic cough (ICD-1 0 - R05.3) 12/18/2024 Cervical radiculopat hy (ICD-10 - M54.12) There is muscle spasm in the posterior right neck and pain with range of motion although ranging is normal. She will use cyclobenzaprine heat massage and rest with follow-up. If necessary imaging will be done. 12/24/2024 Esophageal dysmotili ty (ICD-10 - K22.4) A barium swallow will be done in the near future, and she will be seen back after that to discuss results. 03/05/2024 Gastroesophageal reflux disease with esophagitis, unspecified [...] of daily living on a regular basis. 05/10/2024 Chest discomfort (ICD-10 - R07.89) 12/24/2024 Hiatal hernia (ICD-1 0 - K44.9) This is a finding on upper GI series done recently and is asymptomatic. 03/05/2024 Depression, unspecified depression type (ICD-10 - [...] back after that to discuss results. 12/24/2024 Migraine with aura a nd without status migrainosus, not intractable (ICD-10 - G43.109) I have prescribed a new medication, eletriptan. The risks and benefits were explained and the way to take it was carefully delineated. She gave informed consent for prescribing in taking the medication. 03/05/2024 Hiatal hernia (ICD-1 0 - K44.9) [...] series done recently and is asymptomatic. 12/24/2024 Primary osteoarthrit is of both knees (ICD-10 - M17.0) 06/05/2024 Low back pain (ICD-1 0 - [...] masses . She has requested a second NURSE LICENSED PRACTICAL opinion and we are arranging this. 10/22/2024 Infection of breast, right (ICD-10 - N61.0) This appears to be a simple skin infection and will be observed. Plan Of Treatment Pending Test Test Name Order Date PROFILE, FASTING (COMPREHENSIVE METABOLI C) 10/22/2024 PROFILE, FASTING (COMPREHENSIVE METABOLI C) 09/06/2023 PROFILE, FASTING (COMPREHENSIVE METABOLI C) 07/18/2024 PROFILE, FASTING (COMPREHENSIVE METABOLI C) 03/02/2023 PROFILE, FASTING (COMPREHENSIVE METABOLI C) 03/05/2024 PROFILE, RANDOM (COMPREHENSIVE METABOLIC ) 03/26/2020 PROFILE, RANDOM (COMPREHENSIVE METABOLIC ) 04/10/2021 PROFILE, RANDOM (COMPREHENSIVE METABOLIC ) 03/23/2022 PROFILE, RANDOM (COMPREHENSIVE METABOLIC ) 03/14/2018 PROFILE, RANDOM (COMPREHENSIVE METABOLIC ) 08/13/2020 PROFILE, RANDOM (COMPREHENSIVE METABOLIC ) 03/13/2021 AMYLASE 03/13/2021 LIPASE 03/13/2021 LIPID PANEL 03/14/2018 GGT 04/10/2021 GGT 03/13/2021 FREE T4 (FT4) 03/14/2018 TSH (THYROID STIMULATING HORMONE) 2017 IRON + IBC (FE) 03/26/2020 FERRITIN 03/26/2020 FERRITIN 08/13/2020 HCG-QUALITATIVE 03/23/2022 HCG-QUALITATIVE 09/06/2023 CBC w DIFF 09/06/2023 CBC w DIFF [...] nonvascular 07/18/2024 Next Appt Details Provider Name:Ross Casanova , 03/06/2025 04:00:00 PM, [address] [place] [address] , [place]GI Dimas, [place], [address], Insurance Providers Payer Name Payer Address Payer Phone Subscriber Number Group Number Insured Name Patient Relationship to Insured Coverage Start Date Coverage End Date [employer] [facility] [address] [place], [place] [id number] PPO MARQUITA ALEXANDER Self - patient is the insured [place] [address] [place], [place] [id number] MARQUITA ALEXANDER Self - patient is the [...]
== END 2025-01-29 09:33 | disposition home or self-care (01) ==
LOC: HO.HWS 08:42
PROVIDERS: Visit Provider Obstetrics & Gynecology
DX: R10.2 Pelvic and perineal pain (principal); Z01.419 Encounter for gynecological examination (general) (routine) without abnormal findings; R31.29 Other microscopic hematuria; Z32.02 Encounter for pregnancy test, result negative
CPT/HCPCS: 99203

== ENCOUNTER 2025-01-29 08:42 | Outpatient (REF) | payer BC, SELFPAY ==
[2025-01-30 02:54] LABS: CT PCR NOT DETECTED (Not Detect.); NG PCR NOT DETECTED (Not Detect.)
== END 2025-01-29 08:43 | disposition home or self-care (01) ==
LOC: HO.LNP 08:42
PROVIDERS: Visit Provider Obstetrics & Gynecology
DX: Z01.419 Encounter for gynecological examination (general) (routine) without abnormal findings (principal); R10.2 Pelvic and perineal pain; R31.29 Other microscopic hematuria
CPT/HCPCS: 81002; 81025; 87086; 87088; 87186; 87491; 87591; 87626; 88175

== ENCOUNTER 2025-02-07 09:56 | Outpatient (REF) | payer BC, SELFPAY ==
--- OUTSIDE RECORDS SUMMARY | 2024-10-22 12:00 | XMS_ITS ---
Author Organization Ross Casanova III, MD Address [address] [place] [address] [address] [place] [address] Care Team Providers Care Campus Wellness Coordinator Name Role Phone Dr. Ross Casanova III Primary Care Provider [phone] Allergies Allergen (clinical drug ingredient) Drug/Non Drug [...] Provider Speciality Internal M edicine Referred Organization [facility] nter Referred Provider [facility] er, [facility] Referred Address [address] [place] [address],[place], [place],[phone], Referred Provider Specialty OB - Gynecol ogy General Notes Melissa Yan CMA 10/24 09:48:59 AM >ref/demo/progress note and prior ultrasound done at [facility] faxed to [facility], Robert Anne 12/19/2024 11:04:16 AM >Pt called asking about this referral. She did not received a call from [facility]. I advice Pt to call OBGYN and schedule., Melissa Yan CMA 12/27/2024 02:18:13 PM > I called [facility] [phone] spoke to Allison she stated they did not receive referral. Ref refaxed to [phone] ATTN: Dr Jones Referral Priority Routine Reason osteoarthritis right thumb Diagnosis 1 Osteoarthritis of ri ght hand, unspecified osteoarthritis type (M19.041) Referral Organization Ross Casanova III, MD Referring Provider First Name Ross Referring Provider Last Name Edilberto Referring Provider Speciality Internal M edicine Referred Provider [facility] Referred Provider Specialty Rheumatology General Notes Melissa Yan [facility] 10/24 09:43:31 AM >ref/demo/progress note/x rays faxed to [facility], Melissa Yan [facility] 11/15/2024 03:19:14 PM >called [facility] [place] was told pt has appt on 01/08/2025 [...] Problem Status W/U Status Risk Notes Problem 08939995 Pelvic pain (R10.2) Active confirmed She complained of pelvic pain with intercourrse recently. She said she had been told she had an ovarian cyst. This is not mentioned on an ultrasound of the pelvis with transvaginal views done in March 2024. That report stated no adnexal masses . She has requested a second PHARMACY STUDENT opinion and we are arranging this. Problem 344211998 Infection of breast, right (N61.0) Active confirmed [...] Date Provider Diagnosis Ross Casanova III, MD [address] [place] [address] [place] [address] 10/22/2024 Ross Casanova Cervical radiculopat hy M54.12 [...] masses . She has requested a second PHARMACY STUDENT opinion and we are arranging this. 10/22/2024 [...] 10/22/2024 10/22/2024, painful ovarian cyst second opinion, [facility], [address] [facility], [place], [place], [phone], 10/22/2024 10/22/2024, osteoart hritis right thumb, Center Arthritis treatment Next Appt Details Follow Up: December, Reason: O V review labs Provider Name:Ross Rashaun Edilberto , 03/06/2025 04:00:00 PM, [address] [place] [address] DR [facility] [address], [place], [address], Progress Notes * PABLO BARRERADOB: 4 (49 yo F)Acc No.[id number]:10/22/2024 Progress Notes Patient: PABLO HERNANDEZ Provider: Papito Casanova MD :1975 A ge:49 Y S ex:Female Date:10/22/2024 Address:[address] [place] [address], [phone] Subjective: * Chief Complaints: * D epressionArthritis base of right thumbDyspareunia from ovarian cystWorsening neck pain, rightSkin lesion right breastCervical adenopathy * HPI: C OVID-19 Screening: S he returns for management of several worsening complaints. She has been told by PHARMACY STUDENT that she is on ovarian cysts. She [...] arranged. She recently had an ultrasound at [facility] to evaluate right lower quadrant pain. She has decided she does not wish to have any further injections in the base of her right thumb as a or mostly ineffective.A search of imaging in Epic at [facility] showed an ultrasound of the pelvis with transvaginal views March 10, 2024 that showed a 3.5 cm fibroid but no adnexal masses. At her request a second opinion or PHARMACY STUDENT was arranged. Questions H ave you had [...] masses . She has requested a second PHARMACY STUDENT opinion and we are arranging this. 9 . I nfection of breast, right - N61.0 N otes :This appears to be a simple skin infection and will be observed. Plan: * Treatment: 2. O thers [facility] Reason:painful ovarian cyst [...] 0 10/22/2024 Generated for Printi ng/Famarig/eTransmitting on: 1 11:09 AM EDT History and Physical Notes * [...] Provider Referred Provider Not silvestre 10/22/2024 Edilberto [facility], [facility] painful ovarian cyst second opinion 10/22/2024 Ross Casanova [facility] treatm ent, Center osteoarthritis right thumb
--- OUTSIDE RECORDS SUMMARY | 2024-11-02 06:53 | XMS_ITS ---
Author Organization Ross Casanova III, MD Address [address] [place] [address] [place] [address] Care Team Providers Care Kai Whakaruruhau Name Role Phone Dr. Ross Casanova III Primary Care Provider REASON FOR VISIT UTI Symptoms Social History Sex Assigned At : Social History Observation Description Sex Assigned At Female Encounters Encounter Location Date Provider Diagnosis Ross Casanova III, MD [address] [place] [address] [place] [address] 11/02/2024 Ross Casanova Plan Of Treatment Next Appt Details Provider Name:Ross Casanova , 03/06/2025 04:00:00 PM, [address] [place] [address] [place], [address], Progress Notes * PABLO BARRERADOB: 4 (49 yo F)Acc No.[id number]:11/02/2024 Patient: PABLO HERNANDEZ :1975 A ge:49 Y S ex:Female Address:[address] [place] [address], [phone] * true * Date: Generated for Bevi brendon/Aissatou/eTransmitting on: 11:08 AM EDT
--- OUTSIDE RECORDS SUMMARY | 2024-11-02 07:02 | XMS_ITS ---
Author Organization Ross Casanova III, MD Address [address] [place] [address] [place] [address] Care Team Providers Care Crime Victim Specialist Name Role Phone Dr. Ross Casanova III Primary Care Provider [phone] Medications Medication SIG (Take, Route, Frequency, Duration) Notes Start Date End Date Status Sulfamethoxazole-Trimetho prim 800-160 MG 1 tablet Orally twice a day for 7 days 11/02/2024 11/09/2024 Active Social History Sex Assigned At : Social History Observation Description Sex Assigned At Female Encounters Encounter Location Date Provider Diagnosis Ross Casanova III, MD [address] [place] [address] [place] [address] 11/02/2024 Ross Casanova Plan Of Treatment Medication Medication Name Sig Start Date Stop Date Notes Sulfamethoxazole-Trimethopri m 800-160 MG 1 tablet Orally twice a day for 7 days 11/02/2024 11/09/2024 Next Appt Details Provider Name:Ross Casanova , 03/06/2025 04:00:00 PM, [address] [place] [address] [place], [address], Progress Notes * PABLO BARRERAMT: 4 (49 yo F)Acc No.[id number]:11/02/2024 Patient: PABLO HERNANDEZ :1975 A ge:49 Y S ex:Female Address:[address] [place] [address], [address] * Refills Start Sulfamethoxazole-Trimethoprim Tablet, 800-160 MG, Orally, 14 Tablet, 1 tablet, twice a day, 7 days, Refills=0 * true * Date: Generated for Ethan olivas/Aissatou/Aditya on: 1 11:09 AM EDT
--- OUTSIDE RECORDS SUMMARY | 2024-12-18 04:09 | XMS_ITS ---
Author Organization Ross Casanova III, MD Address [address] [place] [address] [place] [address] Care Team Providers Care Oriental Rug Repairer Name Role Phone Dr. Ross Casanova III Primary Care Provider [phone] REASON FOR VISIT New Refill Request Medications Medication SIG (Take, Route, Fr equency, Duration) Notes Start Date End Date Status Sertraline HCl 25 MG 1 tablet Orally Onc e a day for 30 days 08/18/2022 Active Social History Sex Assigned At : Social History Observation Description Sex Assigned At Female Encounters Encounter Location Date Provider Diagnosis Ross Casanova III, MD [address] [place] [address] [place] [address] 12/18/2024 Ross Casanova Cervical radiculopat hy M54.12 Assessments Encounter Date Diagnosis (ICD Code) Assessment Notes Treatment Notes Treatment Clinical Notes 12/18/2024 Cervical radiculopathy (ICD-10 - M54.12) There is muscle spasm in the posterior right neck and pain with range of motion although ranging is normal. She will use cyclobenzaprine heat massage and rest with follow-up. If necessary imaging will be done. Plan Of Treatment Medication Medication Name Sig Start Date Stop Date Notes Sertraline HCl 25 MG 1 tablet Orally Onc e a day for 30 days 08/18/2022 Next Appt Details Provider Name:Ross Casanova , 03/06/2025 04:00:00 PM, [address] [place] [address] [place], [address], Progress Notes * ZHOU BARRERA: 4 (49 yo F)Acc No.[id number]:12/18/2024 Patient: PABLO HERNANDEZ :1975 A ge:49 Y S ex:Female Address:[address] [place] [address], [address] * Refills Refill Sertraline HCl Tablet, 25 MG, Orally, 30, 1 tablet, Once a day, 30 days, Refills=5 * true * Date: Generated for Ethan olivas/Aissatou/Yadismitting on: 1 11:09 AM EDT
--- OUTSIDE RECORDS SUMMARY | 2024-12-24 12:00 | XMS_ITS ---
Author Organization Ross Casanova III, MD Address [address] [place] [address] [place] [address] Care Team Providers Care Nuclear Operations Specialist Name Role Phone Dr. Ross Casanova III Primary Care Provider [phone] Allergies Allergen (clinical drug ingredient) Drug/Non Drug Allergy documented on EMR Reaction Allergy Type Onset Date Status Shellfish (FN) Shellfish-derived Products Unknown Drug Allergy Active REASON FOR VISIT Bilateral foot pain, Depression, Right hand pain, Cerviccal radiculopathy, Loss of balance Medications Medication SIG (Take, Route, Frequency, Duration) Notes Start Date End Date Status EpiPen 0.3 MG/0.3ML as directed Injectio n Use as needed for allergic reaction 02/24/2022 Active Pantoprazole Sodium 20 MG 1 tablet 1/2 t o 1 hour before morning meal Orally Once a day Active Eletriptan Hydrobromide 40 MG 1 tablet Orally Once a day for migraine As needed Active Naproxen Sodium 220 MG 1 tablet with jaleesa d or milk if needed Orally every 12 hrs Active Sertraline HCl 25 MG 1 tablet Orally Onc e a day 08/18/2022 Active Social History Tobacco Use: Social History [...] Problem Status W/U Status Risk Notes Problem Primary osteoarthritis of both knees (M17.0) Active confirmed Vital Signs Temperature 97.8 degrees Fahrenheit 12/25/19 25 Blood pressure systolic 139 mm Hg 12/25/19 25 Blood pressure diastolic 78 mm Hg 025 Heart Rate 64 /min 12/24/2024 Height 60 in 12/24/2024 Weight 121 lbs 12/24/2024 BMI 23.63 kg/m2 12/24/2024 Encounters Encounter Location Date Provider Diagnosis Ross Casanova III, MD [address] [place] [address] [place] [address] 12/24/2024 Ross Casanova Cervical radiculopat hy M54.12 ; Depression, unspecified depression type F32.9 ; Esophageal dysmotility K22.4 ; Hiatal hernia K44.9 ; Migraine with aura and without status migrainosus, not intractable G43.109 ; Primary osteoarthritis of both knees M17.0 and Unilateral primary osteoarthritis of first carpometacarpal joint, right hand M18.11 Assessments Encounter Date Diagnosis (ICD Code) Assessment Notes T reatment Notes Treatment Clinical Notes 12/24/2024 Cervical radiculopathy (ICD-10 - M54.12) There is muscle spasm in the posterior right neck and pain with range of motion although ranging is normal. She will use cyclobenzaprine heat massage and rest with follow-up. If necessary imaging will be done. 12/24/2024 Depression, unspecified depression type (ICD-10 - F32.9) Her depression seems very mild at this time and does not bother her much at all. She reports completing all of the activities of daily living on a regular basis. 12/24/2024 Esophageal dysmotility (ICD-10 - K22.4) A barium swallow will be done in the near future, and she will be seen back after that to discuss results. 12/24/2024 Hiatal hernia (ICD-1 0 - K44.9) This is a finding on upper GI series done recently and is asymptomatic. 12/24/2024 Migraine with aura and without status migrainosus, not intractable (ICD-10 - G43.109) I have prescribed a new medication, eletriptan. The risks and benefits were explained and the way to take it was carefully delineated. She gave informed consent for prescribing in taking the medication. 12/24/2024 Primary osteoarthritis of both knees (ICD-10 - M17.0) 12/24/2024 Unilateral primary osteoarthritis of first carpometacarpal joint, right hand (ICD-10 - M18.11) Plan Of Treatment Medication Medication Name Sig Start Date Stop Date Notes EpiPen 0.3 MG/0.3ML as directed Injectio n Use as needed for allergic reaction 02/24/2022 Pantoprazole Sodium 20 MG 1 tablet 1/2 t o 1 hour before morning meal Orally Once a day Eletriptan Hydrobromide 40 MG 1 tablet O rally Once a day for migraine Naproxen Sodium 220 MG 1 tablet with jaleesa d or milk if needed Orally every 12 hrs Sertraline HCl 25 MG 1 tablet Orally Once a day 08/18/2022 Next Appt Details Follow Up: As Scheduled, Heather son: Annual Exam Provider Name:Ross Casanova , 03/06/2025 04:00:00 PM, [address] [place] [address], [address], [phone], Progress Notes * PABLO BARRERADOB: 4 (50 yo F)Acc No.[id number]:12/24/2024 Progress Notes Patient: PABLO HERNANDEZ Provider: Papito Casanova MD :1975 A ge:49 Y S ex:Female Date:12/24/2024 Address:[address] [place], [place] [phone] Subjective: * Chief Complaints: * B ilateral foot painDepressionRight hand painCerviccal radiculopathyLoss of balance * HPI: C OVID-19 Screening: S he returns to the office for surveillance of her chronic pain and management of her arthritis. She is seeing the orthopedic service. She has had injections into her feet with some relief of pain. She continues to have pain in her neck when she turns her head. She has pain in her feet and pain in her hands. She has not had the abdominal pain. Her examination today was unremarkable. Her treatment was continued. Questions H ave you had any new onset fever, chills, cough, congestion, sore throat, shortness of breath, muscle aches? N o * ROS: G eneral/Constitutional: pain N sissy low back hands and feet. C hills d enies. F atigue a [...] Muscle aches d enies. P ainful joints S pine hands and feet. S ciatica d enies. W eakness d enies. S kin: Itching d enies. R eufemia d enies. S kin lesion(s)?denies. N eurologic: Difficulty speaking d enies. D izziness d enies.?Headache d enies. L ow back pain d enies. P sychiatric: Depressed mood w hich is moderate. * Medical History: * Surgical History: R [...] Injection Use as needed for allergic reaction Eletriptan Hydrobromide 40 MG Tablet 1 tablet Orally Once a day for migraine As neededNaproxen Sodium 220 MG Tablet 1 tablet with food or milk if needed Orally every 12 hrs Sertraline HCl 25 MG Tablet 1 tablet Orally Once a day Medication List reviewed and reconciled with the patientTaking Pantoprazole Sodium 20 MG Tablet Delayed Release 1 tablet 1/2 to 1 hour before morning meal Orally Once a day Taking EpiPen 0.3 MG/0.3ML Solution Auto-injector as directed Injection Use as needed for allergic reaction Taking Eletriptan Hydrobromide 40 MG Tablet 1 tablet Orally Once a day for migraine As neededTaking Naproxen Sodium 220 MG Tablet 1 tablet with food or milk if needed Orally every 12 hrs Taking Sertraline HCl 25 MG Tablet 1 tablet Orally Once a day Medication List reviewed and reconciled with the patient * Allergies: S hellfish-derived Productsno[Allergies Verified] Objective: * Vitals: H t: 60, Wt: 121, BMI:23.63, BP: 139/78, HR: 64, Temp: 97.8, Wt-k.88. * Examination: G eneral Examination: GENERAL APPEARANCE: p yessica, well nourished, well developed, in no acute distress, calm and relaxed: woman. HEAD: a traumatic, normocephalic. EYES: e [...] or edema, Decreased range of motion of the neck, normal appearance to feet, pain to range of motion of the thumbs. PERIPHERAL PULSES: n ormal. NEUROLOGIC: a lert and oriented, cranial nerves 2-12 grossly intact, deep tendon reflexes 2+ symmetrical, motor strength normal upper and lower extremities, sensory exam intact. PSYCH: a lert, oriented: mood depressed. ? Assessment: * Assessment: 1. C ervical radiculopathy - M54.12 (Primary) N otes :There is muscle spasm in the posterior right neck and pain with range of motion although ranging is normal. She will use cyclobenzaprine heat massage and rest with follow-up. If necessary imaging will be done. 2 . D epression, unspecified depression type - F32.9 N otes :Her depression seems very mild at this time and does not bother her much at all. She reports completing all of the activities of daily living on a regular basis. 3 . E sophageal dysmotility - K22.4 N otes :A barium swallow will be done in the near future, and she will be seen back after that to discuss results. 4 . H iatal hernia - K44.9 N otes :This is a finding on upper GI series done recently and is asymptomatic. 5 . M igraine with aura and without status migrainosus, not intractable - G43.109 N otes :I have prescribed a new medication, eletriptan. The risks and benefits were explained and the way to take it was carefully delineated. She gave informed consent for prescribing in taking the medication. 6 . P rimary osteoarthritis of both knees - M17.0 7 . U nilateral primary osteoarthritis of first carpometacarpal joint, right hand - M18.11 Plan: * Treatment: * Procedure Codes: * Preventive Medicine: Counseling: S moking/Tobacco Use Patient counseled on the dangers of tobacco use and urged to quit. 0 12/25/2024 * Follow Up: A s Scheduled (Reason: Annual Exam) * Images: * Sign off status: Completed true * Provider: Papito Casanova MD Date: 0 12/24/2024 Generated for Bevi brendon/Aissatou/eTransmitting on: 1 11:09 AM EDT History and Physical Notes * HPI (History of Present Illness) Category Sub-Category Detail Notes COVID-19 Screening Questions Have you had any new onset fever, chills, cough, congestion, sore throat, shortness of breath, muscle aches?: No Examination Category Sub-Category Detail Notes General Examination GENERAL APPEARANCE: pleasant , well nourished, well developed, in no acute distress, calm and relaxed: woman HEAD: atraumatic, normocep halic EYES: eomi, [...] or edema, Decreased range of motion of the neck, normal appearance to feet, pain to range of motion of the thumbs LYMPH NODES: no enlarged lymph no linnea,spleen normal RECTAL EXAM: not examined PSYCH: alert, oriented: moo d depressed ORAL CAVITY: normal, unremarkable
--- NOTE | ~2025-02-07 | US_ITS ---
CLINICAL HISTORY: R10.2 - Pelvic and perineal pain US pelvis transabdominal and transvaginal with Doppler Comparison: None provided Findings: Transabdominal scanning performed for overall anatomy. Transvaginal scanning performed for additional detail. Anteverted uterus is 8.9 cm length. There are 2 myometrial leiomyomata measuring 3.1 x 2.8 x 2.5 cm and 0.9 x 0.7 x 0.7 cm. Endometrium 6 mm thickness. There is a questionable endometrial lesion. Right ovary 2.5 x 1.3 x 2.4 cm. Left ovary 3.3 x 1.9 x 2.4 cm. Normal color Doppler with arterial/venous spectral tracing of both ovaries. There is an avascular heterogeneous left ovarian 1.9 x 1.7 x 1.2 cm cyst with internal echoes and possible septations. No free fluid. IMPRESSION: 1. Questionable endometrial lesion. Appropriate further evaluation possibly with sonohysterography, MRI, or direct visualization, recommended. 2. Left ovarian cystic mass. Appropriate further evaluation likely in consultation with gynecology recommended 3. Uterine myometrial leiomyomata. This document has been electronically signed by: Trav Carlson MD on 02/08/2025 09:32:20
--- OUTSIDE RECORDS SUMMARY | 2025-02-07 11:09 | XMS_ITS | Clinical Summary ---
Author Organization [facility] Address [address] [place] [address] Care Team Providers Care Shrimp Peeler Name Role Phone Ross Casanova MD Primary Care Provider [phone] Allergies Active Allergy Reactions Criticality Noted Date [...] age to complete this topic Care Teams Shrimp Peeler Relationship Specialty Start Date End Date Ross Casanova MD [address] [place] [phone] PCP - General Oncology 12/20/19
--- OUTSIDE RECORDS SUMMARY | 2025-02-07 11:09 | XMS_ITS | Patient Health Record ---
Author Organization Ross Casanova III, MD Address [address] [place] [address] [address] [place] [address] Care Team Providers Care Atomic Physics Teacher Name Role Phone Dr. Ross Casanova III Primary Care Provider Allergies Allergen (clinical drug ingredient) Drug/Non Drug Allergy documented on EMR Reaction Allergy Type Onset Date Status Shellfish (FN) Shellfish-derived Products Unknown Drug Allergy Active Results Component Value Reference Range Notes URINE DIP STICK Reviewed date:03/05/2024 04:06:04 PM Interpretation: Performing Lab: Notes/Report: SG 1.010 1.005 - 1.025 pH 7.0 5.0 - 9.0 DXA Negative Negative - NIT Negative Negative - PRO 15 Negative - Trace GLU Negative Negative - KET 5 Negative - UBG 0.2 0.1 - 1.8 GLENN Negative 0.2 - 1.3 BLD Negative Negative - US extremity nonvascular Reviewed date:11/09/2024 07:25:59 PM Interpretation: Performing Lab: Notes/Report: [address] [address] Ultrasound Report Signed Patient: Marquita Alexander MR#: [id number] 42 : 1975 Acct:[id number] Age/Sex: 49 / F ADM Date: 08/01/24 Loc: HO.US Attending Dr: Ross Casanova MD Ordering Physician: Ross Casanova MD Date of Service: 08/01/24 Procedure(s): US extremity nonvascular Accession Number(s): [id number] cc: Ross Casanova MD CLINICAL HISTORY: SYNOVIAL [...] 08/02/24 1150 DD/ 1149 TD/TT: 08/02/24 1149 Past Due Accounts Clerk: [place] [address] Ultrasound Report Signed Patient: Jannet Alexander MR#: [id number] 41 : 1975 Acct:[id number] Age/Sex: 49 / F ADM Date: 08/01/24 Loc: HO.US Attending Dr: Ross Casanova MD Ordering Physician: Ross Casanova MD Date of Service: 08/01/24 Procedure(s): US ext remity nonvascular Accession Number(s): [id number] cc: Ross Casanova MD CLINICAL HISTORY: SY [...] 08/02/24 1150 DD/ 1149 TD/TT: 08/02/24 1149 Past Due Accounts Clerk: Reason For Referral Reason Evaluate and Treat pain left knee Diagnosis 1 Synovial cyst of pop liteal space [[place]], left knee (M71.22) Referral Organization Ross Casanova III, MD Referring Provider First Name Ross Referring Provider Last Name Edilberto Referring Provider Speciality Internal edicine Referred Provider [facility], Orthopedic Surgeons Referred Provider Specialty Orthopedic [facility] General Notes Angela Camacho 07/23/2024 11:35:14 AM [...] Referral was sent to Conchita La at [facility], Angela Camacho 09/20/2024 03:00:06 PM > referral was put in to Dr. Conchita La system pending scheduling Referral Priority Routine Referral Appointment Date 12/05/2024 Reason painful ovarian cyst second opinion Diagnosis 1 Cyst of ovary, unspe cified laterality (N83.209) Referral Organization Ross Casanova III, MD Referring Provider First Name Ross Referring Provider Last Name Edilberto Referring Provider Speciality Internal edicine Referred Organization [facility] nt Referred Provider [facility], OUTCOME ANALYST [facility] Midwifery Referred Address [address] [place] [address],[place], [id number], Referred Provider Specialty OB - Gynecol ogy General Notes Melissa Yan [facility] 10/24 09:48:59 AM >ref/demo/progress note and prior ultrasound done at [facility] faxed to [facility], OmidRobert ALLEN 12/19/2024 11:04:16 AM >Pt called asking about this referral. She did not received a call from [facility]. I advice Pt to call OBGYN and schedule., Melissa Yan [facility] 12/27/2024 02:18:13 PM > I called [facility] [phone] spoke to Allison she stated they did not receive referral. Ref refaxed to [phone] ATTN: Dr Jones Referral Priority Routine Reason [...] Problem Status W/U Status Risk Notes Problem 0597132 Former smoker (Z87.891) Active confirmed She is no longe r smoking and has been abstinent for a month. We made a plan to prevent relapse in times of stress and illness. Problem 38130589 Unilateral primary osteoarthritis of first carpometacarpal joint, right hand (M18.11) Active confirmed Problem Family history of malignant neoplasm of gastrointestinal tract (667417427) Family history of malignant neoplasm of digestive organs (Z80.0) Active confirmed She gives a history that 2 cousins have cancer of the stomach. 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 This was done through a company called [employer] and was called in an [employer] hereditary cancer test. The results states negative, no known pathogenic or likely pathogenic variants were detected. 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 Problem Gastroesophageal reflux disease (408009066) Gastroesophagea l reflux disease, esophagitis presence not specified (K21.9) Active confirmed Her reflux symptoms are well controlled with her current medical regimen. No change was made. She was advised to refrain from eating before sleep Problem 60514262 Cervical radiculopathy (M54.12) Active confirmed There is muscle spasm in the posterior right neck and pain with range of motion although ranging is normal. She will use cyclobenzaprine heat massage and rest with follow-up. If necessary imaging will be done. Problem 51384022 Hiatal hernia (K44.9) Active confirmed This is a finding on upper GI series done recently and is asymptomatic. Problem 703260769 Esophageal dysmotility (K22.4) Active confirmed A barium swallo w will be done in the near future, and she will be seen back after that to discuss results. Problem 684728832 Primary osteoarthritis of both knees (M17.0) Active confirmed Problem 24571873 Depression, unspecified depression type (F32.9) Active confirmed Her depression seems very mild at this time and does not bother her much at all. She reports completing all of the activities of daily living on a regular basis. Problem 47100103 Dysphagia, unspecified type (R13.10) Active confirmed The upper GI showed a normal esophagus that herniation of the upper pole of the stomach which may be the cause of her sensations. She was reassured. Problem 25172421 Pelvic pain (R10.2) Active confirmed She complained of pelvic pain with intercourrse recently. She said she had been told she had an ovarian cyst. This is not mentioned on an ultrasound of the pelvis with transvaginal views done in March 2024. That report stated no adnexal masses . She has requested a second CEMENT FINISHER HELPER opinion and we are arranging this. Problem Amenorrhea (13077936) Amenorrhea (N91.2) Active confirmed She has had no further midcycle bleeding. Problem 403080654 GERD with esophagitis (K21.0) Active confirmed This has been controlled with medications. Problem 3889684 Migraine with aura and without status migrainosus, not intractable (G43.109) Active confirmed I have prescribed a new medication, eletriptan. The risks and benefits were explained and the way to take it was carefully delineated. She gave informed consent for prescribing in taking the medication. Problem Carpal tunnel syndrome (57858670) Carpal tunnel syndrome on both sides (G56.03) Active confirmed She has occasional discomfort in her hands but it is very mild and she does not wish treatment for it. Problem Gastroesophageal reflux disease with esophagitis (disorder) (392539548) Gastroesophagea l reflux disease with esophagitis, unspecified whether hemorrhage (K21.00) Active confirmed This is an occasional symptom well controlled with antacids. 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 Heterozygous mutation. We are waiting for an appointment with genetic counseling in gastroenterology in medical oncology. Problem 663215696 Infection of breast, right (N61.0) Active confirmed [...] Provider Diagnosis Ross Casanova III, MD [address] [place] [address] [place] [address] 03/05/2024 Ross Casanova Carpal tunnel syndro me on both sides G56.03 ; Cervical radiculopathy M54.12 ; Gastroesophageal reflux disease with esophagitis, unspecified whether hemorrhage K21.00 ; Depression, unspecified depression type F32.9 and Hiatal hernia K44.9 Ross Casanova III, MD [address] [place] [address] [place] [address] 06/05/2024 Ross Casanova Gastroesophageal ref lux disease, esophagitis presence not specified K21.9 ; Cervical radiculopathy M54.12 ; Depression, unspecified depression type F32.9 ; Esophageal dysmotility K22.4 ; Migraine with aura and without status migrainosus, not intractable G43.109 ; Low back pain M54.5 and Former smoker Z87.891 Ross Casanova III, MD [address] [place] [address] [place] [address] 07/18/2024 Ross Casanova Gastroesophageal ref lux disease, esophagitis presence not specified K21.9 ; Cervical radiculopathy M54.12 ; Depression, unspecified depression type F32.9 ; Synovial cyst of popliteal space [[place]], left knee M71.22 ; Esophageal dysmotility K22.4 ; Hiatal hernia K44.9 ; Migraine with aura and without status migrainosus, not intractable G43.109 and Former smoker Z87.891 Ross Casanova III, MD [address] [place] [address] [place] [address] 08/31/2024 Ross Casanova Cervical radiculopat hy M54.12 ; Migraine with aura and without status migrainosus, not intractable G43.109 ; Gastroesophageal reflux disease with esophagitis, unspecified whether hemorrhage K21.00 ; Hiatal hernia K44.9 ; Esophageal dysmotility K22.4 and Tobacco dependence F17.200 Ross Casanova III, MD [address] [place] [address] [place] [address] 10/22/2024 Ross Casanova Cervical radiculopat hy M54.12 ; GERD with esophagitis K21.0 ; Depression, unspecified depression type F32.9 ; Esophageal dysmotility K22.4 ; Hiatal hernia K44.9 ; Migraine with aura and without status migrainosus, not intractable G43.109 ; Former smoker Z87.891 ; Pelvic pain R10.2 and Infection of breast, right N61.0 Ross Casanova III, MD [address] [place] [address] [place] [address] 12/24/2024 Ross Casanova Cervical radiculopat hy M54.12 ; Depression, unspecified depression type F32.9 ; Esophageal dysmotility K22.4 ; Hiatal hernia K44.9 ; Migraine with aura and without status migrainosus, not intractable G43.109 ; Primary osteoarthritis of both knees M17.0 and Unilateral primary osteoarthritis of first carpometacarpal joint, right hand M18.11 Ross Casanova III, MD [address] [place] [address] [place] [address] 05/10/2024 Ross Casanova Chronic cough R05.3 and Chest discomfort R07.89 Ross Casanova III, MD [address] [place] [address] [place] [address] 08/17/2024 Ross Casanova III, MD [address] [place] [address] [place] [address] 11/02/2024 Ross Casanova III, MD [address] [place] [address] [place] [address] 11/02/2024 Ross Casanova III, MD [address] [place] [address] [place] [address] 12/18/2024 Ross Casanova Cervical radiculopat hy M54.12 [...] K21.0) This has been controlled with medications. 12/24/2024 Cervical radiculopat hy (ICD-10 - M54.12) [...] daily living on a regular basis. 05/10/2024 Chronic cough (ICD-1 0 - R05.3) 12/18/2024 Cervical radiculopat hy (ICD-10 - M54.12) There is muscle spasm in the posterior right neck and pain with range of motion although ranging is normal. She will use cyclobenzaprine heat massage and rest with follow-up. If necessary imaging will be done. 03/05/2024 Gastroesophageal reflux disease with esophagitis, unspecified [...] living on a regular basis. 12/24/2024 Esophageal dysmotili ty (ICD-10 - K22.4) A barium swallow will be done in the near future, and she will be seen back after that to discuss results. 05/10/2024 Chest discomfort (ICD-10 - R07.89) 03/05/2024 [...] series done recently and is asymptomatic. 03/05/2024 Hiatal hernia (ICD-1 0 - K44.9) [...] and is asymptomatic. 12/24/2024 Migraine with aura a nd without [...] prescribing in taking the medication. 12/24/2024 Primary osteoarthrit is of both knees (ICD-10 - M17.0) 06/05/2024 Former smoker (ICD-1 0 - Z87.891) [...] relapse in times of stress and illness. 12/24/2024 Unilateral primary osteoarthritis of first carpometacarpal joint, right hand (ICD-10 - M18.11) 07/18/2024 Former smoker (ICD-1 0 - Z87.891) [...] masses . She has requested a second CEMENT FINISHER HELPER opinion and we are arranging this. 10/22/2024 [...] Name:Ross Casanova , 03/06/2025 04:00:00 PM, [address] [facility] [address], [place], [address], Insurance Providers Payer Name Payer Address Payer Phone Subscriber Number Group Number Insured Name Patient Relationship to Insured Coverage Start Date Coverage End Date [facility] [address] [place], [place] [phone] [id number] PPO MARQUITA ALEXANDER Self - patient is the insured [place] [address] [place], [place] [id number] [phone] [id number] MARQUITA ALEXANDER Self - patient is the [...]
--- OUTSIDE RECORDS SUMMARY | 2025-02-07 11:09 | XMS_ITS | Clinical Summary ---
Author Organization [facility] Address [address] [place] [address] Phone Care Team Providers Care Radio Recorder Name Role Phone Darius Casanova MD Primary Care Provider [phone] Allergies Active Allergy Reactions Criticality Noted Date [...] exam was performed in conjunction with a slab off mill tender from [employer], Nic #[id number]. Ms. Alexander was seen here 2 years [...] Review of the cervical spine MRI from [place] dated 09/30/2021 shows a 1 mm anterolisthesis [...] 04/18/2018 PAP LSIL Plan : [facility] for Colpo 2020 PAP Neg cytology, neg hpv Chronic, continuous use of opioids 04/19/2018 PTSD (post-traumatic stress disorder) 04/19/2018 Encounters Date Type Department Care Team Description 01/21/2025 3:00 PM EDT Office Visit Orthopedic Surgery [place] [phone] [phone] Anoop La DPM Bunion of right foot (Primary Dx); Hallux rigidus of right foot; Hallux rigidus of left foot; Metatarsalgia of both feet; Follow-up exam 12/05/2024 9:30 AM EDT Consult Orthopedic Surgery [facility] [address] [phone] Anoop La DPM Hallux rigidus of right foot (Primary Dx); Bunion of right foot; Hallux rigidus of left foot; Metatarsalgia of both feet from Last 3 Months Surgical History Surgery Date Site/Laterality Comments TUBAL LIGATION PROCEDURE: HISTORICAL TUBAL LIGATION OTHER SURGICAL HISTORY PROCEDURE: [place] NEPHROLITHOTOMY COMP CGEN KDN ABNORMALITY CARPAL TUNNEL RELEASE PROCEDURE: [place] NEUROPLASTY &/TRANSPOS MEDIAN NRV CARPAL TUNNE; COMMENT: right hand OTHER SURGICAL HISTORY 09/10/2020 Left PROCEDURE: [place] STAB PHLEBT VARICOSE VEINS 1 XTR 10-20 STAB INCS BELT ABDOMINOPLASTY 04/2022 PROCEDURE: HISTORICAL TUMMY TUCK; COMMENT: in [place]- Dr. Schmidt/ Thu Medical History Medical History [...] PM EST Office Visit Orthopedic Surgery - [place] [address] [phone] Anoop La, DPM [address] [phone] Health Maintenance Due Date Last Done Comments Colorectal Cancer Screening: Colonoscopy 1975 DTaP,Tdap,and Td Vaccines (1 - Tdap) 1993 Hepatitis A Vaccines (1 of 2 - Risk 2-dose series) 1993 HIV Screening 04/17/2022 Hepatitis C Screening 04/17/2022 [...] Osteoporosis Screening (Bone Density Screening) 04/23/2034 04/23/2024 RSV Immunization Adult Patients (1 - 1-dose 75+ series) 2049 Hepatitis B Vaccines Completed 03/10/2009, 10/18/2008, 09/17/2008 [...] mg/dL LAB CHEMISTRY METHOD 01/16/2025 3:02 PM [facility] Triglycerides 97 0 - 150 mg/dL LAB CHEMISTRY METHOD 01/16/2025 3:02 PM [facility] HDL 69 >=40 mg/dL LAB CHEMISTRY METHOD 01/16/2025 3:02 PM [facility] LDL Calculated 112(H) 0 - 100 mg/dL LAB CHEMISTRY METHOD 01/16/2025 3:02 PM [facility] Comment:Estimated LDL Calcul ated using equation: Total cholesterol - HDL cholesterol - (Triglycerides/5) VLDL Cholesterol Bowen 19.4 mg/dL LAB CHEMISTRY METHOD 01/16/2025 3:02 PM [facility] Non HDL Chol. (LDL+VLDL) 131 <145 mg/dL LAB CHEMISTRY METHOD 01/16/2025 3:02 PM [facility] Chol/HDL Ratio 2.9 0.0 - 4.4 LAB CHEMISTRY METHOD 01/16/2025 3:02 PM [facility] Blood Venous blood specimen / Unknown Venipuncture / Unknown 01/16/2025 11:16 AM EDT 01/16/2025 11:16 AM EDT us Darius Casanova MD LAB BLOOD ORDERABLES Final Res ult [facility] [address] [place] [address], [place] [phone] * (ABNORMAL) CBC auto differential (01/16/2025 11:16 AM EDT) WBC 8.7 4.8 - 10.8 K/mcL LAB HEMETOLOGY METHOD 01/16/2025 2:20 PM EDT [facility] RBC 4.50 3.80 - 4.80 M/mcL LAB HEMETOLOGY METHOD 01/16/2025 2:20 PM EDT [facility] Hemoglobin 13.5 11.5 - 16.0 g/dL LAB HEMETOLOGY METHOD 01/16/2025 2:20 PM EDT [facility] Hematocrit 40.5 35.0 - 47.0 % LAB HEMETOLOGY METHOD 01/16/2025 2:20 PM EDT [facility] MCV 89.8 79.0 - 98.0 FL LAB HEMETOLOGY METHOD 01/16/2025 2:20 PM EDT [facility] MCH 29.9 27.0 - 32.0 pcg LAB HEMETOLOGY METHOD 01/16/2025 2:20 PM EDT [facility] MCHC 33.3 32.0 - 37.0 g/dL LAB HEMETOLOGY METHOD 01/16/2025 2:20 PM EDT [facility] RDW 13.1 11.0 - 15.0 % LAB HEMETOLOGY METHOD 01/16/2025 2:20 PM EDT [facility] Platelets 237 130 - 400 K/mcL LAB HEMETOLOGY METHOD 01/16/2025 2:20 PM EDT [facility] MPV 10.6 7.0 - 11.0 FL LAB HEMETOLOGY METHOD 01/16/2025 2:20 PM EDT [facility] NRBC 0.0 <1.0 % LAB HEMETOLOGY METHOD 01/16/2025 2:20 PM EDT [facility] NRBC Absolute 0.00 <0.10 K/mcL LAB HEMETOLOGY METHOD 01/16/2025 2:20 PM EDT [facility] Neutrophils Relative 63.5 % LAB HEMETOLOGY METHOD 01/16/2025 2:20 PM EDT [facility] Lymphocytes Relative 26.3 % LAB HEMETOLOGY METHOD 01/16/2025 2:20 PM EDT [facility] Monocytes Relative 8.2 % LAB [facility]EM[facility]OLOGY [facility] Eosinophils Relative 1.0 % LAB HEMETOLOGY METHOD [facility]/16[facility]2025 [facility] Basophils Relative 0.3 % LAB HEMETOLOGY METHOD 01/16/2025 2:20 PM EDT [facility] Immature Granulocytes Relative 0.7 % LAB HEMETOLOGY METHOD 01/16/2025 2:20 PM [facility] Neutrophils Absolute 5.49 1.50 - 7.00 K/mcL LAB HEMETOLOGY METHOD 01/16/2025 2:20 PM EDT [facility] Lymphocytes Absolute 2.28 1.00 - 5.00 K/mcL LAB HEMETOLOGY METHOD 01/16/2025 2:20 PM EDT [facility] Monocytes Absolute 0.71 0.20 - 1.00 K/mcL LAB HEMETOLOGY METHOD 01/16/2025 2:20 PM EDT [facility] Eosinophils Absolute 0.09 0.00 - 0.50 K/mcL LAB HEMETOLOGY METHOD 01/16/2025 2:20 PM EDT [facility] Basophils Absolute 0.03 0.00 - 0.20 K/mcL LAB HEMETOLOGY METHOD 01/16/2025 2:20 PM T [facility] Immature Granulocytes Absolute 0.06(H) 0.00 - 0.03 K/mcL LAB HEMETOLOGY METHOD 01/16/2025 2:20 PM [facility] Blood Venous blood specimen / Unknown Venipuncture / Unknown 01/16/2025 11:16 AM EDT 01/16/2025 11:16 AM EDT us Darius Casanova MD LAB BLOOD ORDERABLES Final Res ult [facility] [address] [place] [address], [place] [phone] * Comprehensive metabolic panel (01/16/2025 11:16 AM EDT) Sodium 139 133 - 145 mmol/L LAB CHEMISTRY METHOD 01/16/2025 3:02 PM [facility] Potassium 4.5 3.5 - 5.5 mmol/L LAB CHEMISTRY METHOD 01/16/2025 3:02 PM [facility] Chloride 108 96 - 110 mmol/L LAB CHEMISTRY METHOD 01/16/2025 3:02 PM [facility] CO2 28 21 - 32 mmol/L LAB CHEMISTRY METHOD 01/16/2025 3:02 PM [facility] Anion Gap 3 3 - 11 LAB CHEMISTRY METHOD 01/16/2025 3:02 PM [facility] Glucose 93 70 - 100 mg/dL LAB CHEMISTRY METHOD 01/16/2025 3:02 PM [facility] BUN 14 5 - 25 mg/dL LAB CHEMISTRY METHOD 01/16/2025 3:02 PM [facility] Creatinine 0.78 0.50 - 1.10 mg/dL LAB CHEMISTRY METHOD 01/16/2025 3:02 PM [facility] eGFR 93 >=60 mL/min/1. 73m2 LAB CHEMISTRY METHOD 01/16/2025 3:02 PM [facility] Comment:Calculation based on the Chronic Kidney Disease Epidemiology Collaboration (CKD-EPI) equation refit without adjustment for race. BUN/Creatinine Ratio 17.9 LAB CHEMISTRY METHOD 01/16/2025 3:02 PM [facility] Calcium 9.4 8.5 - 10.5 mg/dL LAB CHEMISTRY METHOD 01/16/2025 3:02 PM [facility] AST (SGOT) 16 10 - 42 unit/L LAB CHEMISTRY METHOD 01/16/2025 3:02 PM [facility] ALT (SGPT) 19 10 - 60 unit/L LAB CHEMISTRY METHOD 01/16/2025 3:02 PM [facility] Alkaline Phosphatase 66 42 - 121 unit/L LAB CHEMISTRY METHOD 01/16/2025 3:02 PM [facility] Total Protein 6.6 6.0 - 8.0 g/dL LAB CHEMISTRY METHOD 01/16/2025 3:02 PM [facility] Albumin 3.9 3.2 - 5.0 g/dL LAB CHEMISTRY METHOD 01/16/2025 3:02 PM [facility] Total Bilirubin 0.5 0.0 - 1.4 mg/dL LAB CHEMISTRY METHOD 01/16/2025 3:02 PM [facility] Blood Venous blood specimen / Unknown Venipuncture / Unknown 01/16/2025 11:16 AM EDT 01/16/2025 11:16 AM EDT us Darius Casanova MD LAB BLOOD ORDERABLES Final Res ult [facility] [address] [place] [address], * Injection tendon or ligament (12/05/2024 9:30 [...] 5:14 PM EST Normal bone mineral density. 30055 -------- FINAL REPORT -------- Dictated By: Katiuska Rodriguez Dictated Date: 04/23/2024 17:13 ET Assigned Physician: Katiuska Rodriguez Reviewed and Electronically Signed By: Katiuska Rodriguez Signed Date: 04/23/2024 17:14 ET Workstation ID: [id number] Transcribed By: Self Edit Transcribed Date: 04/23/2024 17:13 ET Narrative 04/23/2024 5:14 PM EST History: Low estrogen state due to menopause. Current smoker. Comparison: No comparison imaging at this institution. Findings: Bone densitometry is performed utilizing dual energy x-ray absorptiometry (DXA) in the [employer] unit. The lumbar spine and proximal [...] utilizing dual energy x-ray absorptiometry(DXA) in the [employer] unit. The lumbar spine and proximal femora [...] 0.0 percent. IMPRESSION: Normal bone mineral density. [id number] -------- FINAL REPORT -------- Dictated By: Katiuska Rodriguez Dictated Date: 04/23/2024 17:13 ET Assigned Physician: Katiuska Rodriguez Reviewed and Electronically Signed By: Katiuska Rodriguez Signed Date: 04/23/2024 17:14 ET Workstation ID: [id number] Transcribed By: Self Edit Transcribed Date: 04/23/2024 17:13 ET Sloane Perez CNM IM DXA PROCEDURES Final Result * DEE SCREENING DIGITAL (02/16/2024 1:58 PM EDT) Anatomical Region Laterality Modality Mammography 02/15/2024 10:2 9 AM EDT Narrative 02/16/2024 1:58 PM EDT [facility] Diagnostic Imaging Department [address] [place] [address] Patient: MARQUITA ALEXANDER /Age/Sex: 1975 - 49 - F Unit#: [id number] Location/Status: SPDIMAM/REG CLI Mnemonic/Ordering Site: [facility] Ordering Physician: DARIUS CASANOVA MD [facility] Screening Digital - 02/15/24 - 1622 Report Status:Signed EXAM: [facility] Screening Digital EXAM DATE AND TIME: 02/15/2024 4:22 PM HISTORY: Screening. Left breast biopsy in 2014, pathology benign. Aunt had breast carcinoma. COMPARISON: 09/20/22, 09/08/22, 12/30/20, 12/27/20, 09/09/16 TECHNIQUE: Bilateral digital breast tomosynthesis was performed in the CC and MLO projections. Computer aided detection with [employer]ient 3D 3.1 was employed. TISSUE DENSITY: b. [...] Mammogram performed at [facility] [place] [address] Dictating Physician: KATIUSKA RODRIGUEZ MD Electronically Signed by: KATIUSKA RODRIGUEZ MD Dic Date/Time: 02/16/24 1352 Sign date/Time: 02/16/24 1358 Procedure Note Katiuska Rodriguez MD - 03/06/2024 [facility] Diagnostic Imaging Department [address] [place] [id number] Patient: ALEXANDERMARQUITAO.B./Age/Sex: 1975 - 49 - F Unit#: [id number] [facility] Mnemonic/Ordering Site: [facility] Ordering Physician: DARIUS CASANOVA MD [facility] Screening Digital - 02/15/24 - 1622 Report Status:Signed EXAM: [facility] Screening Digital EXAM DATE AND TIME: 02/15/2024 4:22 PM HISTORY: Screening. Left breast biopsy in 2014, pathology benign. Aunthad breast carcinoma. COMPARISON: 09/20/22, 09/08/22, 12/30/20, 12/27/20, 09/09/16 TECHNIQUE: Bilateral digital breast tomosynthesis was performed in the CCand MLO projections. Computer aided detection with [employer]ient 3D 3.1was employed. TISSUE DENSITY: b. There [...] Mammogram performed at [facility] [place] [address] Dictating Physician: KATIUSKA RODRIGUEZ MD Electronically Signed by: KATIUSKA RODRIGUEZ MD Dic Date/Time: 02/16/24 1352 Sign date/Time: 02/16/24 1358 Darius Casanova MD IMG BI PROCEDURES Final Result * Cervical Cancer Screening: HPV (10/24/2020) Pathologist [facility] Cervical Cancer Screening: HPV negative, abstracted Historical Provider HEALTH MAINTENANCE Final Result from Last 3 Months or Most Recently Relevant to Health Maintenance Insurance [facility] Care Teams Radio Recorder Relationship Specialty Start Date End Date Darius Casanova MD [address] [address] PCP - General Oncology 12/20/19
== END 2025-02-07 09:57 | disposition home or self-care (01) ==
LOC: HO.US 09:56
PROVIDERS: Visit Provider Obstetrics & Gynecology
DX: R10.20 Pelvic and perineal pain unspecified side (principal)
CPT/HCPCS: 76830; 76856

== ENCOUNTER → 2025-02-07 09:58 | Outpatient (BNV) | payer BC, SELFPAY | PROVIDERS: Visit Provider Specialist | DX: N83.292 Other ovarian cyst, left side (principal); D25.1 Intramural leiomyoma of uterus | CPT/HCPCS: 76830; 76856 ==

== ENCOUNTER 2025-03-05 08:31 | Outpatient (REF) | payer BC, SELFPAY ==
[2025-03-05 10:51] LABS: Blood Urea Nitrogen 14 mg/dL (9-16); Estimated Glomerular Filt Rate > 60
--- OUTSIDE RECORDS SUMMARY | 2025-03-05 11:05 | XMS_ITS | Data Portability ---
Author Organization VIANCA [facility] [facility] [employer], [address] Address [address] [place] [address] Care Team Providers Care Paid Search Analyst Name Role Phone DARIUS MELENDREZ Primary Care Provider Assessment No assessment recorded. Plan of Treatment Reminders Order Date Submit Date Provider Last Modified By Organization Details Last Modified Time Details Appointments None recorded. Lab rapid SARS CoV 2 Ag, QL IA, respiratory specimen 2021 022 [facility], [address] [place] [address], [address], 11:54:05 Referral None recorded. Procedures None recorded. Surgeries None recorded. Imaging None recorded. Medication Orders None recorded. Patient TargetsNo targets recorded. Patient Instructions Encounter Date Encounter Id Patient Instructions Last Modified By Organization Details Last Modified Time 04/15/2022 [id number] things to do i f you've been exposed to covid-19 [email or web address] Not available 04/15/2022 11:57:29 COVID Rapid negative - should be ok for your surgery and planned procecdure. Don't hesitate to be seen again if you develop any shortness of breath, chest pain, or cold like symptoms. [email or web address] Not available 04/15/2022 11:54:04 Reason for Referral None Reported. Results Created Date Observation Date Name Description Value Unit Range Abnormal Flag Note LastModifiedBy Organization Detail LastModifiedTime 04/15/20 22 04/15/2022 rapid SARS CoV 2 Ag, QL IA, respi rator y speci men Unknown Analyte Normal =Negat monique Not Available [address] [facility] [place], [address], 04/15/2022 10:21:36 04/15/20 22 04/15/2022 rapid SARS CoV 2 Ag, QL IA, respi rator y speci men Unknown Analyte negati ve Not Available [address] [place], [address], 04/15/2022 10:21:36 Result Notes None recorded. Problems [...] Last Updated DateTime 152.4 cm 25.2 kg/m2 86461.4 2 g 96 % 96 % 68 /min 18 /min 97.8 [degF] 115/78 mm[Hg] Vernell Steele PA - [employer] 10:23:26 Social History Question Answer Notes LastModified by [employer] Details LastModified Time Tobacco Smoking Status Never Smoker Vernell thomas PA - [facility] 04/15/2022 10:21:26 Have You Had Direct Contact, Or Contact During Intimacy, With Monkeypox Rash, Scabs, Or Body Fluids From A Person With Monkeypox? No Information not available 04/15/2022 Have You Recently Traveled Abroad? No Information not available 04/15/2022 Sex: Unknown Functional Status Question Answer Note LastModified by [employer] Details LastModified Time Do you use any [...] 10:20:52 influenza, unspecified formulation 02/05/2022 completed Vernell Alma null, PA - [facility] 04/15/2022 10:21:07 Past Encounters Encounter ID Performer Location Encounter Start Date Encounter Closed Date Diagnosis/Indication Diagnosis SNOMED-CT Code Diagnosis ICD10 Code Diagnosis IMO Codes Diagnosis Note [id number] VIANCA MONTERO [address] [address] 04/15/2022 08:48:58 04/15/2022 11:56:47 Exposure to SARS-CoV-2 145510972 Z20.822 Rapid COVID Negative Health Concerns Section Related Observation LastModified by Organization Detai ls LastModified Time None Recorded Concern Status LastModified by Organization Details LastModified Time None Recorded Advance Directives Directive None Recorded Payers Insurance Date Sequence Insurance Name Policy Number Policy Sifuentes Covered Member ID Sifuentes Member ID Guarantor Name 08/05/2022 1 [place] Marquita Alexander [id number] Marquita Sotelo 08/05/2022 2 [place] Marquita Sotelo [id number] Marquita Soetlo Notes Date Note Type Note Provider Name and Address Organization Details Recorded Time 04/15/2022 text/html COVID-19 Exposur e UCReported by PatientUpper Respiratory SymptomsFor covid-19 signs and symptoms, patient reportsno cough,no fever,no shortness of breath,no chills,no muscle pain,no headache,no sore throat,loss of taste or smell resolved,no vomiting or diarrhea,no fatigue, andno anorexia.No symptoms - patient needs covid test prior to surgery since she had exposure at her work.. VIANCA MONTERO [facility] [place], [address], PA - [facility] 04/15/2022 11:57:55 OBGyn Episode No OBEpisode recorded.
[2025-03-05 11:22] LABS: Carcinoembryonic Antigen 4.00 ng/mL
[2025-03-06 10:18] LABS: CA-125 11 U/mL (<35)
== END 2025-03-05 08:32 | disposition home or self-care (01) ==
LOC: HO.LAB 08:31
PROVIDERS: PCP Internal Medicine Medical Oncology; Visit Provider Obstetrics & Gynecology
DX: N83.299 Other ovarian cyst, unspecified side (principal)
CPT/HCPCS: 36415; 81002; 82378; 82565; 84520; 86301; 86304

== ENCOUNTER 2025-03-05 08:31 | Outpatient (AMB) | payer BC, SELFPAY ==
--- OUTSIDE RECORDS SUMMARY | 2024-06-05 12:00 | XMS_ITS ---
Author Organization Ross Casanova III, MD Address [address] [place] [address] [place] [address] Care Team Providers Care Exchange Consultant Name Role Phone Dr. Ross Casanova III Primary Care Provider Allergies Allergen (clinical drug ingredient) Drug/Non Drug Allergy documented on EMR Reaction Allergy Type Onset Date Status Shellfish (FN) Shellfish-derived Products Unknown Drug Allergy Active REASON FOR VISIT [facility] ED on 05/11/2024 treated for chest pain, Cervical radiculopathy, Migraine, . Esophageal dysmotility, CDH1 heterozygosity Medications Medication SIG (Take, Route, Frequency, Duration) Notes Start Date End Date Status Sertraline HCl 25 MG 1 tablet Orally Once a day Active Naproxen Sodium 220 MG 1 tablet with jaleesa d or milk as needed Orally every 12 hrs 01/11/2023 Active EpiPen 0.3 MG/0.3ML as directed Injectio n Use as needed for allergic reaction 02/24/2022 Active Pantoprazole Sodium 20 MG 1 tablet 1/2 t o 1 hour before morning meal Orally Once a day for 30 days 06/05/2024 Active Social History Tobacco Use: Social History Observation Description Date Details (start date - stop date) Former Smoker NA - NA Sex Assigned At : Social History Observation Description Sex Assigned At Female Tobacco Use/Smoking Question Answer Notes Patient is a former smoker How long has it been since y ou last smoked? < 1 month Additional Findings: Tobacco User Light cigarett e smoker ((1-9 cigs/day) Tobacco Control (Standard) Question Answer Notes Tobacco use: Former smoker How long has it been since you last smoked? 6-12 months Additional Findings: Tobacco non-user Ex-cigaret te smoker Vital Signs Height 60 in 06/05/2024 Weight 124 lbs 06/05/2024 BMI 24.21 kg/m2 06/05/2024 Encounters Encounter Location Date Provider Diagnosis Ross Casanova III, MD [address] [place] [address] [address] [place], [place] [address] 06/05/2024 Ross Casanova Gastroesophageal ref lux disease, esophagitis presence not specified K21.9 ; Cervical radiculopathy M54.12 ; Depression, unspecified depression type F32.9 ; Esophageal dysmotility K22.4 ; Migraine with aura and without status migrainosus, not intractable G43.109 ; Low back pain M54.5 and Former smoker Z87.891 Assessments Encounter Date Diagnosis (ICD Code) Assessment Notes Treat ment Notes Treatment Clinical Notes 06/05/2024 Gastroesophageal reflux disease, esophagitis presence not specified (ICD-10 - K21.9) She will continue on the Pepcid. She will supplemented with liquid antacid. She will report in 2 weeks as to her progress with the reflux symptoms. 06/05/2024 Cervical radiculopat hy (ICD-10 - M54.12) Continues to have pain in her right neck and right shoulder with range of motion. SShe will continue with the rest ibuprofen. She is managed by pain management. 06/05/2024 Depression, unspecified depression type (ICD-10 - F32.9) Depression is mild and stable andd no change inn her regimen was necessary today. 06/05/2024 Esophageal dysmotili ty (ICD-10 - K22.4) A barium swallow will be done in the near future, and she will be seen back after that to discuss results. 06/05/2024 Migraine with aura a nd without status migrainosus, not intractable (ICD-10 - G43.109) I have prescribed a new medication, eletriptan. The risks and benefits were explained and the way to take it was carefully delineated. She gave informed consent for prescribing in taking the medication. 06/05/2024 Low back pain (ICD-1 0 - M54.5) The MRI shows compression of the nerve root. She will be referred back for injections. She will see a neurosurgeon to discuss surgical therapy. I have given her dexamethasone to see if this will ameliorate the pain from the nerve compression. 06/05/2024 Former smoker (ICD-1 0 - Z87.891) She is no longer smoking and has been abstinent for a month. We made a plan to prevent relapse in times of stress and illness. Plan Of Treatment Medication Medication Name Sig Start Date Stop Date Notes Sertraline HCl 25 MG 1 tablet Orally Once a day 08/18/2022 Naproxen Sodium 220 MG 1 tablet with jaleesa d or milk as needed Orally every 12 hrs 01/11/2023 EpiPen 0.3 MG/0.3ML as directed Injectio n Use as needed for allergic reaction 02/24/2022 Pantoprazole Sodium 20 MG 1 tablet 1/2 t o 1 hour before morning meal Orally Once a day for 30 days 06/05/2024 Next Appt Details Follow Up: 6 Weeks, Reason: OV Provider Name:Ross Casanova , 03/06/2025 04:00:[address], [address], Progress Notes * PABLO BARRERADOB: 4 (49 yo F)Acc No.[id number]:06/05/2024 Progress Notes Patient: PABLO HERNANDEZ Provider: Papito Casanova MD :1975 A ge:49 Y S ex:Female Date:06/05/2024 Address:[address] [place] [id number] Subjective: * Chief Complaints: * [facility] on 05/11/2024 treated for chest painCervical radiculopathyMigraine. Esophageal dysmotilityCDH1 heterozygosity * HPI: C OVID-19 Screening: She returns for a scheduled visit to manage her numerous medical issues. She recently was seen in the emergency room at [facility] because of chest and upper abdominal pain. An extensive evaluation was undertaken. It was determined that this was a manifestation of esophageal reflux. 2 troponins and EKG were unremarkable. The pain resolved with antacid therapy. Her omeprazole was discontinued as ineffective and she was instructed to use Pepcid. We decided she would continue to use Pepcid multiple times a day. If that is effective she may continue on it. If this isn't effective at controlling her heartburn and I will give her a trial of pantoprazole. Questions H ave you had any new onset fever, chills, cough, congestion, sore throat, shortness of breath, muscle aches? N o * ROS: G eneral/Constitutional: pain N sissy, left shoulder, epigastrium. C hills d enies. F atigue a dmits. F ever d enies. E NT: Decreased hearing d enies. R espiratory: Cough d enies. C ardiovascular: Chest pain with exertion d enies. D yspnea on exertion?denies. S hortness of breath d enies. G astrointestinal: Constipation o ccasional. D ecreased appetite d enies. D iarrhea d enies. H eartburn d enies. N ausea d enies. R ectal bleeding d enies. V omiting d enies. H ematology: bruising d enies. p etechiae d enies. S wollen glands n one have been noted. G enitourinary: Frequent urination d enies. M usculoskeletal: Muscle aches d enies. P ainful joints N sissy. S ciatica d enies. W eakness d enies. S kin: Itching d enies. R eufemia d enies. S kin lesion(s)?denies. N eurologic: Difficulty speaking d enies. D izziness d enies.?Headache d enies. L ow back pain d enies. P sychiatric: Depressed mood d enies. * Medical History: * Surgical History: R ight carpal tunnel release 10/2011Ureteroplasty age 1tubal ligation vein surgery left leg 09/18/20vein surgery left leg 09/19/20Panniculectomy ervical Medial Branch Nerve Stimulation Lead Placement- SPR System, Right C4 04/2023No history * Hospitalization/Major Diagno stic Procedure: b ladder surgery 1 years old No history * Family History: F ather: alive 74 yrs, Prostate cancer. M other: alive 62 yrs, Hypertension, depression.?Siblings: alive, no Hx of cancer. P aternal Grand Father: , mouth and throat cancer. Paternal Grand Mother: alive, Unknown. M aternal Grand Father: , stomach cancer.?Maternal Grand Mother: , Unknown. P aternal uncle: alive, no Hx of cancer. P aternal aunt: alive, No Hx of cancer. M aternal uncle: alive, No Hx of cancer. M aternal aunt: alive, 2 aunts from Breast Cancer. 2 other aunts had breast cancer.. 2 son(s) , 1 daughter(s) - healthy. . Her father has a history of prostate cancer. Her mother is hypertensive and has depression. 3 of her aunts have had breast cancer over the age of 50. 2 cousins passed from Ovarian Cancer. @ cousins passed from Stomach Cancer. Her children are healthy and well. She is now aware of any family history of mental illness or addiction or substance abuse. She herself has no history of mental illness or addiction or substance abuse. She does suffer from anxiety. * Social History: T obacco Use: T obacco Use/Smoking P atient is a f ormer smoker H ow long has it been since you last smoked??< 1 month A dditional Findings: Tobacco User L ight cigarette smoker ((1-9 cigs/day) Tobacco Control (Standard) T obacco use: F ormer smoker H ow long has it been since you last smoked??6-12 months A dditional Findings: Tobacco non-user E x-cigarette smoker S he is and lives with her and 3 children. She smokes cigarettes every day but does not drink alcohol or take illegal drugs. * Medications: T akingEpiPen 0.3 MG/0.3ML Solution Auto-injector as directed Injection Use as needed for allergic reaction Naproxen Sodium 220 MG Tablet 1 tablet with food or milk as needed Orally every 12 hrs Sertraline HCl 25 MG Tablet 1 tablet Orally Once a day Medication List reviewed and reconciled with the patientTaking EpiPen 0.3 MG/0.3ML Solution Auto-injector as directed Injection Use as needed for allergic reaction Taking Naproxen Sodium 220 MG Tablet 1 tablet with food or milk as needed Orally every 12 hrs Taking Sertraline HCl 25 MG Tablet 1 tablet Orally Once a day Medication List reviewed and reconciled with the patient * Allergies: S hellfish-derived Productsno[Allergies Verified] Objective: * Vitals: H t: 60, Wt: 124, BMI:24.21, Wt-k.25. * Examination: G eneral Examination: GENERAL APPEARANCE: p leasant, well nourished, well developed, in no acute distress, calm and relaxed, woman. HEAD: a traumatic, normocephalic. EYES: e smita, perrla, anicteric, conjugate. EARS: n ormal. NOSE: s eptum intact. ORAL CAVITY: n ormal, unremarkable. NECK/THYROID: n o jugular venous distention, no carotid bruit, thyroid normal, Range of motion improved and almost normal. LYMPH NODES: n o enlarged lymph nodes,spleen normal. SKIN: n o suspicious lesions, anicteric. HEART: n o clicks, gallops, murmurs, or rubs, regular rhythm, S1, S2 normal, no s3, or vascular bruits. LUNGS: c lear to auscultation . BREASTS: N ot examined. ABDOMEN: b owel sounds normal, no ascites, no organomegaly, no mass. RECTAL EXAM: n ot examined. MUSCULOSKELETAL: e xtremities unremarkable, no clubbing, cyanosis or edema, Range of motion left shoulder normal, compression of left chest wall normal, mild decreeased range of motion neck with mild pain. PERIPHERAL PULSES: n ormal. NEUROLOGIC: a lert and oriented, cranial nerves 2-12 grossly intact, deep tendon reflexes 2+ symmetrical, motor strength normal upper and lower extremities, sensory exam intact. PSYCH: a lert, oriented. Assessment: * Assessment: 1. G astroesophageal reflux disease, esophagitis presence not specified - K21.9 (Primary) ? N otes :She will continue on the Pepcid. She will supplemented with liquid antacid. She will report in 2 weeks as to her progress with the reflux symptoms. 2 . C ervical radiculopathy - M54.12 N otes :Continues to have pain in her right neck and right shoulder with range of motion. SShe will continue with the rest ibuprofen. She is managed by pain management. 3 . D epression, unspecified depression type - F32.9 N otes :Depression is mild and stable andd no change inn her regimen was necessary today. 4 . E sophageal dysmotility - K22.4 N otes :A barium swallow will be done in the near future, and she will be seen back after that to discuss results. 5 . M igraine with aura and without status migrainosus, not intractable - G43.109 N otes :I have prescribed a new medication, eletriptan. The risks and benefits were explained and the way to take it was carefully delineated. She gave informed consent for prescribing in taking the medication. 6 . L ow back pain - M54.5 N otes :The MRI shows compression of the nerve root. She will be referred back for injections. She will see a neurosurgeon to discuss surgical therapy. I have given her dexamethasone to see if this will ameliorate the pain from the nerve compression. 7 . F ormer smoker - Z87.891 N otes :She is no longer smoking and has been abstinent for a month. We made a plan to prevent relapse in times of stress and illness. Plan: * Treatment: 2. O thers Continue EpiPen Solution Auto-injector, 0.3 MG/0.3ML, as directed, Injection, Use as needed for allergic reaction; C ontinue Naproxen Sodium Tablet, 220 MG, 1 tablet with food or milk as needed, Orally, every 12 hrs; C ontinue Sertraline HCl Tablet, 25 MG, 1 tablet, Orally, Once a day. * Procedure Codes: * Preventive Medicine: Counseling: S moking/Tobacco Use Patient counseled on the dangers of tobacco use and urged to quit. 0 06/05/2024 * Follow Up: 6 Weeks (Reason: OV) * Images: * Sign off status: Completed true * Provider: Papito Casanova MD Date: 0 06/05/2024 Generated for Ethan olivas/Aissatou/Aditya on: 09:15 AM EDT History and Physical Notes * HPI (History of Present Illness) Category Sub-Category Detail Notes COVID-19 Screening Questions Have you had any new onset fever, chills, cough, congestion, sore throat, shortness of breath, muscle aches?: No Examination Category Sub-Category Detail Notes General Examination GENERAL APPEARANCE: pleasant , well nourished, well developed, in no acute distress, calm and relaxed, woman HEAD: atraumatic, normocep halic EYES: eomi, perrla, anicte daren, conjugate EARS: normal NOSE: septum intact NECK/THYROID: no jugular venous di stention, no carotid bruit, thyroid normal, Range of motion improved and almost normal HEART: no clicks, gallops, murmurs, or rubs, regular rhythm, S1, S2 normal, no s3, or vascular bruits LUNGS: clear to auscultatio n ABDOMEN: bowel sounds normal, no ascites, no organomegaly, no mass NEUROLOGIC: alert and oriented, cranial nerves 2-12 grossly intact, deep tendon reflexes 2+ symmetrical, motor strength normal upper and lower extremities, sensory exam intact SKIN: no suspicious lesion s, anicteric PERIPHERAL PULSES: normal BREASTS: Not examined MUSCULOSKELETAL: extremities unremark able, no clubbing, cyanosis or edema, Range of motion left shoulder normal, compression of left chest wall normal, mild decreeased range of motion neck with mild pain LYMPH NODES: no enlarged lymph no linnea,spleen normal RECTAL EXAM: not examined PSYCH: alert, oriented ORAL CAVITY: normal, unremarkable
--- OUTSIDE RECORDS SUMMARY | 2024-07-18 12:00 | XMS_ITS ---
Author Organization Ross Casanova III, MD Address [address] [place] [address] [place] [address] Care Team Providers Care [facility] Programmer Name Role Phone Dr. Ross Casanova III Primary Care Provider [phone] Allergies Allergen (clinical drug ingredient) Drug/Non Drug Allergy documented on EMR Reaction Allergy Type Onset Date Status Shellfish (FN) Shellfish-derived Products Unknown Drug Allergy Active Reason For Referral Reason Evaluate and Treat pain left knee Diagnosis 1 Synovial cyst of pop liteal space [Palomino], left knee (M71.22) Referral Organization Ross Casanova III, MD Referring Provider First Name Ross Referring Provider Last Name Edilberto Referring Provider Speciality Internal M edicine Referred Provider [facility] Referred Provider [facility]ty [facility] General Notes Angela Camacho 07/23/2024 11:35:14 AM > Referral and progress note faxedJanice Amber 09/03/2024 03:36:34 PM >Office received referral contacted patient with no success to schedule. patient was contacted by Dr. Casanova office and given the number to schedule an appointment.Omid Melianet ASMA 09/04/2024 09:22:39 AM > As per Office the they will not treat cyst. The patient got told that PCP should be the one to treat it., Angela Camacho 09/04/2024 09:37:29 AM > Provider at [facility] stated that he does not do any treatment with palomino cysts and that it should be treated by the PCP. Spoke with Toni and was able to book for knee pain for 10/25/24 @ 3:15pm Referral Priority Routine Referral Appointment Date 10/30/2024 Reason Evaluate and Treat Bunion of right foot Diagnosis 1 Bunion of right foot (M21.611) Referral Organization Ross Casanova III, MD Referring Provider First Name Ross Referring Provider Last Name Edilberto Referring Provider Speciality Internal M edicine Referred Provider CONCH[facility] Referred Provider Specialty Podiatry General Notes Angela Camacho 07/23/2024 11:34:20 AM > Referral faxed with progress note, Angela Camacho 08/15/2024 10:02:07 AM > contacted Dr la office stated they did not see referral but will create a profile for the patient. Was advised to have patient contact their office to schedule an appointment. They do not take [employer] only BCBSJanice Amber 08/23/2024 02:27:46 PM > Patient states she has been trying to call with no success. Patient was informed to contact Dr. Cabello office when she is able to schedule appointment., Angela Camacho 09/03/2024 03:41:06 PM > patient has not scheduled appointment and will reach out to them today to schedule an appointment., Angela Camacho 09/05/2024 03:39:45 PM >Patient was informed that they do not take [employer] and there may be an out of pocket expense with her bcbs she asked for the referral to be sent elsewhere from Tony La. Referral was sent to Conchita La at [facility], Angela Camacho 09/20/2024 03:00:06 PM > referral was put in to Dr. Conchita La system pending scheduling Referral Priority Routine Referral Appointment Date 12/05/2024 REASON FOR VISIT Headache, Right foot first toe pain, Depression, Cervical radiculopathy, GERD Medications Medication SIG (Take, Route, Frequency, Duration) Notes Start Date End Date Status Sertraline HCl 25 MG 1 tablet Orally Onc e a day 08/18/2022 Active EpiPen 0.3 MG/0.3ML as directed Injectio n Use as needed for allergic reaction 02/24/2022 Active Naproxen Sodium 220 MG 1 tablet with jaleesa d or milk as needed Orally every 12 hrs 01/11/2023 Active Pantoprazole Sodium 20 MG 1 tablet 1/2 t o 1 hour before morning meal Orally Once a day Active Eletriptan Hydrobromide 40 MG 1 tablet Orally Once a day for migraine for 30 days As needed Active Social History Tobacco Use: Social History Observation Description Date Details (start date - stop date) Former Smoker NA - NA Sex Assigned At : Social History Observation Description Sex Assigned At Female Tobacco Control (Standard) Question Answer Notes Tobacco use: Former smoker How long has it been since you last smoked? 6-12 months Additional Findings: Tobacco non-user Ex-cigaret te smoker Vital Signs Temperature 97.9 degrees Fahrenheit 07/19/19 25 Blood pressure systolic 130 mm Hg 07/19/19 25 Blood pressure diastolic 81 mm Hg 025 Heart Rate 72 /min 07/18/2024 Height 60 in 07/18/2024 Weight 123 lbs 07/18/2024 BMI 24.02 kg/m2 07/18/2024 Encounters Encounter Location Date Provider Diagnosis Ross Casanova III, MD [address] [place] [address] [place] [address] 07/18/2024 Ross Casanova Gastroesophageal ref lux disease, esophagitis presence not specified K21.9 ; Cervical radiculopathy M54.12 ; Depression, unspecified depression type F32.9 ; Synovial cyst of popliteal space [Palomino], left knee M71.22 ; Esophageal dysmotility K22.4 ; Hiatal hernia K44.9 ; Migraine with aura and without status migrainosus, not intractable G43.109 and Former smoker Z87.891 Assessments Encounter Date Diagnosis (ICD Code) Assessment Notes Treat ment Notes Treatment Clinical Notes 07/18/2024 Gastroesophageal ref lux disease, esophagitis presence not specified (ICD-10 - K21.9) Her reflux symptoms are well controlled with her current medical regimen. No change was made. She was advised to refrain from eating before sleep 07/18/2024 Cervical radiculopat hy (ICD-10 - M54.12) Continues to have pain in her right neck and right shoulder with range of motion. SShe will continue with the rest ibuprofen. She is managed by pain management. 07/18/2024 Depression, unspecif ied depression type (ICD-10 - F32.9) Her depression seems very mild at this time and does not bother her much at all. She reports completing all of the activities of daily living on a regular basis. 07/18/2024 Synovial cyst of popliteal space [Palomino], left knee (ICD-10 - M71.22) Is mildly painful. An ultrasound was ordered to see if there was a cyst. 07/18/2024 Esophageal dysmotili ty (ICD-10 - K22.4) A barium swallow will be done in the near future, and she will be seen back after that to discuss results. 07/18/2024 Hiatal hernia (ICD-1 0 - K44.9) This is a finding on upper GI series done recently and is asymptomatic. 07/18/2024 Migraine with aura a nd without status migrainosus, not intractable (ICD-10 - G43.109) I have prescribed a new medication, eletriptan. The risks and benefits were explained and the way to take it was carefully delineated. She gave informed consent for prescribing in taking the medication. 07/18/2024 Former smoker (ICD-1 0 - Z87.891) She is no longer smoking and has been abstinent for a month. We made a plan to prevent relapse in times of stress and illness. Plan Of Treatment Medication Medication Name Sig Start Date Stop Date Notes Sertraline HCl 25 MG 1 tablet Orally Once a day 08/18/2022 EpiPen 0.3 MG/0.3ML as directed Injectio n Use as needed for allergic reaction 02/24/2022 Naproxen Sodium 220 MG 1 tablet with jaleesa d or milk as needed Orally every 12 hrs 01/11/2023 Pantoprazole Sodium 20 MG 1 tablet 1/2 t o 1 hour before morning meal Orally Once a day Eletriptan Hydrobromide 40 MG 1 tablet O rally Once a day for migraine for 30 days Pending Test Test Name Order Date US extremity nonvascular 07/18/2024 Referrals Referral Date Details 07/18/2024 07/18/2024, Evaluate and Treat pain left knee, [facility] 07/18/2024 07/18/2024, Evaluate and Treat Bunion of right foot, [facility] Next Appt Details Follow Up: 3 Months, Reason: OV Provider Name:Ross Casanova , 03/06/2025 04:00:00 PM, [address] [place] [address] , [facility] [address], [place], [address], Progress Notes * PABLO BARRERADOB: 4 (49 yo F)Acc No.[id number]:07/18/2024 Progress Notes Patient: PABLO HERNANDEZ Provider: Papito Casanova MD :1975 A ge:49 Y S ex:Female Date:07/18/2024 Address:[address] [place] [address], [id number] Subjective: * Chief Complaints: * H eadacheRight foot first toe painDepressionCervical radiculopathyGERD * HPI: C OVID-19 Screening: S he returns for a scheduled periodic visit to manage her medical issues. Her cervical radiculopathy is unchanged. She reports having a headache for the last 2 days. She has a bunion on her right foot that is painful. Thiss has been going on for 4 months. She was referred to podiatry for this. She has a pain in her left popliteal fossa but the examination was unremarkable and there was no crepitus.She has no other new complaints. Her examination today was unremarkable. Questions H ave you had any new onset fever, chills, cough, congestion, sore throat, shortness of breath, muscle aches? N o * ROS: G eneral/Constitutional: pain N sissy with range of motion, recent headaches. C hills d enies. F atigue a dmits. F ever d enies. E NT: Decreased hearing d enies. R espiratory: Cough d enies. C ardiovascular: Chest pain with exertion d enies. D yspnea on exertion?denies. S hortness of breath d enies. G astrointestinal: Constipation o ccasional. D ecreased appetite d enies. D iarrhea d enies. H eartburn c ontrolled with medications. N ausea d enies. R ectal bleeding d enies. V omiting d enies. H ematology: bruising d enies. p etechiae d enies. S wollen glands n one have been noted. G enitourinary: Frequent urination d enies. M usculoskeletal: Muscle aches d enies. P ainful joints d enies. S ciatica d enies. W eakness d enies. S kin: Itching d enies. R eufemia d enies. S kin lesion(s)?denies. N eurologic: Difficulty speaking d enies. D izziness d enies.?Headache d enies. L ow back pain d enies. P sychiatric: Depressed mood w hich is mild. * Medical History: * Surgical History: R [...] Social History: T obacco Use: T obacco Control (Standard) T obacco use: F ormer smoker H ow long has it been since you last smoked??6-12 months A dditional Findings: Tobacco non-user E x-cigarette smoker S he is and lives with her and 3 children. She smokes cigarettes every day but does not drink alcohol or take illegal drugs. * Medications: T akingEletriptan Hydrobromide 40 MG Tablet 1 tablet Orally Once a day for migraine As neededEpiPen 0.3 MG/0.3ML Solution Auto-injector as directed Injection Use as needed for allergic reaction Naproxen Sodium 220 MG Tablet 1 tablet with food or milk as needed Orally every 12 hrs Sertraline HCl 25 MG Tablet 1 tablet Orally Once a day Pantoprazole Sodium 20 MG Tablet Delayed Release 1 tablet 1/2 to 1 hour before morning meal Orally Once a day Medication List reviewed and reconciled with the patientTaking Eletriptan Hydrobromide 40 MG Tablet 1 tablet Orally Once a day for migraine As neededTaking EpiPen 0.3 MG/0.3ML Solution Auto-injector as directed Injection Use as needed for allergic reaction Taking Naproxen Sodium 220 MG Tablet 1 tablet with food or milk as needed Orally every 12 hrs Taking Sertraline HCl 25 MG Tablet 1 tablet Orally Once a day Taking Pantoprazole Sodium 20 MG Tablet Delayed Release 1 tablet 1/2 to 1 hour before morning meal Orally Once a day Medication List reviewed and reconciled with the patient * Allergies: S hellfish-derived Productsno[Allergies Verified] Objective: * Vitals: H t: 60, Wt: 123, BMI:24.02, BP: 130/81, HR: 72, Temp: 97.9, Wt-k.79. * Examination: G eneral Examination: GENERAL APPEARANCE: p leasant, well nourished, well developed, in no acute distress, calm and relaxed. HEAD: a traumatic, normocephalic. EYES: e smita, perrla, anicteric, conjugate. EARS: n ormal. NOSE: s eptum intact. ORAL CAVITY: n ormal, unremarkable. NECK/THYROID: n o jugular venous distention, no carotid bruit, thyroid normal. LYMPH NODES: n o enlarged lymph nodes,spleen normal. SKIN: n o suspicious lesions, anicteric. HEART: n o clicks, gallops, murmurs, or rubs, regular rhythm, S1, S2 normal, no s3, or vascular bruits. LUNGS: c lear to auscultation . BREASTS: no masses palpable bilaterally. ABDOMEN: b owel sounds normal, no ascites, no organomegaly, no mass. RECTAL EXAM: n ot examined. MUSCULOSKELETAL: e xtremities unremarkable, no clubbing, cyanosis or edemaRange of motion of neck improved but still slight pain. PERIPHERAL PULSES: n ormal. NEUROLOGIC: a lert and oriented, cranial nerves 2-12 grossly intact, deep tendon reflexes 2+ symmetrical, motor strength normal upper and lower extremities, sensory exam intact. PSYCH: a lert, oriented, mood depressed. ? Assessment: * Assessment: 1. C ervical radiculopathy - M54.12 (Primary) N otes :Continues to have pain in her right neck and right shoulder with range of motion. SShe will continue with the rest ibuprofen. She is managed by pain management. 2 . G astroesophageal reflux disease, esophagitis presence not specified - K21.9 N otes :Her reflux symptoms are well controlled with her current medical regimen. No change was made.? She was advised to refrain from eating before sleep 3 . D epression, unspecified depression type - F32.9 N otes :Her depression seems very mild at this time and does not bother her much at all. She reports completing all of the activities of daily living on a regular basis. 4 . S ynovial cyst of popliteal space [Palom[place]], left knee - M71.22 ?Notes :Is mildly painful. An ultrasound was ordered to see if there was a cyst. 5 . E sophageal dysmotility - K22.4 N otes :A barium swallow will be done in the near future, and she will be seen back after that to discuss results. 6 . H iatal hernia - K44.9 N otes :This is a finding on upper GI series done recently and is asymptomatic. 7 . M igraine with aura and without status migrainosus, not intractable - G43.109 N otes :I have prescribed a new medication, eletriptan. The risks and benefits were explained and the way to take it was carefully delineated. She gave informed consent for prescribing in taking the medication. 8 . F ormer smoker - Z87.891 N otes :She is no longer smoking and has been abstinent for a month. We made a plan to prevent relapse in times of stress and illness. Plan: * Treatment: 2. D epression, unspecified depression type L AB: PROFILE, FASTING (COMPREHENSIVE METABOLIC) L AB: CBC w DIFF L AB: Lipid Panel 3. S ynovial cyst of popliteal space [[place]], left knee I maging: US extremity nonvascular Referral To:[facility] Reason:Evaluate and Treat pain left knee 4. O thers Continue EpiPen Solution Auto-injector, 0.3 MG/0.3ML, as directed, Injection, Use as needed for allergic reaction; C ontinue Naproxen Sodium Tablet, 220 MG, 1 tablet with food or milk as needed, Orally, every 12 hrs; C ontinue Sertraline HCl Tablet, 25 MG, 1 tablet, Orally, Once a day. Referral To:[facility] Reason:Evaluate and Treat Bunion of right foot * Procedure Codes: * Follow Up: 3 Months (Reason: OV) * Images: * Sign off status: Completed true * Provider: Papito Casanova MD Date: 0 07/18/2024 Generated for Ethan olivas/Aissatou/Yadismitting on: 1 09:15 AM EDT History and Physical Notes * HPI (History of Present Illness) Category Sub-Category Detail Notes COVID-19 Screening Questions Have you had any new onset fever, chills, cough, congestion, sore throat, shortness of breath, muscle aches?: No Examination Category Sub-Category Detail Notes General Examination GENERAL APPEARANCE: pleasant , well nourished, well developed, in no acute distress, calm and relaxed HEAD: atraumatic, normocep halic EYES: eomi, perrla, anicte daren, conjugate EARS: normal NOSE: septum intact NECK/THYROID: no jugular venous di stention, no carotid bruit, thyroid normal HEART: no clicks, gallops, murmurs, or [...] lesion s, anicteric PERIPHERAL PULSES: normal BREASTS: no masses palpable b ilaterally MUSCULOSKELETAL: extremities unremark able, no clubbing, cyanosis or edemaRange of motion of neck improved but still slight pain LYMPH NODES: no enlarged lymph no linnea,spleen normal RECTAL EXAM: not examined PSYCH: alert, oriented, moo d depressed ORAL CAVITY: normal, unremarkable Consultation Request Notes Referral Date Referring Provider Referred Provider Not es 07/18/2024 Ross Casanova [facility], [facility] Evaluate and Treat pain left knee 07/18/2024 Ross Casanova CHRISTOPHER Evaluate and Treat Bunion of right foot
--- OUTSIDE RECORDS SUMMARY | 2024-08-17 06:17 | XMS_ITS ---
Author Organization Ross Casanova III, MD Address [address] [place] [address] [place] [id number] Care Team Providers Care Communications Field Technician Name Role Phone Dr. Ross Casanova III Primary Care Provider [phone] REASON FOR VISIT [employer] Letter Social History Sex Assigned At : Social History Observation Description Sex Assigned At Female Encounters Encounter Location Date Provider Diagnosis Ross Casanova III, MD [address] [place] [address] [place] [id number] 08/17/2024 Ross Casanova Plan Of Treatment Next Appt Details Provider Name:Ross Casanova , 03/06/2025 04:00:00 PM, [address] [place] [address] [place], [phone], Progress Notes * PABLO BARRERADOB: 4 (49 yo F)Acc No.[id number]:08/17/2024 Patient: PABLO HERNANDEZ :1975 A ge:49 Y S ex:Female Address:[address] [place] [address], [phone] * true * Date: Generated for Ethan olivas/Aissatou/eTransmitting on: 09:16 AM EDT
--- OUTSIDE RECORDS SUMMARY | 2024-08-31 09:45 | XMS_ITS ---
Author Organization Ross Casanova III, MD Address [address] [place] [address] [place] [address] Care Team Providers Care [employer] Utility Worker Name Role Phone Dr. Ross Casanova III Primary Care Provider Allergies Allergen (clinical drug ingredient) Drug/Non Drug Allergy documented on EMR Reaction Allergy Type Onset Date Status Shellfish (FN) Shellfish-derived Products Unknown Drug Allergy Active REASON FOR VISIT headache, pain right first toe, Depression, Migraine, There, His EEG Medications Medication SIG (Take, Route, Frequency, Duration) Notes Start Date End Date Status EpiPen 0.3 MG/0.3ML as directed Injectio n Use as needed for allergic reaction 02/24/2022 Active Pantoprazole Sodium 20 MG 1 tablet 1/2 t o 1 hour before morning meal Orally Once a day Active Sertraline HCl 25 MG 1 tablet Orally Onc e a day 08/18/2022 Active Naproxen Sodium 220 MG 1 tablet with jaleesa d or milk as needed Orally every 12 hrs 01/11/2023 Active Eletriptan Hydrobromide 40 MG 1 tablet Orally Once a day for migraine As needed Active Social History Tobacco Use: Social History Observation Description Date Details (start date - stop date) Former Smoker NA - NA Sex Assigned At : Social History Observation Description Sex Assigned At Female Tobacco Control (Standard) Question Answer Notes Tobacco use: Former smoker How long has it been since you last smoked? 6-12 months Additional Findings: Tobacco non-user Ex-cigaret te smoker Encounters Encounter Location Date Provider Diagnosis Ross Casanova III, MD [address] [place] [address] [place] [address] 08/31/2024 Ross Casanova Cervical radiculopat hy M54.12 ; Migraine with aura and without status migrainosus, not intractable G43.109 ; Gastroesophageal reflux disease with esophagitis, unspecified whether hemorrhage K21.00 ; Hiatal hernia K44.9 ; Esophageal dysmotility K22.4 and Tobacco dependence F17.200 Assessments Encounter Date Diagnosis (ICD Code) Assessment Notes Treat ment Notes Treatment Clinical Notes 08/31/2024 Cervical radiculopat hy (ICD-10 - M54.12) She will continue in pain management. Her pain is not worse and is bearable. It is controlled with her current medications. If it worsens she will contact my office immediately. More aggressive treatment will then take place. 08/31/2024 Migraine with aura a nd without status migrainosus, not intractable (ICD-10 - G43.109) I have prescribed a new medication, eletriptan. The risks and benefits were explained and the way to take it was carefully delineated. She gave informed consent for prescribing in taking the medication. 08/31/2024 Gastroesophageal ref lux disease with esophagitis, unspecified whether hemorrhage (ICD-10 - K21.00) This is an occasional symptom well controlled with antacids. 08/31/2024 Hiatal hernia (ICD-1 0 - K44.9) This is a finding on upper GI series done recently and is asymptomatic. 08/31/2024 Esophageal dysmotili ty (ICD-10 - K22.4) A barium swallow will be done in the near future, and she will be seen back after that to discuss results. 08/31/2024 Tobacco dependence (ICD-10 - F17.200) She says she has not had a cigarette for 14 days. We discussed smoking cessation strategies at length. Plan Of Treatment Medication Medication Name Sig Start Date Stop Date Notes EpiPen 0.3 MG/0.3ML as directed Injectio n Use as needed for allergic reaction 02/24/2022 Pantoprazole Sodium 20 MG 1 tablet 1/2 t o 1 hour before morning meal Orally Once a day Sertraline HCl 25 MG 1 tablet Orally Once a day 08/18/2022 Naproxen Sodium 220 MG 1 tablet with jaleesa d or milk as needed Orally every 12 hrs 01/11/2023 Eletriptan Hydrobromide 40 MG 1 tablet O rally Once a day for migraine Next Appt Details Follow Up: As Scheduled, Heather son: OV Provider Name:Ross Casanova , 03/06/2025 04:00:00 PM, [address] [place] [address] [place] [place], [place], [phone], Progress Notes * PABLO BARRERADOB: 4 (49 yo F)Acc No.[id number]:08/31/2024 Patient: PABLO HERNANDEZ Provider: Papito Casanova MD :1975 A ge:49 Y S ex:Female Date:08/31/2024 Address:[address] [place] [address], [id number] Subjective: * Chief Complaints: * H eadachePain right first toeDepressionMigraineThereHis EEG * HPI: v : She returns to the officee 6 weeks after her last visit to follow-up on several medical issues. The pain in her right first toe has resolved. The headaches have diminished and are only occasional as are the migraines. Her esophageal reflux symptoms are stable. She denies any chest pain or shortness of breath or bleeding. * ROS: G eneral/Constitutional: pain o nly normal aches and pains. C hills d enies.?Fatigue a dmits. F ever d enies. E NT: Decreased hearing d enies. R espiratory: Cough d enies. C ardiovascular: Chest pain with exertion d enies. D yspnea on exertion?denies. S hortness of breath d enies. G astrointestinal: Constipation d enies. D ecreased appetite d enies.?Diarrhea d enies. H eartburn c ontrolled with medications. N ausea d enies.?Rectal bleeding d enies. V omiting d enies. H ematology: bruising d enies. p etechiae d enies. S wollen glands n one have been noted. G enitourinary: Frequent urination a t night. M usculoskeletal: Muscle aches d enies. P [...] or take illegal drugs. * Medications: T akingPantoprazole Sodium 20 MG Tablet Delayed Release 1 tablet 1/2 to 1 hour before morning meal Orally Once a day EpiPen 0.3 MG/0.3ML Solution Auto-injector as directed Injection Use as needed for allergic reaction Naproxen Sodium 220 MG Tablet 1 tablet with food or milk as needed Orally every 12 hrs Sertraline HCl 25 MG Tablet 1 tablet Orally Once a day Eletriptan Hydrobromide 40 MG Tablet 1 tablet Orally Once a day for migraine As neededTaking Pantoprazole Sodium 20 MG Tablet Delayed Release 1 tablet 1/2 to 1 hour before morning meal Orally Once a day Taking EpiPen 0.3 MG/0.3ML Solution Auto-injector as directed Injection Use as needed for allergic reaction Taking Naproxen Sodium 220 MG Tablet 1 tablet with food or milk as needed Orally every 12 hrs Taking Sertraline HCl 25 MG Tablet 1 tablet Orally Once a day Taking Eletriptan Hydrobromide 40 MG Tablet 1 tablet Orally Once a day for migraine As needed * Allergies: S hellfish-derived Products Objective: * Vitals: * Examination: G eneral Examination: GENERAL APPEARANCE: [...] xtremities unremarkable, no clubbing, cyanosis or edema, Pain to range of motion of neck and elevation of left shoulder. PERIPHERAL PULSES: n ormal. NEUROLOGIC: a lert and oriented, cranial nerves 2-12 grossly intact, deep tendon reflexes 2+ symmetrical, motor strength normal upper and lower extremities, sensory exam intact. PSYCH: a lert, oriented. Assessment: * Assessment: 1. C ervical radiculopathy - M54.12 (Primary) N otes :She will continue in pain management. Her pain is not worse and is bearable. It is controlled with her current medications. If it worsens she will contact my office immediately. More aggressive treatment will then take place. 2 . M igraine with aura and without status migrainosus, not intractable - G43.109 N otes :I have prescribed a new medication, eletriptan. The risks and benefits were explained and the way to take it was carefully delineated. She gave informed consent for prescribing in taking the medication. 3 . G astroesophageal reflux disease with esophagitis, unspecified whether hemorrhage - K21.00 N otes :This is an occasional symptom well controlled with antacids. 4 . H iatal hernia - K44.9 N otes :This is a finding on upper GI series done recently and is asymptomatic. 5 . E sophageal dysmotility - K22.4 N otes :A barium swallow will be done in the near future, and she will be seen back after that to discuss results. 6 . T obacco dependence - F17.200 N otes :She says she has not had a cigarette for 14 days. We discussed smoking cessation strategies at length. Plan: * Treatment: * Procedure Codes: * Preventive Medicine: Counseling: S moking/Tobacco Use Patient counseled on the dangers of tobacco use and urged to quit. 0 08/31/2024 Patient Lifestyle Goals P atient wants to quit Treatment Goals C ut down by 1 cigarette a week Barriers S tress, Social smoker Self-Management Plan M eleno a plan to cut down number of cigarettes over time and set a date to work towards quitting * Follow Up: A s Scheduled (Reason: OV) * Images: * Sign off status: Completed true * Provider: Papito Casanova MD Date: 0 08/31/2024 Generated for Ethan olivas/Aissatou/eTransmitting on: 1 09:15 AM EDT History and Physical Notes * Examination Category Sub-Category Detail Notes General Examination [...] unremark able, no clubbing, cyanosis or edema, Pain to range of motion of neck and elevation of left shoulder LYMPH NODES: no enlarged lymph no linnea,spleen normal RECTAL EXAM: not examined PSYCH: alert, oriented ORAL CAVITY: normal, unremarkable
--- OUTSIDE RECORDS SUMMARY | 2024-10-22 12:00 | XMS_ITS ---
Author Organization Ross Casanova III, MD Address [address] [place] [address] [place] [address] Care Team Providers Care Display Associate Name Role Phone Dr. Ross Casanova III Primary Care Provider [phone] Allergies Allergen (clinical drug ingredient) Drug/Non Drug Allergy documented on EMR Reaction Allergy Type Onset Date Status Shellfish (FN) Shellfish-derived Products Unknown Drug Allergy Active Results Component Value Reference Range Notes PROFILE, FASTING (COMPREHENS MIN METABOLIC) Reviewed date:02/14/2025 10:35:01 AM Interpretation: Performing Lab: Notes/Report: Reason For Referral Reason painful ovarian cyst second opinion Diagnosis 1 Cyst of ovary, unspe cified laterality (N83.209) Referral Organization Ross Casanova III, MD Referring Provider First Name Ross Referring Provider Last Name Edilberto Referring Provider Speciality Internal M edicine Referred Organization [facility] nter Referred Provider [facility] er, [facility] Referred Address [address] [place] [id number], Referred Provider Specialty OB - Gynecol ogy General Notes Melissa Yan CMA 10/24 09:48:59 AM >ref/demo/progress note and prior ultrasound done at [facility] faxed to [facility], Robert Anne 12/19/2024 11:04:16 AM >Pt called asking about this referral. She did not received a call from [facility]. I advice Pt to call OBGYN and schedule., Melissa Yan CMA 12/27/2024 02:18:13 PM > I called [place] CAR[facility] [phone] spoke to Allison she stated they did not receive referral. Ref refaxed to [phone] ATTN: Dr Jones Referral Priority Routine Reason osteoarthritis right thumb Diagnosis 1 Osteoarthritis of ri ght hand, unspecified osteoarthritis type (M19.041) Referral Organization Ross Casanova III, MD Referring Provider First Name Ross Referring Provider Last Name Edilberto Referring Provider Speciality Internal M edicine Referred Provider [facility] Referred Provider Specialty Rheumatology General Notes Farrah Melissa [facility] 10/24 09:43:31 AM >ref/demo/progress note/x rays faxed to [facility] [place], Melissa Yan [facility] 11/15/2024 03:19:14 PM >called [facility] was told pt has appt on 01/08/2025 at 1:30pm Referral Priority Routine Referral Appointment Date 01/08/2025 REASON FOR VISIT depression, Arthritis base of right thumb, Dyspareunia from ovarian cyst, Worsening neck pain, right, Skin lesion right breast, Cervical adenopathy Medications Medication SIG (Take, Route, Frequency, Duration) Notes Start Date End Date Status Eletriptan Hydrobromide 40 MG 1 tablet Orally Once a day for migraine As needed Active Pantoprazole Sodium 20 MG 1 tablet 1/2 t o 1 hour before morning meal Orally Once a day Active EpiPen 0.3 MG/0.3ML as directed Injectio n Use as needed for allergic reaction 02/24/2022 Active Naproxen Sodium 220 MG 1 tablet with jaleesa d or milk as needed Orally every 12 hrs 01/11/2023 Active Sertraline HCl 25 MG 1 tablet Orally Onc e a day 08/18/2022 Active Cyclobenzaprine HCl 10 MG 1 tablet if ne eded Orally three times a day for 10 days 10/22/2024 11/11/2024 Active Social History Tobacco Use: Social History Observation Description Date Details (start date - stop date) Former Smoker NA - NA Sex Assigned At : Social History Observation Description Sex Assigned At Female Tobacco Control (Standard) Question Answer Notes Tobacco use: Former smoker How long has it been since you last smoked? 6-12 months Additional Findings: Tobacco non-user Ex-cigaret te smoker Problems Problem Type SNOMED Code ICD Code Onset Dates Problem Status W/U Status Risk Notes Problem 55370815 Pelvic pain (R10.2) Active confirmed She complained of pelvic pain with intercourrse recently. She said she had been told she had an ovarian cyst. This is not mentioned on an ultrasound of the pelvis with transvaginal views done in March 2024. That report stated no adnexal masses . She has requested a second ROLLER ENGRAVER opinion and we are arranging this. Problem 962119105 Infection of breast, right (N61.0) Active confirmed This appears to be a simple skin infection and will be observed. Vital Signs Temperature 98.3 degrees Fahrenheit 10/23/19 25 Blood pressure systolic 116 mm Hg 10/23/19 25 Blood pressure diastolic 74 mm Hg 025 Heart Rate 68 /min 10/22/2024 Height 60 in 10/22/2024 Weight 123 lbs 10/22/2024 BMI 24.02 kg/m2 10/22/2024 Encounters Encounter Location Date Provider Diagnosis Ross Casanova III, MD [address] [place] [address] [place] [address] 10/22/2024 Ross Casanova Cervical radiculopat hy M54.12 ; GERD with esophagitis K21.0 ; Depression, unspecified depression type F32.9 ; Esophageal dysmotility K22.4 ; Hiatal hernia K44.9 ; Migraine with aura and without status migrainosus, not intractable G43.109 ; Former smoker Z87.891 ; Pelvic pain R10.2 and Infection of breast, right N61.0 Assessments Encounter Date Diagnosis (ICD Code) Assessment Notes Treatment Notes Treatment Clinical Notes 10/22/2024 Cervical radiculopathy (ICD-10 - M54.12) There is muscle spasm in the posterior right neck and pain with range of motion although ranging is normal. She will use cyclobenzaprine heat massage and rest with follow-up. If necessary imaging will be done. 10/22/2024 GERD with esophagitis (ICD-10 - K21.0) This has been controlled with medications. 10/22/2024 Depression, unspecified depression type (ICD-10 - F32.9) Her depression seems very mild at this time and does not bother her much at all. She reports completing all of the activities of daily living on a regular basis. 10/22/2024 Esophageal dysmotility (ICD-10 - K22.4) A barium swallow will be done in the near future, and she will be seen back after that to discuss results. 10/22/2024 Hiatal hernia (ICD-10 - K44.9) This is a finding on upper GI series done recently and is asymptomatic. 10/22/2024 Migraine with aura and without status migrainosus, not intractable (ICD-10 - G43.109) I have prescribed a new medication, eletriptan. The risks and benefits were explained and the way to take it was carefully delineated. She gave informed consent for prescribing in taking the medication. 10/22/2024 Former smoker (ICD-10 - Z87.891) She is no longer smoking and has been abstinent for a month. We made a plan to prevent relapse in times of stress and illness. 10/22/2024 Pelvic pain (ICD-10 - R10.2) She complained of pelvic pain with intercourrse recently. She said she had been told she had an ovarian cyst. This is not mentioned on an ultrasound of the pelvis with transvaginal views done in March 2024. That report stated no adnexal masses . She has requested a second ROLLER ENGRAVER opinion and we are arranging this. 10/22/2024 Infection of breast, right (ICD-10 - N61.0) This appears to be a simple skin infection and will be observed. Plan Of Treatment Medication Medication Name Sig Start Date Stop Date Notes Eletriptan Hydrobromide 40 MG 1 tablet O rally Once a day for migraine Pantoprazole Sodium 20 MG 1 tablet 1/2 t o 1 hour before morning meal Orally Once a day EpiPen 0.3 MG/0.3ML as directed Injectio n Use as needed for allergic reaction 02/24/2022 Naproxen Sodium 220 MG 1 tablet with jaleesa d or milk as needed Orally every 12 hrs 01/11/2023 Sertraline HCl 25 MG 1 tablet Orally Once a day 08/18/2022 Cyclobenzaprine HCl 10 MG 1 tablet if ne eded Orally three times a day for 10 days 10/22/2024 11/11/2024 Pending Test Test Name Order Date CBC w DIFF 10/22/2024 Lipid Panel 10/22/2024 Referrals Referral Date Details 10/22/2024 10/22/2024, painful ovarian cyst second opinion, [facility], [address], [place], [place], [id number], 10/22/2024 10/22/2024, osteoart hritis right thumb, Center [facility] treatment Next Appt Details Follow Up: December, Reason: O V review labs Provider Name:Ross Casanova , 03/06/2025 04:00:00 PM, [address] [place] [address] [address], [place], [address], Progress Notes * PABLO BARRERADOB: 4 (49 yo F)Acc No.[id number]:10/22/2024 Progress Notes Patient: PABLO HERNANDEZ Provider: Papito Casanova MD :1975 A ge:49 Y S ex:Female Date:10/22/2024 Address:[address] [place] [address], [id number] Subjective: * Chief Complaints: * D epressionArthritis base of right thumbDyspareunia from ovarian cystWorsening neck pain, rightSkin lesion right breastCervical adenopathy * HPI: C OVID-19 Screening: S he returns for management of several worsening complaints. She has been told by ROLLER ENGRAVER that she is on ovarian cysts. She has begun to have pain with intercourse in the pelvis. She would like to have a second opinion about removing the cysts. Her current practitioner and the observation. A second complaint is worsening neck pain on the right side of her upper neck with range of motion. This has been ongoing problem palpation of that area showed significant musscle spasm.We are going to use a regimen of he and massage and rest and cyclobenzaprine 3 times a day. A third complaint was a cystic area that has developed skin of the right side of her right breast examination today showed a 1 cm round area surrounded by peeling skin with a red base but intact skin that appears to be a healing skin infection. This is going to be observed. Close follow-up was arranged. She recently had an ultrasound at [facility] to evaluate right lower quadrant pain. She has decided she does not wish to have any further injections in the base of her right thumb as a or mostly ineffective.A search of imaging in Epic at [facility] showed an ultrasound of the pelvis with transvaginal views March 10, 2024 that showed a 3.5 cm fibroid but no adnexal masses. At her request a second opinion or ROLLER ENGRAVER was arranged. Questions H ave you had any new onset fever, chills, cough, congestion, sore throat, shortness of breath, muscle aches? N o * ROS: G eneral/Constitutional: pain D yspareunia, Right sided neck pain. C hills d enies. F atigue a dmits. F ever d enies. E NT: Decreased hearing d enies. R espiratory: Cough d enies. C ardiovascular: Chest pain with exertion d enies. D yspnea on exertion?denies. S hortness of breath d enies. G astrointestinal: Constipation d enies. D ecreased appetite d enies.?Diarrhea d enies. H eartburn d enies. N ausea d enies. R ectal bleeding?denies. V omiting d enies. H ematology: bruising d enies. p etechiae d enies. S wollen glands N one today. G enitourinary: Frequent urination d enies. M usculoskeletal: Muscle aches d enies. P ainful joints d enies. S ciatica d enies. W eakness d enies. S kin: Itching d enies. R eufemia d enies. S kin lesion(s)?Centimeter red peeling area right lateral breast. N eurologic: Difficulty speaking d enies. D [...] Orally Once a day for migraine As neededMedication List reviewed and reconciled with the patientTaking Pantoprazole Sodium 20 MG Tablet Delayed Release [...] Orally Once a day for migraine As neededMedication List reviewed and reconciled with the patient * Allergies: S hellfish-derived Productsno[Allergies Verified] Objective: * Vitals: H t: 60, Wt: 123, BMI:24.02, BP: 116/74, HR: 68, Temp: 98.3, Wt-k.79. * Examination: G eneral Examination: GENERAL APPEARANCE: p leasant, well nourished, well developed, in no acute distress, calm and relaxed, woman. HEAD: a traumatic, normocephalic. EYES: e smita, perrla, anicteric, conjugate. EARS: n ormal. NOSE: s eptum intact. ORAL CAVITY: n ormal, unremarkable. NECK/THYROID: n o jugular venous distention, no carotid bruit, thyroid normal, Normal range of motion but muscle spasm right posterior neck and shoulder which is painful to manipulation. LYMPH NODES: n o enlarged lymph nodes were noted in the neck today,spleen normal. SKIN: n o suspicious lesions, anicteric. HEART: n o clicks, gallops, murmurs, or rubs, regular rhythm, S1, S2 normal, no s3, or vascular bruits. LUNGS: c lear to auscultation . BREASTS: T he left breast was not examined. On the lateral surface of the right breast is a 1 cm area circumferential peeling skin which is red. The skin was intact. There was no pus.. ABDOMEN: b owel sounds normal, no ascites, no organomegaly, no mass. RECTAL EXAM: n ot examined. MUSCULOSKELETAL: e xtremities unremarkable, no clubbing, cyanosis or edema, Decreased range of motion of neck and base of right thumb. PERIPHERAL PULSES: n ormal. NEUROLOGIC: a lert and oriented, cranial nerves 2-12 grossly intact, deep tendon reflexes 2+ symmetrical, motor strength normal upper and lower extremities, sensory exam intact. PSYCH: a lert, oriented. Assessment: * Assessment: 1. C ervical radiculopathy - M54.12 (Primary) N otes :There is muscle spasm in the posterior right neck and pain with range of motion although ranging is normal. She will use cyclobenzaprine heat massage and rest with follow-up. If necessary imaging will be done. 2 . G ERD with esophagitis - K21.0 N otes :This has been controlled with medications. 3 . D epression, unspecified depression type - F32.9 N otes :Her depression seems very mild at this time and does not bother her much at all. She reports completing all of the activities of daily living on a regular basis. 4 . E sophageal dysmotility - K22.4 N otes :A barium swallow will be done in the near future, and she will be seen back after that to discuss results. 5 . H iatal hernia - K44.9 N otes :This is a finding on upper GI series done recently and is asymptomatic. 6 . M igraine with aura and without status migrainosus, not intractable - G43.109 N otes :I have prescribed a new medication, eletriptan. The risks and benefits were explained and the way to take it was carefully delineated. She gave informed consent for prescribing in taking the medication. 7 . F ormer smoker - Z87.891 N otes :She is no longer smoking and has been abstinent for a month. We made a plan to prevent relapse in times of stress and illness. 8 . P elvic pain - R10.2 N otes :She complained of pelvic pain with intercourrse recently. She said she had been told she had an ovarian cyst. This is not mentioned on an ultrasound of the pelvis with transvaginal views done in March 2024. That report stated no adnexal masses . She has requested a second ROLLER ENGRAVER opinion and we are arranging this. 9 . I nfection of breast, right - N61.0 N otes :This appears to be a simple skin infection and will be observed. Plan: * Treatment: 2. O thers [facility] Reason:painful ovarian cyst Referral To:[facility] Rheumatology Reason:osteoarthritis right thumb * Procedure Codes: * Preventive Medicine: Counseling: S moking/Tobacco Use Patient counseled on the dangers of tobacco use and urged to quit. 0 10/22/2024 * Follow Up: A ugust (Reason: OV review labs) * Images: * Sign off status: Completed true * Provider: Papito Casanova MD Date: 0 10/22/2024 Generated for Ethan olivas/Aissatou/eTransmitting on: 1 09:17 AM EDT History and Physical Notes * [...] di stention, no carotid bruit, thyroid normal, Normal range of motion but muscle spasm right posterior neck and shoulder which is painful to manipulation HEART: no clicks, gallops, murmurs, or rubs, [...] lesion s, anicteric PERIPHERAL PULSES: normal BREASTS: The left breast was not examined. On the lateral surface of the right breast is a 1 cm area circumferential peeling skin which is red. The skin was intact. There was no pus. MUSCULOSKELETAL: extremities unremark able, no clubbing, cyanosis or edema, Decreased range of motion of neck and base of right thumb LYMPH NODES: no enlarged lymph no linnea were noted in the neck today,spleen normal RECTAL EXAM: not examined PSYCH: alert, oriented ORAL CAVITY: normal, unremarkable Consultation Request Notes Referral Date Referring Provider Referred Provider Not es 10/22/2024 Ross Casanova [facility], [facility] painful ovarian cyst second opinion 10/22/2024 Ross Casanova [facility] osteoarthritis right thumb
--- OUTSIDE RECORDS SUMMARY | 2024-11-02 06:53 | XMS_ITS ---
Author Organization Ross Casanova III, MD Address [address] [place] [address] [place] [address] Care Team Providers Care Chief Of Anesthesiology Name Role Phone Dr. Ross Casanova III Primary Care Provider [phone] REASON FOR VISIT UTI Symptoms Social History Sex Assigned At : Social History Observation Description Sex Assigned At Female Encounters Encounter Location Date Provider Diagnosis Ross Casanova III, MD [address] [place] [address] [place] [address] 11/02/2024 Ross Casanova Plan Of Treatment Next Appt Details Provider Name:Ross Casanova , 03/06/2025 04:00:00 PM, [address] [place] [address] [place], [address], Progress Notes * PABLO BARRERADOB: 4 (49 yo F)Acc No.[id number]:11/02/2024 Patient: PABLO HERNANDEZ :1975 A ge:49 Y S ex:Female Address:[address] [place] [address], [address] * true * Date: Generated for Bevi brendon/Rocíog/eTransmitting on: 09:16 AM EDT
--- OUTSIDE RECORDS SUMMARY | 2024-11-02 07:02 | XMS_ITS ---
Author Organization Ross Casanova III, MD Address [address] [place] [address] [place] [address] Care Team Providers Care Aircraft Shipping Checker Name Role Phone Dr. Ross Casanova III Primary Care Provider [phone] Medications Medication SIG (Take, Route, Frequency, Duration) Notes Start Date End Date Status Sulfamethoxazole-Trimetho prim 800-160 MG 1 tablet Orally twice a day for 7 days 11/02/2024 11/09/2024 Active Social History Sex Assigned At : Social History Observation Description Sex Assigned At Female Encounters Encounter Location Date Provider Diagnosis Ross Casanova III, MD [address] [place] [address] [place] [address] 11/02/2024 Ross Casanova Plan Of Treatment Medication Medication Name Sig Start Date Stop Date Notes Sulfamethoxazole-Trimethopri m 800-160 MG 1 tablet Orally twice a day for 7 days 11/02/2024 11/09/2024 Next Appt Details Provider Name:Ross Casanova , 03/06/2025 04:00:00 PM, [address] [place] [address] [place], [address], Progress Notes * PABLO BARRERADOIsrael: 4 (49 yo F)Acc No.[id number]:11/02/2024 Patient: PABLO HERNANDEZ :1975 A ge:49 Y S ex:Female Address:[address] [place] [address], [address] * Refills Start Sulfamethoxazole-Trimethoprim Tablet, 800-160 MG, Orally, 14 Tablet, 1 tablet, twice a day, 7 days, Refills=0 * true * Date: Generated for Ethan olivas/Aissatou/Aditya on: 1 09:17 AM EDT
--- OUTSIDE RECORDS SUMMARY | 2024-12-18 04:09 | XMS_ITS ---
Author Organization Ross Casanova III, MD Address [address] [place] [address] [place] [address] Care Team Providers Care Environmental Construction Engineer Name Role Phone Dr. Ross Casanova III [...] Date Provider Diagnosis Ross Casanova III, MD [address] [place] [address] [place] [address] 12/18/2024 Ross Casanova Cervical radiculopat hy M54.12 [...] Provider Name:Ross Casanova , 03/06/2025 04:00:00 PM, [address] [place] [address] [place], [address], Progress Notes * ZHOU BARRERA: 4 (49 yo F)Acc No.[id number]:12/18/2024 Patient: PABLO HERNANDEZ :1975 A ge:49 Y S ex:Female Address:[address] [place] [address], [phone] * Refills Refill Sertraline HCl Tablet, 25 MG, Orally, 30, 1 tablet, Once a day, 30 days, Refills=5 * true * Date: Generated for Ethan olivas/Aissatou/Yadismitting on: 1 09:16 AM EDT
--- OUTSIDE RECORDS SUMMARY | 2024-12-24 12:00 | XMS_ITS ---
Author Organization Ross Casanova III, MD Address [address] [place] [address] [place] [address] Care Team Providers Care Export Administrator Name Role Phone Dr. Ross Casanova III Primary Care Provider [phone] Allergies Allergen (clinical drug ingredient) Drug/Non Drug [...] Date Provider Diagnosis Ross Casanova III, MD [address] [place] [address] [place] [address] 12/24/2024 Ross Casanova Cervical radiculopat hy M54.12 [...] Provider Name:Ross Casanova , 03/06/2025 04:00:00 PM, [address] [place] [address], [address], [address], Progress Notes * PABLO BARRERADOB: 4 (50 yo F)Acc No.[id number]:12/24/2024 Progress Notes Patient: PABLO HERNANDEZ Provider: Paptio Casanova MD :1975 A ge:49 Y S ex:Female Date:12/24/2024 Address:[address] [place], [place] [id number] Subjective: * Chief Complaints: * B ilateral [...] 12/24/2024 Generated for Bevi brendon/Aissatou/eTransmitting on: 1 09:17 AM EDT History and [...]
--- OUTSIDE RECORDS SUMMARY | 2025-02-14 06:36 | XMS_ITS ---
Author Organization Ross Casanova III, MD Address [address] [place] [address] [place] [address] Care Team Providers Care Account Specialist Name Role Phone Dr. Ross Casanova III Primary Care Provider REASON FOR VISIT Referral request Social History Sex Assigned At : Social History Observation Description Sex Assigned At Female Encounters Encounter Location Date Provider Diagnosis Ross Casanova III, MD [address] [place] [address] [place] [address] 02/14/2025 Ross Casanova Plan Of Treatment Next Appt Details Provider Name:Ross Casanova , 03/06/2025 04:00:00 PM, [address] [place] [address] [place], [address], Progress Notes * PABLO BARRERADOB: 4 (50 yo F)Acc No.[id number]:02/14/2025 Patient: PABLO HERNANDEZ :1975 A ge:50 Y S ex:Female Address:[address] [place] [address], [phone] * true * Date: Generated for Bevi brendon/Rocíog/eTransmitting on: 09:15 AM EDT
--- NOTE | 2025-03-05 08:49 | MHC.OFFVIS ---
Vital Signs 03/05/25 08:56 Height 4 ft 11 in Weight 118 lb BMI 23.8 BP 114/70 Intake Visit Reasons: us follow up/repeat urine dip Graphics Coordinator Required: Yes Graphics Coordinator Language: Visitor Services Associate Services: Graphics Coordinator Present (in person) Graphics Coordinator Name: Laila العراقي Information Interpreted: non-clinical & clinical Accompanied by: Self / Same As Patient Allergies Seafood Allergy (Uncoded 03/05/25 09:00) Anaphylaxis Is last menstrual period known: Yes HPI Comments Details: Presenting for ultrasound follow-up and repeat urine dip. Last visit urine dip showed microscopic hematuria, urine culture grew Klebsiella pneumonia sensitive to Bactrim, prescription for Bactrim was sent to the patient's pharmacy the patient completed it.. Pelvic ultrasound done on 02/08/2025 showed the following: Transabdominal scanning performed for overall anatomy. Transvaginal scanning performed for additional detail. Anteverted uterus is 8.9 cm length. There are 2 myometrial leiomyomata measuring 3.1 x 2.8 x 2.5 cm and 0.9 x 0.7 x 0.7 cm. Endometrium 6 mm thickness. There is a questionable endometrial lesion. Right ovary 2.5 x 1.3 x 2.4 cm. Left ovary 3.3 x 1.9 x 2.4 cm. Normal color Doppler with arterial/venous spectral tracing of both ovaries. There is an avascular heterogeneous left ovarian 1.9 x 1.7 x 1.2 cm cyst with internal echoes and possible septations. No free fluid. PFSH Medical History Chronic hand pain De Quervain's tenosynovitis, right Cervical radiculopathy Tobacco dependence Hiatal hernia Esophageal motility disorder Hepatic cyst Anxiety Herniated intervertebral disc of lumbar spine PTSD (post-traumatic stress disorder) GERD (gastroesophageal reflux disease) Depression, unspecified Surgical History Hx of tubal ligation History of carpal tunnel surgery History of endoscopy Family History Mother HTN (hypertension) Asthma Maternal Aunt Breast cancer Other Prostate cancer Social History Household Members: None Housing: House Alcohol intake: current Alcohol intake frequency: holidays/special occasions only Patient Tobacco Use Status: Current everyday Tobacco user Cigarette Packs Per Day: 2 Years Smoked: 4 Current occupational status: employed 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, 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 Sexual orientation: Straight/Heterosexual Gender identity: Female Physical Exam Vital Signs: Last Vital Signs BP 114/70 03/05/25 08:56 BMI result Body Mass Index 23.8 Assessment & Plan Assessment & Plan (1) Microscopic hematuria: Code(s): R31.29 - Other microscopic hematuria Category: Medical Plan: Repeat urine dip showed persistent microscopic hematuria will send urine for culture to confirm urine culture is negative and refer the patient to Urology further management (2) Complex ovarian cyst: Comment: Left Code(s): N83.299 - Other ovarian cyst, unspecified side Category: Medical Plan: Discussed with the patient the complex ovarian cyst by Ultrasound. The differential diagnosis discussed with the patient includes the following but not limited to: benign and malignant gynecological and non-gynecological. Gyne Onc referral placed for further management. Appointment scheduled on 03/19/2025 at 09:[address] Jackson, the patient is aware. CA 125, CEA and CA 19-9 ordered, with CT scan with IV and oral contrast. Instructed the patient to call our office back in case a referral appointment is not scheduled, missed or canceled so that we will assist on rescheduling another appointment, the patient verbalized understanding agreed with the plan. Orders: Orders CA-125 Today N83.299 - Other ovarian cyst, unspecified side Carcinoembryonic Antigen Today N83.299 - Other ovarian cyst, unspecified side Carbohydrate Antigen 19-9 Today N83.299 - Other ovarian cyst, unspecified side CT abdomen pelvis w IV con Today N83.299 - Other ovarian cyst, unspecified side Creatinine Today N83.299 - Other ovarian cyst, unspecified side Blood Urea Nitrogen Today N83.299 - Other ovarian cyst, unspecified side Referrals Gynecologic Oncology Referral N83.299 - Other ovarian cyst, unspecified side Urology Referral R31.29 - Other microscopic hematuria Coding Level of Care Code Est Pt Level 3 (61790) Diagnoses Microscopic hematuria R31.29 Complex ovarian cyst N83.299
[2025-03-05 08:56] VITALS: BP 114/70; BMI 23.8
--- OUTSIDE RECORDS SUMMARY | 2025-03-05 09:15 | XMS_ITS | Clinical Summary ---
Author Organization [facility] Address [address] [place] [address] Phone Care Team Providers Care Digital Tech Name Role Phone Darius Casanova MD Primary Care Provider [phone] Allergies Active Allergy Reactions Criticality Noted Date [...] exam was performed in conjunction with a wash driller helper from [employer] Nic #[id number]. Ms. Alexander was seen here 2 years [...] Review of the cervical spine MRI from [place] dated 09/30/2021 shows a 1 mm anterolisthesis [...] Overview (02/14/2024): 04/18/2018 PAP LSIL Plan : [facility] PAP Neg cytology, neg hpv Chronic, continuous use of opioids 04/19/2018 PTSD (post-traumatic stress disorder) 04/19/2018 Encounters Date Type Department Care Team Description 01/21/2025 3:00 PM EDT Office Visit Orthopedic Surgery [place] [id number] [address] Anoop La DPM Bunion of right foot (Primary Dx); Hallux rigidus of right foot; Hallux rigidus of left foot; Metatarsalgia of both feet; Follow-up exam 12/05/2024 9:30 AM EDT Consult Orthopedic Surgery [facility] [address] [phone] Anoop La DPM Hallux rigidus of right foot (Primary Dx); Bunion of right foot; Hallux rigidus of left foot; Metatarsalgia of both feet from Last 3 Months Surgical History Surgery Date Site/Laterality Comments TUBAL LIGATION PROCEDURE: HISTORICAL TUBAL LIGATION OTHER SURGICAL HISTORY PROCEDURE: ND NEPHROLITHOTOMY COMP CGEN KDN ABNORMALITY CARPAL TUNNEL RELEASE PROCEDURE: ND NEUROPLASTY &/TRANSPOS MEDIAN NRV CARPAL TUNNE; COMMENT: right hand OTHER SURGICAL HISTORY 09/10/2020 Left PROCEDURE: ND STAB PHLEBT VARICOSE VEINS 1 XTR 10-20 STAB INCS BELT ABDOMINOPLASTY 04/2022 PROCEDURE: HISTORICAL TUMMY TUCK; COMMENT: in [place]- Dr. Schmidt/ Thu Medical History Medical History [...] PM EST Office Visit Orthopedic Surgery [place] [address] [place] [phone] Anoop La, DPRafael [address] [place] [address] Health Maintenance Due Date Last Done Comments [...] mg/dL LAB CHEMISTRY METHOD 01/16/2025 3:02 PM [facility] Triglycerides 97 0 - 150 mg/dL LAB CHEMISTRY METHOD 01/16/2025 3:02 PM [facility] HDL 69 >=40 mg/dL LAB CHEMISTRY METHOD 01/16/2025 3:02 PM [facility] LDL Calculated 112(H) 0 - 100 mg/dL LAB CHEMISTRY METHOD 01/16/2025 3:02 PM [facility] Comment:Estimated LDL Calcul ated using equation: Total cholesterol - HDL cholesterol - (Triglycerides/5) VLDL Cholesterol Bowen 19.4 mg/dL LAB CHEMISTRY METHOD 01/16/2025 3:02 PM [facility] Non HDL Chol. (LDL+VLDL) 131 <145 mg/dL LAB CHEMISTRY METHOD 01/16/2025 3:02 PM [facility] Chol/HDL Ratio 2.9 0.0 - 4.4 LAB CHEMISTRY METHOD 01/16/2025 3:02 PM [facility] Blood Venous blood specimen / Unknown Venipuncture / Unknown 01/16/2025 11:16 AM EDT 01/16/2025 11:16 AM EDT us Darius Casanova MD LAB BLOOD ORDERABLES Final Res ult [facility] [address] [place] [address], [place] [phone] * (ABNORMAL) CBC auto differential (01/16/2025 11:16 AM EDT) WBC 8.7 4.8 - 10.8 K/mcL LAB HEMETOLOGY METHOD 01/16/2025 2:20 PM EDT [facility] RBC 4.50 3.80 - 4.80 M/mcL LAB HEMETOLOGY METHOD 01/16/2025 2:20 PM EDT [facility] Hemoglobin 13.5 11.5 - 16.0 g/dL LAB HEMETOLOGY METHOD 01/16/2025 2:20 PM EDT [facility] Hematocrit 40.5 35.0 - 47.0 % LAB HEMETOLOGY METHOD 01/16/2025 2:20 PM EDT [facility] MCV 89.8 79.0 - 98.0 FL LAB HEMETOLOGY METHOD 01/16/2025 2:20 PM EDT [facility] MCH 29.9 27.0 - 32.0 pcg LAB HEMETOLOGY METHOD 01/16/2025 2:20 PM EDT [facility] MCHC 33.3 32.0 - 37.0 g/dL LAB HEMETOLOGY METHOD 01/16/2025 2:20 PM EDT [facility] RDW 13.1 11.0 - 15.0 % LAB HEMETOLOGY METHOD 01/16/2025 2:20 PM EDT [facility] Platelets 237 130 - 400 K/mcL LAB HEMETOLOGY METHOD 01/16/2025 2:20 PM EDT [facility] MPV 10.6 7.0 - 11.0 FL LAB HEMETOLOGY METHOD 01/16/2025 2:20 PM EDT [facility] NRBC 0.0 <1.0 % LAB HEMETOLOGY METHOD 01/16/2025 2:20 PM EDT [facility] NRBC Absolute 0.00 <0.10 K/mcL LAB HEMETOLOGY METHOD 01/16/2025 2:20 PM EDT [facility] Neutrophils Relative 63.5 % LAB HEMETOLOGY METHOD 01/16/2025 2:20 PM EDT [facility] Lymphocytes Relative 26.3 % LAB HEMETOLOGY METHOD 01/16/2025 2:20 PM EDT [facility] Monocytes Relative 8.2 % [facility] Eosinophils Relative 1.0 % LAB HEMETOLOGY METHOD 01/16/2025 2:20 PM EDT [facility] Basophils Relative 0.3 % LAB HEMETOLOGY METHOD 01/16/2025 2:20 PM EDT [facility] Immature Granulocytes Relative 0.7 % LAB HEMETOLOGY [facility] Neutrophils Absolute 5.49 1.50 - 7.00 K/mcL LAB HEMETOLOGY METHOD 01/16/2025 2:20 PM EDT [facility] Lymphocytes Absolute 2.28 1.00 - 5.00 K/mcL LAB HEMETOLOGY METHOD 01/16/2025 2:20 PM EDT [facility] Monocytes Absolute 0.71 0.20 - 1.00 K/mcL LAB HEMETOLOGY METHOD 01/16/2025 2:20 PM EDT [facility] Eosinophils Absolute 0.09 0.00 - 0.50 K/mcL LAB HEMETOLOGY METHOD 01/16/2025 2:20 PM EDT [facility] Basophils Absolute 0.03 0.00 - 0.20 K/mcL LAB HEMETOLOGY METHOD 01/16/2025 2:20 PM T [facility] Immature Granulocytes Absolute 0.06(H) 0.00 - 0.03 K/mcL LAB HEMETOLOGY METHOD 01/16/2025 2:20 PM [facility] Blood Venous blood specimen / Unknown Venipuncture / Unknown 01/16/2025 11:16 AM EDT 01/16/2025 11:16 AM EDT us Darius Casanova MD LAB BLOOD ORDERABLES Final Res ult [facility] [address] [place] [address], [place] [phone] * Comprehensive metabolic panel (01/16/2025 11:16 AM EDT) Sodium 139 133 - 145 mmol/L LAB CHEMISTRY METHOD 01/16/2025 3:02 PM [facility] Potassium 4.5 3.5 - 5.5 mmol/L LAB CHEMISTRY METHOD 01/16/2025 3:02 PM [facility] Chloride 108 96 - 110 mmol/L LAB CHEMISTRY METHOD 01/16/2025 3:02 PM [facility] CO2 28 21 - 32 mmol/L LAB CHEMISTRY METHOD 01/16/2025 3:02 PM [facility] Anion Gap 3 3 - 11 LAB CHEMISTRY METHOD 01/16/2025 3:02 PM [facility] Glucose 93 70 - 100 mg/dL LAB CHEMISTRY METHOD 01/16/2025 3:02 PM [facility] BUN 14 5 - 25 mg/dL LAB CHEMISTRY METHOD 01/16/2025 3:02 PM [facility] Creatinine 0.78 0.50 - 1.10 mg/dL LAB CHEMISTRY METHOD 01/16/2025 3:02 PM [facility] eGFR 93 >=60 mL/min/1. 73m2 LAB CHEMISTRY METHOD 01/16/2025 3:02 PM T [facility] Comment:Calculation based on the Chronic Kidney Disease Epidemiology Collaboration (CKD-EPI) equation refit without adjustment for race. BUN/Creatinine Ratio 17.9 LAB CHEMISTRY METHOD 01/16/2025 3:02 PM [facility] Calcium 9.4 8.5 - 10.5 mg/dL LAB CHEMISTRY METHOD 01/16/2025 3:02 PM [facility] AST (SGOT) 16 10 - 42 unit/L LAB CHEMISTRY METHOD 01/16/2025 3:02 PM [facility] ALT (SGPT) 19 10 - 60 unit/L LAB CHEMISTRY METHOD 01/16/2025 3:02 PM [facility] Alkaline Phosphatase 66 42 - 121 unit/L LAB CHEMISTRY METHOD 01/16/2025 3:02 PM [facility] Total Protein 6.6 6.0 - 8.0 g/dL LAB CHEMISTRY METHOD 01/16/2025 3:02 PM [facility] Albumin 3.9 3.2 - 5.0 g/dL LAB CHEMISTRY METHOD 01/16/2025 3:02 PM [facility] Total Bilirubin 0.5 0.0 - 1.4 mg/dL LAB CHEMISTRY METHOD 01/16/2025 3:02 PM [facility] Blood Venous blood specimen / Unknown Venipuncture / Unknown 01/16/2025 11:16 AM EDT 01/16/2025 11:16 AM EDT us Darius Casanova MD LAB BLOOD ORDERABLES Final Res ult [facility] [address] [place] [address], * Injection tendon or ligament (12/05/2024 9:30 [...] 5:14 PM EST Normal bone mineral density. [id number] -------- FINAL REPORT -------- Dictated By: Katiuska Rodriguez Dictated Date: 04/23/2024 17:13 ET Assigned Physician: Katiuska Rodriguez Reviewed and Electronically Signed By: Katiuska Rodriguez Signed Date: 04/23/2024 17:14 ET Workstation ID: [id number] Transcribed By: Self Edit Transcribed Date: 04/23/2024 17:13 ET Narrative 04/23/2024 5:14 PM EST History: Low estrogen state due to menopause. Current smoker. Comparison: No comparison imaging at this institution. Findings: Bone densitometry is performed utilizing dual energy x-ray absorptiometry (DXA) in the Stream[employer] unit. The lumbar spine and proximal femora [...] utilizing dual energy x-ray absorptiometry(DXA) in the [employer] unit. The lumbar spine and proximal femora [...] 0.0 percent. IMPRESSION: Normal bone mineral density. [id number] -------- FINAL REPORT -------- Dictated By: Katiuska Rodriguez Dictated Date: 04/23/2024 17:13 ET Assigned Physician: Katiuska Rodriguez Reviewed and Electronically Signed By: Katiuska Rodriguez Signed Date: 04/23/2024 17:14 ET Workstation ID: [id number] Transcribed By: Self Edit Transcribed Date: 04/23/2024 17:13 ET Sloane Perez CNM IM DXA PROCEDURES Final Result * DEE SCREENING DIGITAL (02/16/2024 1:58 PM EDT) Anatomical Region Laterality Modality Mammography 02/15/2024 10:2 9 AM EDT Narrative 02/16/2024 1:58 PM EDT [facility] Diagnostic Imaging Department [address] [place] [id number] Patient: MARQUITA ALEXANDER /Age/Sex: 1975 - 49 - F Unit#: [id number] Location/Status: SPDIMAM/REG CLI Mnemonic/Ordering Site: [facility] Ordering Physician: DARIUS CASANOVA MD [facility] Screening Digital - 02/15/24 - 1622 Report Status:Signed EXAM: [facility] Screening Digital EXAM DATE AND TIME: 02/15/2024 4:22 PM HISTORY: Screening. Left breast biopsy in 2014, pathology benign. Aunt had breast carcinoma. COMPARISON: 09/20/22, 09/08/22, 12/30/20, 12/27/20, 09/09/16 TECHNIQUE: Bilateral digital breast tomosynthesis was performed in the CC and MLO projections. Computer aided detection with Mesh [place] 3D 3.1 was employed. TISSUE DENSITY: b. [...] Mammogram performed at [facility] [address] [place] [address] Dictating Physician: KATIUSKA RODRIGUEZ MD Electronically Signed by: KATIUSKA RODRIGUEZ MD Dic Date/Time: 02/16/24 1352 Sign date/Time: 02/16/24 1358 Procedure Note Katiuska Rodriguez MD - 03/06/2024 [facility] Diagnostic Imaging Department [address] [place] [address] Patient: MARQUITA ALEXANDER /Age/Sex: 1975 - 49 - F Unit#: [id number] Location/Status: [facility] CLI Mnemonic/Ordering Site: [facility] Ordering Physician: DARIUS CASANOVA MD [facility] Screening Digital - 02/15/24 - 1622 Report Status:Signed EXAM: [facility] Screening Digital EXAM DATE AND TIME: 02/15/2024 4:22 PM HISTORY: Screening. Left breast biopsy in 2014, pathology benign. Aunthad breast carcinoma. COMPARISON: 09/20/22, 09/08/22, 12/30/20, 12/27/20, 09/09/16 TECHNIQUE: Bilateral digital breast tomosynthesis was performed in the CCand MLO projections. Computer aided detection with Mesh [place] 3D 3.1was employed. TISSUE DENSITY: b. There [...] Mammogram performed at [place] [address] Dictating Physician: KATIUSKA RODRIGUEZ MD Electronically Signed by: KATIUSKA RODRIGUEZ MD Dic Date/Time: 02/16/24 1352 Sign date/Time: 02/16/24 1358 Darius Casanova MD IMG BI PROCEDURES Final Result * Cervical Cancer Screening: HPV (10/24/2020) Cervical Cancer Screening: HPV negative, abstracted Historical Provider HEALTH MAINTENANCE Final Result from Last 3 Months or Most Recently Relevant to Health Maintenance Insurance [facility] Care Teams Digital Tech Relationship Specialty Start Date End Date Darius Casanova MD [facility] [address] PCP - General Oncology 12/20/19
--- OUTSIDE RECORDS SUMMARY | 2025-03-05 09:16 | XMS_ITS | Patient Health Record ---
Author Organization Ross Casanova III, MD Address [address] [place] [address] [address] [place] [address] Care Team Providers Care Heat Treat Puller Name Role Phone Dr. Ross Casanova III Primary Care Provider [phone] Allergies Allergen (clinical drug ingredient) Drug/Non Drug [...] 0.2 - 1.3 BLD Negative Negative - PROFILE, FASTING (COMPREHENS MIN METABOLIC) Reviewed date:02/14/2025 10:35:01 AM Interpretation: Performing Lab: Notes/Report: US extremity nonvascular Reviewed date:11/09/2024 07:25:59 PM Interpretation: Performing Lab: Notes/Report: [address] [address] Ultrasound Report Signed Patient: Marquita Alexander MR#: [id number] 42 : 1975 Acct:[id number] Age/Sex: 49 / F ADM Date: 08/01/24 Loc: HO.US Attending Dr: Ross Casanova MD Ordering Physician: Ross Casanova MD Date of Service: 08/01/24 Procedure(s): US extremity nonvascular Accession Number(s): [id number] cc: Ross Casanova MD CLINICAL HISTORY: SYNOVIAL [...] 08/02/24 1150 DD/ 1149 TD/TT: 08/02/24 1149 Director Of Operations Home Health: [place] [address] Ultrasound Report Signed Patient: Jannet Alexander MR#: [id number] 41 : 1975 Acct:[id number] Age/Sex: 49 / F ADM Date: 08/01/24 Loc: . Attending Dr: Ross Casanova MD Ordering Physician: Ross Casanova MD Date of Service: 08/01/24 Procedure(s): US ext remity nonvascular Accession Number(s): [id number] cc: Ross Casanova MD CLINICAL HISTORY: SY [...] Dictated By: Km Arce MD Signed By: <Jesús mendoza signed by Km Arce MD in OV> 08/02/24 1150 DD/ 1149 TD/TT: 08/02/24 1149 Director Of Operations Home Health: Reason For Referral Reason Evaluate and Treat pain left knee Diagnosis 1 Synovial cyst of pop liteal space [[place]], left knee (M71.22) Referral Organization Ross Casanova III, MD Referring Provider First Name Ross Referring Provider Last Name Edilberto Referring Provider Speciality Internal M edicine Referred Provider [facility], Orthopedic Surgeons Referred Provider Specialty [facility] General Notes Angela Camacho 07/23/2024 11:35:14 [...] referral to be sent elsewhere from René Tuore. Referral was sent to Conchita Toure at [facility], Angela Camacho 09/20/2024 03:00:06 PM > [...] Provider Speciality Internal M edicine Referred Organization [facility] Referred Provider [facility], [employer]PER[employer] [facility] Midwif[facility] Referred Address [address] [place] [address],[place], [place],[id number] Referred Provider Specialty OB - Gynecol ogy General Notes Melissa Yan CMA 10/24 09:48:59 AM >ref/demo/progress note and prior ultrasound done at [facility] faxed to [facility], Robert Anne 12/19/2024 11:04:16 AM >Pt called asking about this referral. She did not received a call from [facility]. I advice Pt to call OBGYN and schedule., Melissa Yan CMA 12/27/2024 02:18:13 PM > I called [facility] [phone] spoke to Allison she stated they did not receive referral. Ref refaxed to [phone] ATTN: Dr Jones Referral Priority Routine Reason osteoarthritis right thumb Diagnosis 1 Osteoarthritis of ri ght hand, unspecified osteoarthritis type (M19.041) Referral Organization Ross Casanova III, MD Referring Provider First Name Ross Referring Provider Last Name Edilberto Referring Provider Speciality Internal M edicine Referred Provider [facility] [place] Referred Provider Specialty Rheumatology General Notes Melissa Yan CATALOGUE CLERK 10/24 09:43:31 AM >ref/demo/progress note/x rays [facility], Melissa Yan CATALOGUE CLERK 11/15/2024 03:19:14 PM >[facility] [...] Problem Status W/U Status Risk Notes Problem 8426597 Former smoker (Z87.891) Active confirmed She is no longe r smoking and has been abstinent for a month. We made a plan to prevent relapse in times of stress and illness. Problem 63550873 Unilateral primary osteoarthritis of first carpometacarpal joint, right hand (M18.11) Active confirmed Problem Family history of malignant neoplasm of gastrointestinal tract (020223094) Family history of malignant neoplasm of digestive organs (Z80.0) Active confirmed She gives a history that 2 cousins have cancer of the stomach. Problem Genetic disorder carrier (56992338) Family history of carrier of genetic disease (Z84.81) Active confirmed Genetic testing was done by her blueprint tracer on October 03, 2022. This was done through a company called [employer] and was called in an [employer] hereditary cancer test. The results states negative, no known pathogenic or likely pathogenic variants were detected. 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 Problem Gastroesophageal reflux disease (811544448) Gastroesophagea l reflux disease, esophagitis presence not specified (K21.9) Active confirmed Her reflux symptoms are well controlled with her current medical regimen. No change was made. She was advised to refrain from eating before sleep Problem 03446586 Cervical radiculopathy (M54.12) Active confirmed There is muscle spasm in the posterior right neck and pain with range of motion although ranging is normal. She will use cyclobenzaprine heat massage and rest with follow-up. If necessary imaging will be done. Problem 69893969 Hiatal hernia (K44.9) Active confirmed This is a finding on upper GI series done recently and is asymptomatic. Problem 383433883 Esophageal dysmotility (K22.4) Active confirmed A barium swallo w will be done in the near future, and she will be seen back after that to discuss results. Problem 620667969 Primary osteoarthritis of both knees (M17.0) Active confirmed Problem 96943468 Depression, unspecified depression type (F32.9) Active confirmed Her depression seems very mild at this time and does not bother her much at all. She reports completing all of the activities of daily living on a regular basis. Problem 39646098 Dysphagia, unspecified type (R13.10) Active confirmed The upper GI showed a normal esophagus that herniation of the upper pole of the stomach which may be the cause of her sensations. She was reassured. Problem 67668050 Pelvic pain (R10.2) Active confirmed She complained of pelvic pain with intercourrse recently. She said she had been told she had an ovarian cyst. This is not mentioned on an ultrasound of the pelvis with transvaginal views done in March 2024. That report stated no adnexal masses . She has requested a second [employer] opinion and we are arranging this. Problem Amenorrhea (22868736) Amenorrhea (N91.2) Active confirmed She has had no further midcycle bleeding. Problem 628383235 GERD with esophagitis (K21.0) Active confirmed This has been controlled with medications. Problem 6570591 Migraine with aura and without status migrainosus, not intractable (G43.109) Active confirmed I have prescribed a new medication, eletriptan. The risks and benefits were explained and the way to take it was carefully delineated. She gave informed consent for prescribing in taking the medication. Problem Carpal tunnel syndrome (99173282) Carpal tunnel syndrome on both sides (G56.03) Active confirmed She has occasional discomfort in her hands but it is very mild and she does not wish treatment for it. Problem Gastroesophageal reflux disease with esophagitis (disorder) (152466243) Gastroesophagea l reflux disease with esophagitis, unspecified whether hemorrhage (K21.00) Active confirmed This is an occasional symptom well controlled with antacids. 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 We are waiting for an appointment with genetic counseling in gastroenterology in medical oncology. Problem 227365974 Infection of breast, right (N61.0) Active confirmed [...] Date Provider Diagnosis Ross Casanova III, MD [address] [place] [address] [place] [address] 03/05/2024 Ross Casanova Carpal tunnel syndro me on both sides G56.03 ; Cervical radiculopathy M54.12 ; Gastroesophageal reflux disease with esophagitis, unspecified whether hemorrhage K21.00 ; Depression, unspecified depression type F32.9 and Hiatal hernia K44.9 Ross Casanova III, MD [address] [place] [address] [place] [address] 06/05/2024 Ross Casanova Gastroesophageal ref lux disease, esophagitis presence not specified K21.9 ; Cervical radiculopathy M54.12 ; Depression, unspecified depression type F32.9 ; Esophageal dysmotility K22.4 ; Migraine with aura and without status migrainosus, not intractable G43.109 ; Low back pain M54.5 and Former smoker Z87.891 Ross Casanova III, MD [address] [place] [address] [place] [address] 07/18/2024 Ross Casanova Gastroesophageal ref lux disease, esophagitis presence not specified K21.9 ; Cervical radiculopathy M54.12 ; Depression, unspecified depression type F32.9 ; Synovial cyst of popliteal space [[place]], left knee M71.22 ; Esophageal dysmotility K22.4 ; Hiatal hernia K44.9 ; Migraine with aura and without status migrainosus, not intractable G43.109 and Former smoker Z87.891 Ross Casanova III, MD [address] [place] [address] [place] [address] 08/31/2024 Ross Casanova Cervical radiculopat hy M54.12 ; Migraine with aura and without status migrainosus, not intractable G43.109 ; Gastroesophageal reflux disease with esophagitis, unspecified whether hemorrhage K21.00 ; Hiatal hernia K44.9 ; Esophageal dysmotility K22.4 and Tobacco dependence F17.200 Ross Casanova III, MD [address] [place] [address] [place] [address] 10/22/2024 Ross Casanova Cervical radiculopat hy M54.12 ; GERD with esophagitis K21.0 ; Depression, unspecified depression type F32.9 ; Esophageal dysmotility K22.4 ; Hiatal hernia K44.9 ; Migraine with aura and without status migrainosus, not intractable G43.109 ; Former smoker Z87.891 ; Pelvic pain R10.2 and Infection of breast, right N61.0 Ross Casanova III, MD [address] [place] [address] [place] [address] 12/24/2024 Ross Casanova Cervical radiculopat hy M54.12 ; Depression, unspecified depression type F32.9 ; Esophageal dysmotility K22.4 ; Hiatal hernia K44.9 ; Migraine with aura and without status migrainosus, not intractable G43.109 ; Primary osteoarthritis of both knees M17.0 and Unilateral primary osteoarthritis of first carpometacarpal joint, right hand M18.11 Ross Casanova III, MD [address] [place] [address] [place] [address] 05/10/2024 Ross Casanova Chronic cough R05.3 and Chest discomfort R07.89 Ross Casanova III, MD [address] [place] [address] [place] [address] 08/17/2024 Ross Casanova III, MD [address] [place] [address] [place] [address] 11/02/2024 oRss Casanova III, MD [address] [place] [address] [place] [address] 11/02/2024 Ross Casanova III, MD [address] [place] [address] [place] [address] 02/14/2025 Ross Casanova III, MD [address] [place] [address] [address] [place] [address] 12/18/2024 Ross Casanova Cervical radiculopat hy M54.12 [...] masses . She has requested a second [employer] opinion and we are arranging this. 10/22/2024 Infection of breast, right (ICD-10 - N61.0) This appears to be a simple skin infection and will be observed. Plan Of Treatment Pending Test Test Name Order Date PROFILE, FASTING (COMPREHENSIVE METABOLI C) 09/06/2023 PROFILE, FASTING (COMPREHENSIVE METABOLI C) 03/02/2023 PROFILE, RANDOM (COMPREHENSIVE METABOLIC ) 04/10/2021 PROFILE, [...] CBC w DIFF 09/06/2023 CBC w DIFF 03/26/2020 CBC w DIFF 10/22/2024 CBC w DIFF 04/10/2021 CBC w DIFF 03/23/2022 CBC w DIFF 03/13/2021 CBC w DIFF 08/13/2020 CBC w DIFF 03/14/2018 SED RATE (ESR) 03/02/2023 SED RATE (ESR) 03/14/2018 SED RATE (ESR) 04/10/2021 SED RATE (ESR) 03/13/2021 RETICULOCYTE COUNT,CORRECTED 03/26/2020 URINALYSIS (UA) 06/11/2021 FOLLICLE STIMULATING HORMONE (FSH) 09/05 LUTEINIZING HORMONE (LH) 09/06/2023 URINE CULTURE 06/11/2021 XR CHEST 2 VIEW PA & LAT 05/10/2024 XR HAND RT 03/23/2022 CBC WITH AUTO DIFF 03/02/2023 Urinalysis 09/06/2023 Lipid Panel 10/22/2024 Lipid Panel 03/02/2023 Lipid Panel 09/06/2023 Amylase 04/10/2021 Lipase 04/10/2021 US extremity nonvascular 07/18/2024 Next Appt Details Provider Name:Ross Casanova , 03/06/2025 04:00:00 PM, [address] [place] [address] , GEORGI [address]as, [place], [address], Insurance Providers Payer Name Payer Address Payer Phone Subscriber Number Group Number Insured Name Patient Relationship to Insured Coverage Start Date Coverage End Date [facility] [place] [address] [place], [place] [id number] PPO MARQUITA ALEXANDER Self - patient is the insured MED[place] [address] [place], [place] [id number] MARQUITA ALEXANDER Self - patient is the [...]
--- OUTSIDE RECORDS SUMMARY | 2025-03-05 09:17 | XMS_ITS | Clinical Summary ---
Author Organization [facility] Address [address] [place] [address] Care Team Providers Care Film And Video Editor Name Role Phone Ross Casanova MD Primary Care Provider [phone] Allergies Active Allergy Reactions Criticality Noted Date [...] age to complete this topic Care Teams Film And Video Editor Relationship Specialty Start Date End Date Ross Casanova MD [address] [place] [phone] PCP - General Oncology 12/20/19
== END 2025-03-05 09:37 | disposition home or self-care (01) ==
LOC: HO.HWS 08:31
PROVIDERS: Visit Provider Obstetrics & Gynecology
DX: R31.29 Other microscopic hematuria (principal); N83.299 Other ovarian cyst, unspecified side
CPT/HCPCS: 99213

== ENCOUNTER 2025-03-05 09:36 | Outpatient (REF) | payer BC, SELFPAY | END 2025-03-05 09:37 | disposition home or self-care (01) | LOC: HO.LNP 09:36 | PROVIDERS: Visit Provider Obstetrics & Gynecology | DX: R31.29 Other microscopic hematuria (principal) | CPT/HCPCS: 87086 ==

== ENCOUNTER → 2025-04-08 15:00 | Outpatient (BNV) | payer BC, SELFPAY | PROVIDERS: PCP Internal Medicine Medical Oncology; Visit Provider Internal Medicine | DX: Z12.31 Encounter for screening mammogram for malignant neoplasm of breast (principal) | CPT/HCPCS: 77063; 77067 ==

== ENCOUNTER 2025-04-08 15:08 | Outpatient (REF) | payer BC, SELFPAY ==
--- OUTSIDE RECORDS SUMMARY | 2023-11-17 10:45 | XMS_ITS | Continuity of Care Document ---
Author Organization [facility] Address [address] [place] [address] Phone Care Team Providers Care Data Conversion Developer Name Role Phone Yayo ENGLAND, RVArely, CAROLINE, Ross Unavailable U navailable Allergies, Adverse Reactions, Alerts Substance Reaction Status Criticality No Known Allergies Active No Inform ation Procedures Procedure Date Office/Outpt E&M Established 15 Mins- CT & [place] Duplex Scan-extrem Veins; Uni/ CT & [place] J Duplex Scan-extrem Veins; Uni/ CT & [place] J Inj Scleros Solut; Mx Veins 1- CT & [place] J Ultrason Guidan Needle Bx-rad- CT & MA J Duplex Scan-extrem Veins; Uni/ CT & [place] J Endovenous Laser, 1st Vein- CT & [place] Endovenous Rf, 1st Vein- CT & [place] 2023 Office/Oupt E&M New Pt 45 Mins- CT & [place] Duplex Scan-extrem Veins; Comp- CT & [place] Advance Directives Directive Yes / No Effective Date File Name No Information Encounters Encounter Description Practice Location Reason(s) For Visit Diagnoses Date Provider Providers Copied on Encounter Office/Outpt E&M Established 15 Mins- [place] & [place] [facility], [address] [address], [id number], [place] tel:[phone] [place] Venous insufficiency (chronic) (peripheral) 4 Yayo ENGLAND RVT, RPVI Robert. [address] [place] [address], [facility], [place], [id number] , [place]. [phone] Referring Provider: Ross Rodney, [address] [place] [address] [address], [place], [address]. tel:[phone] [facility], [address] [place] [address] [address], [id number], [place] tel:[phone] [place] Varicose veins of right lower extremity with pain 4 Yayo ENGLAND RVT, RPVI Robert. [address] [place] [address], [facility] [place], [id number] , [place]. tel:[phone] Referring Provider: Ross Rodney, [address] [place] [address] [address], [place], [address]. tel:[phone] [facility], [address] [place] [address] [place], [id number], [place] tel:[phone] CV[place] Encounter for follow-up examination after completed treatment for conditions other than malignant neoplasmVaricos e veins of right lower extremity with pain 4 Yayo ENGLAND RVT, RPVI Robert. [address] [place] [address], [address], [facility], [place], [id number] , [place]. tel:[phone] Referring Provider: Ross Rodney, [address] [place] [address] [address], [place], [address]. tel:[phone] [facility], [address] [place] [address] [address] [address], [id number], [place] tel:[phone] CV[place] Varicose veins of right lower extremity with other complications 4 Yayo ENGLAND RVT, RPVI Robert. [address] [place] [address], [address], [facility] [place], [id number] , [place]. tel:[phone] Referring Provider: Ross Rodney, [address] [place] [address] [address], [place], [address]. tel:[phone] [facility], [address] [place] [address] [address], [id number], [place] tel:[phone] [place] Encounter for follow-up examination after completed treatment for conditions other than malignant neChronic venous hypertension (idiopathic) with other complications of right lower extremity 4 Yayo ENGLAND RVT, CAROLINE Hawkins. [address] [place] [address], [place], [place], [id number] , [place]. tel:[phone] Referring Provider: Ross Rodney, [address] [place] [address] Suite [facility], [place], [address]. tel:[phone] [facility], [address] [place], [place] [address], [id number], [place] tel:[phone] CVR - [facility] Varicose veins of right lower extremity with other complications 4 Yayo ENGLAND RVT, CAROLINE Hawkins. [address] [place] [address], [place], [place], [id number] , [place]. tel:[phone] Referring Provider: Ross Rodney, [address] [place] [address] [address], [place], [address]. tel:[phone] [facility], [address] [place] [address] [address], [id number], [place] tel:[phone] CVR - [facility] Chronic venous hypertension (idiopathic) with inflammation of right lower extremity 4 Yayo ENGLAND RVT, CAROLINE Hawkins. [address] [place] [address] [address], [place], [place], [id number] , [place]. tel:[phone] Referring Provider: Ross Rodney, [address] [place] [address] [address], [place], [address]. tel:[phone] [facility], [address] [place] [address] [address], [place], [id number], [place] tel:[phone] CVR [place] No Information 4 Yayo ENGLAND RVT, CAROLINE Hawkins. [address] [place] [address], [facility] [place], [id number] , [place]. tel:[phone] Office/Oupt E&M New Pt 45 Mins- [place] & [place] [facility], [address] [place] [address] [address], [place], [id number], [place] tel:[phone] CVR - [place] Varicose veins of right lower extremity with other complicationsPa in in right lower legPain in left lower legPain in right legRestless legs syndromePruritu s, unspecifiedPain in left legCramp and spasmLocalized edema 4 Yayo ENGLAND RVT, CAROLINE Hawkins. [address] [place] [address], [place], [place], [id number] , [place]. tel:[phone] Referring Provider: Ross Rodney, [address] [place] [address] Suite [facility], [place], [address]. tel:[phone] [facility], [address] [place] [address] [address], [place], [id number], [place] tel:[phone] CVR - [place] Pain in right legPain in left leg 4 Yayo ENGLAND RVT, CAROLINE Hawkins. [address] [place] [address], [place], [place], [id number] , [place]. tel:[phone] Referring Provider: Ross Rodney, [address] [facility] [address], [place], [address]. tel:[phone] Family History Family Member Type Diagnosis Age At Onset No Information Payers Payer name Insurance type Covered republican ID Aparna geronimodenise(s) BCBS [facility] [id number] Social History Type Description Quantity Date Captured Comments Alcohol Use Details Unknown Caffeine Use Details Unknown Tobacco Use Status No Information Smoking Status Former Smoker Non-Smoking Tobacco Use Details : No Details Available : No Details Available Sex Female Vital Signs Date / Time: Height Weight BMI Pulse Rate Blood Pressure Temperature Respiratory Rate Body Surface Area Head Circumference Head Circ. Percentile Wt./Joel. Percentile BMI percentile Pulse Ox Inhaled Ox 55.790 kg (123.00 lbs) 24.9 9 kg/m eter (2) 120/80 mm[Hg] Chief Complaint And Reason For Visit No Information Reason For Referral Reason For Referral No Information Plan Of Treatment Date Type Action Status Goal Tobacco cessation counseling completed Goal Diet education completed Goal Tobacco cessation counseling completed Goal Diet education completed Referral Ordered: Weight management: Referral to physician timeframe: 3 Months (related to Body mass index (BMI) 24.0-24.9, adult) ordered Referral Ordered: Weight management: Referral to physician timeframe: 3 Months (related to Body mass index (BMI) 24.0-24.9, adult) ordered History Of Present Illness Encounter Date Complaint History Of Prese nt Illness No Information Functional Status Date Functional Assessmen t No Information Instructions Date Instruction Additional Infor sukhi Compression stocking usage as conservative measure Related to Venous insufficiency (chronic) (peripheral) Patient education booklet given Related to Venous insufficiency (chronic) (peripheral) Lifestyle education Related to B thai mass index (BMI) 24.0-24.9, adult Giving Encouragement to exercise Related to Body mass index (BMI) 24.0-24.9, adult Diet education Related to Body mass index (BMI) 24.0-24.9, adult Lifestyle education Related to B thai mass index (BMI) 24.0-24.9, adult Giving Encouragement to exercise Related to Body mass index (BMI) 24.0-24.9, adult Diet education Related to Body mass index (BMI) 24.0-24.9, adult Pre and post instruc tions reviewed and provided Related to Varicose veins of right lower extremity with other complications Patient education booklet given Related to Varicose veins of right lower extremity with other complications Assessments Type Assessment Date No Information Patient Care Teams Name Effective Dates (start - stop) Status Members No Information
--- OUTSIDE RECORDS SUMMARY | 2025-04-04 23:59 | XMS_ITS | Continuity of Care Document ---
Author Organization [facility] MEDICAL SCHEDULER Oncolog y Address [address] [place] [id number]- Care Team Providers Care Communications Designer Name Role Phone Edilberto ENGLAND, Ross Rodney Primary Care Physician [phone] [id number] Date(s): 03/05/25 - 04/04/25 [facility] MEDICAL SCHEDULER Oncology [address] [place] [address] Encounter Type: Triage Allergies, Adverse Reactions, Alerts Substance Criticality Severity Reaction Reaction Severity Status Seafood anaphylaxis Active Immunizations Given and Recorded Vaccine Date Status Refusal Reason influenza virus vaccine, inactivated 1 01/25/12 Gi tai influenza virus vaccine, inactivated 2 06/15/10 Gi tai influenza virus vaccine, inactivated 3 02/03/09 Gi tai Hepatitis B Vaccine (old term) 4 03/10/09 Given Hepatitis B Vaccine (old term) 5 10/18/08 Given Hepatitis B Vaccine (old term) 6 09/17/08 Given Tet/Diphth/Acel, Pertussis (oldterm) 7 08/06/08 Gi tai 1Admin Note: VIS 11/08/11 2Admin Note: VIS given 12/16/09, Cambodian form 3Admin Note: VIS GIVEN 11/30/07 djiboutian 4Admin Note: #3 in series 5Admin Note: #2 in series, unable to obtain lot number as prefilled syringe discarded in sharps container. 6Admin Note: vis given 7Admin Note: vis given Medications Aleve 220 mg oral capsule 1 capsule = 220 mg, By Mouth, Every 12 hours, 0 Refills, Maintenance, 03/19/25 8:55:00 AM EST, Partial fill upon patient request if the prescription is for a schedule II opioid drug. Start Date: 03/19/25 Status: Ordered Medication Dispense Status: Completed Total Allowed Fills: 1 Fills Dispensed: 0 amitriptyline 25 mg oral tablet 2 tablet = 50 mg, By Mouth, Daily at bedtime, Yessi cada noche antes de dormir, para prevenir dolor de shannan, # 60 tablet, 11 Refills, Maintenance, 01/14/12 11:12:29 AM EDT, [facility]/pharmacy #[id number] Start Date: 01/14/12 Stop Date: 01/08/13 Status: Ordered Medication Dispense Status: Completed Quantity: 60.0 Unit: tablet Total Allowed Fills: 12 Fills Dispensed: 0 Cane See Instructions, # 1 each, Maintenance, Use for support when rising or climbing stairs for shruti hipbursitis., 01/31/12 9:05:37 AM EDT Start Date: 01/31/12 Status: Ordered Medication Dispense Status: Completed Quantity: 1.0 Unit: each Total Allowed Fills: 1 Fills Dispensed: 0 cyclobenzaprine 10 mg oral tablet Refills 0, Maintenance, 03/19/25 8:54:00 AM EST, Partial fill upon patient request if the prescription is for a schedule II opioid drug. Start Date: 03/19/25 Status: Ordered Medication Dispense Status: Completed Total Allowed Fills: 1 Fills Dispensed: 0 EPINEPHrine (Eqv-Adrenaclick) Auto-Injector 0.3 mg injectable kit = 0.3 mg, Intramuscular, Once, 0 Refills, Maintenance, 03/19/25 8:56:00 AM EST, Partial fill upon patient request if the prescription is for a schedule II opioid drug. Start Date: 03/19/25 Status: Ordered Medication Dispense Status: Completed Total Allowed Fills: 1 Fills Dispensed: 0 Klonopin 1 mg oral tablet 1 tablet = 1 mg, By Mouth, 3 times a day, 0 Refills, Maintenance, 08/30/11 1:39:26 PM EDT Start Date: 08/30/11 Status: Ordered Medication Dispense Status: Completed Total Allowed Fills: 1 Fills Dispensed: 0 Lidoderm 5% film 1 patch, Topically, Daily, Use on left thigh, for tingling and nerve pain. Label in djiboutian pls, # 30 patch, 2 Refills, Maintenance, 04/24/12 9:47:19 AM EST, [facility]/pharmacy #[id number] Start Date: 04/24/12 Status: Ordered Medication Dispense Status: Completed Quantity: 30.0 Unit: patch Total Allowed Fills: 3 Fills Dispensed: 0 omeprazole 20 mg oral enteric coated tablet 1 tablet = 20 mg, By Mouth, 2 times a day, (do not crush or chew), take 30 minutes before first meal of the day. Take every day for stomach pain. Dose increase. label in djiboutian [facility], # 60 tablet, 5 Refills, Maintenance, 07/10/12 3:45:55 PM EST, [facility]/pharmacy #[id number] Start Date: 07/10/12 Stop Date: 01/06/13 Status: Ordered Medication Dispense Status: Completed Quantity: 60.0 Unit: tablet Total Allowed Fills: 6 Fills Dispensed: 0 oxycodone 5 mg oral tablet See Instructions, 6 extra pills per month to use for breakthrough pain in the middle of the night. For hip pain. Label in Cambodian [facility], # 6 tablet, 0 Refills, Maintenance, 08/16/12 2:52:27 PM EDT Start Date: 08/16/12 Status: Ordered Medication Dispense Status: Completed Quantity: 6.0 Unit: tablet Total Allowed Fills: 1 Fills Dispensed: 0 Percocet-5/325 325 mg-5 mg oral tablet 2 tablet, By Mouth, Every 6 hours, PRN for pain, # 30 tablet, 0 Refills, Maintenance, 09/18/12 3:10:35 PM EDT, Tablet Start Date: 09/18/12 Status: Ordered Medication Dispense Status: Completed Quantity: 30.0 Unit: tablet Total Allowed Fills: 1 Fills Dispensed: 0 sertraline 25 mg oral tablet 1 tablet = 25 mg, By Mouth, Daily, # 30 tablet, 0 Refills, Maintenance, 03/19/25 8:56:00 AM EST, Tablet, Partial fill upon patient request if the prescription is for a schedule II opioid drug. Start Date: 03/19/25 Status: Ordered Medication Dispense Status: Completed Quantity: 30.0 Unit: tablet Total Allowed Fills: 1 Fills Dispensed: 0 Splint See Instructions, # 1 units, Maintenance, Please dispense a Right wrist cock-up splint. Dx: Carpal Tunnel Syndrome., 02/21/12 9:43:10 AM EDT Start Date: 02/21/12 Status: Ordered Medication Dispense Status: Completed Quantity: 1.0 Unit: Units Total Allowed Fills: 1 Fills Dispensed: 0 Tylox 500 mg-5 mg oral capsule 1 capsule, By Mouth, Every 6 hours, PRN Pain , Severe, (not to exceed 4000 mg acetaminophen per day) (not to exceed 8 tablets/day), # 12 capsule, 0 Refills, Maintenance, 08/04/12 11:24:26 PM EDT, Capsule Start Date: 08/04/12 Status: Ordered Medication Dispense Status: Completed Quantity: 12.0 Unit: capsule Total Allowed Fills: 1 Fills Dispensed: 0 Problem List Condition Confirmation Course Effective Dates Status H ealth Status Informant Abnormal uterine bleeding (AUB) Confirmed Active Anxiety Confirmed Active Arthralgia of the pelvic region and thigh Confirmed Active Carpal tunnel syndrome, bilateral Confirmed Active Cervical radiculopathy Confirmed Active Depression Confirmed Active Herniated lumbar disc without myelopathy Confirmed Active Esophageal motility disorder Confirmed Active GERD (gastroesophageal reflux disease) Confirmed Active Hiatal hernia Confirmed Active Hepatic cyst Confirmed Active PTSD (post-traumatic stress disorder) Confirmed Active Social History Social History Type Response Sexual Sexually involved in last 6 months: Yes. Tobacco Other: quit about 1 year ago. Sex Sex Representation Female (finding) Patient Care team information Care Team Personnel Name: Ross Casanova MD Position: [facility] Physician - Oncology Member Role: PCP Address: [address] [place] [address] [address] Ross Casanova III, MD [address] Telecom: Care Team Related Persons Name: VIMAL LEWIS Name: NATHANIEL BARRERA Insurance Providers Guarantor name: PABLO WILKINSONA Health Plan Information #: 1 Payer: [employer] PPO Payer Identifier: NA Member Number: [id number] Group Number: [id number] Subscriber Identifier: NA Relationship to Subscriber: self Coverage Type: NA Coverage Verification Date: NA Telecom: NA Address: Health Plan Information #: 2 Payer: [employer] Payer Identifier: NA Member Number: [id number] Group Number: [id number] Subscriber Identifier: NA Relationship to Subscriber: self Coverage Type: MEDICAID Coverage Verification Date: NA Telecom: NA Address: NA
--- OUTSIDE RECORDS SUMMARY | 2025-04-08 18:16 | XMS_ITS | Clinical Summary ---
Author Organization [facility] Address [address] [place] [address] Phone Care Team Providers Care Teller Vault Name Role Phone Darius Casanova MD Primary Care Provider [phone] Allergies Active Allergy Reactions Criticality Noted Date [...] each day. 28 tablet 12 03/26/20 24 Active Active Problems Problem Noted Date Diagnosed Date GERD (gastroesophageal reflux disease) 4 Herniated lumbar intervertebral disc 02/14/2024 Neck pain 11/06/2021 Overview (02/14/2024): Last Assessment & Plan: This history and exam was performed in conjunction with a distribution center associate from [employer], Nic #[id number]. Ms. Alexander was seen here 2 years [...] Review of the cervical spine MRI from [place] dated 09/30/2021 shows a 1 mm anterolisthesis [...] Overview (02/14/2024): 04/18/2018 PAP LSIL Plan : [facility] for [facility] 2020 PAP Neg cytology, neg hpv Chronic, continuous use of opioids 04/19/2018 PTSD (post-traumatic stress disorder) 04/19/2018 Encounters Date Type Department Care Team Description 01/21/2025 3:00 PM EDT Office Visit Orthopedic Surgery - [address] [address] Anoop La, DPM Bunion of right foot (Primary Dx); Hallux rigidus of right foot; Hallux rigidus of left foot; Metatarsalgia of both feet; Follow-up exam from Last 3 Months Surgical History Surgery Date Site/Laterality Comments TUBAL LIGATION PROCEDURE: HISTORICAL TUBAL LIGATION OTHER SURGICAL HISTORY PROCEDURE: CA NEPHROLITHOTOMY COMP CGEN KDN ABNORMALITY CARPAL TUNNEL RELEASE PROCEDURE: [place] NEUROPLASTY &/TRANSPOS MEDIAN NRV CARPAL TUNNE; COMMENT: right hand OTHER SURGICAL HISTORY 09/10/2020 Left PROCEDURE: [place] STAB PHLEBT VARICOSE VEINS 1 XTR 10-20 STAB INCS BELT ABDOMINOPLASTY 04/2022 PROCEDURE: HISTORICAL TUMMY TUCK; COMMENT: in [place]- Dr. Schmidt/ Thu Medical History Medical History [...] Years Used Date Smoking Tobacco: Former Cigarettes 0 Q uit: 03/09/2021 Smokeless Tobacco: Never Tobacco [...] PM EST Office Visit Orthopedic Surgery - [place] [address] [address] Anoop La DPM [address] [phone] Health Maintenance Due Date Last Done Comments [...] EDT Brachial neuritis Severely overweight Iron deficiency BD BONE DENSITY DXA AXIAL SKELETON Routine [...] to calcaneal cuboid joint us Anoop La DPRafael IMG XR PROCEDURES Final R esult * (ABNORMAL) Lipid panel with reflex to direct LDL (01/16/2025 11:16 AM EDT) Cholesterol 200 0 - 200 mg/dL LAB CHEMISTRY METHOD 01/16/2025 3:[address] [facility] Triglycerides 97 0 - 150 mg/dL LAB CHEMISTRY METHOD 01/16/2025 3:[address] [facility] HDL 69 >=40 mg/dL LAB CHEMISTRY METHOD 01/16/2025 3:[address] [facility] LDL Calculated 112(H) 0 - 100 mg/dL LAB CHEMISTRY METHOD 01/16/2025 3:[address] [facility] Comment:Estimated LDL Calcul ated using equation: Total cholesterol - HDL cholesterol - (Triglycerides/5) VLDL Cholesterol Bowen 19.4 mg/dL LAB CHEMISTRY METHOD 01/16/2025 3:[address] [facility] Non HDL Chol. (LDL+VLDL) 131 <145 mg/dL LAB CHEMISTRY METHOD 01/16/2025 3:[address] [facility] Chol/HDL Ratio 2.9 0.0 - 4.4 LAB CHEMISTRY METHOD 01/16/2025 3:02 PM [facility] Blood Venous blood specimen / Unknown Venipuncture / Unknown 01/16/2025 11:16 AM EDT 01/16/2025 11:16 AM EDT us Darius Casanova MD LAB BLOOD ORDERABLES Final Res ult [facility] [address] [place] [address], [place] [phone] * (ABNORMAL) CBC auto differential (01/16/2025 11:16 AM EDT) [facility] WBC 8.7 4.8 - 10.8 K/mcL LAB HEMETOLOGY METHOD 01/16/2025 2:[address] [facility] RBC 4.50 3.80 - 4.80 M/mcL LAB HEMETOLOGY METHOD 01/16/2025 2:[address] [facility] Hemoglobin 13.5 11.5 - 16.0 g/dL LAB HEMETOLOGY METHOD 01/16/2025 2:[address] [facility] Hematocrit 40.5 35.0 - 47.0 % LAB HEMETOLOGY METHOD 01/16/2025 2:[address] [facility] MCV 89.8 79.0 - 98.0 FL LAB HEMETOLOGY METHOD 01/16/2025 2:[address] [facility] MCH 29.9 27.0 - 32.0 pcg LAB HEMETOLOGY METHOD 01/16/2025 2:[address] [facility] MCHC 33.3 32.0 - 37.0 g/dL LAB HEMETOLOGY METHOD 01/16/2025 2:[address] [facility] RDW 13.1 11.0 - 15.0 % LAB HEMETOLOGY METHOD 01/16/2025 2:[address] [facility] Platelets 237 130 - 400 K/mcL LAB HEMETOLOGY METHOD 01/16/2025 2:[address] [facility] MPV 10.6 7.0 - 11.0 FL LAB HEMETOLOGY METHOD 01/16/2025 2:[address] [facility] NRBC 0.0 <1.0 % LAB HEMETOLOGY METHOD 01/16/2025 2:[address] [facility] NRBC Absolute 0.00 <0.10 K/mcL LAB HEMETOLOGY METHOD 01/16/2025 2:[address] [facility] Neutrophils Relative 63.5 % LAB HEMETOLOGY METHOD 01/16/2025 2:[address] [facility] Lymphocytes Relative 26.3 % LAB HEMETOLOGY METHOD 01/16/2025 2:[address] [facility] Monocytes Relative 8.2 % LAB HEMETOLOGY METHOD 01/16/2025 2:[address] [facility] Eosinophils Relative 1.0 % LAB HEMETOLOGY METHOD 01/16/2025 2:[address] [facility] Basophils Relative 0.3 % LAB HEMETOLOGY METHOD 01/16/2025 2:[address] [facility] Immature Granulocytes Relative 0.7 % LAB HEMETOLOGY METHOD 01/16/2025 2:[address] [facility] Neutrophils Absolute 5.49 1.50 - 7.00 K/mcL LAB HEMETOLOGY METHOD 01/16/2025 2:[address] [facility] Lymphocytes Absolute 2.28 1.00 - 5.00 K/mcL LAB HEMETOLOGY METHOD 01/16/2025 2:[address] [facility] Monocytes Absolute 0.71 0.20 - 1.00 K/mcL LAB HEMETOLOGY METHOD 01/16/2025 2:[address] [facility] Eosinophils Absolute 0.09 0.00 - 0.50 K/mcL LAB HEMETOLOGY METHOD 01/16/2025 2:[address] [facility] Basophils Absolute 0.03 0.00 - 0.20 K/mcL LAB HEMETOLOGY METHOD 01/16/2025 2:[address] [facility] Immature Granulocytes Absolute 0.06(H) 0.00 - 0.03 K/mcL LAB HEMETOLOGY METHOD 01/16/2025 2:[address] [facility] Blood Venous blood specimen / Unknown Venipuncture / Unknown 01/16/2025 11:16 AM EDT 01/16/2025 11:16 AM EDT us Darius Casanova MD LAB BLOOD ORDERABLES Final Res ult [facility] [address] [place] [address], [place] [phone] * Comprehensive metabolic panel (01/16/2025 11:16 AM EDT) Sodium 139 133 - 145 mmol/L LAB CHEMISTRY METHOD 01/16/2025 3:02 PM [facility] Potassium 4.5 3.5 - 5.5 mmol/L LAB CHEMISTRY METHOD 01/16/2025 3:02 PM [facility] Chloride 108 96 - 110 mmol/L LAB CHEMISTRY METHOD 01/16/2025 3:02 PM [facility] CO2 28 21 - 32 mmol/L LAB CHEMISTRY METHOD 01/16/2025 3:02 PM [facility] Anion Gap 3 3 - 11 LAB CHEMISTRY METHOD 01/16/2025 3:02 PM [facility] Glucose 93 70 - 100 mg/dL LAB CHEMISTRY METHOD 01/16/2025 3:02 PM [facility] BUN 14 5 - 25 mg/dL LAB CHEMISTRY METHOD 01/16/2025 3:02 PM [facility] Creatinine 0.78 0.50 - 1.10 mg/dL LAB CHEMISTRY METHOD 01/16/2025 3:02 PM [facility] eGFR 93 >=60 mL/min/1. 73m2 LAB CHEMISTRY METHOD 01/16/2025 3:02 PM [facility] Comment:Calculation based on the Chronic Kidney Disease Epidemiology Collaboration (CKD-EPI) equation refit without adjustment for race. BUN/Creatinine Ratio 17.9 LAB CHEMISTRY METHOD 01/16/2025 3:02 PM [facility] Calcium 9.4 8.5 - 10.5 mg/dL LAB CHEMISTRY METHOD 01/16/2025 3:02 PM [facility] AST (SGOT) 16 10 - 42 unit/L LAB CHEMISTRY METHOD 01/16/2025 3:[address] [facility] ALT (SGPT) 19 10 - 60 unit/L LAB CHEMISTRY METHOD 01/16/2025 3:[address] [facility] Alkaline Phosphatase 66 42 - 121 unit/L LAB CHEMISTRY METHOD 01/16/2025 3:[address] [facility] Total Protein 6.6 6.0 - 8.0 g/dL LAB CHEMISTRY METHOD 01/16/2025 3:[address] [facility] Albumin 3.9 3.2 - 5.0 g/dL LAB CHEMISTRY METHOD 01/16/2025 3:[address] [facility] Total Bilirubin 0.5 0.0 - 1.4 mg/dL LAB CHEMISTRY METHOD 01/16/2025 3:[address] [facility] Blood Venous blood specimen / Unknown Venipuncture / Unknown 01/16/2025 11:16 AM EDT 01/16/2025 11:16 AM EDT us Darius Casanova MD LAB BLOOD ORDERABLES Final Res ult [facility] [address] [place] [address], * BD Bone Density DXA Axial Skeleton (04/23/2024 2:04 PM EST) Anatomical Region Laterality Modality Wrist, Hip, L-spine Bone Densito metry 04/23/2024 5:13 PM EST Impressions 04/23/2024 5:14 PM EST Normal bone mineral density. [id number] -------- FINAL REPORT -------- Dictated By: Katiuska Rodriguez Dictated Date: 04/23/2024 17:13 ET Assigned Physician: Katiuska Rodriguez Reviewed and Electronically Signed By: Katiuska Rodriguez Signed Date: 04/23/2024 17:14 ET Workstation ID: [id number] Transcribed By: Self Edit Transcribed Date: 04/23/2024 17:13 ET Narrative 04/23/2024 5:14 PM EST History: Low estrogen state due to menopause. Current smoker. Comparison: No comparison imaging at this institution. Findings: Bone densitometry is performed utilizing dual energy x-ray absorptiometry (DXA) in the Knodiumigy unit. The lumbar spine and proximal femora [...] utilizing dual energy x-ray absorptiometry(DXA) in the [employer] Pro[employer]y unit. The lumbar spine and proximal [...] 0.0 percent. IMPRESSION: Normal bone mineral density. [id number] -------- FINAL REPORT -------- Dictated By: Katiuska Rodriguez Dictated Date: 04/23/2024 17:13 ET Assigned Physician: Katiuska Rodriguez Reviewed and Electronically Signed By: Katiuska Rodriguez Signed Date: 04/23/2024 17:14 ET Workstation ID: [id number] Transcribed By: Self Edit Transcribed Date: 04/23/2024 17:13 ET [facility] DXA PROCEDURES Final Result * [facility] SCREENING DIGITAL (02/16/2024 1:58 PM EDT) Anatomical Region Laterality Modality Mammography 02/15/2024 10:2 9 AM EDT Narrative 02/16/2024 1:58 PM EDT [facility] Diagnostic Imaging Department [address] [place] [id number] Patient: ALEXANDERMARQUITA /Age/Sex: 1975 - 49 - F Unit#: [id number] Location/Status: SPDIMAM/REG CLI Mnemonic/Ordering Site: [facility] Ordering Physician: DARIUS CASANOVA MD [facility] Screening Digital - 02/15/24 - 1622 Report Status:Signed EXAM: [facility] Screening Digital EXAM DATE AND TIME: 02/15/2024 4:22 PM HISTORY: Screening. Left breast biopsy in 2014, pathology benign. Aunt had breast carcinoma. COMPARISON: 09/20/22, 09/08/22, 12/30/20, 12/27/20, 09/09/16 TECHNIQUE: Bilateral digital breast tomosynthesis was performed in the CC and MLO projections. Computer aided detection with [employer] 3D 3.1 was employed. TISSUE DENSITY: b. [...] Mammogram performed at [facility] at [address] [place] [address] Dictating Physician: KATIUSKA RODRIGUEZ MD Electronically Signed by: KATIUSKA RODRIGUEZ MD Dic Date/Time: 02/16/24 1352 Sign date/Time: 02/16/24 1358 Procedure Note Katiuska Rodriguez MD - 03/06/2024 [facility] Diagnostic Imaging Department [address] [place] [address] Patient: MARQUITA ALEXANDER /Age/Sex: 1975 - 49 - F Unit#: [id number] Location/Status: [facility] CLI Mnemonic[facility] Order[facility] Physician: DARIUS CASANOVA MD [facility] Screening Digital - 02/15/24 - 1622 Report Status:Signed EXAM: [facility] Screening Digital EXAM DATE AND TIME: 02/15/2024 4:22 PM HISTORY: Screening. Left breast biopsy in 2014, pathology benign. Aunthad breast carcinoma. COMPARISON: 09/20/22, 09/08/22, 12/30/20, 12/27/20, 09/09/16 TECHNIQUE: Bilateral digital breast tomosynthesis was performed in the CCand MLO projections. Computer aided detection with [employer] 3D 3.1was employed. TISSUE DENSITY: b. There [...] Mammogram performed at [facility] at [address] [address] Dictating Physician: KATIUSKA RODRIGUEZ MD Electronically Signed by: KATIUSKA RODRIGUEZ MD Dic Date/Time: 02/16/24 1352 Sign date/Time: 02/16/24 1358 Darius Casanova MD IMG BI PROCEDURES Final Result * Cervical Cancer Screening: HPV (10/24/2020) Cervical Cancer Screening: HPV negative, abstracted Historical Provider HEALTH MAINTENANCE Final Result from Last 3 Months or Most Recently Relevant to Health Maintenance Insurance [facility] Care Teams Teller Vault Relationship Specialty Start Date End Date Darius Casanova MD [address] [place] [id number] PCP - General Oncology 12/20/19
--- OUTSIDE RECORDS SUMMARY | 2025-04-08 18:16 | XMS_ITS | Clinical Summary ---
Author Organization [facility] Address [address] [place] [address] Care Team Providers Care Executive Associate Name Role Phone Ross Casanova MD Primary Care Provider [phone] Allergies Active Allergy Reactions Criticality Noted Date [...] age to complete this topic Care Teams Executive Associate Relationship Specialty Start Date End Date Ross Casanova MD [address] [place] [phone] PCP - General Oncology 12/20/19
== END 2025-04-08 15:09 | disposition home or self-care (01) ==
LOC: HO.MAMMO 15:08
PROVIDERS: PCP Internal Medicine Medical Oncology; Visit Provider Obstetrics & Gynecology
DX: Z12.31 Encounter for screening mammogram for malignant neoplasm of breast (principal)
CPT/HCPCS: 77063; 77067